=== PATIENT | female | born 1985 | race Caucasian/White ===

== ENCOUNTER 2020-05-30 09:53 | Outpatient (REF) | payer OTHER, SELFPAY | END 2020-05-30 09:54 | disposition home or self-care (01) | LOC: HO.LAB 09:53 | PROVIDERS: Visit Provider Internal Medicine | DX: Z20.828 Contact with and (suspected) exposure to other viral communicable diseases (principal) | CPT/HCPCS: U0003 ==

== ENCOUNTER 2020-09-14 10:07 | Outpatient (REF) | payer OTHER, SELFPAY | END 2020-09-14 10:08 | disposition home or self-care (01) | LOC: HO.LAB 10:07 | PROVIDERS: PCP Internal Medicine; Visit Provider Internal Medicine | DX: Z20.822 Contact with and (suspected) exposure to COVID-19 (principal) | CPT/HCPCS: 36415; C9803; U0003; U0005 ==

== ENCOUNTER 2021-04-14 09:08 | Emergency (ER) | payer OTHER, SELFPAY ==
--- NOTE | ~2021-04-14 | CT_ITS ---
EXAMINATION: CT ANGIOGRAM OF THE CHEST WITH AND WITHOUT CONTRAST (CT PULMONARY ANGIOGRAM FOR PE) CLINICAL INFORMATION: Reason for Exam cp/sob/abd pain COMPARISON: Previous chest CT December 2018 and chest x-ray from earlier the same day TECHNIQUE: Prior to contrast administration, noncontrast localization images were obtained. Subsequently, multidetector volumetric imaging was performed from the thoracic inlet to below the diaphragms following the administration of 85 mL Omnipaque 350 intravenous contrast. No contrast reaction reported Sagittal, coronal, and MIP oblique sagittal reformatted images were obtained on the CT workstation, uploaded to PACS, and reviewed. This CT examination was performed using dose optimization techniques as appropriate, variously including the following: *Automated exposure control *Adjustment of mA and/or kV according to patient size (this includes techniques or standardized protocols for targeted exams where dose is matched to indication/reason for exam; i.e. extremities or head) *Use of iterative reconstruction technique Total exam dose-length product 222 mGy-cm FINDINGS: QUALITY OF STUDY/CONTRAST BOLUS: Satisfactory. PULMONARY ARTERIES: No central or segmental pulmonary emboli. THORACIC AORTA: No aneurysm or dissection. LUNG: No focal consolidation, nodules or masses. PLEURA: No pleural effusion or pneumothorax. MEDIASTINUM: Normal heart size. No pericardial effusion. No hilar or mediastinal lymphadenopathy. No evidence of septal bowing or right heart strain. CHEST WALL/AXILLA: No axillary or internal mammary lymphadenopathy. OSSEOUS STRUCTURES: No acute or suspicious osseous abnormality. UPPER ABDOMEN: Unremarkable. No reflux of contrast into the hepatic veins to suggest elevated right heart pressures. CT/CT angio chest PE protocol IMPRESSION: Unremarkable exam. VTE: negative
--- NOTE | ~2021-04-14 | CT_ITS ---
EXAMINATION: CT ABDOMEN AND PELVIS WITH CONTRAST CLINICAL INFORMATION: Abdominal pain COMPARISON: Previous CT of the abdomen and pelvis April 2016 and abdominal ultrasound August 2016 and pelvic ultrasound June 2019 TECHNIQUE: Multidetector volumetric images were obtained from the superior aspect of the liver through the pubic symphysis following administration 85 mL of Omnipaque 350 intravenous contrast. Sagittal and coronal reformatted images were obtained on the technologist's workstation. Oral contrast: Yes This CT examination was performed using dose optimization techniques as appropriate, variously including the following: *Automated exposure control *Adjustment of mA and/or kV according to patient size (this includes techniques or standardized protocols for targeted exams where dose is matched to indication/reason for exam; i.e. extremities or head) *Use of iterative reconstruction technique DLP: 616 mGy-cm FINDINGS: LUNG BASES: The visualized lung bases are unremarkable. LIVER, GALLBLADDER, AND BILIARY TREE: The liver is normal in size, shape, and attenuation. No focal hepatic lesion or biliary ductal dilatation is present. The gallbladder is unremarkable with no evidence of radiopaque gallstones, gallbladder wall thickening, or obvious pericholecystic inflammatory changes. PANCREAS: Unremarkable. SPLEEN: Unremarkable. ADRENAL GLANDS: Unremarkable. KIDNEYS AND URETERS: The kidneys are normal in size, shape, and attenuation. No hydronephrosis, hydroureter, or calculi seen. No perinephric stranding. BLADDER: Unremarkable. GASTROINTESTINAL TRACT: The small and large bowel are unremarkable. The appendix is not seen. ABDOMINAL WALL: There is a small umbilical hernia containing fat. LYMPH NODES: Normal. VASCULAR: Unremarkable. PELVIC VISCERA: Unremarkable. OSSEOUS STRUCTURES: There is degenerative disc disease at L5-S1. CT/CT abdomen pelvis w con IMPRESSION: Small umbilical hernia containing fat otherwise unremarkable exam.
--- NOTE | ~2021-04-14 | XR_ITS ---
EXAMINATION: XR CHEST CLINICAL INFORMATION: Left upper quadrant, right upper quadrant pain. Chest pain. COMPARISON: None TECHNIQUE: 2 views of the chest were obtained. FINDINGS: No significant abnormality is noted involving the heart, lungs, mediastinum, bony thorax or soft tissues. XR/XR chest 2V IMPRESSION: Unremarkable chest examination.
[2021-04-14 10:21] VITALS: BP 131/92; PULSE 79; RESP 16; TEMP 36.9; O2SAT 99; BMI 23.7
--- NOTE | 2021-04-14 10:28 | ED.GENADULT ---
HPI - General Adult General Chief complaint: Upper Respiratory Symptoms Stated complaint: body ache, cough, headache Time Seen by Provider: 04/14/21 09:57 Source: patient Mode of arrival: ambulatory Limitations: no limitations History of Present Illness HPI narrative: This is a 35-year-old female who presents to the emergency department with multiple complaints. She states that today she is having upper abdominal pain that started 2 days ago and has been constant in nature. She describes as stabbing pain. This stomach pain does not radiate. She also notes that her stomach is more bloated than usual of late. She adds that she has been having centralized chest pain that radiates to her left arm, that started yesterday she says today it is intermittent in nature, and that she usually does not get chest pain. She also complains about left-sided neck pain, right under the mandible. She reports fatigue/muscleaches that has been constant for 2 days, and worsening. Shortness of breath is present, with exertion, also started 2 days ago. She denies fevers, trouble with urination, back pain, chills, nausea, vomiting and diarrhea. She denies recent travel, and being around anybody with COVID-19. Past medical history significant for anxiety, sarcoidosis, asthma, and fibromyalgia. Patient's last menstrual period was a week ago Onset (ago): day(s) (Two) Location: chest (Centralized chest pain with radiation to the left arm) and abdomen (Left and right upper quadrant pain.) Severity: moderate Severity scale (1-10): 8 Quality: stabbing (Stabbing chest pain) and constant (Constant abdominal pain) Related Data Previous Rx's Medication Instructions Recorded acetaminophen 500 mg tablet 1,000 mg PO QID PRN #14 tab 04/14/21 (Tylenol Extra Strength) cyclobenzaprine 10 mg tablet 10 mg PO Q8H #10 tab 04/14/21 Allergies Allergy/AdvReac Type Severity Reaction Status Date / Time morphine [MORPHINE] Allergy Intermediate RASH, Unverified 04/16/20 15:40 headache, redness, throat swelling sumatriptan [From IMITREX] Allergy Mild ITCHING Unverified 04/16/20 15:40 azithromycin Allergy Unknown facial Verified 11/21/19 00:00 redness penicillin V Allergy Unknown swollen, Unverified 02/25/20 00:00 swelling Penicillins [PENICILLINS] Allergy Unknown ANAPHYLAXIS Unverified 04/16/20 15:40 From IMITREX Allergy Mild ITCHING Uncoded 04/16/20 15:40 Review of Systems Constitutional: Constitutional: Reports fatigue and Reports malaise Eyes: Eyes: Reports no additional eye complaints ENT: Reports system reviewed and no additional complaints, except as documented Cardiovascular: Cardiovascular: Reports as per HPI, Reports chest pain (Chest pain with radiation to the left IM), Reports dyspnea and Reports dyspnea on exertion Respiratory: Respiratory: Reports dyspnea and Reports dyspnea on exertion Gastrointestinal: Gastrointestinal: Reports no additional gastrointestinal complaints Musculoskeletal: Musculoskeletal: Reports muscle weakness and Reports other (Complains of muscle fatigue) Endocrine: Endocrine: Reports fatigue [facility] Past Medical History Medical History (Updated 04/14/21 @ 13:53 by DAVON Stratton) Asthma Asthma Sarcoidosis Surgical History (Updated 04/14/21 @ 10:25 by Mattie Contreras) History of appendectomy Previous section Social History Social History Advance Directives: No Advance Directives Information Provided: No Patient : No Physical Exam Vital Signs: Vital Signs: Last Vital Signs Temp 97.9 F 04/14/21 12:53 Pulse 77 04/14/21 12:53 Resp 18 04/14/21 12:53 BP 120/74 04/14/21 12:53 Pulse Ox 100 04/14/21 12:53 Body Mass Index 23.7 vital signs have been reviewed as normal and appeared to be correct. Blood pressure normal. Heart rate normal. Respiration rate normal. Temperature normal. Oxygen saturation normal. Appearance: Alert. Oriented X3. No acute distress. Eyes: PERRLA. EOMI. Conjunctiva and sclera normal. Eyelids normal. No trismus noted. No drooling noted. No muffled voice noted. Neck: Normal inspection. Pain to the left side of the neck, inferior to the mandible. No masses or lumps noted. CVS: Normal heart rate and rhythm. Heart sound normal. Pulses normal throughout. No murmurs/rales/gallops. Respiratory: No respiratory distress. Painless inspiration. Breath sounds normal. No wheezes/rales/rhonchi noted. Chest nontender. No accessory muscle usage noted or decreased air movement noted. Abdomen: Soft and tender to palpation to the left and right upper quad acts Bowel sounds normal in all 4 quadrants. distention noted. No organomegaly noted. No visible injury noted. Back: No CVA tenderness. Full range of motion noted. No rashes/lesion/induration/fluctuance or signs of infection noted. Skin: Skin warm and dry. Normal skin color. Normal skin turgor. No rashes/lesions/lacerations noted. Extremities: No lower extremity edema. Extremities exhibit normal range of motion. Extremities nontender. Neuro: Oriented X 3. No motor deficit. No sensory deficit. Reflexes normal. Normal steady gait. No focal neuro deficits noted. Vascular: + radial pulses/+ 2 distal pedal pulses/+2 dorsalis pedis b/l. Normal cap refill. No cyanosis noted to upper extremity nails and lower extremity toes nails. Course Course Course Narrative: 10:40pm - This is a 35-year-old female who presents to the emergency department with multiple complaints.? She states that today she is having upper abdominal pain that started 2 days ago and has been constant in nature.? She describes as stabbing pain.? This stomach pain does not radiate.? She also notes that her stomach is more bloated than usual of late.? She adds that she has? been having centralized chest pain that radiates to her left arm, that started yesterday she says today it is intermittent in nature, and that she usually does not get chest pain.? She also complains about left-sided neck pain, right under the mandible.? She reports fatigue/muscleaches that has been constant for 2 days, and worsening.? Shortness of breath is present, with exertion, also started 2 days ago. ? Plan: ordered basic labs, chest x-ray, CT of the abdomen and chest, EKG and urine. Along with COVID RSV and flu swab. After carefully reviewing laboratory studies, urine, EKG, and imaging is probable that this is musculoskeletal in nature. It is unclear what is causing this patient's chest pain therefore, it is likely an atypical chest pain. There is no signs of serious cardiac etiologies. ACS, PE, myocarditis, pericarditis have all been ruled out. CT of abdomen and pelvis did reveal a small umbilical hernia that is not incarcerated, however it is unlikely that this is causing her abdominal pain. Medical Decision Making Lab Data Result diagrams: 04/14/21 11:39 04/14/21 11:39 Labs: Lab Results 04/14/21 04/14/21 04/14/21 Range/Units 10:28 10:28 11:39 WBC 7.9 (4.8-10.8) X10*3/uL RBC 4.22 (4.20-5.50) X10*6/uL Hgb 11.2 L (12.0-16.0) g/dl Hct 35.2 L (37-47) % MCV 83.4 (80-98) fL MCH 26.5 L (27.0-33.0) pg MCHC 31.8 (31.0-35.0) g/dl RDW 14.6 (11.0-16.0) % Plt Count 369 (160-400) X10*3/uL MPV 9.9 (9.4-12.3) fL Immature Gran % (Auto) 0.3 (0.0-0.4) % Neut % (Auto) 54.8 (45-73) % Lymph % (Auto) 36.5 (20-40) % [place] % (Auto) 5.7 (2-11) % Eos % (Auto) 1.9 (0-4) % Baso % (Auto) 0.8 (0-2) % Lymph # (Auto) 2.9 (1.2-4.9) X10*3/uL [place] # (Auto) 0.5 (0.1-1.2) X10*3/uL Eos # (Auto) 0.2 (0.0-0.4) X10*3/uL Baso # (Auto) 0.1 (0.0-0.2) X10*3/uL Abs Immat Gran (auto) 0.02 (0.00-0.03) X10*3/uL Absolute Neuts (auto) 4.3 (2.0-8.3) X10*3/uL Absolute Nucleated RBC 0.000 (0.0-0.012) X10*3/uL Nucleated RBC % (auto) 0.0 (0.0-0.2) /100WBC PT (9.9-13.0) SEC INR (0.9-1.1) Sodium (135-145) mmol/L Potassium (3.3-5.1) mmol/L Chloride (96-108) mmol/L Carbon Dioxide (22-29) mmol/L Anion Gap (12-20) BUN (9-16) mg/dL Creatinine (0.5-1.4) mg/dL Estim Creat Clear Calc Estimated GFR Random Glucose (60-115) mg/dL Calcium (8.4-10.2) mg/dL Magnesium (1.6-2.6) mg/dL Total Bilirubin (0.0-1.0) mg/dL AST (5-31) U/L ALT (0-31) U/L Alkaline Phosphatase (39-117) U/L Troponin I High Sens (<3.5-17.0) ng/L Total Protein (6.5-8.0) g/dL Albumin (3.5-5.0) g/dL Lipase (8-78) U/L Urine Color Urine Appearance Urine pH (5.0-8.0) Ur Specific [place] (1.005-1.025) Urine Protein (NEG-TRACE) MG/DL Urine Glucose (UA) (NEG) MG/DL Urine Ketones (NEG) MG/DL Urine Blood (NEG) Urine Nitrite (NEG) Ur Leukocyte Esterase (NEG) Urine RBC (0) /HPF Urine WBC (0-4) /HPF Ur Squamous Epith Cells /LPF Urine Bacteria /LPF Urine Mucus /LPF Urine Test (NEGATIVE) Coronavirus (PCR) NEGATIVE (Negative) Influenza Type A (PCR) NEGATIVE (Negative) Influenza Type B (PCR) NEGATIVE (Negative) RSV RNA Qual (PCR) NEGATIVE (Negative) S. pyogenes GrpA MAN Negative (Negative) 04/14/21 04/14/21 04/14/21 Range/Units 11:39 11:39 11:39 WBC (4.8-10.8) X10*3/uL RBC (4.20-5.50) X10*6/uL Hgb (12.0-16.0) g/dl Hct (37-47) % MCV (80-98) fL MCH (27.0-33.0) pg MCHC (31.0-35.0) g/dl RDW (11.0-16.0) % Plt Count (160-400) X10*3/uL MPV (9.4-12.3) fL Immature Gran % (Auto) (0.0-0.4) % Neut % (Auto) (45-73) % Lymph % (Auto) (20-40) % [place] % (Auto) (2-11) % Eos % (Auto) (0-4) % Baso % (Auto) (0-2) % Lymph # (Auto) (1.2-4.9) X10*3/uL [place] # (Auto) (0.1-1.2) X10*3/uL Eos # (Auto) (0.0-0.4) X10*3/uL Baso # (Auto) (0.0-0.2) X10*3/uL Abs Immat Gran (auto) (0.00-0.03) X10*3/uL Absolute Neuts (auto) (2.0-8.3) X10*3/uL Absolute Nucleated RBC (0.0-0.012) X10*3/uL Nucleated RBC % (auto) (0.0-0.2) /100WBC PT 10.8 (9.9-13.0) SEC INR 1.0 (0.9-1.1) Sodium 138 (135-145) mmol/L Potassium 4.4 (3.3-5.1) mmol/L Chloride 105 (96-108) mmol/L Carbon Dioxide 27 (22-29) mmol/L Anion Gap 10 L (12-20) BUN 14 (9-16) mg/dL Creatinine 0.77 (0.5-1.4) mg/dL Estim Creat Clear Calc 95.5 Estimated GFR > 60 Random Glucose 93 (60-115) mg/dL Calcium 9.8 (8.4-10.2) mg/dL Magnesium 2.2 (1.6-2.6) mg/dL Total Bilirubin 0.5 (0.0-1.0) mg/dL AST 14 (5-31) U/L ALT 11 (0-31) U/L Alkaline Phosphatase 69 (39-117) U/L Troponin I High Sens < 3.5 (<3.5-17.0) ng/L Total Protein 7.6 (6.5-8.0) g/dL Albumin 4.2 (3.5-5.0) g/dL Lipase 72 (8-78) U/L Urine Color Urine Appearance Urine pH (5.0-8.0) Ur Specific [place] (1.005-1.025) Urine Protein (NEG-TRACE) MG/DL Urine Glucose (UA) (NEG) MG/DL Urine Ketones (NEG) MG/DL Urine Blood (NEG) Urine Nitrite (NEG) Ur Leukocyte Esterase (NEG) Urine RBC (0) /HPF Urine WBC (0-4) /HPF Ur Squamous Epith Cells /LPF Urine Bacteria /LPF Urine Mucus /LPF Urine Test (NEGATIVE) Coronavirus (PCR) (Negative) Influenza Type A (PCR) (Negative) Influenza Type B (PCR) (Negative) RSV RNA Qual (PCR) (Negative) S. pyogenes GrpA MAN (Negative) 04/14/21 04/14/21 Range/Units 11:41 11:41 WBC (4.8-10.8) X10*3/uL RBC (4.20-5.50) X10*6/uL Hgb (12.0-16.0) g/dl Hct (37-47) % MCV (80-98) fL MCH (27.0-33.0) pg MCHC (31.0-35.0) g/dl RDW (11.0-16.0) % Plt Count (160-400) X10*3/uL MPV (9.4-12.3) fL Immature Gran % (Auto) (0.0-0.4) % Neut % (Auto) (45-73) % Lymph % (Auto) (20-40) % [place] % (Auto) (2-11) % Eos % (Auto) (0-4) % Baso % (Auto) (0-2) % Lymph # (Auto) (1.2-4.9) X10*3/uL [place] # (Auto) (0.1-1.2) X10*3/uL Eos # (Auto) (0.0-0.4) X10*3/uL Baso # (Auto) (0.0-0.2) X10*3/uL Abs Immat Gran (auto) (0.00-0.03) X10*3/uL Absolute Neuts (auto) (2.0-8.3) X10*3/uL Absolute Nucleated RBC (0.0-0.012) X10*3/uL Nucleated RBC % (auto) (0.0-0.2) /100WBC PT (9.9-13.0) SEC INR (0.9-1.1) Sodium (135-145) mmol/L Potassium (3.3-5.1) mmol/L Chloride (96-108) mmol/L Carbon Dioxide (22-29) mmol/L Anion Gap (12-20) BUN (9-16) mg/dL Creatinine (0.5-1.4) mg/dL Estim Creat Clear Calc Estimated GFR Random Glucose (60-115) mg/dL Calcium (8.4-10.2) mg/dL Magnesium (1.6-2.6) mg/dL Total Bilirubin (0.0-1.0) mg/dL AST (5-31) U/L ALT (0-31) U/L Alkaline Phosphatase (39-117) U/L Troponin I High Sens (<3.5-17.0) ng/L Total Protein (6.5-8.0) g/dL Albumin (3.5-5.0) g/dL Lipase (8-78) U/L Urine Color YELLOW Urine Appearance HAZY Urine pH 6.0 (5.0-8.0) Ur Specific [place] >= 1.030 H (1.005-1.025) Urine Protein NEG (NEG-TRACE) MG/DL Urine Glucose (UA) NEG (NEG) MG/DL Urine Ketones NEG (NEG) MG/DL Urine Blood TRACE (NEG) Urine Nitrite NEG (NEG) Ur Leukocyte Esterase NEG (NEG) Urine RBC 0-2 (0) /HPF Urine WBC 0-2 (0-4) /HPF Ur Squamous Epith Cells 3+ /LPF Urine Bacteria TRACE /LPF Urine Mucus 3+ /LPF Urine Test NEGATIVE (NEGATIVE) Coronavirus (PCR) (Negative) Influenza Type A (PCR) (Negative) Influenza Type B (PCR) (Negative) RSV RNA Qual (PCR) (Negative) S. pyogenes GrpA MAN (Negative) Imaging Data Chest x-ray: Attestation: I personally reviewed and interpreted this imaging study as follows: Radiologist's impression: FINDINGS: No significant abnormality is noted involving the heart, lungs, mediastinum, bony thorax or soft tissues. XR/XR chest 2V IMPRESSION: Unremarkable chest examination. Chest CTA: Attestation: I personally reviewed and interpreted this imaging study as follows: Radiologist's impression: FINDINGS: QUALITY OF STUDY/CONTRAST BOLUS: Satisfactory. PULMONARY ARTERIES: No central or segmental pulmonary emboli.? THORACIC AORTA: No aneurysm or dissection. LUNG: No focal consolidation, nodules or masses. PLEURA: No pleural effusion or pneumothorax. MEDIASTINUM: Normal heart size.? No pericardial effusion.? No hilar or mediastinal lymphadenopathy.? No evidence of septal bowing or right heart strain. CHEST WALL/AXILLA: No axillary or internal mammary lymphadenopathy. OSSEOUS STRUCTURES: No acute or suspicious osseous abnormality.? UPPER ABDOMEN: Unremarkable.? No reflux of contrast into the hepatic veins to suggest elevated right heart pressures. CT/CT angio chest PE protocol IMPRESSION: Unremarkable exam. ? VTE: negative CT of abdomen and pelvis: Attestation: I personally reviewed and interpreted this imaging study as follows: Radiologist's impression: FINDINGS: LUNG BASES: The visualized lung bases are unremarkable.? LIVER, GALLBLADDER, AND BILIARY TREE: The liver is normal in size, shape, and attenuation. No focal hepatic lesion or biliary ductal dilatation is present. The gallbladder is unremarkable with no evidence of radiopaque gallstones, gallbladder wall thickening, or obvious pericholecystic inflammatory changes.? PANCREAS: Unremarkable.? SPLEEN: Unremarkable.? ADRENAL GLANDS: Unremarkable.? KIDNEYS AND URETERS: The kidneys are normal in size, shape, and attenuation. No hydronephrosis, hydroureter, or calculi seen. No perinephric stranding. ? BLADDER: Unremarkable.? GASTROINTESTINAL TRACT: The small and large bowel are unremarkable. The appendix is not seen.? ABDOMINAL WALL: There is a small umbilical hernia containing fat.? LYMPH NODES: Normal. VASCULAR: Unremarkable. PELVIC VISCERA: Unremarkable.? OSSEOUS STRUCTURES: There is degenerative disc disease at L5-S1.? CT/CT abdomen pelvis w con IMPRESSION: Small umbilical hernia containing fat otherwise unremarkable exam. ECG Data Attestation: I personally reviewed and interpreted this ECG as follows: Prior ECG tracings: not available for review Interpretation: Normal sinus rhythm with a normal ECG with a ventricular rate of 67 ME interval normal QRS normal QT/QTC Jennifer no ischemic changes noted. No previous EKG to compare. Discharge Plan Discharge Clinical Impression: Atypical chest pain, Abdominal pain, Back pain, Hernia, umbilical Patient Disposition: Home, Self-Care Instructions: Umbilical Hernia (ED), Abdominal Pain (ED), Back Pain (ED), Noncardiac Chest Pain (ED) Prescriptions: New cyclobenzaprine 10 mg tablet 10 mg PO Q8H Qty: 10 RF: 0 acetaminophen [Tylenol Extra Strength] 500 mg tablet 1,000 mg PO QID PRN (Reason: fever or pain) Qty: 14 RF: 0 Referrals: Doroteo Jaffe MD [Physician] - 2 weeks (You can choose to follow up with general surgery, to discuss treatment options for your umbilical hernia.) Josefina Stacy MD [Primary Care Provider] - 2 days Stand Alone Forms: Work/School Release Print Language: [place]ian
--- NOTE | 2021-04-14 10:37 | ECG_ITS ---
Test Reason : SOB Blood Pressure : / mmHG Vent. Rate : 067 BPM Atrial Rate : 067 BPM P-R Int : 160 ms QRS Dur : 080 ms QT Int : 418 ms P-R-T Axes : 033 046 037 degrees QTc Int : 441 ms Normal sinus rhythm Normal ECG When compared with ECG of 05-DEC-2014 21:23, No significant change was found Referred By: Ketty Schaeffer Electronically Signed By:ALICE APODACA
[2021-04-14 10:47] LABS: IDNOW Serial# 9DD0AD1C; Strep A Nucleic Acid Negative (Negative)
[2021-04-14 11:30] LABS: Influenza A PCR NEGATIVE (Negative); Influenza B PCR NEGATIVE (Negative); Resp Syncy Virus RNA Qual PCR NEGATIVE (Negative); SARS COV2 PCR INHOUSE NEGATIVE (Negative)
[2021-04-14 11:46] LABS: MANUAL DIFF FLAG NO
[2021-04-14 11:47] LABS: Appearance Urine HAZY; Color Urine YELLOW; Glucose Urine UA NEG (NEG); Leukocyte Esterase Urine NEG (NEG); Nitrite Urine NEG (NEG); Specific Gravity - Urine >= 1.030 (1.005-1.025); UACC Culture Trigger NO; Urine Blood TRACE (NEG); Urine Ketones NEG (NEG); Urine Protein NEG (NEG-TRACE)
[2021-04-14 11:47] LABS: Basophils Absolute Auto 0.1 X10*3/uL (0.0-0.2); Basophils Percent Auto 0.8 % (0-2); Eosinophils Absolute Auto 0.2 X10*3/uL (0.0-0.4); Eosinophils Percent Auto 1.9 % (0-4); Hematocrit 35.2 % (37-47); Hemoglobin 11.2 g/dl (12.0-16.0); Imm Gran Abs Auto 0.02 X10*3/uL (0.00-0.03); Imm Gran Pct Auto 0.3 % (0.0-0.4); Lymphocytes Absolute Auto 2.9 X10*3/uL (1.2-4.9); Lymphocytes Percent Auto 36.5 % (20-40); Mean Corpuscular HGB Conc 31.8 g/dl (31.0-35.0); Mean Corpuscular Hemoglobin 26.5 pg (27.0-33.0); Mean Corpuscular Volume 83.4 fL (80-98); Mean Platelet Volume 9.9 fL (9.4-12.3); Monocytes Absolute Auto 0.5 X10*3/uL (0.1-1.2); Monocytes Percent Auto 5.7 % (2-11); Neutrophils Absolute Auto 4.3 X10*3/uL (2.0-8.3); Neutrophils Percent Auto 54.8 % (45-73); Platelet Count 369 X10*3/uL (160-400); Red Blood Count 4.22 X10*6/uL (4.20-5.50); Red Cell Distribution Width 14.6 % (11.0-16.0); White Blood Count 7.9 X10*3/uL (4.8-10.8)
[2021-04-14] MEDS: 0.9 % Sodium Chloride 1,000 ML 999 ML IVCONT (11:50)
[2021-04-14] MEDS: Ketorolac Tromethamine 15 MG/ML VIAL 30 MG IVPUSH (11:50)
[2021-04-14 11:56] LABS: WBC Urine 0-2 /HPF (0-4)
[2021-04-14 11:57] LABS: Bacteria Urine TRACE /LPF; Mucus Urine 3+ /LPF; RBC Urine 0-2 /HPF (0); Squamous Epithelial Cell Urine 3+ /LPF
[2021-04-14 11:57] LABS: Prothrombin Time 10.8 SEC (9.9-13.0)
[2021-04-14 12:10] LABS: UPreg QC Valid YES
[2021-04-14 12:11] LABS: Urine Pregnancy NEGATIVE (NEGATIVE)
[2021-04-14 12:16] LABS: Alanine Aminotransferase 11 U/L (0-31); Albumin Level 4.2 g/dL (3.5-5.0); Alkaline Phosphatase 69 U/L (39-117); Anion Gap 10 (12-20); Aspartate Amino Transferase 14 U/L (5-31); Bilirubin Total 0.5 mg/dL (0.0-1.0); Blood Urea Nitrogen 14 mg/dL (9-16); Calcium 9.8 mg/dL (8.4-10.2); Carbon Dioxide 27 mmol/L (22-29); Chloride 105 mmol/L (96-108); Creatinine Clr Calc Pharmacy 95.5; Estimated Glomerular Filt Rate > 60; Glucose Random 93 mg/dL (60-115); Lipase 72 U/L (8-78); Magnesium 2.2 mg/dL (1.6-2.6); Potassium 4.4 mmol/L (3.3-5.1); Sodium 138 mmol/L (135-145); Total Protein 7.6 g/dL (6.5-8.0)
[2021-04-14 12:38] LABS: Troponin-I High Sensitivity < 3.5 ng/L (<3.5-17.0)
[2021-04-14 12:53] VITALS: BP 120/74; PULSE 77; RESP 18; TEMP 36.6; O2SAT 100
[2021-04-14] MEDS: iohexoL 350 MG/ML 100 ML INFUS..BTL 85 ML IV (13:19)
== END 2021-04-14 14:07 | disposition home or self-care (01) ==
PROVIDERS: Physician Assistant Medical; Emergency Provider Emergency Medicine; PCP Internal Medicine
DX: M79.10 Myalgia, unspecified site (principal); R51.9 Headache, unspecified; R07.89 Other chest pain; M54.5 Low back pain; K42.9 Umbilical hernia without obstruction or gangrene; Z79.899 Other long term (current) drug therapy
CPT/HCPCS: 0241U; 36415; 71046; 71275; 74177; 80053; 81001; 81025; 83690; 83735; 84484; 85025; 85610; 87651; 93005; 96361; 96374; 99284; J1885; Q9967

== ENCOUNTER → 2021-04-15 10:57 | Outpatient (BNVA) | payer OTHER, SELFPAY | PROVIDERS: PCP Internal Medicine; Visit Provider Nurse Practitioner Family | DX: I73.00 Raynaud's syndrome without gangrene (principal); M41.25 Other idiopathic scoliosis, thoracolumbar region; M25.50 Pain in unspecified joint | CPT/HCPCS: 99212 ==

== ENCOUNTER 2021-07-13 14:50 | Emergency (ER) | payer OTHER, SELFPAY ==
[2021-07-13 15:05] VITALS: BP 155/86; PULSE 78; RESP 18; TEMP 36.1; O2SAT 98; BMI 26.3
== END 2021-07-13 18:44 | disposition left against medical advice (07) ==
PROVIDERS: Emergency Provider Emergency Medicine; PCP Internal Medicine
DX: J02.9 Acute pharyngitis, unspecified (principal)
CPT/HCPCS: 99281; 99282

== ENCOUNTER 2021-07-16 15:55 | Emergency (ER) | payer OTHER, SELFPAY ==
--- NOTE | ~2021-07-16 | XR_ITS ---
EXAMINATION: X-RAY CHEST X-RAY SOFT TISSUES OF THE NECK CLINICAL INFORMATION: Lump sensation in the throat. COMPARISON: CTA of the chest dated from 04/14/2021. TECHNIQUE: PA view of the chest. AP and lateral views of the soft tissues of the neck. FINDINGS: Chest: Normal appearance of the cardiomediastinal silhouette. Clear lungs. No pleural effusions or pneumothorax. No acute osseous abnormalities. Soft tissues of the neck: No unexpected radiopaque foreign bodies. Patent airways. No prevertebral soft tissue thickening. No acute osseous fractures or malalignment within the visualized cervical spine. XR/XR soft tissue neck IMPRESSION: No unexpected radiopaque foreign bodies to explain the patient's symptoms. Clear lungs. No acute cervical spinal fractures or malalignment.
--- NOTE | ~2021-07-16 | XR_ITS ---
EXAMINATION: X-RAY CHEST X-RAY SOFT TISSUES OF THE NECK CLINICAL INFORMATION: Lump sensation in the throat. COMPARISON: CTA of the chest dated from 04/14/2021. TECHNIQUE: PA view of the chest. AP and lateral views of the soft tissues of the neck. FINDINGS: Chest: Normal appearance of the cardiomediastinal silhouette. Clear lungs. No pleural effusions or pneumothorax. No acute osseous abnormalities. Soft tissues of the neck: No unexpected radiopaque foreign bodies. Patent airways. No prevertebral soft tissue thickening. No acute osseous fractures or malalignment within the visualized cervical spine. XR/XR chest 1V IMPRESSION: No unexpected radiopaque foreign bodies to explain the patient's symptoms. Clear lungs. No acute cervical spinal fractures or malalignment.
[2021-07-16 16:16] VITALS: BP 145/75; PULSE 80; RESP 18; TEMP 36.9; O2SAT 98; BMI 26.3
[2021-07-16 17:20] LABS: IDNOW Serial# 9DD0AD1C; Strep A Nucleic Acid Negative (Negative)
[2021-07-16 17:23] LABS: COVID-19 Test Negative (Negative)
--- NOTE | 2021-07-16 17:52 | ED.URI ---
HPI - URI/Sore Throat General Chief Complaint: Upper Respiratory Symptoms Stated Complaint: neck and throat pain Time Seen by Provider: 07/16/21 16:52 Source: patient Mode of arrival: ambulatory History of Present Illness HPI Narrative: 36-year-old female with a past medical history of asthma, sarcoidosis, sinusitis recently started on doxycycline on 07/13, known hernia, presenting to the ED complaining of feeling like there is a lump in her throat x2 weeks. Reports difficulty swallowing secondary to sensation. Also reports tongue swelling after starting Doxycycline, subsequently stopped and tongue swelling resolved. Denies tongue swelling at present. Patient was recently seen at PCP office on 07/13 and 07/14, prescribed Protonix which she has not picked up yet. Reports pain now radiating from neck to head/left upper back. Denies known injury/trauma or fall, SOB, CP, fever, chills MD elicited complaint: sore throat Related Data Home Medications Medication Instructions Recorded Confirmed albuterol sulfate 90 mcg/actuation 2 puff INHALATION Q6H PRN 04/15/21 07/14/21 aerosol inhaler (ProAir HFA) Previous Rx's Medication Instructions Recorded acetaminophen 500 mg tablet 1,000 mg PO QID PRN #14 tab 04/14/21 (Tylenol Extra Strength) cyclobenzaprine 10 mg tablet 10 mg PO Q8H #10 tab 04/14/21 naproxen 500 mg tablet (Naprosyn) 500 mg PO BID PRN #30 tab 07/13/21 pantoprazole 20 mg tablet,delayed 20 mg PO DAILY #30 tab 07/14/21 release aluminum-mag hydroxide-simethicone 5 ml PO 5XD PRN #30 ml 07/16/21 200 mg-200 mg-20 mg/5 mL oral susp (Maalox Advanced) famotidine 20 mg tablet (Pepcid) 20 mg PO DAILY #14 tab 07/16/21 levofloxacin 750 mg tablet 750 mg PO DAILY #5 tab 07/16/21 Allergies Allergy/AdvReac Type Severity Reaction Status Date / Time morphine [MORPHINE] Allergy Intermediate RASH, Verified 07/16/21 16:16 headache, redness, throat swelling sumatriptan [From IMITREX] Allergy Mild ITCHING Verified 07/16/21 16:16 azithromycin Allergy Unknown facial Verified 07/16/21 16:16 redness penicillin V Allergy Unknown swollen, Verified 07/16/21 16:16 swelling Penicillins [PENICILLINS] Allergy Unknown ANAPHYLAXIS Verified 07/16/21 16:16 From IMITREX Allergy Mild ITCHING Uncoded 07/14/21 09:53 Review of Systems Review of Systems: Constitutional: No Fever, No Chills, No Night Sweats, No Fatigue, No Malaise ENT/Mouth: No Ear Pain, No Nasal Congestion, +Sinus Pain, No Hoarseness, +sore throat, No Rhinorrhea, + Swallowing Difficulty Eyes: No Eye Pain, No Discharge, No Vision Changes Cardiovascular: No Chest Pain, No SOB, No Edema, No Palpitations Respiratory: No Cough, No Wheezing, No Dyspnea Gastrointestinal: No Nausea, No Vomiting, No Diarrhea, No Constipation, No Abdominal pain Genitourinary:No Dysuria, No Urinary Frequency, No Hematuria,No Urgency Musculoskeletal: + joint pain, + Myalgias, No Joint Swelling Skin: No Skin Lesions, No rash Neuro: No Weakness, No Numbness, No Paresthesias, No Loss of Consciousness, No Dizziness, + Headache Yes all other systems are reviewed and are negative [facility] Past Medical History Attestation statement: The following information was validated with the patient. Medical History Asthma Asthma Sarcoidosis Surgical History H/O esophagogastroduodenoscopy History of appendectomy History of tubal ligation Previous section Social History Social History Alcohol intake: never Patient Tobacco Use Status: Never used Tobacco e-Cigarette/Vaping Use: Never Used Advance Directives: No Advance Directives Information Provided: Yes Physical Exam Vital Signs: Vital Signs: Last Vital Signs Temp 98.4 F 07/16/21 16:16 Pulse 80 07/16/21 16:16 Resp 18 07/16/21 16:16 BP 145/75 H 07/16/21 16:16 Pulse Ox 98 07/16/21 16:16 BMI result Body Mass Index 26.3 Const: General: cooperative, healthy appearing, no acute distress, alert, awake and Physically active Orientation/consciousness: patient oriented x3 Limitations: no limitations HENMT: Head: Yes normal to inspection and Yes atraumatic Ears: hearing grossly normal bilaterally, external ears normal, TM normal on the right, mastoids normal and unable to visualize TM on the left (Due to cerumen impaction) General nose exam: Normal external nose present Face and sinus: Yes normal facial exam Mouth: Normal oral and palatal mucosa present, no drooling, no muffled voice, normal tongue and no trismus Throat: Yes posterior oropharynx normal, Yes tonsils normal, Yes uvula midline, No peritonsillar mass, No uvula laterally displaced and No uvular edema Eyes: General: appearance normal, both eyes and all related structures EOM: EOMs intact bilaterally Neck: Other: No midline cervical spinous tenderness. Bilateral paraspinal tenderness/bilateral trapezius muscle ttp Neck: Yes normal visual inspection Resp: Effort & Inspection: normal respiratory effort and no stridor Auscultation: clear to auscultation bilaterally, no rales, no rhonchi and no wheezes Cardio: Rate: regular rate Heart sounds: S1 normal heart sound present and S2 normal heart sound present GI: Inspection: Yes normal to inspection Back/Spine/Pelvis: Other: No midline thoracic/lumbar spinous tenderness Skin: Rashes: no rashes Wounds: no wounds Neuro: General: patient oriented x3 Gait exam (Neuro): Normal gait present Extrem: General: Yes normal to inspection Course Course Course Narrative: XR soft tissue neck / XR chest 1V IMPRESSION: No unexpected radiopaque foreign bodies to explain the patient's symptoms. Clear lungs. No acute cervical spinal fractures or malalignment.? -Pt tolerated PO without difficulty in the ED >> results discussed with patient including worrisome signs and symptoms/strict return precautions and needed follow-up with PCP/GI/ENT. Patient verbalized understanding feel safe for discharge home MDM - URI/Sore Throat MDM Narrative Medical decision making narrative: 36-year-old female with a past medical history of asthma, sarcoidosis, sinusitis recently started on Doxycycline on 07/13, known hernia, presenting to the ED complaining of feeling like there is a lump in her throat x2 weeks. Reports difficulty swallowing secondary to sensation. Also reports tongue swelling after starting Doxycycline. On exam vital signs stable, NAD/nontoxic, no respiratory distress, no evidence of intraoral swelling, talking in complete sentences, lungs CTA. Symptoms likely from GERD. Low concern for throat FB, no evidence of intraoral infection. Neck pain likely musculoskeletal and reproducible. Low concern for meningitis/cervical dissection Concern for allergic reaction to Doxycycline, instructed patient to stop taking, will initiate Levaquin 750mg daily x5 days plan: Soft tissue neck x-ray, CXR, ear irrigation, symptomatic treatment Medical Records Attestation: I reviewed the patient's medical records. Lab Data Attestation: I reviewed the patient's lab results. Labs: Lab Results 07/16/21 07/16/21 Range/Units 16:24 16:24 COVID-19 (JANIS) Negative (Negative) COVID-19 Clin Com See Note S. pyogenes GrpA MAN Negative (Negative) Procedures Ear Wax Removal Left Ear: Cerumenolytic Used: 5-10% Sodium Bicarb solution Results: Re-examined: cerumen removed completely TM Examination: TM(s) intact, normal appearance Ear Canal Exam: atraumatic Patient Tolerated Procedure: well Complications: vertigo/dizziness Technique: ear canal irrigated Discharge Plan Discharge Clinical Impression: Sensation of foreign body in throat, Acute neck pain Sinusitis Qualifiers: Sinusitis location: unspecified location Chronicity: unspecified Qualified Code(s): J32.9 - Chronic sinusitis, unspecified Patient Disposition: Home, Self-Care Instructions: Sinusitis (ED), Neck Pain (ED) Additional Instructions: The x-rays of your neck and chest are unremarkable You likely had an allergic reaction to Doxycycline, Levaquin is different antibiotic, stop taking Doxycycline and start taking Levaquin Maalox and Pepcid will help with acid reduction Also take Tylenol for pain Please follow-up with your primary care doctor, GI, and ENT specialist If symptoms persist or worsen, you have fever, you are unable to eat or drink please return to the ED Las radiograf?as de vega fabiana y pecho no son notables. Es probable que haya tenido celestino reacci?n al?rgica a la doxiciclina, Levaquin es un antibi?alex diferente, deje de luli Doxiciclina y comience a luli Levaquin. Maalox y Pepcid ayudar?n con la reducci?n del ?cido. Abimael un seguimiento con vega m?dico de atenci?n primaria, gastroenter?logo y otorrinolaring?logo. Si los s?ntomas persisten o empeoran, tiene fiebre, no puede comer ni beber, vuelva al servicio de urgencias. Prescriptions: New levofloxacin 750 mg tablet 750 mg PO DAILY Qty: 5 RF: 0 famotidine [Pepcid] 20 mg tablet 20 mg PO DAILY Qty: 14 RF: 0 alum-mag hydroxide-simeth [Maalox Advanced] 200-200-20 mg/5 mL suspension 5 ml PO 5XD PRN (Reason: dyspepsia) Qty: 30 RF: 0 Discontinued doxycycline hyclate 100 mg tablet 100 mg PO BID 7 Days Qty: 14 RF: 0 No Action cyclobenzaprine 10 mg tablet 10 mg PO Q8H Qty: 10 RF: 0 acetaminophen [Tylenol Extra Strength] 500 mg tablet 1,000 mg PO QID PRN (Reason: fever or pain) Qty: 14 RF: 0 naproxen [Naprosyn] 500 mg tablet 500 mg PO BID PRN (Reason: pain) Qty: 30 RF: 0 pantoprazole 20 mg tablet,delayed release (DR/EC) 20 mg PO DAILY Qty: 30 RF: 0 albuterol sulfate [ProAir HFA] 90 mcg/actuation HFA aerosol inhaler 2 puff inhalation Q6H PRNRF: 0 Referrals: Zachery Acuna MD [Physician] - 1 week Moiz Newton [Physician] - 1 week Josefina Stacy MD [Primary Care Provider] - 2 days Print Language: Malay
[2021-07-16] MEDS: Famotidine 20 MG TABLET PO (18:58)
[2021-07-16] MEDS: Magnesium Hydrox/Alum Hydrox 30 ML ORAL.SUSP PO (18:58)
[2021-07-16] MEDS: Lidocaine HCl Viscous 2 % 15 ML SOLUTION MUCOUS MEM (18:58)
== END 2021-07-16 19:02 | disposition home or self-care (01) ==
PROVIDERS: Emergency Provider Emergency Medicine; PCP Internal Medicine
DX: J32.9 Chronic sinusitis, unspecified (principal); M54.2 Cervicalgia; R09.89 Other specified symptoms and signs involving the circulatory and respiratory systems; Z20.822 Contact with and (suspected) exposure to COVID-19; Z79.899 Other long term (current) drug therapy
CPT/HCPCS: 36415; 70360; 71045; 87635; 87651; 99282; 99283

== ENCOUNTER → 2021-08-06 07:23 | Outpatient (BNVA) | payer OTHER, SELFPAY | PROVIDERS: PCP Internal Medicine; Referring Provider Internal Medicine; Visit Provider Nurse Practitioner | DX: K21.9 Gastro-esophageal reflux disease without esophagitis (principal); K59.00 Constipation, unspecified; R14.0 Abdominal distension (gaseous) | CPT/HCPCS: 99212 ==

== ENCOUNTER 2021-08-27 08:48 | Outpatient (REF) | payer OTHER, SELFPAY ==
[2021-08-27 09:11] LABS: MANUAL DIFF FLAG NO
[2021-08-27 09:30] LABS: Basophils Absolute Auto 0.1 X10*3/uL (0.0-0.2); Basophils Percent Auto 0.7 % (0-2); Eosinophils Absolute Auto 0.2 X10*3/uL (0.0-0.4); Eosinophils Percent Auto 2.5 % (0-4); Hematocrit 37.6 % (37.0-47.0); Hemoglobin 11.7 g/dl (12.0-16.0); Imm Gran Abs Auto 0.02 X10*3/uL (0.00-0.03); Imm Gran Pct Auto 0.2 % (0.0-0.4); Lymphocytes Absolute Auto 3.1 X10*3/uL (1.2-4.9); Lymphocytes Percent Auto 38.5 % (20-40); Mean Corpuscular HGB Conc 31.1 g/dl (31.0-35.0); Mean Corpuscular Hemoglobin 26.3 pg (27.0-33.0); Mean Corpuscular Volume 84.5 fL (80.0-98.0); Monocytes Absolute Auto 0.4 X10*3/uL (0.1-1.2); Monocytes Percent Auto 5.1 % (2-11); Neutrophils Absolute Auto 4.3 x10*3/uL (2.0-8.3); Platelet Count 347 X10*3/uL (160-400); Red Blood Count 4.45 X10*6/uL (4.20-5.50); Red Cell Distribution Width 14.6 % (11.0-16.0); White Blood Count 8.1 X10*3/uL (4.8-10.8)
[2021-08-27 10:25] LABS: Alanine Aminotransferase 13 U/L (0-31); Albumin Level 4.1 g/dL (3.5-5.0); Alkaline Phosphatase 63 U/L (39-117); Anion Gap 11 (12-20); Aspartate Amino Transferase 14 U/L (5-31); Bilirubin Total 0.5 mg/dL (0.0-1.0); Blood Urea Nitrogen 13 mg/dL (9-16); Calcium 9.2 mg/dL (8.4-10.2); Carbon Dioxide 26 mmol/L (22-29); Chloride 106 mmol/L (96-108); Cholesterol 186 mg/dL; Estimated Glomerular Filt Rate > 60; Glucose Fasting 101 mg/dL (60-99); HDL Cholesterol 30 mg/dL; LDL Cholesterol Calculated 109 mg/dl; Potassium 4.4 mmol/L (3.3-5.1); Rheumatoid Factor < 15.0 IU/mL (<15.0); Sodium 139 mmol/L (135-145); Triglycerides 238 mg/dL
[2021-08-30 13:17] LABS: Anti Nuclear Antibody Screen NEGATIVE (NEGATIVE)
[2021-08-30 13:36] LABS: Anti DNA DS Antibody 5 IU/mL
[2021-09-01 15:27] LABS: Cyclic Citrullinated Peptide <16 UNITS
[2021-09-01 17:51] LABS: Vitamin D 25-OH, D2 <4 ng/mL; Vitamin D 25-OH, D3 12 ng/mL; Vitamin D 25-OH, Total 12 ng/mL (30-100)
== END 2021-08-27 08:49 | disposition home or self-care (01) ==
LOC: HO.LAB 08:48
PROVIDERS: PCP Internal Medicine; Visit Provider Internal Medicine
DX: Z00.00 Encounter for general adult medical examination without abnormal findings (principal); E78.5 Hyperlipidemia, unspecified; M25.50 Pain in unspecified joint; E55.9 Vitamin D deficiency, unspecified
CPT/HCPCS: 36415; 80053; 80061; 82306; 85025; 86038; 86039; 86200; 86225; 86431

== ENCOUNTER → 2021-08-31 09:12 | Outpatient (BNVA) | payer OTHER, SELFPAY | PROVIDERS: PCP Internal Medicine; Visit Provider Internal Medicine Pulmonary Disease | DX: D86.9 Sarcoidosis, unspecified (principal); J40 Bronchitis, not specified as acute or chronic | CPT/HCPCS: 99212 ==

== ENCOUNTER → 2021-10-04 14:45 | Outpatient (BNVA) | payer OTHER, SELFPAY | PROVIDERS: PCP Internal Medicine; Referring Provider Internal Medicine; Visit Provider Nurse Practitioner | DX: K21.9 Gastro-esophageal reflux disease without esophagitis (principal); K59.00 Constipation, unspecified; R14.0 Abdominal distension (gaseous) | CPT/HCPCS: 99212 ==

== ENCOUNTER 2021-10-11 11:32 | Outpatient (REF) | payer OTHER, SELFPAY ==
--- NOTE | ~2021-10-11 | XR_ITS ---
EXAMINATION: XR CHEST CLINICAL INFORMATION: D86.9 - Sarcoidosis, unspecified; history COVID. COMPARISON: Chest radiographs 07/16/2021, 04/14/2021; CTA chest 04/14/2021 TECHNIQUE: 2 views of the chest were obtained. FINDINGS: No airspace consolidation or groundglass opacity or effusion. No nodularity. The costophrenic sulci are clear. The heart is normal in size. No visible adenopathy. The hilar and mediastinal contours and bony structures are similar to prior exams. XR/XR chest 2V IMPRESSION: Unremarkable examination.
== END 2021-10-11 11:33 | disposition home or self-care (01) ==
LOC: HO.XRAY 11:32
PROVIDERS: PCP Internal Medicine; Visit Provider Internal Medicine Pulmonary Disease
DX: K42.9 Umbilical hernia without obstruction or gangrene (principal); D86.9 Sarcoidosis, unspecified; J45.909 Unspecified asthma, uncomplicated; U09.9 Post COVID-19 condition, unspecified
CPT/HCPCS: 71046; 99202; 99212

== ENCOUNTER 2021-11-05 09:44 | Outpatient (REF) | payer OTHER, SELFPAY ==
--- NOTE | 2021-11-05 11:39 | PFT_ITS ---
INDICATION: Asthma. SPIROMETRY: FEV1 to FVC of 82% with an FEV1 of 2.78 L, which is 84% predicted. FVC of 3.37 L, which is 86% predicted. No significant response to bronchodilators noted. The maximum voluntary ventilation is 78% predicted. LUNG VOLUMES: Total lung capacity 80% predicted. DIFFUSION CAPACITY: DLCO 80% predicted. COMPARISONS: None. INTERPRETATION: No definitive obstructive nor restrictive ventilatory defects identified. No significant response to bronchodilators noted. The patient does have evidence of small airway disease, which is likely related to her diagnosis of asthma. There is also mild decrease in maximum voluntary ventilation, which could be related to deconditioning, however, cannot rule out neuromuscular conditions. The patient's lung volumes are low normal. In addition to that her diffusion capacity is within normal limits. Clinical correlation warranted. MD NICOLE Santiago/MODAraceli / [phone]
== END 2021-11-05 09:45 | disposition home or self-care (01) ==
LOC: HO.RESP 09:44
PROVIDERS: PCP Internal Medicine; Visit Provider Internal Medicine Pulmonary Disease
DX: J45.909 Unspecified asthma, uncomplicated (principal)
CPT/HCPCS: 94060; 94727; 94729

== ENCOUNTER 2021-12-30 09:43 | Outpatient (REF) | payer OTHER, SELFPAY ==
[2021-12-30 10:39] LABS: MANUAL DIFF FLAG NO
[2021-12-30 11:26] LABS: Basophils Absolute Auto 0.1 X10*3/uL (0.0-0.2); Basophils Percent Auto 0.7 % (0-2); Eosinophils Absolute Auto 0.1 X10*3/uL (0.0-0.4); Eosinophils Percent Auto 1.2 % (0-4); Hematocrit 35.9 % (37.0-47.0); Hemoglobin 11.2 g/dl (12.0-16.0); Imm Gran Abs Auto 0.02 X10*3/uL (0.00-0.03); Imm Gran Pct Auto 0.2 % (0.0-0.4); Lymphocytes Absolute Auto 2.7 X10*3/uL (1.2-4.9); Lymphocytes Percent Auto 32.4 % (20-40); Mean Corpuscular HGB Conc 31.2 g/dl (31.0-35.0); Mean Corpuscular Hemoglobin 26.4 pg (27.0-33.0); Mean Corpuscular Volume 84.5 fL (80.0-98.0); Mean Platelet Volume 10.1 fL (9.4-12.3); Monocytes Absolute Auto 0.4 X10*3/uL (0.1-1.2); Monocytes Percent Auto 5.1 % (2-11); Neutrophils Absolute Auto 4.9 x10*3/uL (2.0-8.3); Neutrophils Percent Auto 60.4 % (45-73); Platelet Count 343 X10*3/uL (160-400); Red Blood Count 4.25 X10*6/uL (4.20-5.50); Red Cell Distribution Width 14.5 % (11.0-16.0); White Blood Count 8.2 X10*3/uL (4.8-10.8)
== END 2021-12-30 09:44 | disposition home or self-care (01) ==
LOC: HO.LAB 09:43
PROVIDERS: PCP Internal Medicine; Visit Provider Internal Medicine Pulmonary Disease
DX: D86.9 Sarcoidosis, unspecified (principal); J45.909 Unspecified asthma, uncomplicated; Z91.09 Other allergy status, other than to drugs and biological substances
CPT/HCPCS: 36415; 82785; 85025; 86003; 99212

== ENCOUNTER 2022-01-18 07:56 | Day surgery (SDC) | payer OTHER, SELFPAY ==
[2022-01-11 14:20] VITALS: BMI 25.9
--- NOTE | 2022-01-17 09:52 | HO.ANESPROP2 ---
Documented by User: Elva Bradford NP 01/17/22 09:55 HPI - Anesthesia Eval Consult details Narrative: 36yo F for Hernia Repair Umbilical with mesh PMFSH Active Problems Active Problems: All Active Problems (Updated 12/30/21 @ 10:22 by Jassi Bailey MD) Environmental allergies (Acute) Mild recurrent major depression (Acute) Multiple allergies (Acute) Hyperglycemia (Acute) Post covid-19 condition, unspecified (Acute) Bronchitis (Acute) Sarcoidosis (Acute) Throat discomfort (Acute) Umbilical hernia (Acute) Physical exam (Acute) Abdominal bloating (Acute) Sinusitis, acute maxillary (Acute) Depression (Acute) Constipation (Acute) GERD (gastroesophageal reflux disease) (Acute) Asthma (Acute) Arthralgia (Acute) Idiopathic scoliosis of thoracolumbar region (Acute) Raynauds phenomenon (Acute) Past Medical History Medical History (Updated 01/18/22 @ 09:37 by Mandi Maciel MD) Asthma Family History Family History Father Essential hypertension Mother Essential hypertension Diabetes mellitus Surgical History Surgical History H/O esophagogastroduodenoscopy History of appendectomy History of tubal ligation Previous section Social History Social History Housing: Apartment Alcohol intake: never Patient Tobacco Use Status: Former Tobacco user Tobacco use type: Cigarette Smoked in Last 30 Days: No e-Cigarette/Vaping Use: Never Used Second Hand Smoke Exposure: No Use of substances other than those prescribed or required for medical reasons: No Are you DNR?: No Advance Directives: No Advance Directives Information Provided: Yes Recently lost weight without trying: No Nutrition Risks: No Nutritional Risk Patient : No service: No Current occupational status: unemployed Cognitive needs: No Hearing needs: No Vision needs: No Meds Allergies Allergy/AdvReac Type Severity Reaction Status Date / Time doxycycline Allergy Severe tongue Verified 12/30/21 10:09 swelling morphine [MORPHINE] Allergy Intermediate RASH, Verified 12/30/21 10:09 headache, redness, throat swelling sumatriptan [From IMITREX] Allergy Mild ITCHING Verified 12/30/21 10:09 azithromycin Allergy Unknown facial Verified 12/30/21 10:09 redness Penicillins [PENICILLINS] Allergy Unknown ANAPHYLAXIS Verified 12/30/21 10:09 Home Medications Medication Instructions Recorded Confirmed Last Taken Type albuterol sulfate 90 mcg/actuation 2 puff inhalation Q6H PRN 04/15/21 01/11/22 01/18/22 History aerosol inhaler (ProAir HFA) Shortness Of Breath Exam Exam Date and Time: January 17, 2022 0952 Height,Weight and Vital Signs: Height 5 ft 6 in Weight 73.028 kg Pertinent Lab Results Pertinent Lab Results: Laboratory Tests 08/27/21 12/30/21 09:09 10:37 WBC 8.2 Hgb 11.2 L Hct 35.9 L Plt Count 343 Sodium 139 Potassium 4.4 Chloride 106 Carbon Dioxide 26 BUN 13 Creatinine 0.78 Narrative Narrative: PFT 10/2021 INTERPRETATION:? No definitive obstructive nor restrictive ventilatory defects identified.? No significant response to bronchodilators noted.? The patient does have evidence of small airway disease, which is likely related to her diagnosis of asthma. There is also mild decrease in maximum voluntary ventilation, which could be related to deconditioning, however, cannot rule out neuromuscular conditions. The patient's lung volumes are low normal.? In addition to that her diffusion capacity is within normal limits.? Clinical correlation warranted. Assessment and Plan Assessment Anesthesia Assessment: Chart Reviewed Documented by User: Mandi Maciel MD 01/18/22 10:07 [facility] Active Problems Active Problems: All Active Problems (Updated 12/30/21 @ 10:22 by Jassi Bailey MD) Environmental allergies (Acute) Mild recurrent major depression (Acute) Multiple allergies (Acute) Hyperglycemia (Acute). No diagnosis of diabetes Post covid-19 condition, unspecified (Acute)- Covid August 2021 Bronchitis (Acute) Sarcoidosis (Acute) Throat discomfort (Acute) Umbilical hernia (Acute) Physical exam (Acute) Abdominal bloating (Acute) Sinusitis, acute maxillary (Acute) Depression (Acute) Constipation (Acute) GERD (gastroesophageal reflux disease) (Acute) Asthma (Acute) Arthralgia (Acute) Idiopathic scoliosis of thoracolumbar region (Acute) Raynauds phenomenon (Acute) Anemia Migraines Past Medical History Medical History (Updated 01/18/22 @ 09:37 by Mandi Maciel MD) Asthma Family History Family History Father Essential hypertension Mother Essential hypertension Diabetes mellitus Family history of problems with anesthesia: No Surgical History Surgical History H/O esophagogastroduodenoscopy History of appendectomy History of tubal ligation Previous section History of Problems with Anesthesia: No Social History Social History Housing: Apartment Alcohol intake: never Patient Tobacco Use Status: Former Tobacco user Tobacco use type: Cigarette Smoked in Last 30 Days: No e-Cigarette/Vaping Use: Never Used Second Hand Smoke Exposure: No Use of substances other than those prescribed or required for medical reasons: No Are you DNR?: No Advance Directives: No Advance Directives Information Provided: Yes Recently lost weight without trying: No Nutrition Risks: No Nutritional Risk Patient : No service: No Current occupational status: unemployed Cognitive needs: No Hearing needs: No Vision needs: No Meds Allergies Allergy/AdvReac Type Severity Reaction Status Date / Time doxycycline Allergy Severe tongue Verified 12/30/21 10:09 swelling morphine [MORPHINE] Allergy Intermediate RASH, Verified 12/30/21 10:09 headache, redness, throat swelling sumatriptan [From IMITREX] Allergy Mild ITCHING Verified 12/30/21 10:09 azithromycin Allergy Unknown facial Verified 12/30/21 10:09 redness Penicillins [PENICILLINS] Allergy Unknown ANAPHYLAXIS Verified 12/30/21 10:09 Home Medications Medication Instructions Recorded Confirmed Last Taken Type albuterol sulfate 90 mcg/actuation 2 puff inhalation Q6H PRN 04/15/21 01/11/22 01/18/22 History aerosol inhaler (ProAir HFA) Shortness Of Breath Exam Height,Weight and Vital Signs: Height 5 ft 6 in Weight 73.028 kg Vital Signs Temp Pulse Resp BP Pulse Ox O2 Del Method 01/18/22 08:20 97.8 F 92 16 133/82 98 Room Air Airway Mallampati Class: II TM Dist: >3cm Neck ROM: Full Loose/Missing/Broken Teeth: No (Per patient) Heart: RRR Lungs: CTAB. No wheezes Assessment and Plan Assessment Anesthesia Assessment: Anesthesia Plan Discussed Final Anesthetic Review Family History of Problems with Anesthesia: No History of Problems with Anesthesia: No NPO: Yes ASA Class: III Final Preanesthetic Review: No Changes in Pt Med Stat, Meds/Allgs Chart Reviewed, Consent Obtained/Reviewed and Anes Risks/Benef Reviewed Patient Risk: Intermediate Procedure Risk: Low Assessment/Block/Sedation in SS: Assess/Block/Sedation-SS Anesthetic Plan Anesthetic Plan: GA Disposition: Standard PACU
[2022-01-18] VITALS (12 sets, daily range): BP systolic 120–136; BP diastolic 70–86; PULSE 74–92; RESP 16–18; TEMP 36.6–37.2; O2SAT 95–100; BMI 25.8
[2022-01-18] MEDS: Lactated Ringers 1,000 ML 100 ML IVCONT (08:34)
[2022-01-18] MEDS: vancomycin HCL 1,000 MG in 0.9 % Sodium Chloride 250 ML 270 MG IV (08:37)
--- NOTE | 2022-01-18 09:44 | PC.NURSE ---
PATIENT ITCHY AFTER RECEIVING VANCOMYCIN. PATIENT JUST TOLD ME. NO SOB OR RESP DISTRESS. PEDIATRIC LPN AND MD BARTON BY THE BEDSIDE.
--- NOTE | 2022-01-18 10:16 | MHC.SHP ---
Pre-Procedural Eval Section A Date of Service: 01/18/22 Section B Chief Complaint: Umbilical hernia without obstruction or gangrene Details of Present Illness: Has reducible umbilical hernia Relevant Social History: None Present Medications: see Short Stay Collaborative assessment Medical History: Significant History ( sarcoidosis, asthma) History of Previous Operations: No relevant previous surgery Allergies: Allergies Allergy/AdvReac Type Severity Reaction Status Date / Time doxycycline Allergy Severe tongue Verified 12/30/21 10:09 swelling morphine [MORPHINE] Allergy Intermediate RASH, Verified 12/30/21 10:09 headache, redness, throat swelling sumatriptan [From IMITREX] Allergy Mild ITCHING Verified 12/30/21 10:09 azithromycin Allergy Unknown facial Verified 12/30/21 10:09 redness Penicillins [PENICILLINS] Allergy Unknown ANAPHYLAXIS Verified 12/30/21 10:09 Review of Systems Sugical H&P ROS: Negative: Constitution, Cardiovascular, Respiratory, Neurological, Psychiatric, Hem-Onc, Allergic/Immunologic, Gastrointestinal, Genitourinary, Musculoskeletal, Integumentary, Endocrine and Eyes/Ears/Nose/Throat Exam Surgical H&P Exam: Normal: HEENT, Normal: Heart, Normal: Lungs, Normal: Extremities, Normal: Skin and Normal: Neurological and Significant Findings: Abdomen ( small umbilical hernia, reducible) Plan Diagnosis/Plan: Unchanged I have reviewed the history and physical and performed a pertinent physical examination on my patient. No changes have occurred unless specified.
--- NOTE | 2022-01-18 11:15 | P.OP_ITS ---
Operative Note Operative Note Date of Service: 01/18/22 Narrative: Preop diagnosis: umbilical hernia Postop diagnosis: umbilical hernia Procedure: Repair of umbilical hernia Surgeon: Doroteo Jaffe MD home care assistant: DAVON Laird The patient is a 36-year-old female the small reducible umbilical hernia. She wanted to proceed with repair in view of symptoms. She understood the technique of the procedure. She was aware of the risks, benefits, and alternatives. She was brought to the operating room. She was placed supine under general anesthesia via laryngeal mask airway. The periumbilical area was prepped draped in the usual sterile fashion. a surgical time-out was done. The patient had received vancomycin preoperatively. I infiltrated the planned line of incision with lidocaine 1%. I made a curvilinear transverse supraumbilical skin incision using a blade 15. This was carried down with electrocautery through the full-thickness of the skin subcutaneous fat. A gently dissected the umbilicus as a flap off of the rest of the subcutaneous layer. I was able to identify the fat containing hernia. I continued to separate this from the rest of the umbilicus. I sharply dissected the contents of the hernia using Metzenbaum scissors down to the fascial defect. By doing so was able to eventually define the fascial defect and reduce this entire hernia. The fascial defect was about 7 mm in diameter. Since this was very small at decided against using a mesh. I closed the fascial defect with a msaplo-bi-lbdag Maxon 1 stitch. I reapposed the subcutaneous layer and tacked the umbilicus to the fascia to re-create the dimple using Dexon 3-0 simple sutures. I irrigated. I reapposed the subcutaneous layer with Dexon 3-0 interrupted sutures. Skin closure was achieved with Dexon 4-0 subcuticular running stitch. I infiltrated the area with Marcaine 0.5% for postop analgesia. Steri-Strips and dressings were applied. The procedure was then completed. The patient tolerated procedure well. There were no complications noted. Initial and final counts of sponges and instruments were correct. Estimated blood loss about 5 cc. The patient was extubated without difficulty and transferred to the recovery room with stable vital signs.
[2022-01-18] MEDS: oxyCODONE HCl Immed Release 5 MG TABLET PO (11:48)
[2022-01-18] MEDS: fentaNYL citrate/PF 100 MCG/2 ML VIAL 25 MCG IVPUSH ×3 (11:49→12:18)
== END 2022-01-18 13:19 | disposition home or self-care (01) ==
PROVIDERS: PCP Internal Medicine; Visit Provider Surgery
PROC: (CPT 49585; principal; 2022-01-18 10:20)
DX: K42.9 Umbilical hernia without obstruction or gangrene (principal); D86.9 Sarcoidosis, unspecified; J45.909 Unspecified asthma, uncomplicated; Z79.51 Long term (current) use of inhaled steroids; Z79.899 Other long term (current) drug therapy; Z88.0 Allergy status to penicillin; Z88.1 Allergy status to other antibiotic agents; Z88.8 Allergy status to other drugs, medicaments and biological substances
CPT/HCPCS: 49585; J1100; J2250; J2405; J3010; J3370

== ENCOUNTER → 2022-02-16 10:03 | Outpatient (BNVA) | payer OTHER, SELFPAY | PROVIDERS: PCP Internal Medicine; Visit Provider Internal Medicine Pulmonary Disease | DX: D86.9 Sarcoidosis, unspecified (principal); J45.40 Moderate persistent asthma, uncomplicated; Z91.09 Other allergy status, other than to drugs and biological substances; Z79.899 Other long term (current) drug therapy | CPT/HCPCS: 99212 ==

== ENCOUNTER 2022-03-08 13:18 | Observation (INO) | payer OTHER, SELFPAY ==
--- NOTE | ~2022-03-08 | CT_ITS ---
EXAMINATION: CT ABDOMEN AND PELVIS WITHOUT CONTRAST CLINICAL INFORMATION: Lower abdominal pain COMPARISON: 04/14/2021 TECHNIQUE: Multidetector volumetric imaging was performed from the superior aspect of the liver through the pubic symphysis. Sagittal and coronal reformatted images were obtained on the technologist's workstation. This CT examination was performed using dose optimization techniques as appropriate, variously including the following: *Automated exposure control *Adjustment of mA and/or kV according to patient size (this includes techniques or standardized protocols for targeted exams where dose is matched to indication/reason for exam; i.e. extremities or head) *Use of iterative reconstruction technique DLP: 612 mGy-cm FINDINGS: LUNG BASES: The visualized lung bases are unremarkable. LIVER, GALLBLADDER, AND BILIARY TREE: The liver is normal in size, shape, and attenuation. No focal hepatic lesion or biliary ductal dilatation is present. The gallbladder is unremarkable with no evidence of radiopaque gallstones, gallbladder wall thickening, or obvious pericholecystic inflammatory changes. PANCREAS: Unremarkable. SPLEEN: Unremarkable. ADRENAL GLANDS: Unremarkable. KIDNEYS AND URETERS: The kidneys are normal in size, shape, and attenuation. No hydronephrosis, hydroureter, or calculi seen. No perinephric stranding. BLADDER: Decompressed with no gross abnormality GASTROINTESTINAL TRACT: The stomach is unremarkable. Normal caliber small bowel. No obstruction. No colonic wall thickening or inflammatory change. The appendix is not seen. No free air. Trace pelvic free fluid. ABDOMINAL WALL: No significant hernia is appreciated. LYMPH NODES: Normal. VASCULAR: Unremarkable. PELVIC VISCERA: The uterus and adnexa are unremarkable. OSSEOUS STRUCTURES: No acute or suspicious osseous abnormality. Degenerative change at L5-S1 with disc space narrowing and endplate sclerosis. Osteophyte formation and vacuum disc phenomenon present. CT/CT abdomen pelvis wo con IMPRESSION: No acute findings in the abdomen or pelvis. No inflammatory change. Trace pelvic free fluid is likely physiologic. Fleischner guidelines were followed.
[2022-03-08 14:40] VITALS: BP 149/104; PULSE 102; RESP 18; TEMP 36.3; O2SAT 99; BMI 25.8
[2022-03-08 14:49] LABS: MANUAL DIFF FLAG NO
[2022-03-08 14:54] LABS: Basophils Absolute Auto 0.1 X10*3/uL (0.0-0.2); Basophils Percent Auto 0.5 % (0-2); Eosinophils Absolute Auto 0.1 X10*3/uL (0.0-0.4); Eosinophils Percent Auto 0.8 % (0-4); Hemoglobin 12.6 g/dl (12.0-16.0); Imm Gran Abs Auto 0.04 X10*3/uL (0.00-0.03); Imm Gran Pct Auto 0.3 % (0.0-0.4); Lymphocytes Absolute Auto 2.8 X10*3/uL (1.2-4.9); Lymphocytes Percent Auto 23.8 % (20-40); Mean Corpuscular HGB Conc 32.3 g/dl (31.0-35.0); Mean Corpuscular Hemoglobin 26.9 pg (27.0-33.0); Mean Corpuscular Volume 83.3 fL (80.0-98.0); Mean Platelet Volume 9.8 fL (9.4-12.3); Monocytes Absolute Auto 0.6 X10*3/uL (0.1-1.2); Monocytes Percent Auto 4.7 % (2-11); Neutrophils Absolute Auto 8.3 x10*3/uL (2.0-8.3); Neutrophils Percent Auto 69.9 % (45-73); Platelet Count 384 X10*3/uL (160-400); Red Blood Count 4.68 X10*6/uL (4.20-5.50); Red Cell Distribution Width 14.2 % (11.0-16.0); White Blood Count 11.8 X10*3/uL (4.8-10.8)
[2022-03-08 15:05] LABS: Partial Thromboplastin Time 30.3 SEC (26.0-36.4)
[2022-03-08 15:06] LABS: Anion Gap 16 (12-20); Blood Urea Nitrogen 15 mg/dL (9-16); Calcium 9.1 mg/dL (8.4-10.2); Carbon Dioxide 23 mmol/L (22-29); Chloride 102 mmol/L (96-108); Creatinine Clr Calc Pharmacy 100.4; Estimated Glomerular Filt Rate > 60; Glucose Random 108 mg/dL (60-115); Sodium 137 mmol/L (135-145)
[2022-03-08 16:42] LABS: HCG Quantitative < 2 mIU/mL
--- NOTE | 2022-03-08 17:35 | ED_ITS ---
HPI - General Adult General Chief complaint: General Medical Stated complaint: Vaginal bleeding/CP/Body aches Time Seen by Provider: 03/08/22 16:12 Source: patient Mode of arrival: ambulatory Limitations: no limitations History of Present Illness HPI narrative: 36 year old female presents to the emergency department with bright red blood per rectum, diffuse abdominal pain with radiation to back since last night. Patient tells me that when she goes to the bathroom there is bright red blood at the bottom of the toilet with what looks like mucus. She tells me that she has also been having liquid diarrhea. She has a hard time describing her abdominal pain but she tells me that it radiates to her back bilaterally. She reports that the pain is severe, she tells me that it is worse when she lays down. Patient tells me grandma has a history of colon cancer however she has no known history of cancer. Related Data Home Medications Medication Instructions Recorded Confirmed albuterol sulfate 90 mcg/actuation 2 puff inhalation Q6H PRN 04/15/21 01/11/22 aerosol inhaler (ProAir HFA) Shortness Of Breath Previous Rx's Medication Instructions Recorded naproxen 500 mg tablet (Naprosyn) 500 mg PO BID PRN pain #30 tabs 07/13/21 aluminum-mag hydroxide-simethicone 5 ml PO 5XD PRN dyspepsia #30 mL 07/16/21 200 mg-200 mg-20 mg/5 mL oral susp (Maalox Advanced) docusate sodium 100 mg capsule 100 mg PO .DAILY WITH FOOD 30 days 08/06/21 (Colace) #30 caps sennosides 8.6 mg capsule (senna) 17.2 mg PO BEDTIME constipation 30 08/06/21 days #60 caps cholecalciferol (vitamin D3) 10 10 mcg PO DAILY 90 days #90 caps 09/04/21 mcg (400 unit) capsule famotidine 40 mg tablet (Pepcid) 40 mg PO BEDTIME #60 tabs 10/04/21 pantoprazole 20 mg tablet,delayed 20 mg PO DAILY #30 tabs 10/04/21 release simethicone 180 mg capsule 180 mg PO QID 30 days #120 caps 10/04/21 ipratropium 0.5 mg-albuterol 3 mg 3 ml inhalation Q4-6H PRN wheezing 10/11/21 (2.5 mg base)/3 mL nebulization 30 days #270 mL soln fluticasone propionate 50 1 spray intranasal BID #48 mL 01/07/22 mcg/actuation nasal spray,suspension budesonide 160 mcg-glycopyr 9 2 inh inhalation BID #10.7 grams 03/02/22 mcg-formot 4.8 mcg/actuation HFA inhaler (Breztri Aerosphere) cyclobenzaprine 10 mg tablet 10 mg PO Q8H Muscle spasm #10 tabs 03/04/22 Allergies Allergy/AdvReac Type Severity Reaction Status Date / Time doxycycline Allergy Severe tongue Verified 02/16/22 10:08 swelling morphine [MORPHINE] Allergy Intermediate RASH, Verified 02/16/22 10:08 headache, redness, throat swelling sumatriptan [From IMITREX] Allergy Mild ITCHING Verified 02/16/22 10:08 azithromycin Allergy Unknown facial Verified 02/16/22 10:08 redness Penicillins [PENICILLINS] Allergy Unknown ANAPHYLAXIS Verified 02/16/22 10:08 vancomycin AdvReac Itching Verified 02/16/22 10:08 Review of Systems Review of Systems: Constitutional : No Weight loss, No Fever, No Chills, No Fatigue, No Malaise ENT/Mouth : No sore throat, No Rhinorrhea Eyes: No Eye Pain, No Swelling, No Redness Cardiovascular : No Chest Pain, No SOB, No Dyspnea on Exertion, No Orthopnea, No Edema, No Palpitations Respiratory : No Cough, No Sputum, No Wheezing Gastrointestinal : No Nausea, No Vomiting, + Diarrhea, No Constipation, + abdominal Pain, No Hematochezia, No Melena Genitourinary : No Dysuria, No Urinary Frequency, No Hematuria, Musculoskeletal : No joint pain, No Myalgias, No Joint Swelling Skin : No Skin Lesions, No rash Neuro : No Weakness, No Numbness, No Dizziness, No Headache Psych : No Anxiety/Panic, No Depression All other systems reviewed and are negative Yes all other systems are reviewed and are negative [facility] Past Medical History Attestation statement: The following information was validated with the patient. Source: old records reviewed and nursing notes reviewed Medical History Asthma Mild recurrent major depression Multiple allergies Physical exam Sarcoidosis Throat discomfort Umbilical hernia Surgical History H/O esophagogastroduodenoscopy History of appendectomy History of tubal ligation History of umbilical hernia repair Previous section Family History Family History Father Essential hypertension Mother Essential hypertension Diabetes mellitus Social History Social History Housing: Apartment Alcohol intake: never Patient Tobacco Use Status: Former Tobacco user Tobacco use type: Cigarette e-Cigarette/Vaping Use: Never Used Second Hand Smoke Exposure: No Advance Directives: No Advance Directives Information Provided: Yes service: No Current occupational status: unemployed Cognitive needs: No Hearing needs: No Vision needs: No Physical Exam ED Vital Signs: Vital Signs - 24 hr 03/08/22 14:40 03/08/22 22:31 03/08/22 23:47 Temperature 97.4 F 98.4 F 98.1 F Pulse Rate 102 H 71 74 Respiratory Rate 18 18 16 Blood Pressure 149/104 H 132/81 142/83 H Pulse Oximetry 99 99 99 Oxygen Delivery Method Room Air Room Air Room Air BMI result Body Mass Index 25.8 VSS Appearance: Alert.? Oriented X3.? No acute distress.? Head: Normocephalic, atraumatic, no step-offs or deformities Eyes: Pupils equal, round and reactive to light.? ENT: Pharynx normal.? Neck: Normal inspection.? Neck supple.? CVS: Normal heart rate and rhythm.? Pulses normal.? Respiratory: No respiratory distress.? Breath sounds normal.? Abdomen: Soft and + diffusely tender abdomen.? Skin: Skin warm and dry.? Normal skin color.? Normal skin turgor.? Extremities: No lower extremity edema.? No calf ttp. 5/5 strength to bilateral upper and lower extremities Back: No midline tenderness, no C-spine tenderness, full range of motion, no CVA tenderness bilaterally Neuro: Oriented X 3.? No motor deficit.? No sensory deficit. CN 2-12 intact Course Reevaluation(s) Reevaluation #1: CBC with slight leukocytosis, chemistry with no acute electrolyte abnormalities requiring intervention, hCG negative. Lipase normal unlikely pancreatitis. UA clean Time: 20:04 Reevaluation #2: I did medicate patient she is now telling me that she is having severe abdominal pain. At this time is CT of the abdomen and pelvis will be ordered. Time: 22:46 Reevaluation #3: CT of the abdomen pelvis with no acute findings in the abdomen or pelvis. No inflammatory changes are noted. There is trace pelvic free fluid. Patients H&H did drop to 11.5 & 35.0. Patient reports that she had additional episodes of diarrhea with blood. At this time I do suspect lower GI bleed, on my rectal exam there is no signs of external or internal hemorrhoids. Therefore additional source of patient's rectal bleeding should further be investigated. Patient is still complaining of abdominal discomfort and pain however patient does have an allergy to morphine that includes airway compromise therefore I am limited with pain medication options. Time: 00:52 Additional Reevaluation(s): At this time patient will be admitted to the hospitalist team. Medical Decision Making MDM Narrative Medical decision making narrative: 2002 36 year old female presents to the emergency department with bright red blood per rectum, diffuse abdominal pain with radiation to back since last night. Physical examination with a diffusely tender abdomen. Plan at this time is labs, urine, OBS, urine , CT of the abdomen and pelvis, Toradol for pain Medical Records Medical records reviewed: Yes I reviewed the patient's medical records. Lab Data Lab results reviewed: Yes I reviewed the patient's lab results. Result diagrams: 03/08/22 23:53 03/08/22 14:46 Labs: Lab Results 03/08/22 03/08/22 03/08/22 Range/Units 14:46 14:46 14:46 WBC 11.8 H (4.8-10.8) X10*3/uL RBC 4.68 (4.20-5.50) X10*6/uL Hgb 12.6 (12.0-16.0) g/dl Hct 39.0 (37.0-47.0) % MCV 83.3 (80.0-98.0) fL MCH 26.9 L (27.0-33.0) pg MCHC 32.3 (31.0-35.0) g/dl RDW 14.2 (11.0-16.0) % Plt Count 384 (160-400) X10*3/uL MPV 9.8 (9.4-12.3) fL Immature Gran % (Auto) 0.3 (0.0-0.4) % Neut % (Auto) 69.9 (45-73) % Lymph % (Auto) 23.8 (20-40) % Ralls % (Auto) 4.7 (2-11) % Eos % (Auto) 0.8 (0-4) % Baso % (Auto) 0.5 (0-2) % Lymph # (Auto) 2.8 (1.2-4.9) X10*3/uL Ralls # (Auto) 0.6 (0.1-1.2) X10*3/uL Eos # (Auto) 0.1 (0.0-0.4) X10*3/uL Baso # (Auto) 0.1 (0.0-0.2) X10*3/uL Abs Immat Gran (auto) 0.04 H (0.00-0.03) X10*3/uL Absolute Neuts (auto) 8.3 (2.0-8.3) x10*3/uL Absolute Nucleated RBC 0.000 (0.0-0.012) X10*3/uL Nucleated RBC % (auto) 0.0 (0.0-0.2) /100WBC PT 12.0 (10.0-13.1) SEC INR 1.0 (0.9-1.1) APTT 30.3 (26.0-36.4) SEC Sodium 137 (135-145) mmol/L Potassium 4.0 (3.3-5.1) mmol/L Chloride 102 (96-108) mmol/L Carbon Dioxide 23 (22-29) mmol/L Anion Gap 16 (12-20) BUN 15 (9-16) mg/dL Creatinine 0.79 (0.5-1.4) mg/dL Estim Creat Clear Calc 100.4 Estimated GFR > 60 Random Glucose 108 (60-115) mg/dL Calcium 9.1 (8.4-10.2) mg/dL Lipase (8-78) U/L Beta HCG, Quant < 2 mIU/mL Urine Color Urine Appearance Urine pH (5.0-8.0) Ur Specific [place] (1.005-1.025) Urine Protein (NEG-TRACE) MG/DL Urine Glucose (UA) (NEG) MG/DL Urine Ketones (NEG) MG/DL Urine Blood (NEG) Urine Nitrite (NEG) Ur Leukocyte Esterase (NEG) Urine RBC (0) /HPF Urine WBC (0-4) /HPF Ur Squamous Epith Cells /LPF Ur Renal Epithelial Cell /LPF Amorphous Sediment /LPF Urine Bacteria /LPF Urine Mucus /LPF Urine Test (NEGATIVE) Stool Occult Blood (NEGATIVE) 03/08/22 03/08/22 03/08/22 Range/Units 20:22 22:40 22:40 WBC (4.8-10.8) X10*3/uL RBC (4.20-5.50) X10*6/uL Hgb (12.0-16.0) g/dl Hct (37.0-47.0) % MCV (80.0-98.0) fL MCH (27.0-33.0) pg MCHC (31.0-35.0) g/dl RDW (11.0-16.0) % Plt Count (160-400) X10*3/uL MPV (9.4-12.3) fL Immature Gran % (Auto) (0.0-0.4) % Neut % (Auto) (45-73) % Lymph % (Auto) (20-40) % Ralls % (Auto) (2-11) % Eos % (Auto) (0-4) % Baso % (Auto) (0-2) % Lymph # (Auto) (1.2-4.9) X10*3/uL [place] # (Auto) (0.1-1.2) X10*3/uL Eos # (Auto) (0.0-0.4) X10*3/uL Baso # (Auto) (0.0-0.2) X10*3/uL Abs Immat Gran (auto) (0.00-0.03) X10*3/uL Absolute Neuts (auto) (2.0-8.3) x10*3/uL Absolute Nucleated RBC (0.0-0.012) X10*3/uL Nucleated RBC % (auto) (0.0-0.2) /100WBC PT (10.0-13.1) SEC INR (0.9-1.1) APTT (26.0-36.4) SEC Sodium (135-145) mmol/L Potassium (3.3-5.1) mmol/L Chloride (96-108) mmol/L Carbon Dioxide (22-29) mmol/L Anion Gap (12-20) BUN (9-16) mg/dL Creatinine (0.5-1.4) mg/dL Estim Creat Clear Calc Estimated GFR Random Glucose (60-115) mg/dL Calcium (8.4-10.2) mg/dL Lipase 54 (8-78) U/L Beta HCG, Quant mIU/mL Urine Color YELLOW Urine Appearance CLEAR Urine pH 5.5 (5.0-8.0) Ur Specific [place] >= 1.030 H (1.005-1.025) Urine Protein NEG (NEG-TRACE) MG/DL Urine Glucose (UA) NEG (NEG) MG/DL Urine Ketones NEG (NEG) MG/DL Urine Blood TRACE (NEG) Urine Nitrite NEG (NEG) Ur Leukocyte Esterase NEG (NEG) Urine RBC 1-4 (0) /HPF Urine WBC 0-2 (0-4) /HPF Ur Squamous Epith Cells 3+ /LPF Ur Renal Epithelial Cell 1+ /LPF Amorphous Sediment 4+ /LPF Urine Bacteria NONE /LPF Urine Mucus 4+ /LPF Urine Test NEGATIVE (NEGATIVE) Stool Occult Blood (NEGATIVE) 03/08/22 03/08/22 Range/Units 23:52 23:53 WBC 10.3 (4.8-10.8) X10*3/uL RBC 4.28 (4.20-5.50) X10*6/uL Hgb 11.5 L (12.0-16.0) g/dl Hct 35.0 L (37.0-47.0) % MCV 81.8 (80.0-98.0) fL MCH 26.9 L (27.0-33.0) pg MCHC 32.9 (31.0-35.0) g/dl RDW 14.1 (11.0-16.0) % Plt Count 320 (160-400) X10*3/uL MPV 9.6 (9.4-12.3) fL Immature Gran % (Auto) 0.3 (0.0-0.4) % Neut % (Auto) 57.4 (45-73) % Lymph % (Auto) 35.3 (20-40) % Ralls % (Auto) 4.9 (2-11) % Eos % (Auto) 1.4 (0-4) % Baso % (Auto) 0.7 (0-2) % Lymph # (Auto) 3.6 (1.2-4.9) X10*3/uL [place] # (Auto) 0.5 (0.1-1.2) X10*3/uL Eos # (Auto) 0.1 (0.0-0.4) X10*3/uL Baso # (Auto) 0.1 (0.0-0.2) X10*3/uL Abs Immat Gran (auto) 0.03 (0.00-0.03) X10*3/uL Absolute Neuts (auto) 5.9 (2.0-8.3) x10*3/uL Absolute Nucleated RBC 0.000 (0.0-0.012) X10*3/uL Nucleated RBC % (auto) 0.0 (0.0-0.2) /100WBC PT (10.0-13.1) SEC INR (0.9-1.1) APTT (26.0-36.4) SEC Sodium (135-145) mmol/L Potassium (3.3-5.1) mmol/L Chloride (96-108) mmol/L Carbon Dioxide (22-29) mmol/L Anion Gap (12-20) BUN (9-16) mg/dL Creatinine (0.5-1.4) mg/dL Estim Creat Clear Calc Estimated GFR Random Glucose (60-115) mg/dL Calcium (8.4-10.2) mg/dL Lipase (8-78) U/L Beta HCG, Quant mIU/mL Urine Color Urine Appearance Urine pH (5.0-8.0) Ur Specific [place] (1.005-1.025) Urine Protein (NEG-TRACE) MG/DL Urine Glucose (UA) (NEG) MG/DL Urine Ketones (NEG) MG/DL Urine Blood (NEG) Urine Nitrite (NEG) Ur Leukocyte Esterase (NEG) Urine RBC (0) /HPF Urine WBC (0-4) /HPF Ur Squamous Epith Cells /LPF Ur Renal Epithelial Cell /LPF Amorphous Sediment /LPF Urine Bacteria /LPF Urine Mucus /LPF Urine Test (NEGATIVE) Stool Occult Blood NEGATIVE (NEGATIVE) Critical Care Time Critical Care Time Critical Care Time: No Discharge Plan Discharge Clinical Impression: Abdominal pain, Rectal bleeding, Diarrhea Patient Disposition: Home, Self-Care Instructions: Abdominal Pain (ED) Additional Instructions: Take your medications as prescribed. If you were prescribed antibiotics today, it is important that you take your medication to their entirety, do not skip any doses, do not finish them early. Follow-up with your primary care provider this week. Follow up with GI. Return to the emergency department with new or worsening symptoms. Such as fevers, chills, chest pain, shortness of breath, nausea, vomiting, dizziness, headache, vision changes, lethargy In case of emergency call 911 Prescriptions: No Action cholecalciferol (vitamin D3) 10 mcg (400 unit) capsule 10 mcg PO DAILY 90 Days Qty: 90 1RF fluticasone propionate 50 mcg/actuation spray,suspension 1 spray intranasal BID Qty: 48 1RF Breztri Aerosphere 160-9-4.8 mcg/actuation HFA aerosol inhaler 2 inh inhalation BID Qty: 10.7 0RF cyclobenzaprine 10 mg tablet 10 mg PO Q8H Qty: 10 0RF alum-mag hydroxide-simeth [Maalox Advanced] 200-200-20 mg/5 mL suspension 5 ml PO 5XD PRN (Reason: dyspepsia) Qty: 30 0RF Rx Instructions: administer between meals and at bedtime naproxen [Naprosyn] 500 mg tablet 500 mg PO BID PRN (Reason: pain) Qty: 30 0RF albuterol sulfate [ProAir HFA] 90 mcg/actuation HFA aerosol inhaler 2 puff inhalation Q6H PRN (Reason: Shortness Of Breath) senna 8.6 mg capsule 17.2 mg PO BEDTIME 30 Days Qty: 60 6RF docusate sodium [Colace] 100 mg capsule 100 mg PO .DAILY WITH FOOD 30 Days Qty: 30 6RF pantoprazole 20 mg tablet,delayed release (DR/EC) 20 mg PO DAILY Qty: 30 6RF famotidine [Pepcid] 40 mg tablet 40 mg PO BEDTIME Qty: 60 6RF simethicone 180 mg capsule 180 mg PO QID 30 Days Qty: 120 6RF Rx Instructions: after meals ipratropium-albuterol 0.5 mg-3 mg(2.5 mg base)/3 mL solution for nebulization 3 ml inhalation Q4-6H PRN (Reason: wheezing) 30 Days Qty: 270 6RF Referrals: Zachery Acuna MD [Physician] - 2 days Josefina Stacy MD [Primary Care Provider] - 2 days Stand Alone Forms: Work/School Release
[2022-03-08 20:43] LABS: Lipase 54 U/L (8-78)
[2022-03-08] MEDS: Ketorolac Tromethamine 15 MG/ML VIAL 30 MG IVPUSH (21:28)
[2022-03-08 22:31] VITALS: BP 132/81; PULSE 71; RESP 18; TEMP 36.9; O2SAT 99
[2022-03-08 22:50] LABS: Appearance Urine CLEAR; Color Urine YELLOW; Glucose Urine UA NEG (NEG); Leukocyte Esterase Urine NEG (NEG); Nitrite Urine NEG (NEG); PH 5.5 (5.0-8.0); Specific Gravity - Urine >= 1.030 (1.005-1.025); UACC Culture Trigger NO; Urine Blood TRACE (NEG); Urine Ketones NEG (NEG); Urine Protein NEG (NEG-TRACE)
[2022-03-08 22:57] LABS: UPreg QC Valid YES; Urine Pregnancy NEGATIVE (NEGATIVE)
[2022-03-08 23:03] LABS: Amorphous Sediment Urine 4+ /LPF; Mucus Urine 4+ /LPF; Renal Epithelial Cells Urine 1+ /LPF; Squamous Epithelial Cell Urine 3+ /LPF; WBC Urine 0-2 /HPF (0-4)
[2022-03-08 23:47] VITALS: BP 142/83; PULSE 74; RESP 16; TEMP 36.7; O2SAT 99
[2022-03-08 23:58] LABS: MANUAL DIFF FLAG NO
[2022-03-08 23:59] LABS: Basophils Absolute Auto 0.1 X10*3/uL (0.0-0.2); Basophils Percent Auto 0.7 % (0-2); Eosinophils Absolute Auto 0.1 X10*3/uL (0.0-0.4); Eosinophils Percent Auto 1.4 % (0-4); Hemoglobin 11.5 g/dl (12.0-16.0); Imm Gran Abs Auto 0.03 X10*3/uL (0.00-0.03); Imm Gran Pct Auto 0.3 % (0.0-0.4); Lymphocytes Absolute Auto 3.6 X10*3/uL (1.2-4.9); Lymphocytes Percent Auto 35.3 % (20-40); Mean Corpuscular HGB Conc 32.9 g/dl (31.0-35.0); Mean Corpuscular Hemoglobin 26.9 pg (27.0-33.0); Mean Corpuscular Volume 81.8 fL (80.0-98.0); Mean Platelet Volume 9.6 fL (9.4-12.3); Monocytes Absolute Auto 0.5 X10*3/uL (0.1-1.2); Monocytes Percent Auto 4.9 % (2-11); Neutrophils Absolute Auto 5.9 x10*3/uL (2.0-8.3); Neutrophils Percent Auto 57.4 % (45-73); Platelet Count 320 X10*3/uL (160-400); Red Blood Count 4.28 X10*6/uL (4.20-5.50); Red Cell Distribution Width 14.1 % (11.0-16.0); White Blood Count 10.3 X10*3/uL (4.8-10.8)
[2022-03-09 00:07] LABS: OBS Int Ctl Valid YES; OBS1 NEGATIVE (NEGATIVE)
--- NOTE | 2022-03-09 00:57 | P.HPHOSP_ITS ---
History of Present Illness Date of Service: 03/09/22 Chief Complaint: diarrhea, bloody bowel movements 36-year-old female with past medical history of sarcoidosis, asthma, GERD who presents to the hospital with complaints of 2 day history of diarrhea that became bloody x1 day. Patient reports bright red blood usually after her BM, she reports history of constipation but denies history of hemorrhoids. No devonte lar history in the past. She reports history of colitis in her sister. she reports the abdominal pain is diffuse, intermittent, 10/10 at its worse, nonradiating, no alleviating or exacerbating factors. She reports no palpitations, no chest pain, no shortness of breath, no dizziness or change in vision. Denies any Nausea, no vomiting, no urinary symptoms and no lower extremity edema. on arrival to the ED patient hemodynamically stable with no significant abnormal vitals patient initially had a hemoglobin of 12.6 but had a bloody bowel movement and her hemoglobin dropped to 11.5, hematocrit of 39, UA negative abdominal pelvic CT shows no acute findings in the abdomen or pelvis. no inflammatory changes Review of Systems Review of Systems: Yes all other systems are reviewed and are negative REPLACED BY [facility] Medical History Asthma Mild recurrent major depression Multiple allergies Physical exam Sarcoidosis Throat discomfort Umbilical hernia Family History Father Essential hypertension Mother Essential hypertension Diabetes mellitus Surgical History H/O esophagogastroduodenoscopy History of appendectomy History of tubal ligation History of umbilical hernia repair Previous section Social History Housing: Apartment Alcohol intake: never Patient Tobacco Use Status: Former Tobacco user Tobacco use type: Cigarette e-Cigarette/Vaping Use: Never Used Second Hand Smoke Exposure: No Advance Directives: No Advance Directives Information Provided: Yes service: No Current occupational status: unemployed Cognitive needs: No Hearing needs: No Vision needs: No Meds Allergies Allergy/AdvReac Type Severity Reaction Status Date / Time doxycycline Allergy Severe tongue Verified 02/16/22 10:08 swelling morphine [MORPHINE] Allergy Intermediate RASH, Verified 02/16/22 10:08 headache, redness, throat swelling sumatriptan [From IMITREX] Allergy Mild ITCHING Verified 02/16/22 10:08 azithromycin Allergy Unknown facial Verified 02/16/22 10:08 redness Penicillins [PENICILLINS] Allergy Unknown ANAPHYLAXIS Verified 02/16/22 10:08 vancomycin AdvReac Itching Verified 02/16/22 10:08 Active Medications: Current Medications Acetaminophen (Acetaminophen 325 Mg Tablet) 650 mg PO Q6H PRN PRN Reason: Pain, Mild (Pain Scale 1-3) Sodium Chloride (Ns) 1,000 mls @ 100 mls/hr IVCONT .Q10H GERARD Ondansetron HCl (Ondansetron Hcl 4 Mg/2 Ml Vial) 4 mg IVPUSH Q8H PRN PRN Reason: Nausea and Vomiting Sodium Chloride (0.9 % Sodium Chloride Flush 3 Ml Syringe) 3 ml IVFLUSH QSHIFT GERARD Home Medications Medication Instructions Recorded Confirmed Last Taken Type albuterol 90 mcg/actuation aerosol mcg inhalation Q6-8H PRN Shortness 03/09/22 Unknown History inhaler Of Breath Or Wheezing cholecalciferol (vitamin D3) 10 1 cap PO DAILY 03/09/22 03/09/22 Unknown History mcg (400 unit) capsule (Vitamin D3) cyclobenzaprine 10 mg tablet tab PO 03/09/22 Unknown History docusate sodium 100 mg capsule 1 cap PO DAILY 03/09/22 03/09/22 Unknown History famotidine 20 mg tablet 1 tab PO DAILY 03/09/22 03/09/22 Unknown History naproxen 500 mg tablet 1 tab PO BID 03/09/22 03/09/22 Unknown History sennosides 8.6 mg tablet (senna) 2 tab PO DAILY 03/09/22 03/09/22 Unknown History Physical Exam Vital Signs and Narrative: Vital Signs: Last Vital Signs Temp 98.1 F 03/08/22 23:47 Pulse 74 03/08/22 23:47 Resp 16 03/08/22 23:47 BP 142/83 H 03/08/22 23:47 Pulse Ox 99 03/08/22 23:47 O2 Del Method 03/08/22 23:47 BMI result Body Mass Index 25.8 Const: General: cooperative and no acute distress Orientation/consciousness: patient oriented x3 Eyes: General: appearance normal, both eyes and all related structures Resp: Effort & Inspection: normal respiratory effort Auscultation: clear to auscultation bilaterally Cardio: Rate: regular rate Rhythm: regular rhythm GI: Other: abd diffusely tender w no rebound or guarding Palpation (GI): Soft to palpation Auscultation: normal bowel sounds Skin: General skin exam: no rashes or lesions noted Neuro: General: patient oriented x3 Cognition (Neuro): normal cognition Extrem: General: Yes normal to inspection and Yes no pedal edema Results Labs CBC and Chem 7: 03/09/22 04:05 03/09/22 04:05 Labs: Laboratory Results - last 24 hr 03/08/22 03/08/22 03/08/22 14:46 14:46 14:46 MCV 83.3 MCH 26.9 L MCHC 32.3 RDW 14.2 Plt Count 384 MPV 9.8 Immature Gran % (Auto) 0.3 Neut % (Auto) 69.9 Lymph % (Auto) 23.8 [place] % (Auto) 4.7 Eos % (Auto) 0.8 Baso % (Auto) 0.5 Lymph # (Auto) 2.8 [place] # (Auto) 0.6 Eos # (Auto) 0.1 Baso # (Auto) 0.1 Abs Immat Gran (auto) 0.04 H Absolute Neuts (auto) 8.3 Absolute Nucleated RBC 0.000 Nucleated RBC % (auto) 0.0 PT 12.0 INR 1.0 APTT 30.3 Anion Gap 16 Estim Creat Clear Calc 100.4 Estimated GFR > 60 Random Glucose 108 Calcium 9.1 Lipase Beta HCG, Quant < 2 Urine Color Urine Appearance Urine pH Ur Specific [place] Urine Protein Urine Glucose (UA) Urine Ketones Urine Blood Urine Nitrite Ur Leukocyte Esterase Urine RBC Urine WBC Ur Squamous Epith Cells Ur Renal Epithelial Cell Amorphous Sediment Urine Bacteria Urine Mucus Urine Test Stool Occult Blood 03/08/22 03/08/22 03/08/22 20:22 22:40 22:40 MCV MCH MCHC RDW Plt Count MPV Immature Gran % (Auto) Neut % (Auto) Lymph % (Auto) [place] % (Auto) Eos % (Auto) Baso % (Auto) Lymph # (Auto) [place] # (Auto) Eos # (Auto) Baso # (Auto) Abs Immat Gran (auto) Absolute Neuts (auto) Absolute Nucleated RBC Nucleated RBC % (auto) PT INR APTT Anion Gap Estim Creat Clear Calc Estimated GFR Random Glucose Calcium Lipase 54 Beta HCG, Quant Urine Color YELLOW Urine Appearance CLEAR Urine pH 5.5 Ur Specific [place] >= 1.030 H Urine Protein NEG Urine Glucose (UA) NEG Urine Ketones NEG Urine Blood TRACE Urine Nitrite NEG Ur Leukocyte Esterase NEG Urine RBC 1-4 Urine WBC 0-2 Ur Squamous Epith Cells 3+ Ur Renal Epithelial Cell 1+ Amorphous Sediment 4+ Urine Bacteria NONE Urine Mucus 4+ Urine Test NEGATIVE Stool Occult Blood 03/08/22 03/08/22 23:52 23:53 MCV 81.8 MCH 26.9 L MCHC 32.9 RDW 14.1 Plt Count 320 MPV 9.6 Immature Gran % (Auto) 0.3 Neut % (Auto) 57.4 Lymph % (Auto) 35.3 [place] % (Auto) 4.9 Eos % (Auto) 1.4 Baso % (Auto) 0.7 Lymph # (Auto) 3.6 [place] # (Auto) 0.5 Eos # (Auto) 0.1 Baso # (Auto) 0.1 Abs Immat Gran (auto) 0.03 Absolute Neuts (auto) 5.9 Absolute Nucleated RBC 0.000 Nucleated RBC % (auto) 0.0 PT INR APTT Anion Gap Estim Creat Clear Calc Estimated GFR Random Glucose Calcium Lipase Beta HCG, Quant Urine Color Urine Appearance Urine pH Ur Specific [place] Urine Protein Urine Glucose (UA) Urine Ketones Urine Blood Urine Nitrite Ur Leukocyte Esterase Urine RBC Urine WBC Ur Squamous Epith Cells Ur Renal Epithelial Cell Amorphous Sediment Urine Bacteria Urine Mucus Urine Test Stool Occult Blood NEGATIVE Imaging Radiologist's Impressions: Impressions Abdomen/Pelvis CT 03/08/22 23:19 IMPRESSION: No acute findings in the abdomen or pelvis. No inflammatory change. Trace pelvic free fluid is likely physiologic. Fleischner guidelines were followed. Assessment and Plan (1) Abdominal pain: Status: Acute (2) Rectal bleeding: Status: Acute (3) Diarrhea: Status: Acute Plan 36 yo f with sarcoidosis presents w abd pain, and bloody diarrhea # abdominal pain/ diarrhea - likely enteritis versus IBD less likely - no CT evidence of abnormality /colitis - supportive measure at this time - GI consulted # rectal bleed - hemorrhoids versus IBD - hemoglobin stable - hemodynamically stable bleed - GI consult - follow CBC # history of sarcoidosis - no respiratory symptoms DVT prophylaxis:scds Quality Stroke Does the patient have a stroke diagnosis?: No VTE Prior VTE?: No VTE Risk Level:: Medical - low VTE Device Contraindication: Treatment Not Indicated VTE Drug Contraindication: Treatment Not Indicated
[2022-03-09] MEDS: 0.9 % Sodium Chloride 1,000 ML 100 ML IVCONT ×3 (01:24→20:03)
[2022-03-09 02:29] LABS: COVID-19 Test Negative (Negative)
[2022-03-09 02:52] VITALS: BP 105/64; PULSE 82; RESP 16; TEMP 36.6; O2SAT 97
[2022-03-09 04:42] LABS: MANUAL DIFF FLAG NO
[2022-03-09 04:44] LABS: Basophils Absolute Auto 0.1 X10*3/uL (0.0-0.2); Basophils Percent Auto 0.5 % (0-2); Eosinophils Absolute Auto 0.1 X10*3/uL (0.0-0.4); Eosinophils Percent Auto 1.4 % (0-4); Hematocrit 34.3 % (37.0-47.0); Hemoglobin 11.1 g/dl (12.0-16.0); Imm Gran Abs Auto 0.02 X10*3/uL (0.00-0.03); Imm Gran Pct Auto 0.2 % (0.0-0.4); Lymphocytes Absolute Auto 3.4 X10*3/uL (1.2-4.9); Mean Corpuscular HGB Conc 32.4 g/dl (31.0-35.0); Mean Corpuscular Hemoglobin 26.7 pg (27.0-33.0); Mean Corpuscular Volume 82.5 fL (80.0-98.0); Mean Platelet Volume 9.9 fL (9.4-12.3); Monocytes Absolute Auto 0.7 X10*3/uL (0.1-1.2); Monocytes Percent Auto 6.7 % (2-11); Neutrophils Absolute Auto 5.4 x10*3/uL (2.0-8.3); Neutrophils Percent Auto 56.2 % (45-73); Platelet Count 317 X10*3/uL (160-400); Red Blood Count 4.16 X10*6/uL (4.20-5.50); Red Cell Distribution Width 14.3 % (11.0-16.0); White Blood Count 9.7 X10*3/uL (4.8-10.8)
[2022-03-09 05:04] LABS: Anion Gap 14 (12-20); Blood Urea Nitrogen 16 mg/dL (9-16); Calcium 8.7 mg/dL (8.4-10.2); Carbon Dioxide 24 mmol/L (22-29); Chloride 104 mmol/L (96-108); Estimated Glomerular Filt Rate > 60; Glucose Random 103 mg/dL (60-115); Sodium 138 mmol/L (135-145)
[2022-03-09 06:05] VITALS: BP 112/74; PULSE 66; RESP 14; TEMP 36.8; O2SAT 98
--- NOTE | 2022-03-09 09:04 | PHA.MEDREC ---
Pharmacy Consult ? Medication Reconciliation Pharmacy has completed the medication reconciliation. [employer] services utilized. Patient noted that symbicort inhaler was not picked up because of plan limitation. Patient seemed confused about another inhaler that she called edi , but said it wasn't her albuterol. Only other inhaler in claim history was for albuterol. Patient also states that they take stool softener regularly.
[2022-03-09 10:54] VITALS: BP 129/80; PULSE 89; RESP 20; TEMP 36.8; O2SAT 99
--- NOTE | 2022-03-09 10:58 | PC.NURSE ---
Pt VSS. denies any rectal bleeding at this time.
--- NOTE | 2022-03-09 11:41 | P.PNIM_ITS ---
Subjective Subjective Date of Service: 03/09/22 Interval History: cc: brbpr interval history:severe abd pain Cardiovascular Cardiovascular: Reports no additional cardiovascular complaints Respiratory Respiratory: Reports no additional respiratory complaints Physical Exam Vital Signs: Vital Signs: Last Vital Signs Temp 98.3 F 03/09/22 10:54 Pulse 89 03/09/22 10:54 Resp 20 03/09/22 10:54 BP 129/80 03/09/22 10:54 Pulse Ox 99 03/09/22 10:54 O2 Del Method 03/09/22 10:54 BMI result Body Mass Index 25.8 General: AO X 3, no acute distress Resp: CTA bilateral, no accessory muscles used CVS: S1,S2,RRR GI: soft, tender, non distended Neuro: motor grossly intact, alert Psych: appropriate affect, appropriate insight Objective Data Active Medications Acetaminophen (Acetaminophen 325 Mg Tablet) 650 mg PO Q6H PRN PRN Reason: Pain, Mild (Pain Scale 1-3) Famotidine (Famotidine 20 Mg Tablet) 20 mg PO DAILY [facility] Last Admin: 03/09/22 08:07 Dose: Not Given Documented By: ATIF Non-Admin Reason: NPO Hydromorphone HCl (Hydromorphone Hcl 0.5 Mg/0.5 Ml Syringe) 0.5 mg IVPUSH Q4H PRN; Protocol PRN Reason: moderate pain Sodium Chloride (Ns) 1,000 mls @ 100 mls/hr IVCONT .Q10H [facility] Last Admin: 03/09/22 01:24 Dose: 100 mls/hr Documented By: DIOGENES Ondansetron HCl (Ondansetron Hcl 4 Mg/2 Ml Vial) 4 mg IVPUSH Q8H PRN PRN Reason: Nausea and Vomiting Senna (Sennosides 8.6 Mg Tablet) 17.2 mg PO DAILY [facility] Last Admin: 03/09/22 08:07 Dose: Not Given Documented By: ATIF Non-Admin Reason: NPO Sodium Chloride (0.9 % Sodium Chloride Flush 3 Ml Syringe) 3 ml IVFLUSH QSHIFT [facility] Last Admin: 03/09/22 08:06 Dose: Not Given Documented By: ATIF Non-Admin Reason: IV Running Vitamin D (Cholecalciferol (Vitamin D3) 10 Mcg Tablet) 10 mcg PO DAILY [facility] Last Admin: 03/09/22 08:07 Dose: Not Given Documented By: ATIF Non-Admin Reason: NPO Labs CBC & Chem 7: 03/09/22 04:05 03/09/22 04:05 Labs: Laboratory Results - last 24 hr 03/08/22 03/08/22 03/08/22 14:46 14:46 14:46 MCV 83.3 MCH 26.9 L MCHC 32.3 RDW 14.2 Plt Count 384 MPV 9.8 Immature Gran % (Auto) 0.3 Neut % (Auto) 69.9 Lymph % (Auto) 23.8 [place] % (Auto) 4.7 Eos % (Auto) 0.8 Baso % (Auto) 0.5 Lymph # (Auto) 2.8 [place] # (Auto) 0.6 Eos # (Auto) 0.1 Baso # (Auto) 0.1 Abs Immat Gran (auto) 0.04 H Absolute Neuts (auto) 8.3 Absolute Nucleated RBC 0.000 Nucleated RBC % (auto) 0.0 PT 12.0 INR 1.0 APTT 30.3 Anion Gap 16 Estim Creat Clear Calc 100.4 Estimated GFR > 60 Random Glucose 108 Calcium 9.1 Lipase Beta HCG, Quant < 2 Urine Color Urine Appearance Urine pH Ur Specific [place] Urine Protein Urine Glucose (UA) Urine Ketones Urine Blood Urine Nitrite Ur Leukocyte Esterase Urine RBC Urine WBC Ur Squamous Epith Cells Ur Renal Epithelial Cell Amorphous Sediment Urine Bacteria Urine Mucus Urine Test Stool Occult Blood COVID-19 (JANIS) COVID-19 Clin Com 03/08/22 03/08/22 03/08/22 20:22 22:40 22:40 MCV MCH MCHC RDW Plt Count MPV Immature Gran % (Auto) Neut % (Auto) Lymph % (Auto) [place] % (Auto) Eos % (Auto) Baso % (Auto) Lymph # (Auto) [place] # (Auto) Eos # (Auto) Baso # (Auto) Abs Immat Gran (auto) Absolute Neuts (auto) Absolute Nucleated RBC Nucleated RBC % (auto) PT INR APTT Anion Gap Estim Creat Clear Calc Estimated GFR Random Glucose Calcium Lipase 54 Beta HCG, Quant Urine Color YELLOW Urine Appearance CLEAR Urine pH 5.5 Ur Specific [place] >= 1.030 H Urine Protein NEG Urine Glucose (UA) NEG Urine Ketones NEG Urine Blood TRACE Urine Nitrite NEG Ur Leukocyte Esterase NEG Urine RBC 1-4 Urine WBC 0-2 Ur Squamous Epith Cells 3+ Ur Renal Epithelial Cell 1+ Amorphous Sediment 4+ Urine Bacteria NONE Urine Mucus 4+ Urine Test NEGATIVE Stool Occult Blood COVID-19 (JANIS) COVID-19 Clin Com 03/08/22 03/08/22 03/09/22 23:52 23:53 02:03 MCV 81.8 MCH 26.9 L MCHC 32.9 RDW 14.1 Plt Count 320 MPV 9.6 Immature Gran % (Auto) 0.3 Neut % (Auto) 57.4 Lymph % (Auto) 35.3 [place] % (Auto) 4.9 Eos % (Auto) 1.4 Baso % (Auto) 0.7 Lymph # (Auto) 3.6 [place] # (Auto) 0.5 Eos # (Auto) 0.1 Baso # (Auto) 0.1 Abs Immat Gran (auto) 0.03 Absolute Neuts (auto) 5.9 Absolute Nucleated RBC 0.000 Nucleated RBC % (auto) 0.0 PT INR APTT Anion Gap Estim Creat Clear Calc Estimated GFR Random Glucose Calcium Lipase Beta HCG, Quant Urine Color Urine Appearance Urine pH Ur Specific [place] Urine Protein Urine Glucose (UA) Urine Ketones Urine Blood Urine Nitrite Ur Leukocyte Esterase Urine RBC Urine WBC Ur Squamous Epith Cells Ur Renal Epithelial Cell Amorphous Sediment Urine Bacteria Urine Mucus Urine Test Stool Occult Blood NEGATIVE COVID-19 (JANIS) Negative COVID-19 Clin Com See Note 03/09/22 03/09/22 04:05 04:05 MCV 82.5 MCH 26.7 L MCHC 32.4 RDW 14.3 Plt Count 317 MPV 9.9 Immature Gran % (Auto) 0.2 Neut % (Auto) 56.2 Lymph % (Auto) 35.0 [place] % (Auto) 6.7 Eos % (Auto) 1.4 Baso % (Auto) 0.5 Lymph # (Auto) 3.4 [place] # (Auto) 0.7 Eos # (Auto) 0.1 Baso # (Auto) 0.1 Abs Immat Gran (auto) 0.02 Absolute Neuts (auto) 5.4 Absolute Nucleated RBC 0.000 Nucleated RBC % (auto) 0.0 PT INR APTT Anion Gap 14 Estim Creat Clear Calc 103.0 Estimated GFR > 60 Random Glucose 103 Calcium 8.7 Lipase Beta HCG, Quant Urine Color Urine Appearance Urine pH Ur Specific [place] Urine Protein Urine Glucose (UA) Urine Ketones Urine Blood Urine Nitrite Ur Leukocyte Esterase Urine RBC Urine WBC Ur Squamous Epith Cells Ur Renal Epithelial Cell Amorphous Sediment Urine Bacteria Urine Mucus Urine Test Stool Occult Blood COVID-19 (JANIS) COVID-19 Clin Com Assessment and Plan (1) Rectal bleeding: Status: Acute Plan 36F presented with BRBPR and abd pain abd pain, brbpr concern for enterocolitis, infectious vs inflammatory pain control stool pcr gi eval monitor cbc sarcoid outpatietn follow up moderate persistent asthma stable, bronchodilators as needed low risk for dvt - early ambulation full code reason for continued hospitalization:ongoing severe pain requiring iv opiates. Quality Stroke Does the patient have a stroke diagnosis?: No VTE Prior VTE?: No VTE Risk Level:: Medical - low VTE Device Contraindication: Treatment Not Indicated VTE Drug Contraindication: Treatment Not Indicated
--- NOTE | 2022-03-09 11:41 | MHC.CM.PN ---
Addendum entered by Tika Cerna 03/09/22 13:44: EMR review, patient Not yet medically cleared for discharge today r/t ongoing severe pain requiring IV opiates. D/C plan continues to be Home self-care. CM will continue to follow for D/C needs. Original Note: CEDILLO (Korean) addressed with patient, white copy to patient and yellow copy to file in chart. Ankur reports she lives with her spouse, Aston. She is independent at home and community, denies DME use or home services. She is Not Covid vax'd, PCP is Josefina Faith, patient educated about HCP, she declined at this time. She will drive herself home. D/C Plan: Home self care
--- NOTE | 2022-03-09 15:06 | MHC.CM.PN ---
NGUYEN ([place]) addressed with patient, white copy to patient and yellow copy to file in chart. Patient reports she lives with her spouse, Aston. She is independent at home and community, denies DME use or home services. She is Not Covid vax'd, PCP is Josefina Faith , patient was educated about HCP, she declined at this time. She will drive herself home. D/C plan: Home self care
[2022-03-09] MEDS: HYDROmorphone HCl 0.5 MG/0.5 ML SYRINGE IVPUSH (15:41)
--- NOTE | 2022-03-09 16:12 | PM.EVENT ---
Event Note Date of Service: 03/09/22 Event Note: GI consult dictated Colonoscopy 03/10 for further evaluation of rectal bleeding Discussed risks and benefits of procedure with patient and . They agree to proceed.
[2022-03-09] MEDS: bisacodyL 5 MG TABLET.DR 20 MG PO (18:14)
--- NOTE | 2022-03-09 18:25 | PC.NURSE ---
CARE ASSUMED FOR THIS PATIENT- PT AWARE OF CLEAR LIQUID DIET AND NPO AFTER MIDNIGHT.
--- NOTE | 2022-03-09 18:55 | PC.NURSE ---
med not given by previous shift RN.
[2022-03-09 20:01] VITALS: BP 129/77; PULSE 77; RESP 16; O2SAT 100
[2022-03-09 21:20] VITALS: BP 124/72; PULSE 84; RESP 16; TEMP 36.6; O2SAT 100
[2022-03-09] MEDS: PEG 3350/Na Sulf,Bicarb,Cl/KCL 4,000 ML SOLN.RECON 4000 ML PO (21:50)
[2022-03-09 23:42] VITALS: BP 142/85; PULSE 87; RESP 17; TEMP 36.1; O2SAT 99
[2022-03-10] VITALS (8 sets, daily range): BP systolic 88–136; BP diastolic 52–79; PULSE 70–90; RESP 16–18; TEMP 36.3–37; O2SAT 97–99; BMI 25.7
--- NOTE | 2022-03-10 02:27 | CONS_ITS ---
DATE OF SERVICE: 03/09/2022 REFERRING PHYSICIAN: Charanjit Suarez REASON FOR CONSULTATION: Rectal bleeding. HISTORY OF PRESENT ILLNESS: The patient is a pleasant 36-year-old woman who was admitted to the hospital after presenting to the emergency room yesterday with complaints of abdominal pain and diarrhea. She reports she was well until the day before admission when she developed the onset of stool, that was diarrheal, but initially nonbloody. This subsequently developed into bright red blood with diarrhea with generalized abdominal pain. She presented to the emergency room. She denies any prior history of rectal bleeding. She has no personal nor family history of colitis. Her grandmother on her father side did have colon cancer. She was evaluated in the emergency department, which showed a stable hematocrit and no significant findings on CT. PAST MEDICAL HISTORY: 1. Sarcoidosis and asthma. 2. Gastroesophageal reflux disease, status post upper endoscopy on November 11, 2017, which showed a small hiatal hernia and grade 1 esophagitis. 3. Depression. 4. Umbilical hernia repair. CURRENT MEDICATIONS: Her current medication list is reviewed in the chart. ALLERGIES: MULTIPLE MEDICATION ALLERGIES ARE REVIEWED. FAMILY HISTORY: As above. SOCIAL HISTORY: There is no current tobacco, alcohol, or substance abuse. She lives with her and 2 children. REVIEW OF SYSTEMS: SKIN: No pruritus. HEENT: Negative. CARDIOPULMONARY: No shortness of breath or chest pain. GASTROINTESTINAL: As above. GENITOURINARY: Negative. NEUROPSYCHIATRIC: Negative. PHYSICAL EXAMINATION: GENERAL: Shows a pleasant female, lying comfortably in bed. Complaining of 6/10 abdominal pain. VITAL SIGNS: Reviewed in electronic medical record and are stable. SKIN: Anicteric. HEENT: Shows no scleral icterus. NECK: Without lymphadenopathy or thyromegaly. LUNGS: Clear. HEART: Shows a regular rate and rhythm. S1, S2. No murmur. ABDOMEN: Soft without focal masses or tenderness. Bowel sounds are present. No organomegaly is noted. She has some scars from her previous surgery. She does have some minimal left-sided discomfort with deep palpation. EXTREMITIES: Without edema. LABORATORY DATA: Shows a stable hematocrit at 34.3 this morning, down slightly from 35 last night. Chemistries are unremarkable. IMPRESSION: Rectal bleeding with diarrhea. Differential for this includes gastroenteritis, possibly infectious, inflammatory bowel disease, which seems less likely. CAT scanning showed no evidence of colitis or diverticulitis. Also, possible causes for her bleeding could include arteriovenous malformations or hemorrhoids. I discussed colonoscopy with her including risks and benefits. She and her are aware of these and agreed to proceed. This will be arranged for tomorrow. Thanks for asking me to see her. I will follow her in the hospital with you. MD SUKHDEV Crisostomo/ABDI / [id number]
[2022-03-10 05:55] LABS: Hematocrit 33.9 % (37.0-47.0); Hemoglobin 10.9 g/dl (12.0-16.0); Mean Corpuscular HGB Conc 32.2 g/dl (31.0-35.0); Mean Corpuscular Hemoglobin 26.8 pg (27.0-33.0); Mean Corpuscular Volume 83.3 fL (80.0-98.0); Mean Platelet Volume 9.7 fL (9.4-12.3); Platelet Count 312 X10*3/uL (160-400); Red Blood Count 4.07 X10*6/uL (4.20-5.50); Red Cell Distribution Width 14.1 % (11.0-16.0)
[2022-03-10 06:27] LABS: Anion Gap 13 (12-20); Blood Urea Nitrogen 11 mg/dL (9-16); Calcium 8.3 mg/dL (8.4-10.2); Carbon Dioxide 22 mmol/L (22-29); Chloride 108 mmol/L (96-108); Creatinine Clr Calc Pharmacy 114.8; Estimated Glomerular Filt Rate > 60; Glucose Fasting 102 mg/dL (60-99); Potassium 3.4 mmol/L (3.3-5.1); Sodium 140 mmol/L (135-145)
--- NOTE | 2022-03-10 07:17 | P.CONAN_ITS ---
[facility] Active Problems Active Problems: All Active Problems (Updated 03/09/22 @ 07:49 by Elvis Lee MD) Rectal bleeding (Acute) Diarrhea (Acute) Mild recurrent major depression (Acute) Sarcoidosis (Acute) Asthma (Acute) Past Medical History Medical History Asthma Mild recurrent major depression Sarcoidosis Umbilical hernia Family History Family History Father Essential hypertension Mother Essential hypertension Diabetes mellitus Family history of problems with anesthesia: No Surgical History Surgical History H/O esophagogastroduodenoscopy History of appendectomy History of tubal ligation History of umbilical hernia repair Previous section History of Problems with Anesthesia: No Social History Social History Housing: Apartment Alcohol intake: never Patient Tobacco Use Status: Former Tobacco user Quit Date: 2012 Tobacco use type: Cigarette e-Cigarette/Vaping Use: Never Used Second Hand Smoke Exposure: No service: No Current occupational status: unemployed Cognitive needs: No Hearing needs: No Vision needs: No Meds Allergies Allergy/AdvReac Type Severity Reaction Status Date / Time doxycycline Allergy Severe tongue Verified 02/16/22 10:08 swelling morphine [MORPHINE] Allergy Intermediate RASH, Verified 02/16/22 10:08 headache, redness, throat swelling sumatriptan [From IMITREX] Allergy Mild ITCHING Verified 02/16/22 10:08 azithromycin Allergy Unknown facial Verified 02/16/22 10:08 redness Penicillins [PENICILLINS] Allergy Unknown ANAPHYLAXIS Verified 02/16/22 10:08 vancomycin AdvReac Itching Verified 02/16/22 10:08 Active Medications: Current Medications Acetaminophen (Acetaminophen 325 Mg Tablet) 650 mg PO Q6H PRN PRN Reason: Pain, Mild (Pain Scale 1-3) Albuterol Sulfate (Albuterol Sulfate 90 Mcg 8 Gm Inhaler) 2 puff INHALE Q6H PRN PRN Reason: Shortness Of Breath Albuterol/Ipratropium (Albuterol/Iprat 2.5/0.5mg 3 Ml Ampul.Neb) 3 ml INHALE Q4H PRN PRN Reason: wheezing Famotidine (Famotidine 20 Mg Tablet) 20 mg PO DAILY FORMERLY [facility], [facility]–1983 Last Admin: 03/09/22 08:07 Dose: Not Given Hydromorphone HCl (Hydromorphone Hcl 0.5 Mg/0.5 Ml Syringe) 0.5 mg IVPUSH Q4H PRN; Protocol PRN Reason: moderate pain Last Admin: 03/09/22 15:41 Dose: 0.5 mg Sodium Chloride (Ns) 1,000 mls @ 100 mls/hr IVCONT .Q10H FOR[facility]LY [facility], [facility]–1983 Last Admin: 03/09/22 20:03 Dose: 100 mls/hr Ondansetron HCl (Ondansetron Hcl 4 Mg/2 Ml Vial) 4 mg IVPUSH Q8H PRN PRN Reason: Nausea and Vomiting Senna (Sennosides 8.6 Mg Tablet) 17.2 mg PO DAILY FOR[facility]LY [facility], [facility]1983 Last Admin: 03/09/22 08:07 Dose: Not Given Sodium Chloride (0.9 % Sodium Chloride Flush 3 Ml Syringe) 3 ml IVFLUSH QSHIFT FOR[facility]LY [facility], [facility]–1983 Last Admin: 03/10/22 00:09 Dose: Not Given Vitamin D (Cholecalciferol (Vitamin D3) 10 Mcg Tablet) 10 mcg PO DAILY FOR[facility], [facility]1983 Last Admin: 03/09/22 08:07 Dose: Not Given Home Medications Medication Instructions Recorded Confirmed Last Taken Type albuterol sulfate 90 mcg/actuation 2 puff inhalation Q6H PRN 03/09/22 03/09/22 Unknown History aerosol inhaler Shortness Of Breath cholecalciferol (vitamin D3) 10 1 cap PO DAILY 03/09/22 03/09/22 03/07/22 History mcg (400 unit) capsule (Vitamin D3) cyclobenzaprine 10 mg tablet 1 tab PO Q8H PRN Muscle Spasm 03/09/22 03/09/22 03/07/22 History docusate sodium 100 mg capsule 1 cap PO BID 03/09/22 03/09/22 03/07/22 History famotidine 40 mg tablet 1 tab PO BEDTIME 03/09/22 03/09/22 03/07/22 History fluticasone propionate 50 1 spray intranasal BID PRN 03/09/22 03/09/22 Unknown History mcg/actuation nasal Allergic Symptoms spray,suspension ipratropium 0.5 mg-albuterol 3 mg 1 vial inhalation Q4H PRN wheezing 03/09/22 03/09/22 Unknown History (2.5 mg base)/3 mL nebulization soln naproxen 500 mg tablet 1 tab PO BID PRN Pain 03/09/22 03/09/22 Unknown History sennosides 8.6 mg tablet (senna) 2 tab PO BEDTIME 03/09/22 03/09/22 03/07/22 History Exam Exam Date and Time: March 10, [id number] Height,Weight and Vital Signs: Height 5 ft 6 in Weight 72.5 kg Last Vital Signs Temp 98.5 F 03/10/22 07:04 Pulse 85 03/10/22 07:04 Resp 16 03/10/22 07:04 BP 136/79 03/10/22 07:04 Pulse Ox 97 03/10/22 07:04 O2 Del Method 03/10/22 03:28 Pertinent Lab Results Pertinent Lab Results: Laboratory Tests 03/08/22 03/08/22 03/08/22 14:46 14:46 14:46 WBC 11.8 H RBC 4.68 Hgb 12.6 Hct 39.0 MCV 83.3 MCH 26.9 L MCHC 32.3 RDW 14.2 Plt Count 384 MPV 9.8 Immature Gran % (Auto) 0.3 Neut % (Auto) 69.9 Lymph % (Auto) 23.8 [place] % (Auto) 4.7 Eos % (Auto) 0.8 Baso % (Auto) 0.5 Lymph # (Auto) 2.8 [place] # (Auto) 0.6 Eos # (Auto) 0.1 Baso # (Auto) 0.1 Abs Immat Gran (auto) 0.04 H Absolute Neuts (auto) 8.3 Absolute Nucleated RBC 0.000 Nucleated RBC % (auto) 0.0 PT 12.0 INR 1.0 APTT 30.3 Sodium 137 Potassium 4.0 Chloride 102 Carbon Dioxide 23 Anion Gap 16 BUN 15 Creatinine 0.79 Estim Creat Clear Calc 100.4 Estimated GFR > 60 Random Glucose 108 Fasting Glucose Calcium 9.1 Lipase Beta HCG, Quant < 2 Urine Color Urine Appearance Urine pH Ur Specific [place] Urine Protein Urine Glucose (UA) Urine Ketones Urine Blood Urine Nitrite Ur Leukocyte Esterase Urine RBC Urine WBC Ur Squamous Epith Cells Ur Renal Epithelial Cell Amorphous Sediment Urine Bacteria Urine Mucus Urine Test Stool Occult Blood COVID-19 (JANIS) COVID-19 Clin Com 03/08/22 03/08/22 03/08/22 20:22 22:40 22:40 WBC RBC Hgb Hct MCV MCH MCHC RDW Plt Count MPV Immature Gran % (Auto) Neut % (Auto) Lymph % (Auto) [place] % (Auto) Eos % (Auto) Baso % (Auto) Lymph # (Auto) [place] # (Auto) Eos # (Auto) Baso # (Auto) Abs Immat Gran (auto) Absolute Neuts (auto) Absolute Nucleated RBC Nucleated RBC % (auto) PT INR APTT Sodium Potassium Chloride Carbon Dioxide Anion Gap BUN Creatinine Estim Creat Clear Calc Estimated GFR Random Glucose Fasting Glucose Calcium Lipase 54 Beta HCG, Quant Urine Color YELLOW Urine Appearance CLEAR Urine pH 5.5 Ur Specific [place] >= 1.030 H Urine Protein NEG Urine Glucose (UA) NEG Urine Ketones NEG Urine Blood TRACE Urine Nitrite NEG Ur Leukocyte Esterase NEG Urine RBC 1-4 Urine WBC 0-2 Ur Squamous Epith Cells 3+ Ur Renal Epithelial Cell 1+ Amorphous Sediment 4+ Urine Bacteria NONE Urine Mucus 4+ Urine Test NEGATIVE Stool Occult Blood COVID-19 (JANIS) COVID-19 Clin Com 03/08/22 03/08/22 03/09/22 23:52 23:53 02:03 WBC 10.3 RBC 4.28 Hgb 11.5 L Hct 35.0 L MCV 81.8 MCH 26.9 L MCHC 32.9 RDW 14.1 Plt Count 320 MPV 9.6 Immature Gran % (Auto) 0.3 Neut % (Auto) 57.4 Lymph % (Auto) 35.3 [place] % (Auto) 4.9 Eos % (Auto) 1.4 Baso % (Auto) 0.7 Lymph # (Auto) 3.6 [place] # (Auto) 0.5 Eos # (Auto) 0.1 Baso # (Auto) 0.1 Abs Immat Gran (auto) 0.03 Absolute Neuts (auto) 5.9 Absolute Nucleated RBC 0.000 Nucleated RBC % (auto) 0.0 PT INR APTT Sodium Potassium Chloride Carbon Dioxide Anion Gap BUN Creatinine Estim Creat Clear Calc Estimated GFR Random Glucose Fasting Glucose Calcium Lipase Beta HCG, Quant Urine Color Urine Appearance Urine pH Ur Specific [place] Urine Protein Urine Glucose (UA) Urine Ketones Urine Blood Urine Nitrite Ur Leukocyte Esterase Urine RBC Urine WBC Ur Squamous Epith Cells Ur Renal Epithelial Cell Amorphous Sediment Urine Bacteria Urine Mucus Urine Test Stool Occult Blood NEGATIVE COVID-19 (JANIS) Negative COVID-19 Clin Com See Note 03/09/22 03/09/22 03/10/22 04:05 04:05 05:45 WBC 9.7 9.0 RBC 4.16 L 4.07 L Hgb 11.1 L 10.9 L Hct 34.3 L 33.9 L MCV 82.5 83.3 MCH 26.7 L 26.8 L MCHC 32.4 32.2 RDW 14.3 14.1 Plt Count 317 312 MPV 9.9 9.7 Immature Gran % (Auto) 0.2 Neut % (Auto) 56.2 Lymph % (Auto) 35.0 [place] % (Auto) 6.7 Eos % (Auto) 1.4 Baso % (Auto) 0.5 Lymph # (Auto) 3.4 [place] # (Auto) 0.7 Eos # (Auto) 0.1 Baso # (Auto) 0.1 Abs Immat Gran (auto) 0.02 Absolute Neuts (auto) 5.4 Absolute Nucleated RBC 0.000 0.000 Nucleated RBC % (auto) 0.0 0.0 PT INR APTT Sodium 138 Potassium 4.0 Chloride 104 Carbon Dioxide 24 Anion Gap 14 BUN 16 Creatinine 0.77 Estim Creat Clear Calc 103.0 Estimated GFR > 60 Random Glucose 103 Fasting Glucose Calcium 8.7 Lipase Beta HCG, Quant Urine Color Urine Appearance Urine pH Ur Specific [place] Urine Protein Urine Glucose (UA) Urine Ketones Urine Blood Urine Nitrite Ur Leukocyte Esterase Urine RBC Urine WBC Ur Squamous Epith Cells Ur Renal Epithelial Cell Amorphous Sediment Urine Bacteria Urine Mucus Urine Test Stool Occult Blood COVID-19 (JANIS) COVID-19 Clin Com 03/10/22 05:45 WBC RBC Hgb Hct MCV MCH MCHC RDW Plt Count MPV Immature Gran % (Auto) Neut % (Auto) Lymph % (Auto) [place] % (Auto) Eos % (Auto) Baso % (Auto) Lymph # (Auto) [place] # (Auto) Eos # (Auto) Baso # (Auto) Abs Immat Gran (auto) Absolute Neuts (auto) Absolute Nucleated RBC Nucleated RBC % (auto) PT INR APTT Sodium 140 Potassium 3.4 Chloride 108 Carbon Dioxide 22 Anion Gap 13 BUN 11 Creatinine 0.69 Estim Creat Clear Calc 114.8 Estimated GFR > 60 Random Glucose Fasting Glucose 102 H Calcium 8.3 L Lipase Beta HCG, Quant Urine Color Urine Appearance Urine pH Ur Specific [place] Urine Protein Urine Glucose (UA) Urine Ketones Urine Blood Urine Nitrite Ur Leukocyte Esterase Urine RBC Urine WBC Ur Squamous Epith Cells Ur Renal Epithelial Cell Amorphous Sediment Urine Bacteria Urine Mucus Urine Test Stool Occult Blood COVID-19 (JANIS) COVID-19 Clin Com Airway Mallampati Class: I TM Dist: >3cm Neck ROM: Full Assessment and Plan Assessment Anesthesia Assessment: Anesthesia Plan Discussed and Chart Reviewed Final Anesthetic Review Family History of Problems with Anesthesia: No History of Problems with Anesthesia: No NPO: Yes ASA Class: II Final Preanesthetic Review: No Changes in Pt Med Stat, Meds/Allgs Chart Reviewed, Consent Obtained/Reviewed and Anes Risks/Benef Reviewed Patient Risk: Low Procedure Risk: Low Anesthetic Plan Anesthetic Plan: MAC: Disposition: Standard PACU
--- NOTE | 2022-03-10 08:11 | PM.EVENT ---
Event Note Date of Service: 03/10/22 Event Note: Colonoscopy note dictated mild colitis in sigmoid, likely infectious, biopised advance diet ok to d/c later today f/u with Ritu Sharif NP
--- NOTE | 2022-03-10 08:13 | PM.OP ---
Brief Operative Note Date of Service: 03/10/22 Pre-op diagnosis: rectal bleeding Post-op diagnosis: same (colitis) Procedure: colonoscopy Surgeon: Iván Hill Anesthesia: MAC Was an [employer] Instructor used for this Procedure?: No Estimated blood loss (mL): 2 Pathology: other Condition: stable Disposition: PACU
--- NOTE | 2022-03-10 09:09 | OP_ITS ---
SURGEON: Iván Hill MD INDICATIONS: Rectal bleeding. PREOPERATIVE DIAGNOSIS: POSTOPERATIVE DIAGNOSIS: PROCEDURE PERFORMED: Colonoscopy to the terminal ileum with biopsy. ESTIMATED BLOOD LOSS: COMPLICATIONS: ANESTHESIA: ASSISTANTS: SPECIMENS: MEDICATIONS: Monitored anesthesia care. DESCRIPTION OF PROCEDURE: History and physical performed. The risks and benefits of the procedure were explained to the patient. Informed consent was obtained. The patient was placed in the left lateral decubitus position. The Olympus video colonoscope was introduced into the rectum after digital rectal exam was performed and was found to be normal. The scope was advanced to the cecum without difficulty. The cecum was identified by transillumination, palpation, and identification of ileocecal valve. Examination was performed. The scope was removed. She tolerated the procedure well and was returned to recovery area in stable condition. FINDINGS: The terminal ileum was normal. This was biopsied. The visualized colonic mucosa was normal, except in the sigmoid from about 40 cm to approximately 25 cm, which showed superficial ulceration and inflammation. Biopsies were obtained. The picture was consistent with a mild infectious colitis. There was no evidence of inflammatory changes in the remainder of the colon. Retroflexed examination was normal. IMPRESSION: Colitis. RECOMMENDATIONS: Follow up biopsy results. Screening colonoscopy in 10 years. MD SUKHDEV Crisostomo/CLAUDETTEL / [id number] MTDD
[2022-03-10] MEDS: Famotidine 20 MG TABLET PO (09:12)
[2022-03-10] MEDS: 0.9 % Sodium Chloride 1,000 ML 100 ML IVCONT (09:12)
[2022-03-10] MEDS: 0.9 % Sodium Chloride Flush 3 ML SYRINGE IVFLUSH (09:12)
[2022-03-10] MEDS: Cholecalciferol (Vitamin D3) 10 MCG TABLET PO (09:12)
[2022-03-10] MEDS: Sennosides 8.6 MG TABLET 17.2 MG PO (09:12)
[2022-03-10] MEDS: Acetaminophen 325 MG TABLET 650 MG PO (11:52)
--- NOTE | 2022-03-10 14:06 | PM.DS ---
DS: Providers Provider Date of Service: 03/10/22 Date of admission: 03/09/22 00:53 Primary care physician: Josefina Faith MD Consults: 03/09/22 00:56 Consult to Gastroenterology Routine Consulting Provider: Zachery Acuna Reason for consultation: gi bleed Has provider been notified: No DS: Diagnosis Discharge Diagnosis (1) Rectal bleeding: Status: Acute (2) Colitis: Status: Acute DS: Summary Hospital Course Hospital Course: Admission note HPI ?36-year-old female with past medical history of sarcoidosis, asthma, GERD who presents to the hospital with complaints of 2 day history of diarrhea that became bloody x1 day.? Patient reports bright red blood usually after her BM, she reports history of constipation but denies history of hemorrhoids.? No similar history in the past.? She reports history of colitis in her sister.? she reports the abdominal pain is diffuse, intermittent, 10/10 at its worse, nonradiating, no alleviating or exacerbating factors. She reports no palpitations, no chest pain, no shortness of breath, no dizziness or change in vision. ? Denies any? Nausea, no vomiting, no urinary symptoms and no lower extremity edema.? ?on arrival to the ED patient hemodynamically stable with no significant abnormal vitals ?patient initially had a hemoglobin of 12.6 but had a bloody bowel movement and her hemoglobin dropped to 11.5, hematocrit of 39, UA negative ?abdominal pelvic? CT shows no acute findings in the abdomen or pelvis. no inflammatory changes Hospital course The patient was admitted to the hospital for evaluation of diarrhea and rectal bleeding. Treated with supportive measures of IV fluid and pain medication as she was evaluated by flat lock machine operator. CT scan of the abdomen was negative for any acute findings. GI did colonoscopy that did not show any source of bleeding but reported evidence of infectious colitis. Patient tolerated diet well, diarrhea resolved and no further bleeding reported during the hospital stay. To be discharged home to finish 5 days of Flagyl as she reports multiple antibiotic allergies. To follow-up with gastroenterology Kristina Sharif at the clinic Advance your diet slowly at home Finished 5 days of Flagyl Time Spent with Patient Time attestation: Total time spent providing and/or coordinating discharge services: Discharge coordination time: Greater than 30 minutes Quality: Safe Use of Opioids Does Pt have an Active Cancer Diagnosis on the Problem List?: No Quality: Stroke Does the patient have a stroke diagnosis?: No Physical Exam Vital Signs: Vital Signs: Last Vital Signs Temp 98.3 F 03/10/22 11:31 Pulse 83 03/10/22 11:31 Resp 18 03/10/22 11:31 BP 114/65 03/10/22 11:31 Pulse Ox 98 03/10/22 11:31 O2 Del Method 03/10/22 11:31 BMI result Body Mass Index 25.7 Const: Other: Constitutional : Alert, oriented, not in distress Neck : Normal inspection, Supple Cardiovascular : RRR, no JVP, no lower extremity edema Respiratory : fair bilateral air entry, no crackles, wheezes or rhonchi Gastrointestinal: soft, lax, Normal bowel sounds, Non tender Skin : Warm, Dry Neurological : Alert & oriented x3, No focal deficit , CN 2-12 within normal DS: Data Data Completed and Pending Pending studies at discharge: Pending at discharge 03/10/22 07:51 Surgical [PTH] Routine Labs on day of discharge: Laboratory Results - last 24 hr 03/10/22 03/10/22 05:45 05:45 WBC 9.0 RBC 4.07 L Hgb 10.9 L Hct 33.9 L MCV 83.3 MCH 26.8 L MCHC 32.2 RDW 14.1 Plt Count 312 MPV 9.7 Absolute Nucleated RBC 0.000 Nucleated RBC % (auto) 0.0 Sodium 140 Potassium 3.4 Chloride 108 Carbon Dioxide 22 Anion Gap 13 BUN 11 Creatinine 0.69 Estim Creat Clear Calc 114.8 Estimated GFR > 60 Fasting Glucose 102 H Calcium 8.[address] scan - abdomen: Radiologist's impression: ITS Impressions Abdomen/Pelvis CT 03/08/22 23:19 IMPRESSION: No acute findings in the abdomen or pelvis. No inflammatory change. Trace pelvic free fluid is likely physiologic. Fleischner guidelines were followed. Discharge Plan Discharge Patient Disposition: Home, Self-Care Discharge Diagnosis: Infectious colitis Rectal bleeding Referrals: Kristina Sharif ANP-C [Nurse Practitioner] - 1 Week Josefina Stacy MD [Primary Care Provider] - 2 days Discharge Medications: New metronidazole 500 mg tablet 500 mg PO Q8H Qty: 15 0RF Continued cyclobenzaprine 10 mg tablet 1 tab PO Q8H PRN (Reason: Muscle Spasm) sennosides [senna] 8.6 mg tablet 2 tab PO BEDTIME docusate sodium 100 mg capsule 1 cap PO BID naproxen 500 mg tablet 1 tab PO BID PRN (Reason: Pain) cholecalciferol (vitamin D3) [Vitamin D3] 10 mcg (400 unit) capsule 1 cap PO DAILY famotidine 40 mg tablet 1 tab PO BEDTIME ipratropium-albuterol 0.5 mg-3 mg(2.5 mg base)/3 mL solution for nebulization 1 vial inhalation Q4H PRN (Reason: wheezing) fluticasone propionate 50 mcg/actuation spray,suspension 1 spray intranasal BID PRN (Reason: Allergic Symptoms) albuterol sulfate 90 mcg/actuation Hfa Aerosol Inhaler 2 puff INHALATION Q6H PRN (Reason: Shortness Of Breath) Discharge Orders: Discharge Order (Routine); Ordered 03/10/22 Ordered By: Terrence Rasmussen Diet: Advance to usual diet Activity on Discharge: As tolerated Stand Alone Forms: Patient Portal Discharge page, Work/School Release Activity Restrictions/Additional Instructions: Care Plan Goals: Read below Health Concerns: Read below Plan of Treatment: Take your medications as prescribed. Follow-up with your primary care provider this week. Follow up with GI. Return to the emergency department with new or worsening symptoms. Such as fevers, chills, chest pain, shortness of breath, nausea, vomiting, dizziness, headache, vision changes, lethargy In case of emergency call 911 Assessment: You have presented to the hospital with abdominal pain and rectal bleeding. Evaluated by flat lock machine operator who did a colonoscopy that showed an evidence of infectious etiology. Biopsies were done and pending. Your symptoms improved as you started to tolerate oral diet. Seems to be viral illness. To follow-up with gastroenterology Kristina Sharif at the clinic Advance your diet slowly at home Continue Flagyl as prescribed Discharge Date/Time: 03/10/22 15:38
--- NOTE | 2022-03-10 14:44 | MHC.CM.PN ---
pt medically cleared to d/c home self care, pt w/self transport.
== END 2022-03-10 15:38 | disposition home or self-care (01) ==
LOC: HO.ED 03-09 00:46 → HO.EDOVER 03-09 03:18 → HO.S3 03-09 20:08
PROVIDERS: Emergency Medicine; Internal Medicine; Internal Medicine Gastroenterology; Physician Assistant; Admitting Provider Internal Medicine; Emergency Provider Emergency Medicine; PCP Internal Medicine; Visit Provider Student in an Organized Health Care Education/Training Program
PROC: 0DJD8ZZ Inspection of Lower Intestinal Tract, Via Natural or Artificial Opening Endoscopic (ICD-10-PCS; CPT 45378; principal; 2022-03-10 07:30)
DX: K52.9 Noninfective gastroenteritis and colitis, unspecified (principal); R10.9 Unspecified abdominal pain; K62.5 Hemorrhage of anus and rectum; Z20.822 Contact with and (suspected) exposure to COVID-19; D86.9 Sarcoidosis, unspecified; K21.9 Gastro-esophageal reflux disease without esophagitis; K42.9 Umbilical hernia without obstruction or gangrene; J45.909 Unspecified asthma, uncomplicated; F33.0 Major depressive disorder, recurrent, mild; Z87.891 Personal history of nicotine dependence; Z79.899 Other long term (current) drug therapy
CPT/HCPCS: 45380; 36415; 74176; 80048; 81001; 81003; 81025; 82272; 83690; 84702; 85025; 85027; 85610; 85730; 87635; 88305; 96361; 96374; 96375; 99218; 99285; J1170; J1885

== ENCOUNTER → 2022-03-24 10:16 | Outpatient (BNVA) | payer OTHER, SELFPAY | PROVIDERS: PCP Internal Medicine; Visit Provider Internal Medicine Pulmonary Disease | DX: J45.40 Moderate persistent asthma, uncomplicated (principal); D86.9 Sarcoidosis, unspecified | CPT/HCPCS: 99212 ==

== ENCOUNTER → 2022-03-31 11:44 | Outpatient (BNVA) | payer OTHER, SELFPAY | PROVIDERS: PCP Internal Medicine; Visit Provider Nurse Practitioner | DX: K59.04 Chronic idiopathic constipation (principal); K21.9 Gastro-esophageal reflux disease without esophagitis | CPT/HCPCS: 99212 ==

== ENCOUNTER → 2022-05-20 11:52 | Outpatient (BNVA) | payer OTHER, SELFPAY | PROVIDERS: PCP Internal Medicine; Visit Provider Nurse Practitioner | DX: K59.04 Chronic idiopathic constipation (principal); K21.9 Gastro-esophageal reflux disease without esophagitis | CPT/HCPCS: 99212 ==

== ENCOUNTER 2022-06-06 10:46 | Outpatient (REF) | payer OTHER, SELFPAY ==
[2022-06-06 13:47] LABS: C Reactive Protein 0.32 mg/dL (< or = 0.50)
[2022-06-06 14:26] LABS: Erythrocyte Sedimentation Rate 17 MM/HR (0-20)
== END 2022-06-06 10:47 | disposition home or self-care (01) ==
LOC: HO.10HDL 10:46
PROVIDERS: Visit Provider Nurse Practitioner Family
DX: I73.00 Raynaud's syndrome without gangrene (principal); M25.50 Pain in unspecified joint; M41.25 Other idiopathic scoliosis, thoracolumbar region; M79.7 Fibromyalgia
CPT/HCPCS: 36415; 85652; 86140; 99212

== ENCOUNTER → 2022-06-09 10:37 | Outpatient (BNVA) | payer OTHER, SELFPAY | PROVIDERS: PCP Internal Medicine; Visit Provider Internal Medicine Pulmonary Disease | DX: D86.9 Sarcoidosis, unspecified (principal); J45.40 Moderate persistent asthma, uncomplicated | CPT/HCPCS: 99212 ==

== ENCOUNTER 2022-06-25 18:01 | Emergency (ER) | payer OTHER, SELFPAY ==
[2022-06-25 18:31] VITALS: BP 141/87; PULSE 130; RESP 20; TEMP 38.1; O2SAT 97; BMI 25.8
--- NOTE | 2022-06-25 18:31 | ED_ITS ---
HPI - URI/Sore Throat General Chief Complaint: General Medical Stated Complaint: fever,headache,dizziness,asthma Time Seen by Provider: 06/25/22 20:42 Source: patient Mode of arrival: ambulatory Limitations: no limitations History of Present Illness HPI Narrative: Patient is a 36-year-old female who presents emergency department for evaluation of upper respiratory symptoms. She reports symptom onset to be yesterday. She is having fever, headache, single episode of vomiting today, dry cough. States that her daughter is at home ill with influenza currently. Related Data Home Medications Medication Instructions Recorded Confirmed albuterol sulfate 90 mcg/actuation 2 puff inhalation Q6H PRN 03/09/22 03/09/22 aerosol inhaler Shortness Of Breath cholecalciferol (vitamin D3) 10 1 cap PO DAILY 03/09/22 03/09/22 mcg (400 unit) capsule (Vitamin D3) cyclobenzaprine 10 mg tablet 1 tab PO Q8H PRN Muscle Spasm 03/09/22 03/09/22 fluticasone propionate 50 1 spray intranasal BID PRN 03/09/22 03/09/22 mcg/actuation nasal Allergic Symptoms spray,suspension ipratropium 0.5 mg-albuterol 3 mg 1 vial inhalation Q4H PRN wheezing 03/09/22 03/09/22 (2.5 mg base)/3 mL nebulization soln naproxen 500 mg tablet 1 tab PO BID PRN Pain 03/09/22 03/09/22 Previous Rx's Medication Instructions Recorded tiotropium bromide 2.5 2 puff inhalation QAM 30 days #4 03/24/22 mcg/actuation mist for inhalation grams (Spiriva Respimat) bisacodyl 5 mg tablet,delayed 10 mg PO BEDTIME 30 days #60 tabs 03/31/22 release (Dulcolax (bisacodyl)) docusate sodium 100 mg capsule 100 mg PO BID #60 caps 03/31/22 famotidine 40 mg tablet 40 mg PO BEDTIME #30 tabs 03/31/22 pantoprazole 20 mg tablet,delayed 20 mg PO DAILY #30 tabs 03/31/22 release simethicone 180 mg capsule (Gas 180 mg PO BID #60 caps 03/31/22 Relief (simethicone)) Allergies Allergy/AdvReac Type Severity Reaction Status Date / Time doxycycline Allergy Severe tongue Verified 06/09/22 10:44 swelling morphine [MORPHINE] Allergy Intermediate RASH, Verified 06/09/22 10:44 headache, redness, throat swelling sumatriptan [From IMITREX] Allergy Mild ITCHING Verified 06/09/22 10:44 azithromycin Allergy Unknown facial Verified 06/09/22 10:44 redness Penicillins [PENICILLINS] Allergy Unknown ANAPHYLAXIS Verified 06/09/22 10:44 vancomycin AdvReac Itching Verified 06/09/22 10:44 Review of Systems Review of Systems: Constitutional: Positive fever. Positive chills. No weakness. Positive fatigue. ENT/ Mouth: No Ear Pain, positive Nasal Congestion, no sore throat, No Rhinorrhea, No Swallowing Difficulty Skin: No rash or itching. Cardiovascular: No chest pain. No palpitations. Respiratory: No shortness of breath. Positive cough. No sputum production. Gastrointestinal: No nausea. Positive vomiting. No diarrhea. No abdominal pain. Genitourinary: No burning micturition. No urinary frequency. Neurologic: Positive headache. No dizziness. No syncope. No numbness or tingling in the extremities. Musculoskeletal: No muscle pain. No back pain. No joint pain or stiffness. Yes all other systems are reviewed and are negative PMFSH Past Medical History Attestation statement: The following information was validated with the patient. Source: old records reviewed Medical History Asthma Mild recurrent major depression Sarcoidosis Umbilical hernia Surgical History H/O esophagogastroduodenoscopy History of appendectomy History of tubal ligation History of umbilical hernia repair Previous section Family History Family History Father Essential hypertension Mother Essential hypertension Diabetes mellitus Social History Social History Housing: Apartment Alcohol intake: never Patient Tobacco Use Status: Former Tobacco user Quit Date: 2012 Tobacco use type: Cigarette e-Cigarette/Vaping Use: Never Used Second Hand Smoke Exposure: No service: No Current occupational status: unemployed Cognitive needs: No Hearing needs: No Vision needs: No Physical Exam Vital Signs: Vital Signs: Last Vital Signs Temp 100.6 F H 06/25/22 18:31 Pulse 100 06/25/22 20:40 Resp 20 06/25/22 20:40 BP 117/77 06/25/22 20:40 Pulse Ox 97 06/25/22 20:40 O2 Del Method 06/25/22 20:40 BMI result Body Mass Index 25.8 appears fatigued, LS clear apices, diminished at the bases, no respiratory distress, febrile, tachycardia Appearance: Alert.?Oriented to person, place and time. No acute distress.?Normal affect. Eyes: Pupils equal, round and reactive to light.? ENT: TM normal bilaterally. Pharynx normal.?? Neck: Normal inspection.? Neck supple.??No cervical adenopathy CVS: Heart sounds normal. Normal heart rate and rhythm.? Pulses normal.?? Respiratory: No respiratory distress.? Lung sounds clear to auscultation bilaterally?? Abdomen: Soft and non-tender. Normoactive bowel sounds. Skin: Skin warm and dry.? Normal skin color.? ? Extremities: No lower extremity edema.? Neuro: Moves all extremities spontaneously. Sensation intact bilaterally. No motor deficits. Ambulates with normal steady gait. Course Course Course Narrative: Patient is a 36-year-old female presenting for evaluation of upper respiratory symptoms. At this time history and physical exam not consistent with ACS/PE/pneumonia. She appears fatigued, afebrile with tachycardia heart rate 130s, no hypoxia or tachypnea. At this time suspect viral illness, do not vega spect bacterial infection/sepsis at this time. Speaking clear full sentences, ambulatory with steady gait. Patient to receive antipyretic and will obtain COVID-19 and influenza testing. Reevaluation(s) Reevaluation #1: COVID-19 testing negative. Influenza A testing positive. Tachycardia with significant improvement once temperature normalized. Stable for discharge. Offered Tamiflu however patient declines. Discussed conservative treatment including rest, hydration, Tylenol/ibuprofen as needed for fever and body aches, saline nasal spray, humidifier, [id number] cold medication. Advised to follow-up with primary care provider as needed, discussed reasons to return back to the emergency department. All questions were answered. Provided with a return to work/school note. Time: 20:45 Medications Administered Discontinued Medications Generic Name Dose Route Start Last Admin Trade Name Freq PRN Reason Stop Dose Admin Acetaminophen 975 mg 06/25/22 18:34 06/25/22 18:37 Acetaminophen 325 Mg Tablet PO 06/25/22 18:35 975 mg ONCE ONE Administration MDM - URI/Sore Throat Medical Records Attestation: I reviewed the patient's medical records. Lab Data Attestation: I reviewed the patient's lab results. Labs: Lab Results 06/25/22 06/25/22 Range/Units 18:38 18:38 COVID-19 (JANIS) Negative (Negative) COVID-19 Clin Com See Note Influenza Type A (MAN) Positive A (Negative) Influenza Type B (MAN) Negative (Negative) Influenza A & B Note See Note Discharge Plan Discharge Clinical Impression: Influenza A Patient Disposition: Home, Self-Care Instructions: Influenza (ED) Additional Instructions: Be sure to rest, stay well hydrated drinking plenty of fluids, eat small frequent meals. Tylenol/ibuprofen can be used as needed for fever/pain. [id number] cold medications may be helpful as well for symptoms. Saline nasal spray, humidifier may be helpful for nasal congestion. You may return to the emergency department with any new or worsening symptoms or concerns. Follow-up with your primary care provider as needed. Should remain out of school/ work until symptoms have resolved and have been without a fever for 24 hours without the use of Tylenol or ibuprofen. Prescriptions: No Action cyclobenzaprine 10 mg tablet 1 tab PO Q8H PRN (Reason: Muscle Spasm) naproxen 500 mg tablet 1 tab PO BID PRN (Reason: Pain) cholecalciferol (vitamin D3) [Vitamin D3] 10 mcg (400 unit) capsule 1 cap PO DAILY ipratropium-albuterol 0.5 mg-3 mg(2.5 mg base)/3 mL solution for nebulization 1 vial inhalation Q4H PRN (Reason: wheezing) fluticasone propionate 50 mcg/actuation spray,suspension 1 spray intranasal BID PRN (Reason: Allergic Symptoms) albuterol sulfate 90 mcg/actuation Hfa Aerosol Inhaler 2 puff INHALATION Q6H PRN (Reason: Shortness Of Breath) Spiriva Respimat 2.5 mcg/actuation mist 2 puff inhalation QAM 30 Days Qty: 4 6RF bisacodyl [Dulcolax (bisacodyl)] 5 mg tablet,delayed release (DR/EC) 10 mg PO BEDTIME 30 Days Qty: 60 6RF pantoprazole 20 mg tablet,delayed release (DR/EC) 20 mg PO DAILY Qty: 30 6RF famotidine 40 mg tablet 40 mg PO BEDTIME Qty: 30 6RF docusate sodium 100 mg capsule 100 mg PO BID Qty: 60 6RF simethicone [Gas Relief (simethicone)] 180 mg capsule 180 mg PO BID Qty: 60 6RF Stand Alone Forms: Work/School Release
[2022-06-25] MEDS: Acetaminophen 325 MG TABLET 975 MG PO (18:37)
[2022-06-25 19:09] LABS: COVID-19 Test Negative (Negative)
[2022-06-25 19:13] LABS: IDNOW Serial# 55D5AD1C; Influenza A Positive (Negative); Influenza B2 Negative (Negative)
[2022-06-25 20:40] VITALS: BP 117/77; PULSE 100; RESP 20; O2SAT 97
== END 2022-06-25 21:03 | disposition home or self-care (01) ==
LOC: HO.ED 20:56
PROVIDERS: Nurse Practitioner Family; Emergency Provider Emergency Medicine; PCP Internal Medicine
DX: J11.1 Influenza due to unidentified influenza virus with other respiratory manifestations (principal); R50.9 Fever, unspecified
CPT/HCPCS: 87502; 87635; 99283

== ENCOUNTER 2022-07-15 16:26 | Outpatient (REF) | payer OTHER, SELFPAY ==
[2022-07-15 16:36] LABS: MANUAL DIFF FLAG NO
[2022-07-15 17:22] LABS: Basophils Absolute Auto 0.1 X10*3/uL (0.0-0.2); Basophils Percent Auto 0.5 % (0-2); Eosinophils Absolute Auto 0.1 X10*3/uL (0.0-0.4); Eosinophils Percent Auto 1.3 % (0-4); Hematocrit 34.2 % (37.0-47.0); Hemoglobin 10.8 g/dl (12.0-16.0); Imm Gran Abs Auto 0.03 X10*3/uL (0.00-0.03); Imm Gran Pct Auto 0.3 % (0.0-0.4); Lymphocytes Absolute Auto 3.4 X10*3/uL (1.2-4.9); Lymphocytes Percent Auto 36.9 % (20-40); Mean Corpuscular HGB Conc 31.6 g/dl (31.0-35.0); Mean Corpuscular Hemoglobin 27.2 pg (27.0-33.0); Mean Corpuscular Volume 86.1 fL (80.0-98.0); Mean Platelet Volume 10.7 fL (9.4-12.3); Monocytes Absolute Auto 0.6 X10*3/uL (0.1-1.2); Monocytes Percent Auto 6.7 % (2-11); Neutrophils Absolute Auto 4.9 x10*3/uL (2.0-8.3); Neutrophils Percent Auto 54.3 % (45-73); Platelet Count 402 X10*3/uL (160-400); Red Blood Count 3.97 X10*6/uL (4.20-5.50); Red Cell Distribution Width 14.4 % (11.0-16.0); White Blood Count 9.1 X10*3/uL (4.8-10.8)
[2022-07-15 18:04] LABS: Alanine Aminotransferase 10 U/L (0-31); Albumin Level 4.3 g/dL (3.5-5.0); Alkaline Phosphatase 62 U/L (39-117); Anion Gap 12 (12-20); Aspartate Amino Transferase 16 U/L (5-31); Bilirubin Total 0.5 mg/dL (0.0-1.0); Blood Urea Nitrogen 18 mg/dL (9-16); C Reactive Protein 0.29 mg/dL (< or = 0.50); Calcium 9.5 mg/dL (8.4-10.2); Carbon Dioxide 27 mmol/L (22-29); Chloride 106 mmol/L (96-108); Cholesterol 192 mg/dL; Estimated Glomerular Filt Rate > 60; Glucose Fasting 84 mg/dL (60-99); HDL Cholesterol 33 mg/dL; LDL Cholesterol Calculated 128 mg/dl; Potassium 4.6 mmol/L (3.3-5.1); Sodium 140 mmol/L (135-145); Total Protein 7.4 g/dL (6.5-8.0); Triglycerides 157 mg/dL
[2022-07-15 18:24] LABS: Vitamin D 25-OH Total 15.6 ng/mL (>30)
== END 2022-07-15 16:27 | disposition home or self-care (01) ==
LOC: HO.LAB 16:26
PROVIDERS: PCP Internal Medicine; Visit Provider Nurse Practitioner
DX: Z00.00 Encounter for general adult medical examination without abnormal findings (principal); K21.9 Gastro-esophageal reflux disease without esophagitis; K59.04 Chronic idiopathic constipation; E55.9 Vitamin D deficiency, unspecified
CPT/HCPCS: 36415; 80053; 80061; 82306; 85025; 86140; 99212

== ENCOUNTER → 2022-07-21 15:54 | Outpatient (BNVA) | payer OTHER, SELFPAY | PROVIDERS: PCP Internal Medicine; Visit Provider Nurse Practitioner | DX: K58.2 Mixed irritable bowel syndrome (principal); K21.9 Gastro-esophageal reflux disease without esophagitis; D86.9 Sarcoidosis, unspecified | CPT/HCPCS: 99212 ==

== ENCOUNTER → 2022-12-07 10:48 | Outpatient (BNVA) | payer OTHER, SELFPAY | PROVIDERS: PCP Internal Medicine; Visit Provider Internal Medicine Pulmonary Disease | DX: J45.909 Unspecified asthma, uncomplicated (principal); D86.9 Sarcoidosis, unspecified | CPT/HCPCS: 99212 ==

== ENCOUNTER 2022-12-08 09:59 | Emergency (ER) | payer OTHER, SELFPAY ==
--- NOTE | ~2022-12-08 | CT_ITS ---
EXAMINATION: CT ABDOMEN AND PELVIS WITH CONTRAST CLINICAL INFORMATION: Abdominal pain radiating to back COMPARISON: 03/08/2022 TECHNIQUE: Multidetector volumetric images were obtained from the superior aspect of the liver through the pubic symphysis following administration 85 mL of Omnipaque 350 intravenous contrast. Sagittal and coronal reformatted images were obtained on the technologist's workstation. Oral contrast: No This CT examination was performed using dose optimization techniques as appropriate, variously including the following: *Automated exposure control *Adjustment of mA and/or kV according to patient size (this includes techniques or standardized protocols for targeted exams where dose is matched to indication/reason for exam; i.e. extremities or head) *Use of iterative reconstruction technique DLP: 542 mGy-cm FINDINGS: LUNG BASES: The visualized lung bases are unremarkable. LIVER, GALLBLADDER, AND BILIARY TREE: The liver is normal in size, shape, and attenuation. No focal hepatic lesion or biliary ductal dilatation is present. The gallbladder is unremarkable with no evidence of radiopaque gallstones, gallbladder wall thickening, or obvious pericholecystic inflammatory changes. PANCREAS: Unremarkable. SPLEEN: Unremarkable. ADRENAL GLANDS: Unremarkable. KIDNEYS AND URETERS: The kidneys are normal in size, shape, and attenuation. No hydronephrosis, hydroureter, or calculi seen. No perinephric stranding. BLADDER: Bladder is thick-walled but decompressed GASTROINTESTINAL TRACT: The bowel pattern is nonobstructing. ABDOMINAL WALL: No significant hernia is appreciated. LYMPH NODES: Once again some mildly prominent periaortic nodes. No bulky adenopathy. VASCULAR: Unremarkable. PELVIC VISCERA: Some free fluid in the deep pelvis. This may be physiologic in this young woman. Also seen previously. Some cystic change in the right and left adnexa is noted OSSEOUS STRUCTURES: Degeneration at L5-S1. Bony foraminal encroachment left greater than right CT/CT abdomen pelvis w IV con IMPRESSION: No acute finding. The bowel pattern is felt to be nonobstructing. . No hydronephrosis in the kidneys. Mild free fluid in the deep pelvis may be physiologic and bladder wall is mildly thickened but decompressed. Cystitis cannot be excluded. Cystic change in the ovaries in this young patient. Cannot rule out a decompressing cyst on the right measuring 2.2 cm.
[2022-12-08 10:01] VITALS: BP 128/87; PULSE 70; RESP 16; TEMP 36.8; O2SAT 98; BMI 25.0
--- NOTE | 2022-12-08 10:30 | ED.GENADULT ---
HPI - General Adult General Chief complaint: Abdominal Pain Stated complaint: lower back pain/ nausea Time Seen by Provider: 12/08/22 10:16 Source: patient, RN notes reviewed and old records reviewed Mode of arrival: ambulatory History of Present Illness HPI narrative: 37-year-old female with a past medical history of asthma, sarcoidosis, depression, presenting to the ED complaining of diffuse abdominal pain radiating to back, nonbloody diarrhea, and nausea since last night. Denies fever, chills, vomiting, dysuria/hematuria, vaginal bleeding/discharge. Admit symptoms were similar to prior colitis. Onset (ago): hour(s) Related Data Home Medications Medication Instructions Recorded Confirmed cholecalciferol (vitamin D3) 10 1 cap PO DAILY 03/09/22 06/29/22 mcg (400 unit) capsule (Vitamin D3) cyclobenzaprine 10 mg tablet 1 tab PO Q8H PRN Muscle Spasm 03/09/22 06/29/22 naproxen 500 mg tablet 1 tab PO BID PRN Pain 03/09/22 06/29/22 Previous Rx's Medication Instructions Recorded tiotropium bromide 2.5 2 puff inhalation QAM 30 days #4 03/24/22 mcg/actuation mist for inhalation grams (Spiriva Respimat) bisacodyl 5 mg tablet,delayed 10 mg PO BEDTIME 30 days #60 tabs 03/31/22 release (Dulcolax (bisacodyl)) docusate sodium 100 mg capsule 100 mg PO BID #60 caps 03/31/22 dicyclomine 20 mg tablet 20 mg PO QID 30 days #120 tabs 07/21/22 famotidine 40 mg tablet 40 mg PO BEDTIME #30 tabs 07/21/22 pantoprazole 20 mg tablet,delayed 20 mg PO DAILY #30 tabs 07/21/22 release simethicone 180 mg capsule (Gas 180 mg PO BID #60 caps 07/21/22 Relief (simethicone)) fluticasone propionate 50 1 spray intranasal BID PRN for 11/22/22 mcg/actuation nasal allergies #16 mL spray,suspension albuterol sulfate 90 mcg/actuation 2 puff inhalation Q6H PRN for 11/24/22 aerosol inhaler (Ventolin HFA) dyspnea #18 ea ipratropium 0.5 mg-albuterol 3 mg 3 ml inhalation Q4H PRN for 11/28/22 (2.5 mg base)/3 mL nebulization wheezing #180 mL soln levofloxacin 750 mg tablet 750 mg PO DAILY #5 tabs 12/07/22 Allergies Allergy/AdvReac Type Severity Reaction Status Date / Time doxycycline Allergy Severe tongue Verified 12/07/22 10:51 swelling morphine [MORPHINE] Allergy Intermediate RASH, Verified 12/07/22 10:51 headache, redness, throat swelling sumatriptan [From IMITREX] Allergy Mild ITCHING Verified 12/07/22 10:51 azithromycin Allergy Unknown facial Verified 12/07/22 10:51 redness Penicillins [PENICILLINS] Allergy Unknown ANAPHYLAXIS Verified 12/07/22 10:51 vancomycin AdvReac Itching Verified 12/07/22 10:51 Review of Systems Review of Systems: Constitutional: No Fever, No Chills ENT/Mouth: No Ear Pain, No Nasal Congestion, No sore throat, No Rhinorrhea, No Swallowing Difficulty Cardiovascular: No Chest Pain, No SOB Respiratory: No Cough, No Sputum, No Wheezing Gastrointestinal: + Nausea, No Vomiting, + Diarrhea, No Constipation, + Abdominal pain Genitourinary: No Dysuria, No Urinary Frequency, No Hematuria, No Flank Pain Musculoskeletal: No joint pain, No Myalgias, No Joint Swelling Skin: No Skin Lesions, No rash Neuro: No Weakness, No Numbness, No Paresthesias Yes all other systems are reviewed and are negative Constitutional: Constitutional: Reports as per [facility] Past Medical History Attestation statement: The following information was validated with the patient. Source: old records reviewed Medical History Asthma Mild recurrent major depression Sarcoidosis Umbilical hernia Surgical History H/O esophagogastroduodenoscopy History of appendectomy History of tubal ligation History of umbilical hernia repair Previous section Family History Family History Father Essential hypertension Arthritis CAD (coronary artery disease) Mother Essential hypertension Diabetes mellitus Social History Social History Housing: Apartment Alcohol intake: never Patient Tobacco Use Status: Former Tobacco user Quit Date: 2012 Tobacco use type: Cigarette e-Cigarette/Vaping Use: Never Used Second Hand Smoke Exposure: No Advance Directives: No Advance Directives Information Provided: Yes service: No Current occupational status: employed Current occupational exposures/hazards: No Cognitive needs: No Hearing needs: No Vision needs: No Physical Exam ED Vital Signs: Vital Signs - 24 hr 12/08/22 10:01 Temperature 98.2 F Pulse Rate 70 Respiratory Rate 16 Blood Pressure 128/87 Pulse Oximetry 98 Oxygen Delivery Method Room Air BMI result Body Mass Index 25.0 Const General: cooperative, healthy appearing and no acute distress Orientation/consciousness: patient oriented x3 Limitations: no limitations HENMT Head: Yes normal to inspection and Yes atraumatic Ears: hearing grossly normal bilaterally General nose exam: Normal external nose present Face and sinus: Yes normal facial exam Eyes General: appearance normal, both eyes and all related structures EOM: EOMs intact bilaterally Neck Neck: Yes normal visual inspection and Yes no meningeal signs Resp Effort & Inspection: normal respiratory effort and no respiratory distress Cardio Rate: regular rate Heart sounds: S1 normal heart sound present and S2 normal heart sound present GI Inspection: Yes normal to inspection Palpation (GI): Soft to palpation, Tenderness to palpation present (GI) (Diffuse) with no rebound tenderness, no guarding and not rigid General: Yes CVA tenderness bilateral Back/Spine/Pelvis Back: CVA tenderness Skin Rashes: no rashes Wounds: no wounds Neuro General: patient oriented x3, tone normal and no meningeal signs Gait exam (Neuro): Normal gait present Extrem General: Yes normal to inspection Course Course Course Narrative: -1450-- no leukocytosis. Labs otherwise reassuring. UA negative 1450--CT abdomen pelvis w IV con IMPRESSION: No acute finding. The bowel pattern is felt to be nonobstructing. ? No hydronephrosis in the kidneys. ? Mild free fluid in the deep pelvis may be physiologic and bladder wall is mildly thickened but decompressed. Cystitis cannot be excluded. ? Cystic change in the ovaries in this young patient. Cannot rule out a decompressing cyst on the right measuring 2.2 cm. >Results discussed with patient including worrisome signs and symptoms and strict return precautions, and when to return to the emergency department. They verbalized understanding and feel safe for discharge at this time. Medications Administered Discontinued Medications Generic Name Dose Route Start Last Admin Trade Name Freq PRN Reason Stop Dose Admin Sodium Chloride 1,000 mls @ 999 mls/hr 12/08/22 10:45 12/08/22 13:55 Ns IV 12/08/22 11:45 Infused .Q1H1M GERARD Infusion Iohexol 100 ml 12/08/22 12:43 12/08/22 12:44 Iohexol 350 Mg/Ml 100 Ml Infus..Btl IV 12/08/22 12:44 85 ml ONCE ONE Administration Ketorolac Tromethamine 15 mg 12/08/22 15:11 12/08/22 15:23 Ketorolac Tromethamine 15 Mg/Ml Vial IVPUSH 12/08/22 15:12 15 mg ONCE ONE Administration Ondansetron HCl 4 mg 12/08/22 10:37 12/08/22 10:56 Ondansetron Hcl 4 Mg/2 Ml Vial IVPUSH 12/08/22 10:38 4 mg ONCE ONE Administration Medical Decision Making Medical Decision Making MDM Narrative: 37-year-old female with a past medical history of asthma, sarcoidosis, depression, presenting to the ED complaining of diffuse abdominal pain radiating to back, nonbloody diarrhea, and nausea since last night. On exam vital signs stable, NAD, nontoxic appearing, abdomen soft diffusely tender, bilateral CVAT noted, no rebound or guarding. Concern for appendicitis/diverticulitis vs renal stone/pyelo vs colitis. Lower suspicion for ovarian torsion/TOA, or pancreatitis/cholecystitis Plan: Labs, UA, CT AP, IVF, pain control Please refer to course for remaining clinical decision making, interpretation of labs/imaging results, and discussions with consultants and/or family members. Differential Diagnosis Differential Diagnoses: The differential diagnosis associated with the presentation includes As above Admission/Observation Consideration of admission/observation: Escalation of care including admission/observation considered Lab Data [facility] Lab Attestation statement: I reviewed the patient's lab results. 12/08/22 10:54 12/08/22 10:53 Labs: Lab Results 12/08/22 12/08/22 12/08/22 Range/Units 10:53 10:53 10:54 WBC 8.8 (4.8-10.8) X10*3/uL RBC 4.40 (4.20-5.50) X10*6/uL Hgb 11.9 L (12.0-16.0) g/dl Hct 37.5 (37.0-47.0) % MCV 85.2 (80.0-98.0) fL MCH 27.0 (27.0-33.0) pg MCHC 31.7 (31.0-35.0) g/dl RDW 14.4 (11.0-16.0) % Plt Count 295 D (160-400) X10*3/uL MPV 10.1 (9.4-12.3) fL Immature Gran % (Auto) 0.3 (0.0-0.4) % Neut % (Auto) 62.3 (45-73) % Lymph % (Auto) 31.0 (20-40) % [place] % (Auto) 4.8 (2-11) % Eos % (Auto) 0.9 (0-4) % Baso % (Auto) 0.7 (0-2) % Lymph # (Auto) 2.7 (1.2-4.9) X10*3/uL [place] # (Auto) 0.4 (0.1-1.2) X10*3/uL Eos # (Auto) 0.1 (0.0-0.4) X10*3/uL Baso # (Auto) 0.1 (0.0-0.2) X10*3/uL Abs Immat Gran (auto) 0.03 (0.00-0.03) X10*3/uL Absolute Neuts (auto) 5.5 (2.0-8.3) x10*3/uL Absolute Nucleated RBC 0.000 (0.0-0.012) X10*3/uL Nucleated RBC % (auto) 0.0 (0.0-0.2) /100WBC Sodium 137 (135-145) mmol/L Potassium 4.3 (3.3-5.1) mmol/L Chloride 106 (96-108) mmol/L Carbon Dioxide 24 (22-29) mmol/L Anion Gap 11 L (12-20) BUN 13 (9-16) mg/dL Creatinine 0.75 (0.5-1.4) mg/dL Estim Creat Clear Calc 96.1 Estimated GFR > 60 Random Glucose 134 H (60-115) mg/dL Calcium 9.1 (8.4-10.2) mg/dL Magnesium 1.8 (1.6-2.6) mg/dL Total Bilirubin 0.5 (0.0-1.0) mg/dL Direct Bilirubin 0.1 (0.0-0.5) mg/dL AST 13 (5-31) U/L ALT 10 (0-31) U/L Alkaline Phosphatase 57 (39-117) U/L Total Protein 7.3 (6.5-8.0) g/dL Albumin 4.1 (3.5-5.0) g/dL Lipase 35 (8-78) U/L Urine Color Urine Appearance Urine pH (5.0-9.0) Ur Specific [place] (1.005-1.025) Urine Protein (Neg-Trace) mg/dL Urine Glucose (UA) (Negative) mg/dL Urine Ketones (Negative) mg/dL Urine Blood (Negative) Urine Nitrite (Negative) Ur Leukocyte Esterase (Negative) Urine Test (NEGATIVE) 12/08/22 12/08/22 Range/Units 11:26 11:26 WBC (4.8-10.8) X10*3/uL RBC (4.20-5.50) X10*6/uL Hgb (12.0-16.0) g/dl Hct (37.0-47.0) % MCV (80.0-98.0) fL MCH (27.0-33.0) pg MCHC (31.0-35.0) g/dl RDW (11.0-16.0) % Plt Count (160-400) X10*3/uL MPV (9.4-12.3) fL Immature Gran % (Auto) (0.0-0.4) % Neut % (Auto) (45-73) % Lymph % (Auto) (20-40) % [place] % (Auto) (2-11) % Eos % (Auto) (0-4) % Baso % (Auto) (0-2) % Lymph # (Auto) (1.2-4.9) X10*3/uL [place] # (Auto) (0.1-1.2) X10*3/uL Eos # (Auto) (0.0-0.4) X10*3/uL Baso # (Auto) (0.0-0.2) X10*3/uL Abs Immat Gran (auto) (0.00-0.03) X10*3/uL Absolute Neuts (auto) (2.0-8.3) x10*3/uL Absolute Nucleated RBC (0.0-0.012) X10*3/uL Nucleated RBC % (auto) (0.0-0.2) /100WBC Sodium (135-145) mmol/L Potassium (3.3-5.1) mmol/L Chloride (96-108) mmol/L Carbon Dioxide (22-29) mmol/L Anion Gap (12-20) BUN (9-16) mg/dL Creatinine (0.5-1.4) mg/dL Estim Creat Clear Calc Estimated GFR Random Glucose (60-115) mg/dL Calcium (8.4-10.2) mg/dL Magnesium (1.6-2.6) mg/dL Total Bilirubin (0.0-1.0) mg/dL Direct Bilirubin (0.0-0.5) mg/dL AST (5-31) U/L ALT (0-31) U/L Alkaline Phosphatase (39-117) U/L Total Protein (6.5-8.0) g/dL Albumin (3.5-5.0) g/dL Lipase (8-78) U/L Urine Color Yellow Urine Appearance Clear Urine pH 5.5 (5.0-9.0) Ur Specific [place] 1.010 (1.005-1.025) Urine Protein Negative (Neg-Trace) mg/dL Urine Glucose (UA) Negative (Negative) mg/dL Urine Ketones Negative (Negative) mg/dL Urine Blood Negative (Negative) Urine Nitrite Negative (Negative) Ur Leukocyte Esterase Negative (Negative) Urine Test NEGATIVE (NEGATIVE) Radiology Impression Discussion of test interpretation with radiology: I have reviewed the radiologist's reading. External Record Review External record reviewed: Inpatient record, Office record, Outpatient record, Prior outpatient labs, Prior outpatient radiology, Primary care record and Outside ED record Tests considered The following testing was considered but not selected: As above Discharge Plan Discharge Clinical Impression: Abdominal pain Patient Disposition: Home, Self-Care Instructions: Abdominal Pain (ED) Additional Instructions: your blood work and CT scan were reassuring your CT scan does show cystic changes in her ovaries please follow-up with her OBGYN take Tylenol Motrin as needed. If symptoms persist or worsen return to the emergency department follow-up with your doctor and GI Prescriptions: No Action fluticasone propionate 50 mcg/actuation spray,suspension 1 spray intranasal BID PRN (Reason: for allergies) Qty: 16 0RF albuterol sulfate [Ventolin HFA] 90 mcg/actuation HFA aerosol inhaler 2 puff inhalation Q6H PRN (Reason: for dyspnea) Qty: 18 0RF ipratropium-albuterol 0.5 mg-3 mg(2.5 mg base)/3 mL solution for nebulization 3 ml inhalation Q4H PRN (Reason: for wheezing) Qty: 180 0RF cyclobenzaprine 10 mg tablet 1 tab PO Q8H PRN (Reason: Muscle Spasm) naproxen 500 mg tablet 1 tab PO BID PRN (Reason: Pain) cholecalciferol (vitamin D3) [Vitamin D3] 10 mcg (400 unit) capsule 1 cap PO DAILY levofloxacin 750 mg tablet 750 mg PO DAILY Qty: 5 0RF dicyclomine 20 mg tablet 20 mg PO QID 30 Days Qty: 120 6RF famotidine 40 mg tablet 40 mg PO BEDTIME Qty: 30 6RF pantoprazole 20 mg tablet,delayed release (DR/EC) 20 mg PO DAILY Qty: 30 6RF simethicone [Gas Relief (simethicone)] 180 mg capsule 180 mg PO BID Qty: 60 6RF Spiriva Respimat 2.5 mcg/actuation mist 2 puff inhalation QAM 30 Days Qty: 4 6RF bisacodyl [Dulcolax (bisacodyl)] 5 mg tablet,delayed release (DR/EC) 10 mg PO BEDTIME 30 Days Qty: 60 6RF docusate sodium 100 mg capsule 100 mg PO BID Qty: 60 6RF Referrals: [facility] [place] [facility] [Provider Group] [facility] [place] [facility] [Provider Group] Josefina Stacy MD [Primary Care Provider] - Stand Alone Forms: Work/School Release Interventions: ED Discharge Assessment Last Done: 12/08/22 15:27 Discharge Date/Time: 12/08/22 15:27
[2022-12-08] MEDS: 0.9 % Sodium Chloride 1,000 ML 999 ML IV (10:56)
[2022-12-08] MEDS: ondansetron HCL 4 MG/2 ML VIAL IVPUSH (10:56)
[2022-12-08 10:57] LABS: MANUAL DIFF FLAG NO
--- NOTE | 2022-12-08 11:01 | PC.NURSE ---
Alert and oriented, resp even and unlabored. IV established, labs obtained fluids infusing. Call leach within reach
[2022-12-08 11:04] LABS: Basophils Absolute Auto 0.1 X10*3/uL (0.0-0.2); Basophils Percent Auto 0.7 % (0-2); Eosinophils Absolute Auto 0.1 X10*3/uL (0.0-0.4); Eosinophils Percent Auto 0.9 % (0-4); Hematocrit 37.5 % (37.0-47.0); Hemoglobin 11.9 g/dl (12.0-16.0); Imm Gran Abs Auto 0.03 X10*3/uL (0.00-0.03); Imm Gran Pct Auto 0.3 % (0.0-0.4); Lymphocytes Absolute Auto 2.7 X10*3/uL (1.2-4.9); Mean Corpuscular HGB Conc 31.7 g/dl (31.0-35.0); Mean Corpuscular Volume 85.2 fL (80.0-98.0); Mean Platelet Volume 10.1 fL (9.4-12.3); Monocytes Absolute Auto 0.4 X10*3/uL (0.1-1.2); Monocytes Percent Auto 4.8 % (2-11); Neutrophils Absolute Auto 5.5 x10*3/uL (2.0-8.3); Neutrophils Percent Auto 62.3 % (45-73); Platelet Count 295 X10*3/uL (160-400); Red Cell Distribution Width 14.4 % (11.0-16.0); White Blood Count 8.8 X10*3/uL (4.8-10.8)
[2022-12-08 11:19] LABS: Alanine Aminotransferase 10 U/L (0-31); Albumin Level 4.1 g/dL (3.5-5.0); Alkaline Phosphatase 57 U/L (39-117); Anion Gap 11 (12-20); Aspartate Amino Transferase 13 U/L (5-31); Bilirubin Direct 0.1 mg/dL (0.0-0.5); Bilirubin Total 0.5 mg/dL (0.0-1.0); Blood Urea Nitrogen 13 mg/dL (9-16); Calcium 9.1 mg/dL (8.4-10.2); Carbon Dioxide 24 mmol/L (22-29); Chloride 106 mmol/L (96-108); Creatinine Clr Calc Pharmacy 96.1; Estimated Glomerular Filt Rate > 60; Glucose Random 134 mg/dL (60-115); Lipase 35 U/L (8-78); Potassium 4.3 mmol/L (3.3-5.1); Sodium 137 mmol/L (135-145); Total Protein 7.3 g/dL (6.5-8.0)
[2022-12-08 11:21] LABS: Magnesium 1.8 mg/dL (1.6-2.6)
[2022-12-08 11:34] LABS: Appearance Urine Clear; Color Urine Yellow; Glucose Urine UA Negative (Negative); Leukocyte Esterase Urine Negative (Negative); Nitrite Urine Negative (Negative); PH 5.5 (5.0-9.0); Urine Blood Negative (Negative); Urine Ketones Negative (Negative); Urine Protein Negative (Neg-Trace)
[2022-12-08 11:36] LABS: UPreg QC Valid YES; Urine Pregnancy NEGATIVE (NEGATIVE)
[2022-12-08] MEDS: iohexoL 350 MG/ML 100 ML INFUS..BTL IV (12:44)
[2022-12-08] MEDS: Ketorolac Tromethamine 15 MG/ML VIAL IVPUSH (15:23)
== END 2022-12-08 15:27 | disposition home or self-care (01) ==
PROVIDERS: Physician Assistant; Emergency Provider Emergency Medicine; PCP Internal Medicine
DX: M54.50 Low back pain, unspecified (principal); R10.9 Unspecified abdominal pain; Z87.891 Personal history of nicotine dependence; Z79.899 Other long term (current) drug therapy
CPT/HCPCS: 36415; 74177; 80048; 80076; 81003; 81025; 83690; 83735; 85025; 96361; 96374; 96375; 99285; J1885; J2405; Q9967

== ENCOUNTER 2023-01-24 13:56 | Outpatient (REF) | payer OTHER, SELFPAY ==
[2023-01-24 17:46] LABS: CT PCR NOT DETECTED (Not Detect.); NG PCR NOT DETECTED (Not Detect.)
[2023-01-25 09:46] LABS: BV Int Neg Control Negative (Negative); BV Int Pos Control Positive (Positive)
== END 2023-01-24 13:57 | disposition home or self-care (01) ==
LOC: HO.LNP 13:56
PROVIDERS: PCP Internal Medicine; Visit Provider Advanced Practice Midwife
DX: N89.8 Other specified noninflammatory disorders of vagina (principal); N93.9 Abnormal uterine and vaginal bleeding, unspecified; K58.2 Mixed irritable bowel syndrome; N64.4 Mastodynia; Z83.3 Family history of diabetes mellitus
CPT/HCPCS: 0353U; 87480; 87510; 87660; 99202

== ENCOUNTER 2023-01-27 14:57 | Outpatient (RCR) | payer OTHER, SELFPAY ==
[2023-01-27 15:00] VITALS: BP 138/89; PULSE 80
--- NOTE | 2023-01-27 16:13 | MHC.PT.EP ---
[facility] [place] [facility] [place] [facility] [place] [facility] [address] [phone] F: [phone] F: [phone] F: [phone] F: [phone] Physical Therapy Plan of Care Date of Evaluation: Date of Surgery: NA Diagnosis: Dizziness and giddiness Assessment: Ivet is a 37 yo female referred to PT for dizziness and giddiness . She reports of having dizziness for about 2 months. She has never had dizziness in the past. She describes her symptoms of feeling unsteady and it is spontaneous in nature. Denies any room spinning or nausea. Also reports of having HERNÁNDEZ. On PT examination she had intact visual tracking, smooth pursuit, saccades, was negative for BPPV in B brown pikes and B roll test. Balance was assessed and she had intact static and dynamic balance. She is independent with all ADLS and is not limited. 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 At this point of time she does have any symptoms of vestibular dysfunction. No PT indicated. She was advised to return to PT in case of return of symptoms. 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 Manual therapy to restore motion and function. Therapeutic exercise to improve strength and flexibility. Neuromuscular re-education for posture and balance. Therapeutic activities to return to functional activities of daily living. Electronically signed by: Tiffanie Mayer PT DPT Please sign and return to therapist. Thank you for your referral.
--- NOTE | 2023-05-26 13:13 | MHC.PT.DC ---
[facility] [place] Office [place] Office [place] Office [address] Robert Anderson [address] [phone] F: [phone] F: [phone] F: [phone] F: [phone] Physical Therapy Discharge Report Diagnosis: Dizziness and giddiness Date of Surgery: NA Date of Evaluation: 01/27/23 Date of Discharge: 05/26/23 Treatments to Date: 1 Cancellations to Date: 0 No Shows to Date: Discharge Status: Discharge Summary: Ivet did not present with symptoms of vestibular dysfunction at the time of evaluation. No PT indicated. She was advised to return to PT in case of return of symptoms. Electronically signed by: Tiffanie Mayer, PT DPT Please sign and return to therapist. Thank you for your referral.
== END 2023-05-26 13:13 | disposition home or self-care (01) ==
LOC: HO.PT 14:57
PROVIDERS: PCP Internal Medicine; Visit Provider Internal Medicine
DX: R42 Dizziness and giddiness (principal)
CPT/HCPCS: 97112; 97161

== ENCOUNTER 2023-02-24 14:50 | Outpatient (REF) | payer OTHER, SELFPAY ==
--- NOTE | ~2023-02-24 | US_ITS ---
EXAMINATION: US PELVIS CLINICAL INFORMATION: Irregular menstruation. COMPARISON: Pelvic ultrasound 04/14/2021, CT abdomen and pelvis 12/08/2022. TECHNIQUE: Ultrasound of the pelvis is performed using both transabdominal and transvaginal transducers along with Doppler. Transvaginal imaging is performed due to inadequate visualization transabdominally. FINDINGS: Uterus: The uterus is retroverted and measures 10.9 x 5.5 x 6.6 cm. Nabothian cysts in the cervix. The double wall endometrial thickness is 12 mm. The uterus is smooth in contour and has normal myometrial echogenicity. No visible fibroid. Adnexa: Both ovaries are visualized. There is normal color flow to the adnexa. There is no ovarian torsion. There is no pelvic ascites or fluid collection. Right ovary measures 2.3 x 1.7 x 2.2 cm. Volume 4.5 mL. Left ovary measures 3.6 x 1.9 x 2.1 cm. Volume 7.5 mL. There is a corpus luteum seen measuring 1.5 cm. US/US pelvic and transvaginal IMPRESSION: Unremarkable pelvic ultrasound.
== END 2023-02-24 14:51 | disposition home or self-care (01) ==
LOC: HO.US 14:50
PROVIDERS: PCP Internal Medicine; Visit Provider Advanced Practice Midwife
DX: N93.9 Abnormal uterine and vaginal bleeding, unspecified (principal); K58.2 Mixed irritable bowel syndrome
CPT/HCPCS: 76830; 76856

== ENCOUNTER 2023-03-19 15:14 | Emergency (ER) | payer OTHER, SELFPAY ==
[2023-03-19 16:05] VITALS: BP 140/98; PULSE 94; RESP 18; TEMP 36.8; O2SAT 98; BMI 25.0
--- NOTE | 2023-03-19 16:08 | ED_ITS ---
HPI - General Adult General Chief complaint: Fever Stated complaint: Headache/cough/fever/sore throat Time Seen by Provider: 03/19/23 17:23 Source: patient Mode of arrival: ambulatory Limitations: no limitations History of Present Illness HPI narrative: Patient is a 37-year-old female with history of sarcoidosis and asthma presenting to the emergency department with complaint of nonproductive cough, subjective fever, left ear pain, and sore throat for two days. Also complains of generalized body aches. Reports that she has been using her prescribed inhalers and nebulizer treatments with good relief. Has used Tylenol for body aches. States primary complaint at this time is left ear pain. Denies abdominal pain, nausea, vomiting, diarrhea, or constipation. MD complaint: ear pain, sore throat, cough, fever Onset (ago): day(s) Severity: moderate Quality: aching Pain Consistency: constant Relieving factors: none Exacerbating factors: none Associated symptoms: cough and fever/chills Treatments prior to arrival: other (Tylenol) Related Data Home Medications Medication Instructions Recorded Confirmed cholecalciferol (vitamin D3) 10 1 cap PO DAILY 03/09/22 01/24/23 mcg (400 unit) capsule (Vitamin D3) cyclobenzaprine 10 mg tablet 1 tab PO Q8H PRN Muscle Spasm 03/09/22 01/24/23 naproxen 500 mg tablet 1 tab PO BID PRN Pain 03/09/22 01/24/23 Previous Rx's Medication Instructions Recorded tiotropium bromide 2.5 2 puff inhalation QAM 30 days #4 03/24/22 mcg/actuation mist for inhalation grams (Spiriva Respimat) bisacodyl 5 mg tablet,delayed 10 mg PO BEDTIME 30 days #60 tabs 03/31/22 release (Dulcolax (bisacodyl)) docusate sodium 100 mg capsule 100 mg PO BID #60 caps 03/31/22 dicyclomine 20 mg tablet 20 mg PO QID 30 days #120 tabs 07/21/22 famotidine 40 mg tablet 40 mg PO BEDTIME #30 tabs 07/21/22 pantoprazole 20 mg tablet,delayed 20 mg PO DAILY #30 tabs 07/21/22 release simethicone 180 mg capsule (Gas 180 mg PO BID #60 caps 07/21/22 Relief (simethicone)) fluticasone propionate 50 1 spray intranasal BID PRN for 11/22/22 mcg/actuation nasal allergies #16 mL spray,suspension diphenoxylate-atropine 2.5 1 tab PO BID PRN diarrhea #10 tabs 12/09/22 mg-0.025 mg tablet (Lomotil) Ventolin HFA 90 mcg/actuation 2 puff inhalation Q6H PRN for 12/28/22 aerosol inhaler (albuterol sulfate) dyspnea #18 grams Symbicort 160 mcg-4.5 2 puff inhalation BID #10.2 ea 01/02/23 mcg/actuation HFA aerosol inhaler (budesonide-formoterol) ipratropium 0.5 mg-albuterol 3 mg 3 ml inhalation Q4H PRN for 01/02/23 (2.5 mg base)/3 mL nebulization wheezing #180 mL soln clindamycin HCl 300 mg capsule 300 mg PO Q8H #15 caps 03/19/23 Allergies Allergy/AdvReac Type Severity Reaction Status Date / Time doxycycline Allergy Severe tongue Verified 01/24/23 14:05 swelling morphine [MORPHINE] Allergy Intermediate RASH, Verified 01/24/23 14:05 headache, redness, throat swelling sumatriptan [From IMITREX] Allergy Mild ITCHING Verified 01/24/23 14:05 azithromycin Allergy Unknown facial Verified 01/24/23 14:05 redness Penicillins [PENICILLINS] Allergy Unknown ANAPHYLAXIS Verified 01/24/23 14:05 vancomycin AdvReac Itching Verified 01/24/23 14:05 Review of Systems Review of Systems: As per HPI. Yes all other systems are reviewed and are negative Constitutional: Constitutional: Reports as per HPI [facility] Past Medical History Medical History Asthma Mild recurrent major depression Sarcoidosis Umbilical hernia Surgical History H/O esophagogastroduodenoscopy History of appendectomy History of tubal ligation History of umbilical hernia repair Previous section Family History Family History Father Essential hypertension Arthritis CAD (coronary artery disease) Mother Essential hypertension Diabetes mellitus Social History Social History Housing: Apartment Alcohol intake: never Patient Tobacco Use Status: Former Tobacco user Quit Date: 2012 Tobacco use type: Cigarette e-Cigarette/Vaping Use: Never Used Second Hand Smoke Exposure: No Advance Directives: No Advance Directives Information Provided: No service: No Current occupational status: employed Current occupational exposures/hazards: No Cognitive needs: No Hearing needs: No Vision needs: No Physical Exam ED Vital Signs: Vital Signs - 24 hr 03/19/23 16:05 03/19/23 18:54 Temperature 98.2 F 99 F Pulse Rate 94 86 Respiratory Rate 18 20 Blood Pressure 140/98 H 135/97 H Pulse Oximetry 98 99 Oxygen Delivery Method Room Air Room Air BMI result Body Mass Index 25.0 Vital signs have been reviewed and appear to be correct. Blood pressure mildly elevated. Heart rate normal. Respiratory rate normal. Temperature normal. Oxygen saturation normal. Const General: cooperative, healthy appearing and no acute distress Orientation/consciousness: oriented to person, oriented to place, oriented to time and patient oriented x3 Limitations: no limitations HENMT Head: Yes normocephalic and Yes atraumatic Ears: external ears normal, TM normal on the right, EAC's normal, mastoids normal bilaterally and TM abnormal bulging on the left, erythematous on the left and with fluid behind the TM on the left General nose exam: Normal external nose present Face and sinus: Yes face symmetric Mouth: oropharynx normal and moist mucous membranes Throat: Yes uvula midline, Yes postnasal drainage, No uvular edema and Yes cobblestoning Eyes Pupils: Equal, round and reactive pupils present Neck Neck: Yes normal visual inspection and Yes supple Resp Effort & Inspection: normal respiratory effort and able to speak in complete sentences Auscultation: clear to auscultation bilaterally Cardio Rate: regular rate Rhythm: regular rhythm Heart sounds: S1 normal heart sound present and S2 normal heart sound present GI Palpation (GI): Soft to palpation and nontender Auscultation: normoactive bowel sounds General: Yes no CVA tenderness Back/Spine/Pelvis Back: no CVA tenderness Skin General skin exam: elasticity normal and turgor normal Neuro General: oriented to person, oriented to place, oriented to time, patient oriented x3, moves all extremities, no focal motor deficits and CN's II-XI intact bilaterally Cranial nerves: Yes Equal, round and reactive pupils present Cognition (Neuro): normal cognition Extrem General: Yes full ROM, Yes no pedal edema and Yes no calf tenderness Psych Mental Status: mental status grossly normal Affect: normal affect Thought process: Normal thought process present Course Course Course Narrative: RME: 37 yold female presents to the ED for coughing, headache, fever, chills, and bodyaches. covid, strep, and influenza ordered Medical Decision Making Medical Decision Making MDM Narrative: Patient is a 37-year-old female with history of sarcoidosis and asthma presenting to the emergency department with complaint of nonproductive cough, subjective fever, left ear pain, and sore throat for two days. On exam patient is awake, A+Ox3, VS WNL, afebrile, normal neurological exam without focal deficits, left TM bulging, erythematous with effusion, right TM normal, mild erythema and cobblestoning to posterior oropharynx, LS CTA throughout. Given reported symptoms and physical exam findings, initial differential includes strep pharyngitis, viral illness, Covid, flu, otitis media, otitis externa. Covid, flu, and strep swabs all negative, patient updated on results. Discussed with patient that symptoms are likely viral and should resolve with time. Will prescribe clindamycin for acute otitis media given patient's allergies. Instructed patient to follow up with PCP. Advised can add ibuprofen along with Tylenol for better pain control of body aches. Return precautions discussed at bedside. Patient verbalized understanding of and agreement with plan. Differential Diagnosis Differential Diagnoses: The differential diagnosis associated with the presentation includes As per MDM. Lab Data [facility] Lab Attestation statement: I reviewed the patient's lab results. As per [facility]. Labs: Lab Results 03/19/23 03/19/23 03/19/23 Range/Units 16:34 16:34 16:34 COVID-19 (JANIS) Negative (Negative) COVID-19 Clin Com See Note Influenza Type A (MAN) Negative (Negative) Influenza Type B (MAN) Negative (Negative) Influenza A & B Note See Note S. pyogenes GrpA MAN Negative (Negative) External Record Review External record reviewed: Inpatient record, Office record and Outpatient record Prescription Management I considered prescription management with: Antibiotic Chronic Conditions Patient?s care impacted by: Other (sarcoidosis, asthma) Discharge Plan Discharge Clinical Impression: Viral illness Acute otitis media Qualifiers: Laterality: left Patient Disposition: Home, Self-Care Instructions: Ear Infection (ED), Viral Syndrome (ED) Additional Instructions: You were evaluated in the emergency department today for ear pain, cough, sore throat, and body aches. Your evaluation suggests that your symptoms are related to a viral illness which should resolve on it's own over time. Your era pain is due to an ear infection. Please take your prescribed antibiotics as directed for the full course of the medication. Please follow up with your primary care provider within two days. Return to the emergency department if you experience hearing loss, discharge from your ear, headaches, fevers, recurrent vomiting, worsening shortness of breath, chest pain, or any other concerning symptoms. Prescriptions: New clindamycin HCl 300 mg capsule 300 mg PO Q8H Qty: 15 0RF No Action fluticasone propionate 50 mcg/actuation spray,suspension 1 spray intranasal BID PRN (Reason: for allergies) Qty: 16 0RF albuterol sulfate [Ventolin HFA] 90 mcg/actuation HFA aerosol inhaler 2 puff inhalation Q6H PRN (Reason: for dyspnea) Qty: 18 0RF ipratropium-albuterol 0.5 mg-3 mg(2.5 mg base)/3 mL solution for nebulization 3 ml inhalation Q4H PRN (Reason: for wheezing) Qty: 180 0RF budesonide-formoterol [Symbicort] 160-4.5 mcg/actuation HFA aerosol inhaler 2 puff inhalation BID Qty: 10.2 6RF cyclobenzaprine 10 mg tablet 1 tab PO Q8H PRN (Reason: Muscle Spasm) naproxen 500 mg tablet 1 tab PO BID PRN (Reason: Pain) cholecalciferol (vitamin D3) [Vitamin D3] 10 mcg (400 unit) capsule 1 cap PO DAILY diphenoxylate-atropine [Lomotil] 2.5-0.025 mg tablet 1 tab PO BID PRN (Reason: diarrhea) Qty: 10 0RF dicyclomine 20 mg tablet 20 mg PO QID 30 Days Qty: 120 6RF famotidine 40 mg tablet 40 mg PO BEDTIME Qty: 30 6RF pantoprazole 20 mg tablet,delayed release (DR/EC) 20 mg PO DAILY Qty: 30 6RF simethicone [Gas Relief (simethicone)] 180 mg capsule 180 mg PO BID Qty: 60 6RF Spiriva Respimat 2.5 mcg/actuation mist 2 puff inhalation QAM 30 Days Qty: 4 6RF bisacodyl [Dulcolax (bisacodyl)] 5 mg tablet,delayed release (DR/EC) 10 mg PO BEDTIME 30 Days Qty: 60 6RF docusate sodium 100 mg capsule 100 mg PO BID Qty: 60 6RF Stand Alone Forms: Work/School Release Interventions: ED Discharge Assessment Last Done: 03/19/23 19:05 Discharge Date/Time: 03/19/23 19:05
[2023-03-19 16:50] LABS: IDNOW Serial# 08D9AD1C; Strep A Nucleic Acid Negative (Negative)
[2023-03-19 17:01] LABS: COVID-19 Test Negative (Negative); IDNOW Serial# 9DB6401D; IDNOW Serial# BCCEAD1C; Influenza A Negative (Negative); Influenza B2 Negative (Negative)
[2023-03-19 18:54] VITALS: BP 135/97; PULSE 86; RESP 20; TEMP 37.2; O2SAT 99
== END 2023-03-19 19:05 | disposition home or self-care (01) ==
PROVIDERS: Physician Assistant; Emergency Provider Internal Medicine; PCP Internal Medicine
DX: H66.92 Otitis media, unspecified, left ear (principal); R50.9 Fever, unspecified; R51.9 Headache, unspecified; R05.9 Cough, unspecified; B34.9 Viral infection, unspecified; Z20.822 Contact with and (suspected) exposure to COVID-19; Z20.828 Contact with and (suspected) exposure to other viral communicable diseases; Z79.899 Other long term (current) drug therapy
CPT/HCPCS: 87502; 87635; 87651; 99283

== ENCOUNTER 2023-04-10 08:40 | Outpatient (AMB) | payer OTHER, SELFPAY ==
--- NOTE | 2023-04-10 08:45 | A.OFFVIS_ITS ---
Intake Vital Signs 04/10/23 08:46 Height 5 ft 6 in Weight 157 lb 4 oz BMI 25.4 BP 132/100 H Blood Pressure Location Rt brachial Position Sitting Pulse 86 Pulse Source Pulse Oximeter Pulse Oximetry (%) 99 Oxygen Delivery Method Room Air Intake Visit Reasons: INP-Headache Intake Note: Patient presents for headaches. Patient states when I get migraines I have alot of sensivity to light,if I get up on my feet my head starts to pound, I had migraines about 2-3 days ago and my eyes swelled up. Allergies doxycycline Allergy (Severe, Verified 04/10/23 08:50) tongue swelling morphine [MORPHINE] Allergy (Intermediate, Verified 04/10/23 08:50) RASH, headache, redness, throat swelling sumatriptan [From IMITREX] Allergy (Mild, Verified 04/10/23 08:50) ITCHING azithromycin Allergy (Unknown, Verified 04/10/23 08:50) facial redness Penicillins [PENICILLINS] Allergy (Unknown, Verified 04/10/23 08:50) ANAPHYLAXIS vancomycin Adverse Reaction (Verified 04/10/23 08:50) Itching Medication List - Last Reconciled 04/10/23 by SUSANA Chacon bisacodyl (Dulcolax (bisacodyl)) 10 mg (2 x 5 mg) PO BEDTIME 30 days cholecalciferol (vitamin D3) (Vitamin D3) 1 cap PO DAILY clindamycin HCl 300 mg PO Q8H cyclobenzaprine 1 tab PO Q8H PRN dicyclomine 20 mg PO QID 30 days diphenoxylate-atropine 2.5-0.025 mg (Lomotil) 1 tab PO BID PRN docusate sodium 100 mg PO BID famotidine 40 mg PO BEDTIME fluticasone propionate 50 mcg/actuation 1 spray intranasal BID PRN ipratropium-albuterol 0.5 mg-3 mg(2.5 mg base)/3 mL 3 mL inhalation Q4H PRN naproxen 1 tab PO BID PRN pantoprazole 20 mg PO DAILY simethicone (Gas Relief (simethicone)) 180 mg PO BID Symbicort 160-4.5 mcg/actuation (budesonide-formoterol) 2 puffs inhalation BID NS tiotropium bromide 2.5 mcg/actuation (Spiriva Respimat) 2 puffs inhalation QAM 30 days Ventolin HFA 90 mcg/actuation (albuterol sulfate) 2 puffs inhalation Q6H PRN NS HPI HPI Comments History of Present Illness Details Right-handed 37-yr-old female presents for new pt evaluation of headache disorder, specifically migraine. Pt states that she has had migraine since childhood, but recently the headaches are becoming more bothersome and frequent. Headache questionnaire: Age/time of onset? 8-9 yrs old Preceding causes? None Previous work-up? MRI head- states normal- a while ago Typical headache characteristics: Prodrome symptoms? None Aura? Before or during the headache may see black spots Location, quality, characteristics? It varies- can be frontal, facial, back of head. Pulsating, pressure Pain intensity? [id number] Associated symptoms? photophobia, phonophobia, osmophobia, nausea, dizziness, brain fog, activity intolerance, Focal weakness, Parethesias, Autonomic s/s? Her last migraine- her both eyes were red and swollen, a bit more droopy. Pt shows picture w/ bilateral ptosis. Postdrome? some residual tiredness Triggers? Not eating or sleeping well. Any positional, valsalva, exertional, sexual activity triggers? None- but during the headache she cannot sit up quickly or bend over- feels like her head will explode Menstrual triggers? None Time of day? None specific time Duration? few hrs if mild, 1-2 days if more severe- but has been as long as a week in the past Frequency? 2-3 times per week How does headache impact your life? Is unable to do her daily activities during the severe attacks. Current acute medication use/interventions: Naproxen- does not help Previous acute medication use: Imitrex- throat closure. Current preventative medication use: None Previous preventative medication use: None Non-pharmacological interventions: Rest Other history of headache disorder? No other History of musculoskeletal disorders or injury? She has scoliosis and fibromyal anne- chronic body pains History of concussion/head injury? None History of mood disorder? Anxiety and depression, panic attacks- f/b psych and therapist History of sleep disorder? Varies. Endorses, some fragmented sleep, dry mouth/throat, leg cramps. History of respiratory disease? asthma, sarcoidosis History of CV disease? No dx of HTN, but BPs have bee abit higher History of coagulopathy? None History of endocrine or metabolic disease? None History of seizure? None History of GI disorder? Prone to constipation. Other? Anemia Family planning? None Family history of migraine or other headache disorder? Her sister and her dtr [facility] Medical History Asthma Mild recurrent major depression Sarcoidosis Umbilical hernia Surgical History History of umbilical hernia repair H/O esophagogastroduodenoscopy History of tubal ligation Previous section History of appendectomy Family History Father Essential hypertension Arthritis CAD (coronary artery disease) Mother Essential hypertension Diabetes mellitus Social History Housing: Apartment Alcohol intake: never Patient Tobacco Use Status: Former Tobacco user Quit Date: 2012 Tobacco use type: Cigarette e-Cigarette/Vaping Use: Never Used Second Hand Smoke Exposure: No service: No Current occupational status: employed Current occupational exposures/hazards: No Cognitive needs: No Hearing needs: No Vision needs: No Review of Systems Const Details: See scanned ROS form Physical Exam Vital Signs: Last Vital Signs Pulse 86 04/10/23 08:46 BP 132/100 H 04/10/23 08:46 Pulse Ox 99 04/10/23 08:46 Oxygen Delivery Method Room Air 04/10/23 08:46 BMI result Body Mass Index 25.4 Const Orientation/consciousness: patient oriented x3 HEENT Other: Diffuse palpable facial and scalp tenderness. Mallampati grade IV Head: Yes normocephalic Resp Effort & Inspection: normal respiratory effort and able to speak in complete sentences Back/Spine/Pelvis Other: Bilateral posterior cervical tightness. Cervical ROM: full Left Spurling: normal Right Spurling: normal. Neuro General: patient oriented x3 Cranial nerves: Yes CN's II-XII intact bilaterally Cognition (Neuro): normal cognition Gait exam (Neuro): Normal gait present Motor exam (neuro): 5/5 motor strength present throughout Deep tendon reflexes (DTR's): Right triceps reflex intensity grade: 2+, Left triceps reflex intensity grade: 2+, Rt Biceps (C5, C6): 2+, Left biceps reflex intensity grade: 2+, Right brachioradialis reflex intensity grade: 2+, Left brachioradialis reflex intensity grade: 2+, Right patellar reflex intensity grade: 2+ and Left patellar reflex intensity grade: 2+ Coordination: [id number] test normal, tandem gait normal and Romberg test negative Pupils: Normal pupillary reactivity/response: bilateral Psych Appearance: grossly normal Mental Status: mental status grossly normal Speech and movement: Normal speech and movement present Affect: normal affect Attitude: cooperative Thought process: Normal thought process present Assessment & Plan Assessment & Plan (1) Migraine with aura: Comment: sees black dots Code(s): G43.109 - Migraine with aura, not intractable, without status migrainosus (2) Sleep difficulties: Code(s): G47.9 - Sleep disorder, unspecified (3) Snoring: Code(s): R06.83 - Snoring (4) Excessive daytime sleepiness: Code(s): G47.19 - Other hypersomnia (5) Ptosis, bilateral: Comment: new onset during migraine attack Code(s): H02.403 - Unspecified ptosis of bilateral eyelids Plan Pt advised to undergo brain MRI w/wo to assess new onset bilateral ptosis during headache attack. Pt advised to undergo HST to assess fro sleep apnea For overall headache management: Discussed importance of good self-care, including but not limited to maintaining a healthy diet, adequate fluid intake, adequate sleep, and engaging in regular physical activity. For headache triggers: Track headaches. For acute headache treatment: Discussed importance of taking acute medications at the first sign of headache, however stressed importance of avoiding acute medication overuse (especially with combined headache medications). Trial Ubrogepant (Ubrelvy) 100mg tab, 1/2 - 1 tab (50-100mg) at onset of headache, may repeat in 2 hours. Max of 2 tabs (200mg) per 24 hours. May adjunct with Naproxen 440-500mg q 12 hrs prn. Reviewed potential adverse effects of gepants, including but not limited to fatigue, nausea, dry mouth, constipation. Previous acute migraine medication trials: Sumatriptan- trhoat closure Acute migraine medication contraindications: Triptans d/t sumatriptan allergy. For headache prevention medication: Discussed that preventative medications should be taken routinely as prescribed for best effect, it may take several weeks for full effect to take effect. Start Riboflavin 400mg qam Start Magnesium 400mg qhs If ineffective, will trial Amitriptyline 10mg qhs. Previous migraine prevention medication trials: None Migraine prevention medication contraindications: None Pt to follow-up in 3 months or sooner prn. Orders: Orders MR head/brain wo/w con Today D86.9 - Sarcoidosis, unspecified, H02.403 - Unspecified ptosis of bilateral eyelids, R42 - Dizziness and giddiness, R51.9 - Headache, unspecified RT home sleep study Today G47.19 - Other hypersomnia, G47.9 - Sleep disorder, unspecified, R06.83 - Snoring Medications: New magnesium oxide may hold for loose stools 400 mg PO BEDTIME 30 days 30 tabs 6RF ubrogepant (Ubrelvy) take at onset of migraine, may repeat in 2hrs (may take w/ Naproxen) 50 - 100 mg (0.5 - 1 x 100 mg) PO ONCE 30 days PRN 16 tabs 3RF migraine headache riboflavin (vitamin B2) 400 mg PO DAILY 30 days 30 tabs 6RF Coding Level of Care Code New Pt Level 4 (55359) Diagnoses Migraine with aura G43.109 Sleep difficulties G47.9 Snoring R06.83 Excessive daytime sleepiness G47.19 Ptosis, bilateral H02.403
[2023-04-10 08:46] VITALS: BP 132/100; PULSE 86; O2SAT 99; BMI 25.4
== END 2023-04-10 09:43 | disposition home or self-care (01) ==
PROVIDERS: Visit Provider Nurse Practitioner Family
DX: G43.109 Migraine with aura, not intractable, without status migrainosus (principal); G47.9 Sleep disorder, unspecified; R06.83 Snoring; G47.19 Other hypersomnia; H02.403 Unspecified ptosis of bilateral eyelids
CPT/HCPCS: 99204

== ENCOUNTER → 2023-04-10 08:40 | Outpatient (BNVA) | payer OTHER, SELFPAY | PROVIDERS: Visit Provider Nurse Practitioner Family | DX: G43.109 Migraine with aura, not intractable, without status migrainosus (principal); R06.83 Snoring; G47.19 Other hypersomnia; H02.403 Unspecified ptosis of bilateral eyelids | CPT/HCPCS: 99202 ==

== ENCOUNTER 2023-04-11 08:49 | Outpatient (REF) | payer OTHER, SELFPAY ==
[2023-04-11 09:20] LABS: Hemoglobin 12.6 g/dl (12.0-16.0); Mean Corpuscular HGB Conc 31.5 g/dl (31.0-35.0); Mean Corpuscular Hemoglobin 27.6 pg (27.0-33.0); Mean Corpuscular Volume 87.7 fL (80.0-98.0); Mean Platelet Volume 9.9 fL (9.4-12.3); Platelet Count 339 X10*3/uL (160-400); Red Blood Count 4.56 X10*6/uL (4.20-5.50); Red Cell Distribution Width 14.1 % (11.0-16.0); White Blood Count 7.6 X10*3/uL (4.8-10.8)
[2023-04-11 09:47] LABS: Glucose Random 102 mg/dL (60-115)
[2023-04-11 10:06] LABS: TSH reflex Free T4 4.09 uIU/mL (0.32-4.0)
[2023-04-11 10:07] LABS: HBsAGNum1 0.35 S/CO (0.00-0.99); HIV AB/AG Nonreactive (Nonreactive); HIV Num 1 0.06 S/CO (0.00-0.99); Hepatitis B Surface Antigen Negative (Negative); Syphilis Screen Nonreactive (Nonreactive); ~HepC Num1 0.14 S/CO (0.00-0.79); ~Hepatitis C Antibody Nonreactive (Nonreactive)
[2023-04-11 10:41] LABS: Free T4 (Free Thyroxine) 0.82 ng/dL (0.71-1.85)
== END 2023-04-11 08:50 | disposition home or self-care (01) ==
LOC: HO.LAB 08:49
PROVIDERS: PCP Internal Medicine; Visit Provider Advanced Practice Midwife
DX: Z11.4 Encounter for screening for human immunodeficiency virus [HIV] (principal); Z11.3 Encounter for screening for infections with a predominantly sexual mode of transmission; N93.9 Abnormal uterine and vaginal bleeding, unspecified; K58.2 Mixed irritable bowel syndrome
CPT/HCPCS: 36415; 82947; 84439; 84443; 85027; 86780; 86803; 87340; 87389

== ENCOUNTER 2023-04-12 14:23 | Outpatient (REF) | payer OTHER, SELFPAY ==
[2023-04-12 18:55] LABS: CT PCR NOT DETECTED (Not Detect.); NG PCR NOT DETECTED (Not Detect.)
[2023-04-13 11:39] LABS: BV Int Neg Control Negative (Negative); BV Int Pos Control Positive (Positive)
[2023-04-15 03:34] LABS: HPV mRNA E6/E7 rflx Not Detected (Not Detected)
== END 2023-04-12 14:24 | disposition home or self-care (01) ==
LOC: HO.LNP 14:23
PROVIDERS: PCP Internal Medicine; Visit Provider Advanced Practice Midwife
DX: Z12.4 Encounter for screening for malignant neoplasm of cervix (principal); Z11.51 Encounter for screening for human papillomavirus (HPV); Z11.3 Encounter for screening for infections with a predominantly sexual mode of transmission; N93.9 Abnormal uterine and vaginal bleeding, unspecified
CPT/HCPCS: 0353U; 58100; 87480; 87510; 87624; 87660; 88142; 88305; 99212

== ENCOUNTER 2023-04-12 14:23 | Outpatient (AMB) | payer OTHER, SELFPAY ==
--- NOTE | 2023-04-12 14:45 | MHC.OFFVIS ---
Intake Vital Signs 04/12/23 14:46 Height 5 ft 6 in Weight 156 lb 6 oz BMI 25.2 BP 130/84 Blood Pressure Location Rt brachial Position Sitting Intake Visit Reasons: ultrasound follow up/EMB/DO NOT RS Allergies doxycycline Allergy (Severe, Verified 04/12/23 14:47) tongue swelling morphine [MORPHINE] Allergy (Intermediate, Verified 04/12/23 14:47) RASH, headache, redness, throat swelling sumatriptan [From IMITREX] Allergy (Mild, Verified 04/12/23 14:47) ITCHING azithromycin Allergy (Unknown, Verified 04/12/23 14:47) facial redness Penicillins [PENICILLINS] Allergy (Unknown, Verified 04/12/23 14:47) ANAPHYLAXIS vancomycin Adverse Reaction (Verified 04/12/23 14:47) Itching Medication List - Last Reconciled 04/12/23 by Kristal Alonzo CNM bisacodyl (Dulcolax (bisacodyl)) 10 mg (2 x 5 mg) PO BEDTIME 30 days cholecalciferol (vitamin D3) (Vitamin D3) 1 cap PO DAILY cyclobenzaprine 1 tab PO Q8H PRN dicyclomine 20 mg PO QID 30 days diphenoxylate-atropine 2.5-0.025 mg (Lomotil) 1 tab PO BID PRN docusate sodium 100 mg PO BID famotidine 40 mg PO BEDTIME fluticasone propionate 50 mcg/actuation 1 spray intranasal BID PRN ipratropium-albuterol 0.5 mg-3 mg(2.5 mg base)/3 mL 3 mL inhalation Q4H PRN magnesium oxide 400 mg PO BEDTIME 30 days naproxen 1 tab PO BID PRN pantoprazole 20 mg PO DAILY riboflavin (vitamin B2) 400 mg PO DAILY 30 days simethicone (Gas Relief (simethicone)) 180 mg PO BID Symbicort 160-4.5 mcg/actuation (budesonide-formoterol) 2 puffs inhalation BID NS tiotropium bromide 2.5 mcg/actuation (Spiriva Respimat) 2 puffs inhalation QAM 30 days ubrogepant (Ubrelvy) 50 - 100 mg (0.5 - 1 x 100 mg) PO ONCE PRN 30 days Ventolin HFA 90 mcg/actuation (albuterol sulfate) 2 puffs inhalation Q6H PRN NS Is last menstrual period known: Yes Last menstrual period: 03/26/23 HPI ultrasound follow up/EMB/DO NOT RS HPI Details Patient is here for review of her labs her ultrasound and to do an endometrial biopsy. Her labs were reviewed with her she is not anemic however her thyroid level is elevated at 4.09. She says she is tired all the time and does not have much energy. Her fasting glucose was within normal limits. The pelvic ultrasound was completely normal. She says she has been having irregular pink spotting between periods her last full menses was March 26 through April 01 in the menses before that was February 28 through the . She has had her tubes tied. The last time she had abnormal bleeding and had an endometrial biopsy she was given control pills but she kept forgetting to take them. She is currently from her . [facility] Medical History Mild recurrent major depression Umbilical hernia Sarcoidosis Asthma Surgical History History of umbilical hernia repair H/O esophagogastroduodenoscopy History of tubal ligation Previous section History of appendectomy Family History Father Essential hypertension Arthritis CAD (coronary artery disease) Mother Essential hypertension Diabetes mellitus Social History Housing: Apartment Alcohol intake: never Patient Tobacco Use Status: Former Tobacco user Quit Date: 2012 Tobacco use type: Cigarette e-Cigarette/Vaping Use: Never Used Second Hand Smoke Exposure: No service: No Current occupational status: employed Current occupational exposures/hazards: No Cognitive needs: No Hearing needs: No Vision needs: No Female Reproductive History Menstrual Duration of menses: 6-7 days Date of last menstrual period: 03/26/23 control method: none Total pregnancies: 2 Number of Living Children: 2 Physical Exam Vital Signs: Last Vital Signs BP 130/84 04/12/23 14:46 BMI result Body Mass Index 25.2 Office Procedures Endometrial Biopsy Details: Patient is here for an endometrial biopsy. I explained the procedure and what the goal of the obtaining the sample is, and why we need need to do it today. Patient signed consent form, and appropriate testing was done beforehand. test is negative Patient was placed in recumbent position. Speculum was placed to visualize cervix the cervix was cleansed with Betadine. A tenaculum was gently placed to stabilize cervix and straighten axis. Thin Cervical dilator needed to dilate cervix to accept sound The uterus was sounded to [8]cm. The endometrial biopsy Pipelle was inserted gently, and withdrawn to obtain sampling of the endometrial tissue for 3 passes. The tenaculum was removed and the cervix was swabbed gently as any bleeding subsided. the patient sat up after removal of the speculum. She is to return for discussion of the results and review of any other testing. [id number] Biopsy Results Reviewed Results Reviewed: [address] [address] Ultrasound Report Signed Patient: Ivet Bill MR#: [id number] : 1985 Acct:[id number] Age/Sex: 37 / F ADM Date: 02/24/23 Loc: .[place] Attending Dr: Kristal Alonzo CNM Ordering Physician: Kristal Alonzo CNM Date of Service: 02/24/23 Procedure(s): US pelvic and transvaginal Accession Number(s): [id number] cc: Kristal Alonzo CNM~ EXAMINATION: US PELVIS CLINICAL INFORMATION: Irregular menstruation. COMPARISON: Pelvic ultrasound 04/14/2021, CT abdomen and pelvis 12/08/2022. TECHNIQUE: Ultrasound of the pelvis is performed using both transabdominal and transvaginal transducers along with Doppler. Transvaginal imaging is performed due to inadequate visualization transabdominally. FINDINGS: Uterus: The uterus is retroverted and measures 10.9 x 5.5 x 6.6 cm. Nabothian cysts in the cervix. The double wall endometrial thickness is 12 mm. The uterus is smooth in contour and has normal myometrial echogenicity. No visible fibroid. Adnexa: Both ovaries are visualized. There is normal color flow to the adnexa. There is no ovarian torsion. There is no pelvic ascites or fluid collection. Right ovary measures 2.3 x 1.7 x 2.2 cm. Volume 4.5 mL. Left ovary measures 3.6 x 1.9 x 2.1 cm. Volume 7.5 mL. There is a corpus luteum seen measuring 1.5 cm. US/US pelvic and transvaginal IMPRESSION: Unremarkable pelvic ultrasound. Dictated By: Saw Hope MD Signed By: <Electronically signed by Saw Hope MD in OV> 02/27/23 1522 DD/ 1509 TD/TT: Consumer Relations Specialist: BO Also her TSH at 4.09 and her glucose was reviewed as well as her other labs. Assessment & Plan Assessment & Plan (1) Abnormal uterine bleeding (AUB): Code(s): N93.9 - Abnormal uterine and vaginal bleeding, unspecified Plan I reviewed her ultras ound and labs with her I recommend she call Dr. Adams who is her primary and discussed the elevated TSH and see if she wants to treat her or refer her. I also reviewed her labs and I reviewed her bleeding pattern and her history with it. Please see HPI for the details. I am recommending that she consider a Mirena IU S so that she does not have to have endometrial biopsies every so often. . I gave her a pamphlet and [place] for her to read we will have a visit next week to review the results . I did cultures and a Pap because she was due She said she had a bad reaction to Advil when she was young so she does not take that for cramps but she will take Tylenol. Orders: Orders Pap Smear Today Z11.3 - Encounter for screening for infections with a predominantly sexual mode of transmission Surgical Today N93.9 - Abnormal uterine and vaginal bleeding, unspecified AMB HCG Urine Test Today Z32.02 - Encounter for test, result negative Bacterial Vaginosis Panel Today Z11.3 - Encounter for screening for infections with a predominantly sexual mode of transmission CT NG by PCR Today Z11.3 - Encounter for screening for infections with a predominantly sexual mode of transmission AMB Endometrial Biopsy Today N93.9 - Abnormal uterine and vaginal bleeding, unspecified Coding Level of Care Code Est Pt Level 3 (87183) Diagnoses Abnormal uterine bleeding (AUB) N93.9 CPT Codes Endometrial Biopsy - CPT: 56861-Obzkxhykavx Biopsy ([id number])
[2023-04-12 14:46] VITALS: BP 130/84; BMI 25.2
== END 2023-04-12 16:14 | disposition home or self-care (01) ==
PROVIDERS: PCP Internal Medicine; Visit Provider Advanced Practice Midwife
DX: N93.9 Abnormal uterine and vaginal bleeding, unspecified (principal); Z30.09 Encounter for other general counseling and advice on contraception
CPT/HCPCS: 58100; 99213

== ENCOUNTER 2023-04-19 09:09 | Outpatient (AMB) | payer OTHER, SELFPAY ==
--- NOTE | 2023-04-19 09:09 | MHC.OFFVIS ---
Intake Intake Visit Reasons: Follow up EMB Pharmacy Operations Manager Required: Yes Pharmacy Operations Manager Language: Slovenian Allergies doxycycline Allergy (Severe, Verified 04/19/23 09:10) tongue swelling morphine [MORPHINE] Allergy (Intermediate, Verified 04/19/23 09:10) RASH, headache, redness, throat swelling sumatriptan [From IMITREX] Allergy (Mild, Verified 04/19/23 09:10) ITCHING azithromycin Allergy (Unknown, Verified 04/19/23 09:10) facial redness Penicillins [PENICILLINS] Allergy (Unknown, Verified 04/19/23 09:10) ANAPHYLAXIS vancomycin Adverse Reaction (Verified 04/19/23 09:10) Itching Is last menstrual period known: Yes Last menstrual period: 03/26/23 Post menopausal: No HPI Follow up EMB HPI Details This is a tele visit to discuss this patient's endometrial biopsy results the endometrial biopsy was done on 04/13 for very heavy periods this is her 2nd endometrial biopsy she had 1 done for the same reason 3 years ago. She had an ultrasound as part of this evaluation which was normal and she also had some lab work which showed an elevated TSH of 4.09 the ultrasound was already discussed with her and as well as the TSH and she is placed call to her primary care provider and is assuring me during this call that she will follow-up with this as she probably does need medication at this time. She has a normal endometrial biopsy results showing no atypia or malignancy so this is very real very reassuring. So I reviewed her history with her and discussed options that are available to try an make her life easier vis-a-vis her heavy crampy periods and abundant blood clots. Of note she is not anemic. Discussed again the option of a Mirena IU S and she is thinking about it. Also discussed other options including Depo-Provera but this side effect profile is less appealing for that. I discussed that I will only insert a Mirena when she is on her heaviest days of her. Which is for her usually day 2 or 3 but can on occasion be day 1. I recommend that she consider her options and think about it but decide within the next couple of months if she wants a Mirena. If she does choose to have try a Mirena to make her periods better and more manageable then I would want her to call when her period starts and try to get in to a cancellation slot for insertion of the Mirena. I discussed that if she waits another year or so again we would might need to start the workup all over again so I did not recommend that she wait to make her decision. In the meantime the patient said she was going to be calling Dr. Adams sooner she got off the video call discussion with me. So we will see her probably for Mirena insertion within the next month or 2 with the start of her menses. Explained the rationale for insertion of her Mirena with her menses in terms of the physiological changes to her cervix and uterus. [facility] Medical History Mild recurrent major depression Umbilical hernia Sarcoidosis Asthma Surgical History History of umbilical hernia repair H/O esophagogastroduodenoscopy History of tubal ligation Previous section History of appendectomy Family History Father Essential hypertension Arthritis CAD (coronary artery disease) Mother Essential hypertension Diabetes mellitus Social History Housing: Apartment Alcohol intake: never Patient Tobacco Use Status: Former Tobacco user Quit Date: 2012 Tobacco use type: Cigarette e-Cigarette/Vaping Use: Never Used Second Hand Smoke Exposure: No service: No Current occupational status: employed Current occupational exposures/hazards: No Cognitive needs: No Hearing needs: No Vision needs: No Female Reproductive History Menstrual Date of last menstrual period: 03/26/23 Results Reviewed Results Reviewed: Name: MirianIvet Dao Age/Sex: 37/F Attending: Kristal Alonzo CNM : 1985 Submitted by: Kristal Alonzo CNM Copies to: Josefina Stacy MD MR #: [id number] Status: DEP REF Collected: 04/12/23 [facility] Received: 04/13/23 Diagnosis Endometrium, biopsy: Secretory endometrium; negative for atypia, hyperplasia or malignancy. Clinical History AUB Microscopic Description Microscopic sections reviewed. Material Received EMB Gross Description Received in formalin labeled ?EMB? are several irregular and tubular cast fragments of focally congested and hemorrhagic alicea-brown tissue with a small amount of mucus and red-maroon blood. The specimen is submitted in toto in a single cassette labeled A. CEDS Copies To Kristal Alonzo CNM [address] [place] [address] Dr. [address] [place] [address] Josefina Stacy MD [address] [place] [address] Dr. [address] [place] [address] NOTE: Unless otherwise stated, all tissue is formalin-fixed and paraffin-embedded. Some or all of the immunohistochemical tests reported herein may have been developed and their performance characteristics determined by [facility]. They have not been cleared or approved by the U.S. Food and Drug Administration (FDA). However, the FDA has determined that such clearance or approval is not necessary. This laboratory is certified under the Clinical Laboratory Improvement Amendments of 1988 (CLIA) as qualified to perform high complexity clinical laboratory testing. Electronically Signed By: Cami Smith MD 04/14/23 1504 Patient: Ivet Bill Age/Sex: 37/F MR#: [id number] Page 1 of 1 Patient: Ivet Bill MR#: [id number] : 1985 Acct:[id number] Age/Sex: 37 / F ADM Date: 02/24/23 Loc: [facility] Attending Dr: Kristal Alonzo CNM Ordering Physician: Kristal Alonzo CNM Date of Service: 02/24/23 Procedure(s): US pelvic and transvaginal Accession Number(s): [id number] cc: Kristal Alonzo CNM~ EXAMINATION: US PELVIS CLINICAL INFORMATION: Irregular menstruation. COMPARISON: Pelvic ultrasound 04/14/2021, CT abdomen and pelvis 12/08/2022. TECHNIQUE: Ultrasound of the pelvis is performed using both transabdominal and transvaginal transducers along with Doppler. Transvaginal imaging is performed due to inadequate visualization transabdominally. FINDINGS: Uterus: The uterus is retroverted and measures 10.9 x 5.5 x 6.6 cm. Nabothian cysts in the cervix. The double wall endometrial thickness is 12 mm. The uterus is smooth in contour and has normal myometrial echogenicity. No visible fibroid. Adnexa: Both ovaries are visualized. There is normal color flow to the adnexa. There is no ovarian torsion. There is no pelvic ascites or fluid collection. Right ovary measures 2.3 x 1.7 x 2.2 cm. Volume 4.5 mL. Left ovary measures 3.6 x 1.9 x 2.1 cm. Volume 7.5 mL. There is a corpus luteum seen measuring 1.5 cm. US/US pelvic and transvaginal IMPRESSION: Unremarkable pelvic ultrasound. Dictated By: Saw Hope MD Signed By: <Electronically signed by Saw Hope MD in OV> 02/27/23 1522 itzel: Ivet Bill Age/Sex: 37/F : 1985 Unit#: [id number] Attend Dr: Kristal Alonzo CNM Re04/11/23 Status: DEP REF Location: .LAB Disch: SPEC : [id number] KADE: 04/11/23 STATUS: COMP REQ : [id number] RECD: 04/11/[address]: Kristal Alonzo CNM COMP: 04/11/23-100 ENTERED: 04/11/2356 [facility] DR: Josefina Stacy MD ORDERED: Glu Random, Free T4, TSH Rflx Test Result Flag Reference Site Glucose, Random 102 60-115 mg/dL Free T4 0.82 0.71-1.85 ng/dL TSH 4.09 H 0.32-4.0 uIU/mL Assessment & Plan Assessment & Plan (1) Abnormal uterine bleeding (AUB): Code(s): N93.9 - Abnormal uterine and vaginal bleeding, unspecified Plan This is a tele visit to discuss this patient's endometrial biopsy results the endometrial biopsy was done on 04/13 for very heavy periods this is her 2nd endometrial biopsy she had 1 done for the same reason 3 years ago. She had an ultrasound as part of this evaluation which was normal and she also had some lab work which showed an elevated TSH of 4.09 the ultrasound was already discussed with her and as well as the TSH and she is placed call to her primary care provider and is assuring me during this call that she will follow-up with this as she probably does need medication at this time. She has a normal endometrial biopsy results showing no atypia or malignancy so this is very real very reassuring. So I reviewed her history with her and discussed options that are available to try an make her life easier vis-a-vis her heavy crampy periods and abundant blood clots. Of note she is not anemic. Discussed again the option of a Mirena IU S and she is thinking about it. Also discussed other options including Depo-Provera but this side effect profile is less appealing for that. I discussed that I will only insert a Mirena when she is on her heaviest days of her. Which is for her usually day 2 or 3 but can on occasion be day 1. I recommend that she consider her options and think about it but decide within the next couple of months if she wants a Mirena. If she does choose to have try a Mirena to make her periods better and more manageable then I would want her to call when her period starts and try to get in to a cancellation slot for insertion of the Mirena. I discussed that if she waits another year or so again we would might need to start the workup all over again so I did not recommend that she wait to make her decision. In the meantime the patient said she was going to be calling Dr. Adams sooner she got off the video call discussion with me. So we will see her probably for Mirena insertion within the next month or 2 with the start of her menses. Explained the rationale for insertion of her Mirena with her menses in terms of the physiological changes to her cervix and uterus. Telehealth Telehealth Location of provider rendering services: practice address Location of patient: address on file Patient Identification confirmed using: Name, : Yes Telehealth method: video Patient verbally consented to treatment: Yes Patient verbally consented to billing insurance company: Yes Patient informed of any privacy concerns related to visit: Yes Coding Level of Care Code Tele Est Pt Level 3 (00179) Diagnoses Abnormal uterine bleeding (AUB) N93.9 Comment 3 cr/ video w pt/12 charting..=30
== END 2023-04-19 10:41 | disposition home or self-care (01) ==
LOC: HO.HWS 09:09
PROVIDERS: PCP Internal Medicine; Visit Provider Advanced Practice Midwife
DX: N93.9 Abnormal uterine and vaginal bleeding, unspecified (principal)
CPT/HCPCS: 99213

== ENCOUNTER → 2023-04-19 09:09 | Outpatient (BNVA) | payer OTHER, SELFPAY | PROVIDERS: PCP Internal Medicine; Visit Provider Advanced Practice Midwife ==

== ENCOUNTER → 2023-05-16 09:49 | Outpatient (REF) | payer OTHER, SELFPAY | LOC: HO.SL 09:49 | PROVIDERS: PCP Internal Medicine; Visit Provider Nurse Practitioner Family | DX: G47.19 Other hypersomnia (principal); R06.83 Snoring | CPT/HCPCS: 95806 ==

== ENCOUNTER → 2023-05-16 10:06 | Outpatient (BNV) | payer OTHER, SELFPAY | PROVIDERS: PCP Internal Medicine; Visit Provider Internal Medicine | DX: R06.83 Snoring (principal); R40.0 Somnolence | CPT/HCPCS: 95806 ==

== ENCOUNTER 2023-06-08 13:10 | Outpatient (AMB) | payer OTHER, SELFPAY ==
[2023-06-08 13:18] VITALS: BP 138/82; PULSE 107; O2SAT 99; BMI 25.8
--- NOTE | 2023-06-08 13:18 | MHC.OFFVIS ---
Intake Vital Signs 06/08/23 13:18 Height 5 ft 6 in Weight 159 lb 13.362 oz BMI 25.8 BP 138/82 Blood Pressure Location Rt brachial Position Sitting Pulse 107 H Pulse Source Doppler Pulse Oximetry (%) 99 Oxygen Delivery Method Room Air Intake Visit Reasons: asthma Spd Tech Required: Yes Spd Tech Name: Yasmeen Paulino Allergies doxycycline Allergy (Severe, Verified 06/08/23 13:20) tongue swelling morphine [MORPHINE] Allergy (Intermediate, Verified 06/08/23 13:20) RASH, headache, redness, throat swelling sumatriptan [From IMITREX] Allergy (Mild, Verified 06/08/23 13:20) ITCHING azithromycin Allergy (Unknown, Verified 06/08/23 13:20) facial redness Penicillins [PENICILLINS] Allergy (Unknown, Verified 06/08/23 13:20) ANAPHYLAXIS vancomycin Adverse Reaction (Verified 06/08/23 13:20) Itching HPI asthma HPI Details 37-year-old lady, nonsmoker, followed for underlying sarcoidosis (diagnosed with?cervical node biopsy) and moderate persistent asthma.? She has been using Spiriva, Symbicort duo nebs, and albuterol MDI with baseline control of his symptoms until approximately 4 days prior when she started to develop cough productive of greenish sputum. [facility] Medical History Mild recurrent major depression Umbilical hernia Sarcoidosis Asthma Surgical History History of umbilical hernia repair H/O esophagogastroduodenoscopy History of tubal ligation Previous section History of appendectomy Family History Father Essential hypertension Arthritis CAD (coronary artery disease) Mother Essential hypertension Diabetes mellitus Social History Housing: Apartment Alcohol intake: never Patient Tobacco Use Status: Former Tobacco user Quit Date: 2012 Tobacco use type: Cigarette e-Cigarette/Vaping Use: Never Used Second Hand Smoke Exposure: No service: No Current occupational status: employed Current occupational exposures/hazards: No Cognitive needs: No Hearing needs: No Vision needs: No Review of Systems Const Denies daytime sleepiness, Denies excessive sweating, Denies fatigue, Denies fever(s), Denies lethargy, Denies malaise, Denies night sweats, Denies snoring and Denies weight loss Eyes Denies blurry vision and Denies itchy eyes ENT Denies nasal congestion, Denies post nasal drip, Denies sinus pain, Denies sinus pressure and Denies other ( Thrush) Card Denies chest pain, Denies pedal edema, Denies dyspnea, Denies orthopnea and Denies paroxysmal nocturnal dyspnea Resp Reports cough, Denies hemoptysis, Reports excessive phlegm production, Denies dyspnea, Denies snoring and Denies wheezing GI Denies abdominal pain and Denies heartburn Musc Denies myalgias, Denies arthralgias and Denies joint swelling Skin/Breast Denies rash Neuro Denies memory loss and Denies seizure-like activity Psych Denies abnormal sleep pattern, Denies anxiety and Denies memory loss Endo Denies excessive sweating, Denies fatigue and Denies heat intolerance Jacky/Lymph Denies easy bruising Aller/Immun Denies itchy eyes, Denies seasonal rhinorrhea and Denies wheezing Physical Exam Vital Signs: Last Vital Signs Pulse 107 H 06/08/23 13:18 BP 138/82 06/08/23 13:18 Pulse Ox 99 06/08/23 13:18 Oxygen Delivery Method Room Air 06/08/23 13:18 BMI result Body Mass Index 25.8 Const General: no acute distress and alert Nutritional Appearance: not obese Orientation/consciousness: Other orientation findings ( oriented) HEENT Head: Yes atraumatic Eyes General: appearance normal, both eyes and all related structures Sclerae: sclerae normal EOM: EOMs intact bilaterally Neck Neck: Yes supple Lymphatic: no lymphadenopathy noted Resp Effort & Inspection: normal respiratory effort and no use of accessory muscles Auscultation: rales (Bilateral upper lobe predominant) Cardio Rate: regular rate Rhythm: regular rhythm Heart sounds: no gallops, no murmurs and no rubs Skin General skin exam: other ( warm) Extrem General: No clubbing, No cyanosis and No edema Assessment & Plan Assessment & Plan (1) Sarcoidosis: Code(s): D86.9 - Sarcoidosis, unspecified Plan: Now recent exacerbations. (2) Asthma: Code(s): J45.909 - Unspecified asthma, uncomplicated Plan: Baseline controlled on Spiriva, Symbicort, duo nebs, and albuterol MDI. Continue current regimen. (3) Acute bronchitis: Code(s): J20.9 - Acute bronchitis, unspecified Plan: Now with acute symptoms. Will treat with a course of Levaquin. Medications: New levofloxacin 750 mg PO DAILY 7 tabs 0RF Coding Level of Care Code Est Pt Level 4 (46861) Diagnoses Sarcoidosis D86.9 Asthma J45.909 Acute bronchitis J20.9
== END 2023-06-08 13:32 | disposition home or self-care (01) ==
PROVIDERS: PCP Internal Medicine; Visit Provider Internal Medicine Pulmonary Disease
DX: D86.9 Sarcoidosis, unspecified (principal); J45.909 Unspecified asthma, uncomplicated; J20.9 Acute bronchitis, unspecified
CPT/HCPCS: 99214

== ENCOUNTER → 2023-06-08 13:10 | Outpatient (BNVA) | payer OTHER, SELFPAY | PROVIDERS: PCP Internal Medicine; Visit Provider Internal Medicine Pulmonary Disease | DX: J45.909 Unspecified asthma, uncomplicated (principal); J20.9 Acute bronchitis, unspecified; D86.9 Sarcoidosis, unspecified | CPT/HCPCS: 99212 ==

== ENCOUNTER 2023-06-16 09:58 | Outpatient (REF) | payer OTHER, SELFPAY ==
--- NOTE | ~2023-06-16 | MR_ITS ---
EXAMINATION: MR BRAIN WITHOUT AND WITH CONTRAST CLINICAL INFORMATION: Unspecified ptosis of bilateral eyelids. Patient reports migraines all over, sensitivity hearing and sights. COMPARISON: MRI brain: 07/13/2016. TECHNIQUE: Multiplanar, multisequence MRI of the brain was obtained before and after the intravenous administration of 7 mL Gadavist. FINDINGS: No acute intracranial hemorrhage or infarct. No abnormal intraparenchymal enhancement. No edema, midline shift or hydrocephalus. No acute extra-axial fluid collections. The osseous structures are unremarkable. The pituitary gland, pineal gland and remaining midline structures are unremarkable. No orbital pathology. Mucosal thickening of the ethmoid sinuses. The mastoid air cells are clear. MR/MR head/brain wo/w con IMPRESSION: -No acute intracranial abnormality. -Mucosal thickening of the bilateral ethmoid sinuses.
[2023-06-16] MEDS: gadobutroL 7.5 ML VIAL IVPUSH (10:42)
== END 2023-06-16 09:59 | disposition home or self-care (01) ==
LOC: HO.MRI 09:58
PROVIDERS: PCP Internal Medicine; Visit Provider Nurse Practitioner Family
DX: R51.9 Headache, unspecified (principal); R42 Dizziness and giddiness; H02.403 Unspecified ptosis of bilateral eyelids; D86.9 Sarcoidosis, unspecified
CPT/HCPCS: 70553; A9585

== ENCOUNTER 2023-07-03 16:31 | Outpatient (AMB) | payer OTHER, SELFPAY ==
[2023-07-03 16:45] VITALS: BP 130/86; BMI 25.8
--- NOTE | 2023-07-03 16:45 | MHC.PC.OV ---
Vital Signs 07/03/23 16:45 Height 5 ft 6 in Weight 160 lb BMI 25.8 BP 130/86 Blood Pressure Location Lt brachial Position Sitting Intake Visit Reasons: Annual PE Intake Note: Patient here for a physical exam Wrap Turner Required: No Accompanied by: Self / Same As Patient Allergies doxycycline Allergy (Severe, Verified 07/03/23 16:56) tongue swelling morphine [MORPHINE] Allergy (Intermediate, Verified 07/03/23 16:56) RASH, headache, redness, throat swelling sumatriptan [From IMITREX] Allergy (Mild, Verified 07/03/23 16:56) ITCHING azithromycin Allergy (Unknown, Verified 07/03/23 16:56) facial redness Penicillins [PENICILLINS] Allergy (Unknown, Verified 07/03/23 16:56) ANAPHYLAXIS vancomycin Adverse Reaction (Verified 07/03/23 16:56) Itching Medication List - Last Reconciled 07/03/23 by Josefina Faith MD bisacodyl (Dulcolax (bisacodyl)) 10 mg (2 x 5 mg) PO BEDTIME 30 days cholecalciferol (vitamin D3) (Vitamin D3) 1 cap PO DAILY cyclobenzaprine 1 tab PO Q8H PRN dicyclomine 20 mg PO QID 30 days docusate sodium 100 mg PO BID escitalopram oxalate 5 mg PO DAILY famotidine 40 mg PO BEDTIME fluticasone propionate 50 mcg/actuation 1 spray intranasal BID PRN ipratropium-albuterol 0.5 mg-3 mg(2.5 mg base)/3 mL 3 mL inhalation Q4H PRN magnesium oxide 400 mg PO BEDTIME 30 days naproxen 1 tab PO BID PRN nebulizers (VixOne Nebulizer-Adult Mask) As directed pantoprazole 20 mg PO DAILY riboflavin (vitamin B2) 400 mg PO DAILY 30 days simethicone (Gas Relief (simethicone)) 180 mg PO BID Symbicort 160-4.5 mcg/actuation (budesonide-formoterol) 2 puffs inhalation BID NS tiotropium bromide 2.5 mcg/actuation (Spiriva Respimat) 2 puffs inhalation QAM 30 days ubrogepant (Ubrelvy) 50 - 100 mg (0.5 - 1 x 100 mg) PO ONCE PRN 30 days Ventolin HFA 90 mcg/actuation (albuterol sulfate) 2 puffs inhalation Q6H PRN NS Tobacco use date assessed: 12/27/22 Dental Screening Dental Screen Date: 07/03/23 Did you have a dental visit in the last 12 months?: No Did you have a dental problem in the last 6 months where you did not have access to dental care?: No Was dental information given to patient?: Patient has dentist HPI HPI Comments History of Present Illness Details This is a 38-year-old female with mild recurrent major depression that comes today for her physical exam. Depression stable with escitalopram. Last Pap smear was 2022 and was normal with HPV negative. [facility] Medical History Mild recurrent major depression Umbilical hernia Sarcoidosis Asthma Surgical History History of umbilical hernia repair H/O esophagogastroduodenoscopy History of tubal ligation Previous section History of appendectomy Family History Father Essential hypertension Arthritis CAD (coronary artery disease) Mother Essential hypertension Diabetes mellitus Social History Housing: Apartment Alcohol intake: never Patient Tobacco Use Status: Former Tobacco user Quit Date: 2012 Tobacco use type: Cigarette e-Cigarette/Vaping Use: Never Used Second Hand Smoke Exposure: No service: No Current occupational status: employed Current occupational exposures/hazards: No Cognitive needs: No Hearing needs: No Vision needs: No Questionnaire Thrive Questionnaire Date Thrive assessed: 12/27/22 TO-7 AMB Questionnaire TO-7 Date TO - 7 assessed: 12/27/22 Source: Developed by Drs. Jr Nava, Fabiola Kaur, Ehsan Penn and colleagues, with an educational kraig from [employer]. Review of Systems Const All systems reviewed & are unremarkable except as noted in HPI and below Eyes Reports no additional complaints, Denies change in vision and Denies other visual disturbances Card Denies chest pain at rest, Denies chest pain with activity, Denies edema, Denies irregular heart rhythm, Denies claudication, Denies dyspnea, Denies dyspnea on exertion, Denies orthopnea, Denies paroxysmal nocturnal dyspnea and Denies slow heart rate Resp Denies cough, Denies dyspnea and Denies dyspnea on exertion GI Denies abdominal pain, Denies change in bowel habits, Denies excessive flatus, Denies nausea and Denies vomiting Denies urinary incontinence, Denies urinary hesitancy and Denies urinary urgency Musc Denies abnormal gait, Denies atrophy, Denies deformity and Denies limited range of motion Skin/Breast Denies bleeding lesions, Denies changing lesions and Denies rash Neuro Denies abnormal gait and Denies lack of coordination Physical exam (Primary Care) Vital Signs: Last Vital Signs BP 130/86 07/03/23 16:45 BMI result Body Mass Index 25.8 Tobacco/Smoking Status: Tobacco use Status Tobacco use date assessed 12/27/22 07/03/23 16:51 Patient Tobacco Use Status Former Tobacco user 07/03/23 16:51 Tobacco use type Cigarette 07/03/23 16:51 e-Cigarette/Vaping Use Never Used 07/03/23 16:51 Thrive Assessment: Date of Thrive Assessment Date Thrive assessed 12/27/22 07/03/23 16:51 Const Orientation/consciousness: patient oriented x3 HENMT Head: Yes normal to inspection, Yes normocephalic and Yes atraumatic Ears: external ears normal Eyes General: appearance normal, both eyes and all related structures Eyelids: Yes eyelids normal Conjunctivae: conjunctivae normal Neck Neck: Yes normal visual inspection and Yes supple Resp Effort & Inspection: normal respiratory effort Auscultation: clear to auscultation bilaterally Cardio Jugular venous distension: no JVD Rate: regular rate Rhythm: regular rhythm Heart sounds: S1 normal heart sound present and S2 normal heart sound present GI Inspection: Yes normal to inspection Palpation (GI): Soft to palpation and nontender Auscultation: normal bowel sounds Skin General skin exam: no rashes or lesions noted Neuro General: patient oriented x3 and no focal motor deficits Extrem General: Yes full ROM Psych Appearance: grossly normal Office Procedures Flu Questionnaire Does the patient have a severe egg allergy?: No Immunizations flu vacc [id number] 6mos up(PF) 60 mcg(15 mcgx4)/0.5 mL IM syringe Performing Provider: Josefina Faith MD [facility] Documented (not given) by: Thalia Mcgrath, [facility] on 07/03/23 16:51 Reason Not Given: Patient Refused Assessment and Plan Assessment & Plan (1) Physical exam: Code(s): Z00.00 - Encounter for general adult medical examination without abnormal findings Plan: Repeat in a year. (2) Mild recurrent major depression: Code(s): F33.0 - Major depressive disorder, recurrent, mild Plan: Continue escitalopram. Orders: Orders Thyroid Stimulating Hormone Today R79.89 - Other specified abnormal findings of blood chemistry Free T4 (Free Thyroxine) Today R79.89 - Other specified abnormal findings of blood chemistry Influenza [id number] Immunization Today Z23 - Encounter for immunization Thyroglobulin Antibodies Today R79.89 - Other specified abnormal findings of blood chemistry Thyroid Peroxidase Antibodies Today R79.89 - Other specified abnormal findings of blood chemistry Comprehensive [place]. Panel Fast Today G43.109 - Migraine with aura, not intractable, without status migrainosus Vitamin B12 and Folate Today E53.8 - Deficiency of other specified B group vitamins, G43.109 - Migraine with aura, not intractable, without status migrainosus Complete Blood Count Auto Diff Today D64.9 - Anemia, unspecified, G43.109 - Migraine with aura, not intractable, without status migrainosus Lipid Panel Today Z00.00 - Encounter for general adult medical examination without abnormal findings Coding Level of Care Code Est Pt Prev Care 18-39y(27241) Diagnoses Physical exam Z00.00 Mild recurrent major depression F33.0 Time Spent (min) 32
== END 2023-07-03 17:06 | disposition home or self-care (01) ==
PROVIDERS: Visit Provider Internal Medicine
DX: Z00.00 Encounter for general adult medical examination without abnormal findings (principal); F33.0 Major depressive disorder, recurrent, mild; Z90.49 Acquired absence of other specified parts of digestive tract
CPT/HCPCS: 99395

== ENCOUNTER 2023-07-04 09:27 | Outpatient (REF) | payer OTHER, SELFPAY ==
[2023-07-04 09:45] LABS: MANUAL DIFF FLAG NO
[2023-07-04 10:19] LABS: Basophils Absolute Auto 0.1 X10*3/uL (0.0-0.2); Eosinophils Absolute Auto 0.2 X10*3/uL (0.0-0.4); Eosinophils Percent Auto 2.2 % (0-4); Hemoglobin 12.4 g/dl (12.0-16.0); Imm Gran Abs Auto 0.02 X10*3/uL (0.00-0.03); Imm Gran Pct Auto 0.2 % (0.0-0.4); Lymphocytes Absolute Auto 2.8 X10*3/uL (1.2-4.9); Lymphocytes Percent Auto 34.8 % (20-40); Mean Corpuscular Hemoglobin 26.6 pg (27.0-33.0); Mean Corpuscular Volume 85.7 fL (80.0-98.0); Mean Platelet Volume 9.9 fL (9.4-12.3); Monocytes Absolute Auto 0.4 X10*3/uL (0.1-1.2); Neutrophils Absolute Auto 4.6 x10*3/uL (2.0-8.3); Neutrophils Percent Auto 56.8 % (45-73); Platelet Count 385 X10*3/uL (160-400); Red Blood Count 4.67 X10*6/uL (4.20-5.50); Red Cell Distribution Width 13.8 % (11.0-16.0); White Blood Count 8.1 X10*3/uL (4.8-10.8)
[2023-07-04 11:34] LABS: Alanine Aminotransferase 12 U/L (0-31); Albumin Level 4.3 g/dL (3.5-5.0); Alkaline Phosphatase 68 U/L (39-117); Anion Gap 10 (12-20); Aspartate Amino Transferase 15 U/L (5-31); Bilirubin Total 0.5 mg/dL (0.0-1.0); Blood Urea Nitrogen 16 mg/dL (9-16); Calcium 9.7 mg/dL (8.4-10.2); Carbon Dioxide 27 mmol/L (22-29); Chloride 105 mmol/L (96-108); Cholesterol 199 mg/dL (<200); Estimated Glomerular Filt Rate > 60; Folate 14.5 ng/mL (> or = 4.0); Free T4 (Free Thyroxine) 0.87 ng/dL (0.71-1.85); Glucose Fasting 103 mg/dL (60-99); HDL Cholesterol 31 mg/dL (>40); LDL Cholesterol Calculated 127 mg/dL (<100); Potassium 4.2 mmol/L (3.3-5.1); Sodium 138 mmol/L (135-145); Thyroid Stimulating Hormone 2.73 uIU/mL (0.32-4.0); Total Protein 8.3 g/dL (6.5-8.0); Triglycerides 205 mg/dL (<150); Vitamin B12 410 pg/mL (200-900)
[2023-07-06 02:29] LABS: Thyroglobulin Antibodies 17 IU/mL (< or = 1); Thyroid Peroxidase Antibodies 137 IU/mL (<9)
== END 2023-07-04 09:28 | disposition home or self-care (01) ==
LOC: HO.LAB 09:27
PROVIDERS: PCP Internal Medicine; Visit Provider Internal Medicine
DX: Z00.00 Encounter for general adult medical examination without abnormal findings (principal); R79.89 Other specified abnormal findings of blood chemistry; E53.8 Deficiency of other specified B group vitamins; G43.109 Migraine with aura, not intractable, without status migrainosus; D64.9 Anemia, unspecified
CPT/HCPCS: 36415; 80053; 80061; 82607; 82746; 84439; 84443; 85025; 86376; 86800

== ENCOUNTER 2023-07-18 11:12 | Outpatient (AMB) | payer OTHER, SELFPAY ==
[2023-07-18 11:14] VITALS: BP 138/87; PULSE 81; O2SAT 100; BMI 25.6
--- NOTE | 2023-07-18 11:14 | A.OFFVIS_ITS ---
Intake Vital Signs 07/18/23 11:14 Height 5 ft 6 in Weight 158 lb 11.725 oz BMI 25.6 BP 138/87 Blood Pressure Location Rt brachial Position Sitting Pulse 81 Pulse Source Doppler Pulse Oximetry (%) 100 Oxygen Delivery Method Room Air Intake Visit Reasons: asthma Cyber Security Specialist Required: Yes Cyber Security Specialist Name: Yasmeen Paulino Allergies doxycycline Allergy (Severe, Verified 07/18/23 11:17) tongue swelling morphine [MORPHINE] Allergy (Intermediate, Verified 07/18/23 11:17) RASH, headache, redness, throat swelling sumatriptan [From IMITREX] Allergy (Mild, Verified 07/18/23 11:17) ITCHING azithromycin Allergy (Unknown, Verified 07/18/23 11:17) facial redness Penicillins [PENICILLINS] Allergy (Unknown, Verified 07/18/23 11:17) ANAPHYLAXIS vancomycin Adverse Reaction (Verified 07/18/23 11:17) Itching HPI asthma HPI Details 38-year-old lady, nonsmoker, followed fo r underlying sarcoidosis (diagnosed with?cervical node biopsy) and moderate persistent asthma.? She has been using Spiriva, Symbicort duo nebs, and albuterol MDI with baseline control of her. Over the last week patient is developed bronchitic symptoms. [facility] Medical History Mild recurrent major depression Umbilical hernia Sarcoidosis Asthma Surgical History History of umbilical hernia repair H/O esophagogastroduodenoscopy History of tubal ligation Previous section History of appendectomy Family History Father Essential hypertension Arthritis CAD (coronary artery disease) Mother Essential hypertension Diabetes mellitus Social History Housing: Apartment Alcohol intake: never Patient Tobacco Use Status: Former Tobacco user Quit Date: 2012 Tobacco use type: Cigarette e-Cigarette/Vaping Use: Never Used Second Hand Smoke Exposure: No service: No Current occupational status: employed Current occupational exposures/hazards: No Cognitive needs: No Hearing needs: No Vision needs: No Review of Systems Const Denies daytime sleepiness, Denies excessive sweating, Denies fatigue, Denies fever(s), Denies lethargy, Denies malaise, Denies night sweats, Denies snoring and Denies weight loss Eyes Denies blurry vision and Denies itchy eyes ENT Denies nasal congestion, Denies post nasal drip, Denies sinus pain, Denies sinus pressure and Denies other ( Thrush) Card Denies chest pain, Denies pedal edema, Denies dyspnea, Denies orthopnea and Mckinley es paroxysmal nocturnal dyspnea Resp Reports cough, Denies hemoptysis, Reports excessive phlegm production, Denies dyspnea, Denies snoring and Denies wheezing GI Denies abdominal pain and Denies heartburn Musc Denies myalgias, Denies arthralgias and Denies joint swelling Skin/Breast Denies rash Neuro Denies memory loss and Denies seizure-like activity Psych Denies abnormal sleep pattern, Denies anxiety and Denies memory loss Endo Denies excessive sweating, Denies fatigue and Denies heat intolerance Jacky/Lymph Denies easy bruising Aller/Immun Denies itchy eyes, Denies seasonal rhinorrhea and Denies wheezing Physical Exam Vital Signs: Last Vital Signs Pulse 81 07/18/23 11:14 BP 138/87 07/18/23 11:14 Pulse Ox 100 07/18/23 11:14 Oxygen Delivery Method Room Air 07/18/23 11:14 BMI result Body Mass Index 25.6 Const General: no acute distress and alert Nutritional Appearance: not obese Orientation/consciousness: Other orientation findings ( oriented) HEENT Head: Yes atraumatic Eyes General: appearance normal, both eyes and all related structures Sclerae: sclerae normal EOM: EOMs intact bilaterally Neck Neck: Yes supple Lymphatic: no lymphadenopathy noted Resp Effort & Inspection: normal respiratory effort and no use of accessory muscles Auscultation: clear to auscultation bilaterally Cardio Rate: regular rate Rhythm: regular rhythm Heart sounds: no gallops, no murmurs and no rubs Skin General skin exam: other ( warm) Extrem General: No clubbing, No cyanosis and No edema Assessment & Plan Assessment & Plan (1) Sarcoidosis: Comment: history of sarcoid in cervical node biopsy Code(s): D86.9 - Sarcoidosis, unspecified Plan: No recent exacerbations. Continue to monitor clinically. (2) Asthma: Code(s): J45.909 - Unspecified asthma, uncomplicated Plan: Well controlled on underlying regimen of Symbicort, Spiriva, duo nebs, and al buterol MDI. Continue current regimen. (3) Bronchitis: Code(s): J40 - Bronchitis, not specified as acute or chronic Plan: Now with acute bronchitic. Will treat with a course of prednisone and Levaquin. Orders: Orders XR chest 2V Today J45.909 - Unspecified asthma, uncomplicated Medications: New levofloxacin 750 mg PO DAILY 7 tabs 0RF J45.909 - Unspecified asthma, uncomplicated prednisone 20 mg PO DAILY 5 tabs 0RF J45.909 - Unspecified asthma, uncom plicated Coding Level of Care Code Est Pt Level 4 (56749) Diagnoses Sarcoidosis D86.9 Asthma J45.909 Bronchitis J40
== END 2023-07-18 11:32 | disposition home or self-care (01) ==
PROVIDERS: PCP Internal Medicine; Visit Provider Internal Medicine Pulmonary Disease
DX: D86.9 Sarcoidosis, unspecified (principal); J45.909 Unspecified asthma, uncomplicated; J40 Bronchitis, not specified as acute or chronic
CPT/HCPCS: 99214

== ENCOUNTER 2023-07-18 11:12 | Outpatient (REF) | payer OTHER, SELFPAY | END 2023-07-18 11:13 | disposition home or self-care (01) | LOC: HO.XRAY 11:12 | PROVIDERS: PCP Internal Medicine; Visit Provider Internal Medicine Pulmonary Disease | DX: J45.909 Unspecified asthma, uncomplicated (principal); D86.9 Sarcoidosis, unspecified | CPT/HCPCS: 71046; 99212 ==

== ENCOUNTER 2023-08-10 14:28 | Outpatient (AMB) | payer OTHER, SELFPAY ==
--- NOTE | 2023-08-10 14:30 | MHC.OFFVIS ---
Intake Vital Signs 08/10/23 14:38 Height 5 ft 6 in Weight 162 lb 11.218 oz BMI 26.3 BP 94/70 Blood Pressure Location Rt brachial Position Sitting Pulse 80 Pulse Source Pulse Oximeter Temp 97.4 F Temp Source Skin Pulse Oximetry (%) 98 Oxygen Delivery Method Room Air Intake Visit Reasons: Back Pain Intake Note: Pt last seen by Nola on 06/06/22 presents today for follow up. Motion Picture Set Grip Required: Yes Motion Picture Set Grip Language: Cloth Booker Name: Information Interpreted: clinical only Accompanied by: Family/Other Allergies doxycycline Allergy (Severe, Verified 08/10/23 14:37) tongue swelling morphine [MORPHINE] Allergy (Intermediate, Verified 08/10/23 14:37) RASH, headache, redness, throat swelling sumatriptan [From IMITREX] Allergy (Mild, Verified 08/10/23 14:37) ITCHING azithromycin Allergy (Unknown, Verified 08/10/23 14:37) facial redness Penicillins [PENICILLINS] Allergy (Unknown, Verified 08/10/23 14:37) ANAPHYLAXIS vancomycin Adverse Reaction (Verified 08/10/23 14:37) Itching Medication List - Last Reconciled 08/10/23 by Debra Gustafson MD bisacodyl (Dulcolax (bisacodyl)) 10 mg (2 x 5 mg) PO BEDTIME 30 days cholecalciferol (vitamin D3) (Vitamin D3) 1 cap PO DAILY cyclobenzaprine 1 tab PO Q8H PRN dicyclomine 20 mg PO QID 30 days docusate sodium 100 mg PO BID escitalopram oxalate 5 mg PO DAILY famotidine 40 mg PO BEDTIME fluticasone propionate 50 mcg/actuation 1 spray intranasal BID PRN ipratropium-albuterol 0.5 mg-3 mg(2.5 mg base)/3 mL 3 mL inhalation Q4H PRN levofloxacin 750 mg PO DAILY magnesium oxide 400 mg PO BEDTIME 30 days naproxen 1 tab PO BID PRN nebulizers (VixOne Nebulizer-Adult Mask) As directed pantoprazole 20 mg PO DAILY prednisone 20 mg PO DAILY riboflavin (vitamin B2) 400 mg PO DAILY 30 days simethicone (Gas Relief (simethicone)) 180 mg PO BID Symbicort 160-4.5 mcg/actuation (budesonide-formoterol) 2 puffs inhalation BID NS tiotropium bromide 2.5 mcg/actuation (Spiriva Respimat) 2 puffs inhalation QAM 30 days ubrogepant (Ubrelvy) 50 - 100 mg (0.5 - 1 x 100 mg) PO ONCE PRN 30 days Ventolin HFA 90 mcg/actuation (albuterol sulfate) 2 puffs inhalation Q6H PRN NS HPI HPI Comments History of Present Illness Details 38-year-old female with history of sarcoidosis returns for follow-up. She was last seen by Joana Martinez about a year ago. She has history of sarcoidosis (diagnosed through cervical lymph node biopsy 2018) she follows with Pulmonary. Patient states that she has diffuse body pains. She gets intermittent pain on the ulnar aspect of her left hand, she gets the pain intermittently and it improves with massaging it. She denies any skin rashes or fevers. [facility] Medical History Mild recurrent major depression Umbilical hernia Sarcoidosis Asthma Surgical History History of umbilical hernia repair H/O esophagogastroduodenoscopy History of tubal ligation Previous section History of appendectomy Family History Father Essential hypertension Arthritis CAD (coronary artery disease) Mother Essential hypertension Diabetes mellitus Social History Housing: Apartment Alcohol intake: never Patient Tobacco Use Status: Former Tobacco user Quit Date: 2012 Tobacco use type: Cigarette e-Cigarette/Vaping Use: Never Used Second Hand Smoke Exposure: No service: No Current occupational status: employed Current occupational exposures/hazards: No Cognitive needs: No Hearing needs: No Vision needs: No Review of Systems Const Reports fatigue Musc Reports myalgias and Reports arthralgias Endo Reports fatigue Physical Exam Vital Signs: Last Vital Signs Temp 97.4 F 08/10/23 14:38 Pulse 80 08/10/23 14:38 BP 94/70 08/10/23 14:38 Pulse Ox 98 08/10/23 14:38 Oxygen Delivery Method Room Air 08/10/23 14:38 BMI result Body Mass Index 26.3 Const General: cooperative, healthy appearing and comfortable Nutritional Appearance: overweight Orientation/consciousness: patient oriented x3 Limitations: no limitations HEENT Head: Yes normocephalic and Yes atraumatic Mouth: moist mucous membranes Resp Effort & Inspection: normal respiratory effort and able to speak in complete sentences Cardio Rate: regular rate Skin General skin exam: no rashes or lesions noted Neuro General: patient oriented x3 Extrem Other: Multiple myofascial tender points. No active synovitis Normal nailfold capillaroscopy Assessment & Plan Assessment & Plan (1) Sarcoidosis: Comment: history of sarcoid in cervical node biopsy 2019 Code(s): D86.9 - Sarcoidosis, unspecified Plan: This is a 38-year-old female with history of sarcoidosis based on cervical lymph node biopsy in 2019 who presents for follow-up. She follows up regularly with pulmonology. Upon evaluation to the I do not see any signs suggestive of inflammatory arthritis. She has diffuse widespread pains. I have reviewed patient's records and imaging studies over the last few years. She has had CT scans of the chest, abdomen and pelvis. There were no signs of systemic sarcoidosis such as lymph nodes or interstitial lung disease. Patient was advised before by Pulmonary to have regular eye exams to evaluate for uveitis. Advised patient to follow-up with me if she has any new or worsening symptoms. Otherwise follow-up with Pulmonary Plan I spent 18 minutes reviewing patient's chart, evaluating patient, counseling patient and documenting in the chart Coding Level of Care Code Est Pt Level 3 (95339) Diagnoses Sarcoidosis D86.9
[2023-08-10 14:38] VITALS: BP 94/70; PULSE 80; TEMP 36.3; O2SAT 98; BMI 26.3
== END 2023-08-10 15:17 | disposition home or self-care (01) ==
PROVIDERS: PCP Internal Medicine; Visit Provider Student in an Organized Health Care Education/Training Program
DX: D86.9 Sarcoidosis, unspecified (principal)
CPT/HCPCS: 99213

== ENCOUNTER → 2023-08-10 14:28 | Outpatient (BNVA) | payer OTHER, SELFPAY | PROVIDERS: PCP Internal Medicine; Visit Provider Student in an Organized Health Care Education/Training Program | DX: D86.9 Sarcoidosis, unspecified (principal) | CPT/HCPCS: 99212 ==

== ENCOUNTER 2023-08-22 08:04 | Outpatient (AMB) | payer OTHER, SELFPAY ==
[2023-08-22 08:22] VITALS: BP 122/82; PULSE 75; BMI 26.0
--- NOTE | 2023-08-22 08:22 | A.OFFVIS_ITS ---
Intake Vital Signs 3 08/22/23 08:22 Height 5 ft 6 in Weight 160 lb 14.999 oz BMI 26.0 BP 122/82 Blood Pressure Location Lt brachial Position Sitting Pulse 75 Intake Visit Reasons: pt req appointment Intake Note: Ivet presents in the office as a follow up requested by the patient. CC: Pains in the epigastric region. Sometimes she has constipatio and other times she will have diarrhea. Allergies doxycycline Allergy (Severe, Verified 08/22/23 08:22) tongue swelling morphine [MORPHINE] Allergy (Intermediate, Verified 08/22/23 08:22) RASH, headache, redness, throat swelling sumatriptan [From IMITREX] Allergy (Mild, Verified 08/22/23 08:22) ITCHING azithromycin Allergy (Unknown, Verified 08/22/23 08:22) facial redness Penicillins [PENICILLINS] Allergy (Unknown, Verified 08/22/23 08:22) ANAPHYLAXIS vancomycin Adverse Reaction (Verified 08/22/23 08:22) Itching HPI pt req appointment 2 HPI0 Details Assessment & Plan (1) Irritable bowel syndrome with both c onstipation and diarrhea: Code(s): K58.2 - Mixed irritable bowel syndrome Plan: [place] #Vilamarys She received the bentyl but was only taking it bid, and stopped it r/t diarrhea because she was confused about this causing diarrhea and she is educated that this is actually helpful at stopping diarrhea. I believe that her diarrhea is driven by gas and bloating but she has multiple sensitivities to antibiotics and we have not been able to get Xifaxan approved so were going to try to treat her symptomatically with the dicyclomine. Now that I have explained that it works well for diarrhea she will try taking it 4 times a day as scheduled. She actually seems to have mixed irritable bowel syndrome with diarrhea alternating with constipation but she uses bisacodyl for the constipation phase with good control. Repeat lab work, as always, has not shown any reason to suspect inflammatory bowel disease or any other pathology other than IBS at this time. She continues on pantoprazole in the morning and famotidine at night and also has simethicone available for her GERD and other symptoms. I will see her back in 6 weeks to see how she is doing. We could also consider Pako going forward. (2) GERD (gastroesophageal reflux diseas e): Code(s): K21.9 - Gastro-esophageal reflux disease without esophagitis (3) Sarcoidosis: Code(s): D86.9 - Sarcoidosis, unspecified Medications: Refilled dicyclomine 20 mg PO QID 30 d ays 120 tabs 6RF famotidine 40 mg PO BEDTIME 30 tabs 6RF pantoprazole 20 mg PO DAILY 30 tabs 6RF K21.9 - Gastro-eso phageal reflux dis ease without esoph agitis simethicone (Gas R elief (simethicone )) 180 mg PO BID 60 caps 6RF TODAYS VISIT [place] Susan Rodriguez She has been having more HB recently with pain on the right side after eating, intermittently. But then she says that at times she has the pain on the left or on both sides. This will be followed by diarrhea and severe pain like when I had colitis. However, she has not seen me since 2021, so she is out of her medications. Also, a new medicine is magnesium rx'ed by neurology. She also notes that her last episode occurred after eating cereal with milk, so we discuss possible lactose intolerance. I explain this is really a trial and error dx, so we will discuss how to manage this going forward if this is a problems. She also is avoiding pork, which makes her have malodorous gas, sodas which bothers her stomach, We discuss possible trial of creon. We will restart her past medications and evaluate her response. The medications that I am really implementing pantoprazole, I am adding famotidine at night, I am holding the Colace for now, she has bisacodyl for constipation, or adding dicyclomine 20 mg 4 times a day, and I am adding simethicone for gas trapping. ROV 3 weeks. [facility] Medical History (Updated 08/22/23 @ 08:29 by LYNSYE Holcomb) Chronic idiopathic constipation Mild recurrent major depression Umbilical hernia Sarcoidosis Asthma Surgical History History of umbilical hernia repair H/O esophagogastroduodenoscopy History of tubal ligation Previous section History of appendectomy Family History Father Essential hypertension Arthritis CAD (coronary artery disease) Mother Essential hypertension Diabetes mellitus Social History Housing: Apartment Alcohol intake: never Patient Tobacco Use Status: Former Tobacco user Quit Date: 2012 Tobacco use type: Cigarette e-Cigarette/Vaping Use: Never Used Second Hand Smoke Exposure: No service: No Current occupational status: employed Current occupational exposures/hazards: No Cognitive needs: No Hearing needs: No Vision needs: No Review of Systems Const Denies fatigue, Denies fever(s), Denies night sweats, Denies poor appetite and Denies weight loss ENT Reports Normal hearing present, Denies dental pain, Denies dysphagia, Denies hearing loss, Denies mouth pain, Denies odynophagia, Denies throat swelling, Denies tongue swelling and Reports other (Dentition adequate) Card Reports no additional complaints Resp Reports no additional complaints GI Reports abdominal pain, Denies melena, Reports bloating, Denies hematochezia, Reports constipation, Reports GI cramping, Denies dysphagia, Reports excessive flatus, Denies early satiety, Reports heartburn, Reports diarrhea, Denies nausea, Denies odynophagia, Denies vomiting and Denies hematemesis Skin/Breast Denies pruritus, Denies lesions, Denies rash and Denies jaundice Neuro Reports Normal hearing present and Denies Abnormal speech present Psych Reports anxiety Endo Denies fatigue Aller/Immun Denies throat swelling and Denies tongue swelling Physical Exam Vital Signs: Last Vital Signs Pulse 75 08/22/23 08:22 BP 122/82 08/22/23 08:22 BMI result Body Mass Index 26.0 Const General: cooperative, no acute distress, well developed and well groomed Nutritional Appearance: average body habitus and well nourished Orientation/consciousness: oriented to person, oriented to place and oriented to time Limitations: language barrier HEENT Head: Yes normocephalic and Yes atraumatic Eyes General: appearance normal, both eyes and all related structures Pupils: Equal, round and reactive pupils present Neck Neck: Yes normal visual inspection and Yes no lymphadenopathy Thyroid: Thyroid normal Resp Effort & Inspection: normal respiratory effort and able to speak in complete sentences Auscultation: clear to auscultation bilaterally Cardio Rate: regular rate Rhythm: regular rhythm Heart sounds: Normal, physiologic split S2 sound present Peripheral pulses: radial pulses present and posterior tibial pulses present GI Inspection: Yes distended, No Abdominal panniculus present, Yes obesity, Yes scar and Yes striae Palpation (GI): Soft to palpation, Tenderness to palpation present (GI) (mild) in the LUQ, no guarding, not rigid and No hepatosplenomegaly present Percussion: Yes normal to percussion Auscultation: Hyperactive bowel sounds present Rectal Exam - Female: deferred Abdomen image: 2 1. surgical scars 2. Skin General skin exam: no rashes or lesions noted, turgor normal, skin not dry, no jaundice, No spider nevi and no striae Rashes: no rashes Nails: normal Neuro General: oriented to person, oriented to place and oriented to time Cranial nerves: Yes Equal, round and reactive pupils present and Yes Normal hearing present Speech: No Abnormal speech present Extrem General: Yes normal to inspection, No clubbing, No cyanosis and No edema Psych Appearance: grossly normal and well kempt Mental Status: mental status grossly normal Speech and movement: Normal speech and movement present Affect: normal affect Attitude: cooperative Thought process: Normal thought process present and not confabulating Thought content: Normal thought content present Insight: Limited insight present (Psych) Judgement: Limited judgement present (Psych) Assessment & Plan Assessment & Plan (1) Irritable bowel syndrome with both constipation and diarrhea: Code(s): K58.2 - Mixed irritable bowel syndrome (2) GERD (gastroesophageal reflux disease): Code(s): K21.9 - Gastro-esophageal reflux disease without esophagitis (3) Sarcoidosis: Comment: history of sarcoid in cervical node biopsy 2019 Code(s): D86.9 - Sarcoidosis, unspecified Plan [place] #Alec Live She has been having more HB recently with pain on the right side after eating, intermittently. But then she says that at times she has the pain on the left or on both sides. This will be followed by diarrhea and severe pain like when I had colitis. However, she has not seen me since 2021, so she is out of her medications. Also, a new medicine is magnesium rx'ed by neurology. She also notes that her last episode occurred after eating cereal with milk, so we discuss possible lactose intolerance. I explain this is really a trial and error dx, so we will discuss how to manage this going forward if this is a problems. She also is avoiding pork, which makes her have malodorous gas, sodas which bothers her stomach, We discuss possible trial of creon. We will restart her past medications and evaluate her response. The medications that I am really implementing pantoprazole, I am adding famotidine at night, I am holding the Colace for now, she has bisacodyl for constipation, or adding dicyclomine 20 mg 4 times a day, and I am adding simethicone for gas trapping. ROV 3 weeks. Medications: Refilled 2 famotidine 40 mg PO BEDTIME 30 tabs 6RF dicyclomine 20 mg PO QID 30 days 120 tabs 6RF bisacodyl (Dulcolax (bisacodyl)) 10 mg (2 x 5 mg) PO BEDTIME 30 days 60 tabs 6RF K59.04 - Chronic idiopathic constipation pantoprazole 20 mg PO DAILY 30 tabs 6RF K21.9 - Gastro-esophageal reflux disease without esophagitis simethicone (Gas Relief (simethicone)) 180 mg PO BID 60 caps 6RF Discontinued 2 levofloxacin Discontinued Reason: Patient Completed Course 750 mg PO DAILY 7 tabs 0RF J45.909 - Unspecified asthma, uncomplicated prednisone Discontinued Reason: Patient Completed Course 20 mg PO DAILY 5 tabs 0RF J45.909 - Unspecified asthma, uncomplicated On Hold 2 docusate sodium Hold Comment: Doctor's Order 100 mg PO BID 60 caps 6RF Coding Level of Care Code Est Pt Level 4 (56745) Diagnoses Irritable bowel syndrome with both constipation and diarrhea K58.2 GERD (gastroesophageal reflux disease) K21.9 Sarcoidosis D86.9 Time Spent (min) 33
== END 2023-08-22 08:57 | disposition home or self-care (01) ==
PROVIDERS: PCP Internal Medicine; Visit Provider Nurse Practitioner
DX: K58.2 Mixed irritable bowel syndrome (principal); K21.9 Gastro-esophageal reflux disease without esophagitis; D86.9 Sarcoidosis, unspecified
CPT/HCPCS: 99214

== ENCOUNTER → 2023-08-22 08:04 | Outpatient (BNVA) | payer OTHER, SELFPAY | PROVIDERS: PCP Internal Medicine; Visit Provider Nurse Practitioner | DX: K58.2 Mixed irritable bowel syndrome (principal); K21.9 Gastro-esophageal reflux disease without esophagitis; D86.9 Sarcoidosis, unspecified | CPT/HCPCS: 99212 ==

== ENCOUNTER 2023-08-27 03:17 | Emergency (ER) | payer OTHER, SELFPAY ==
--- NOTE | ~2023-08-27 | CT_ITS ---
EXAMINATION: CTA OF THE HEAD AND NECK CLINICAL INFORMATION: Left-sided neck pain. Rule out dissection. COMPARISON: MRI brain from 06/16/2023. TECHNIQUE: Test bolus sequences followed by intravenous administration 70 mL of Omnipaque 350. Helical imaging was performed in the axial plane from the mediastinum to the skull vertex. Delayed postcontrast imaging of the head was also performed. The data was processed at the neurology technologist's workstation for generation of MIP sequences. Three-dimensional volume rendered reformatted images were also generated at an offline 3-D workstation. Stenoses are assessed in accordance with NASCET criteria unless otherwise indicated. This CT examination was performed using dose optimization techniques as appropriate, variously including the following: *Automated exposure control *Adjustment of mA and/or kV according to patient size (this includes techniques or standardized protocols for targeted exams where dose is matched to indication/reason for exam; i.e. extremities or head) *Use of iterative reconstruction technique DLP: 2122 mGy-cm. FINDINGS: CT head: There is no evidence of acute intracranial hemorrhage or territorial infarction. There is no loss of renae to white matter differentiation. No abnormal mass effect or midline shift is seen. No extra-axial fluid collections are identified. There is no abnormal enhancement. The ventricles are normal in size. There is no abnormal attenuation within the brain parenchyma. The osseous structures and soft tissues are normal. The mastoid air cells and visualized portions of the paranasal sinuses are well aerated. CTA neck: The imaged aortic arch and origins of the great vessels are normal. The common carotid arteries are widely patent. The carotid bifurcations are normal. The cervical internal carotid arteries are normal. The vertebral arteries opacify normally and are of normal caliber. There is symmetric prominence of the palatine tonsils. The remaining soft tissues of the neck appear normal. No cervical adenopathy identified. The imaged portions of the lungs are clear. CTA head: The intradural vertebral arteries and basilar artery are normal. The posterior cerebral arteries are widely patent. The internal carotid arteries are of normal caliber. The SARABJIT and MCA vascular complexes bilaterally are normal. The venous sinuses opacify normally. CT/CT angio head neck IMPRESSION: No acute process. Normal CT angiogram of the head and neck. Imaging findings reported to DAVON Henry at 9:38 AM on 08/27/2023.
--- NOTE | ~2023-08-27 | XR_ITS ---
EXAMINATION: XR CHEST CLINICAL INFORMATION: Chest pain COMPARISON: 07/18/2023 TECHNIQUE: Frontal view of the chest was obtained. FINDINGS: The lungs are clear with no focal consolidation. No evidence of pneumothorax, pulmonary edema, or pleural effusions. The cardiomediastinal silhouette is unremarkable. No acute osseous findings. XR/XR chest 1V IMPRESSION: No acute cardiopulmonary findings.
[2023-08-27 03:36] VITALS: BP 153/99; PULSE 80; RESP 18; TEMP 36.9; O2SAT 100; BMI 25.8
--- NOTE | 2023-08-27 03:42 | ECG_ITS ---
Test Reason : CP Blood Pressure : / mmHG Vent. Rate : 084 BPM Atrial Rate : 084 BPM P-R Int : 150 ms QRS Dur : 080 ms QT Int : 376 ms P-R-T Axes : 032 032 039 degrees QTc Int : 444 ms Normal sinus rhythm Normal ECG When compared with ECG of 14-APR-2021 12:04, No significant change was found Referred By: Generic ED Physician Electronically Signed By:Rex Fish
--- NOTE | 2023-08-27 03:51 | MHC.EDTECH ---
patient brought into triage area,EKG taken per order and signed by provider,Labs,and a urine were obtained and sent to lab
[2023-08-27 04:03] LABS: MANUAL DIFF FLAG NO
[2023-08-27 04:04] LABS: Basophils Absolute Auto 0.1 X10*3/uL (0.0-0.2); Basophils Percent Auto 0.8 % (0-2); Eosinophils Absolute Auto 0.2 X10*3/uL (0.0-0.4); Eosinophils Percent Auto 1.5 % (0-4); Hematocrit 36.9 % (37.0-47.0); Hemoglobin 11.8 g/dl (12.0-16.0); Imm Gran Abs Auto 0.02 X10*3/uL (0.00-0.03); Imm Gran Pct Auto 0.2 % (0.0-0.4); Lymphocytes Absolute Auto 4.4 X10*3/uL (1.2-4.9); Lymphocytes Percent Auto 44.8 % (20-40); Mean Corpuscular Hemoglobin 26.6 pg (27.0-33.0); Mean Corpuscular Volume 83.1 fL (80.0-98.0); Mean Platelet Volume 9.6 fL (9.4-12.3); Monocytes Absolute Auto 0.6 X10*3/uL (0.1-1.2); Monocytes Percent Auto 6.4 % (2-11); Neutrophils Absolute Auto 4.5 x10*3/uL (2.0-8.3); Neutrophils Percent Auto 46.3 % (45-73); Platelet Count 336 X10*3/uL (160-400); Red Blood Count 4.44 X10*6/uL (4.20-5.50); Red Cell Distribution Width 14.7 % (11.0-16.0); White Blood Count 9.7 X10*3/uL (4.8-10.8)
[2023-08-27 04:06] LABS: Appearance Urine Clear; Color Urine Yellow; Glucose Urine UA Negative (Negative); Leukocyte Esterase Urine Negative (Negative); Nitrite Urine Negative (Negative); PH 5.5 (5.0-9.0); UPreg QC Valid YES; Urine Blood Negative (Negative); Urine Ketones Negative (Negative); Urine Pregnancy NEGATIVE (NEGATIVE); Urine Protein Negative (Neg-Trace)
[2023-08-27 04:20] LABS: Alanine Aminotransferase 14 U/L (0-31); Albumin Level 4.2 g/dL (3.5-5.0); Alkaline Phosphatase 57 U/L (39-117); Anion Gap 16 (12-20); Aspartate Amino Transferase 18 U/L (5-31); Bilirubin Total 0.3 mg/dL (0.0-1.0); Blood Urea Nitrogen 9 mg/dL (9-16); Calcium 9.7 mg/dL (8.4-10.2); Carbon Dioxide 21 mmol/L (22-29); Chloride 106 mmol/L (96-108); Estimated Glomerular Filt Rate > 60; Glucose Random 112 mg/dL (60-115); Potassium 3.9 mmol/L (3.3-5.1); Sodium 139 mmol/L (135-145); Total Protein 7.9 g/dL (6.5-8.0)
[2023-08-27 04:31] LABS: Troponin-I High Sensitivity < 2.7 ng/L (<3.5-17.0)
[2023-08-27 06:07] VITALS: BP 125/75; PULSE 79; RESP 17; TEMP 36.9; O2SAT 99
--- NOTE | 2023-08-27 07:07 | ED.CHESTPAIN ---
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 She notes no prior hx of this. She has no numbness or weakness. No fevers MD complaint: chest pain Onset (ago): day(s) (3) Timing of current episode: constant Prior episodes: No Onset: during rest Pain location: left chest and other (L neck) Pain radiation: left arm and abdomen Severity: moderate Quality: sharp Relieving factors: nothing Treatment prior to arrival: none Related Data Home Medications Medication Instructions Recorded Confirmed cholecalciferol (vitamin D3) 10 1 cap PO DAILY 03/09/22 08/10/23 mcg (400 unit) capsule (Vitamin D3) naproxen 500 mg tablet 1 tab PO BID PRN Pain 03/09/22 08/10/23 escitalopram oxalate 5 mg tablet 5 mg PO DAILY 06/08/23 08/10/23 Previous Rx's Medication Instructions Recorded docusate sodium 100 mg capsule 100 mg PO BID #60 caps 03/31/22 fluticasone propionate 50 1 spray intranasal BID PRN for 11/22/22 mcg/actuation nasal allergies #16 mL spray,suspension Ventolin HFA 90 mcg/actuation 2 puff inhalation Q6H PRN for 12/28/22 aerosol inhaler (albuterol sulfate) dyspnea #18 grams Symbicort 160 mcg-4.5 2 puff inhalation BID #10.2 ea 01/02/23 mcg/actuation HFA aerosol inhaler (budesonide-formoterol) ipratropium 0.5 mg-albuterol 3 mg 3 ml inhalation Q4H PRN for 01/02/23 (2.5 mg base)/3 mL nebulization wheezing #180 mL soln magnesium oxide 400 mg (241.3 mg 400 mg PO BEDTIME 30 days #30 tabs 04/10/23 magnesium) tablet riboflavin (vitamin B2) 400 mg 400 mg PO DAILY 30 days #30 tabs 04/10/23 tablet ubrogepant 100 mg tablet (Ubrelvy) 50 - 100 mg (0.5 - 1 x 100 mg) PO 04/13/23 ONCE PRN migraine headache 30 days #16 tabs nebulizers (VixOne Nebulizer-Adult #1 ea 04/17/23 Mask) tiotropium bromide 2.5 2 puff inhalation QAM 30 days #4 04/26/23 mcg/actuation mist for inhalation grams (Spiriva Respimat) bisacodyl 5 mg tablet,delayed 10 mg (2 x 5 mg) PO BEDTIME 30 08/22/23 release (Dulcolax (bisacodyl)) days #60 tabs dicyclomine 20 mg tablet 20 mg PO QID 30 days #120 tabs 08/22/23 famotidine 40 mg tablet 40 mg PO BEDTIME #30 tabs 08/22/23 pantoprazole 20 mg tablet,delayed 20 mg PO DAILY #30 tabs 08/22/23 release simethicone 180 mg capsule (Gas 180 mg PO BID #60 caps 08/22/23 Relief (simethicone)) cyclobenzaprine 10 mg tablet 10 mg PO TID PRN muscle spasm #14 08/27/23 tabs lidocaine 5 % topical patch 1 patch topical DAILY #30 ea 08/27/23 Allergies Allergy/AdvReac Type Severity Reaction Status Date / Time doxycycline Allergy Severe tongue Verified 08/27/23 03:36 swelling morphine [MORPHINE] Allergy Intermediate RASH, Verified 08/27/23 03:36 headache, redness, throat swelling sumatriptan [From IMITREX] Allergy Mild ITCHING Verified 08/27/23 03:36 azithromycin Allergy Unknown facial Verified 08/27/23 03:36 redness Penicillins [PENICILLINS] Allergy Unknown ANAPHYLAXIS Verified 08/27/23 03:36 vancomycin AdvReac Itching Verified 08/27/23 03:36 Review of Systems Review of Systems: Constitutional : No Weight loss, No Fever, No Chills ENT/Mouth : No sore throat, No Rhinorrhea Eyes: No Eye Pain, No Swelling Cardiovascular : pos Chest Pain, no SOB, no Dyspnea on Exertion, No Orthopnea, No Edema, No Palpitations Respiratory : No Cough, No Sputum Gastrointestinal : no Nausea, No Vomiting, No Diarrhea, No abdominal Pain, No Hematochezia, No Melena Genitourinary : No Dysuria, No Urinary Frequency Musculoskeletal : No joint pain, No Myalgias, No Joint Swelling, pos neck pain Skin : No Skin Lesions, No rash Neuro : No Weakness, No Numbness, No Dizziness, No Headache Psych : No Anxiety/Panic, No Depression All other systems reviewed and are negative [facility] Past Medical History Medical History (Updated 08/27/23 @ 09:46 by Anh Castillo DO) Chronic idiopathic constipation Mild recurrent major depression Umbilical hernia Sarcoidosis Asthma Surgical History History of umbilical hernia repair H/O esophagogastroduodenoscopy History of tubal ligation Previous section History of appendectomy Family History Family History Father Essential hypertension Arthritis CAD (coronary artery disease) Mother Essential hypertension Diabetes mellitus Social History Social History Housing: Apartment Alcohol intake: never Patient Tobacco Use Status: Former Tobacco user Quit Date: 2012 Tobacco use type: Cigarette e-Cigarette/Vaping Use: Never Used Second Hand Smoke Exposure: No Advance Directives: No Advance Directives Information Provided: No service: No Current occupational status: employed Current occupational exposures/hazards: No Cognitive needs: No Hearing needs: No Vision needs: No Physical Exam Vital Signs: Vital Signs: Last Vital Signs Temp 98.5 F 08/27/23 07:45 Pulse 87 08/27/23 07:45 Resp 16 08/27/23 07:45 BP 135/84 08/27/23 07:45 Pulse Ox 99 08/27/23 07:45 O2 Del Method Room Air 08/27/23 07:45 BMI result Body Mass Index 25.8 Appearance: Alert. Oriented X3. No acute distress. Eyes: Pupils equal, round and reactive to light. ENT: Pharynx normal. Neck: mild ttp along L lateral neck UE intact CVS: Normal heart rate and rhythm. Pulses normal. Respiratory: No respiratory distress. Breath sounds normal. Abdomen: Soft and non-tender. Skin: Skin warm and dry. Normal skin color. Normal skin turgor. Extremities: No lower extremity edema. No calf ttp Neuro: Oriented X 3. No motor deficit. No sensory deficit. Medications Administered Discontinued Medications Generic Name Dose Route Start Last Admin Trade Name Freq PRN Reason Stop Dose Admin Acetaminophen 975 mg 08/27/23 07:24 08/27/23 07:58 Acetaminophen 325 Mg Tablet PO 08/27/23 07:25 975 mg ONCE ONE Administration Cyclobenzaprine HCl 10 mg 08/27/23 07:24 08/27/23 07:58 Cyclobenzaprine Hcl 10 Mg Tablet PO 08/27/23 07:25 10 mg ONCE ONE Administration Iohexol 70 ml 08/27/23 08:55 08/27/23 08:56 Iohexol 350 Mg/Ml 100 Ml Infus..Btl IV 08/27/23 08:56 70 ml ONCE ONE Administration Medical Decision Making Medical Decision Making [facility] Narrative: 38 yo female with PMH of asthma, fibromyalgia, sarcodiosis, GERD, colitis, depression here with 3 days of severe atraumatic L neck pain radiating down L arm she is NV intact she has good pulses. Pain radiates to the chest - she is PERC negative. She has symmetric pulses doubt dissection. She has a fair amount of pain CTA Of neck ordered to rule out dissection no fevers to suggest meningitis. She also c/o mild upper abdominal pain but her abdomen is benign. Normal neuro exam. Differential Diagnosis Differential Diagnoses: The differential diagnosis associated with the presentation includes MSK pain, viral syndrome, fibromyalgia, vert dissection Admission/Observation Consideration of admission/observation: Escalation of care including admission/observation considered normal work up stable for DC Lab Data [facility] Lab Attestation statement: I reviewed the patient's lab results. 08/27/23 03:54 08/27/23 03:54 Labs: Lab Results 08/27/23 Range/Units 03:54 WBC 9.7 (4.8-10.8) X10*3/uL RBC 4.44 (4.20-5.50) X10*6/uL Hgb 11.8 L (12.0-16.0) g/dl Hct 36.9 L (37.0-47.0) % MCV 83.1 (80.0-98.0) fL MCH 26.6 L (27.0-33.0) pg MCHC 32.0 (31.0-35.0) g/dl RDW 14.7 (11.0-16.0) % Plt Count 336 (160-400) X10*3/uL MPV 9.6 (9.4-12.3) fL Immature Gran % (Auto) 0.2 (0.0-0.4) % Neut % (Auto) 46.3 (45-73) % Lymph % (Auto) 44.8 H (20-40) % [place] % (Auto) 6.4 (2-11) % Eos % (Auto) 1.5 (0-4) % Baso % (Auto) 0.8 (0-2) % Lymph # (Auto) 4.4 (1.2-4.9) X10*3/uL [place] # (Auto) 0.6 (0.1-1.2) X10*3/uL Eos # (Auto) 0.2 (0.0-0.4) X10*3/uL Baso # (Auto) 0.1 (0.0-0.2) X10*3/uL Abs Immat Gran (auto) 0.02 (0.00-0.03) X10*3/uL Absolute Neuts (auto) 4.5 (2.0-8.3) x10*3/uL Absolute Nucleated RBC 0.000 (0.0-0.012) X10*3/uL Nucleated RBC % (auto) 0.0 (0.0-0.2) /100WBC Sodium 139 (135-145) mmol/L Potassium 3.9 (3.3-5.1) mmol/L Chloride 106 (96-108) mmol/L Carbon Dioxide 21 L (22-29) mmol/L Anion Gap 16 (12-20) BUN 9 (9-16) mg/dL Creatinine 0.77 (0.5-1.4) mg/dL Estim Creat Clear Calc 101.0 Estimated GFR > 60 Random Glucose 112 (60-115) mg/dL Calcium 9.7 (8.4-10.2) mg/dL Total Bilirubin 0.3 (0.0-1.0) mg/dL AST 18 (5-31) U/L ALT 14 (0-31) U/L Alkaline Phosphatase 57 (39-117) U/L Troponin I High Sens < 2.7 (<3.5-17.0) ng/L Total Protein 7.9 (6.5-8.0) g/dL Albumin 4.2 (3.5-5.0) g/dL Lipase 47 (8-78) U/L Urine Color Yellow Urine Appearance Clear Urine pH 5.5 (5.0-9.0) Ur Specific [place] 1.010 (1.005-1.025) Urine Protein Negative (Neg-Trace) mg/dL Urine Glucose (UA) Negative (Negative) mg/dL Urine Ketones Negative (Negative) mg/dL Urine Blood Negative (Negative) Urine Nitrite Negative (Negative) Ur Leukocyte Esterase Negative (Negative) Urine Test NEGATIVE (NEGATIVE) Independent Interpretation I performed an independent interpretation of an: EKG, Plain X-Ray (normal ) and CT Scan (normal ) Interpretation: Rate: 84 Rhythm: NSR [place]: normal Normal P waves. Normal KATHYA. Normal QRS complex. ST T wave : normal no MABLE qTC: 444 prior studies: no acute ischemia The study has been interpreted contemporaneously by me. . Radiology Impression Discussion of test interpretation with radiology: I have reviewed the radiologist's reading. External Record Review External record reviewed: Inpatient record Discharge Plan Discharge Clinical Impression: Myalgia Patient Disposition: Home, Self-Care Instructions: Musculoskeletal Pain (ED) Additional Instructions: normal labs, normal CT scan of neck, normal chest xray, normal ekg. return for worsening symptoms, pain, vomiting, or any other concerns. laboratorios normales, tomograf?a computarizada de fabiana normal, radiograf?a de t?rax normal, electrocardiograma normal. Regrese si los s?ntomas empeoran, dolor, v?mitos o cualquier otra inquietud. Prescriptions: New cyclobenzaprine 10 mg tablet 10 mg PO TID PRN (Reason: muscle spasm) Qty: 14 0RF lidocaine 5 % adhesive patch,medicated 1 patch topical DAILY Qty: 30 0RF Rx Instructions: leave on most painful area for up to 12 hrs No Action fluticasone propionate 50 mcg/actuation spray,suspension 1 spray intranasal BID PRN (Reason: for allergies) Qty: 16 0RF albuterol sulfate [Ventolin HFA] 90 mcg/actuation HFA aerosol inhaler 2 puff inhalation Q6H PRN (Reason: for dyspnea) Qty: 18 0RF ipratropium-albuterol 0.5 mg-3 mg(2.5 mg base)/3 mL solution for nebulization 3 ml inhalation Q4H PRN (Reason: for wheezing) Qty: 180 0RF budesonide-formoterol [Symbicort] 160-4.5 mcg/actuation HFA aerosol inhaler 2 puff inhalation BID Qty: 10.2 6RF Ubrelvy 100 mg tablet 50 - 100 mg PO ONCE PRN (Reason: migraine headache) 30 Days Qty: 16 3RF Rx Instructions: take at onset of migraine, may repeat in 2hrs (may take w/ Naproxen) (DME) nebulizers [VixOne Nebulizer-Adult Mask] Misc See Rx Instructions .Route Qty: 1 6RF Rx Instructions: As directed Spiriva Respimat 2.5 mcg/actuation mist 2 puff inhalation QAM 30 Days Qty: 4 6RF naproxen 500 mg tablet 1 tab PO BID PRN (Reason: Pain) cholecalciferol (vitamin D3) [Vitamin D3] 10 mcg (400 unit) capsule 1 cap PO DAILY docusate sodium 100 mg capsule 100 mg PO BID Qty: 60 6RF Hold Instructions: Doctor's Order riboflavin (vitamin B2) 400 mg tablet 400 mg PO DAILY 30 Days Qty: 30 6RF magnesium oxide 400 mg (241.3 mg magnesium) tablet 400 mg PO BEDTIME 30 Days Qty: 30 6RF Rx Instructions: may hold for loose stools escitalopram oxalate 5 mg tablet 5 mg PO DAILY dicyclomine 20 mg tablet 20 mg PO QID 30 Days Qty: 120 6RF bisacodyl [Dulcolax (bisacodyl)] 5 mg tablet,delayed release (DR/EC) 10 mg PO BEDTIME 30 Days Qty: 60 6RF pantoprazole 20 mg tablet,delayed release (DR/EC) 20 mg PO DAILY Qty: 30 6RF simethicone [Gas Relief (simethicone)] 180 mg capsule 180 mg PO BID Qty: 60 6RF famotidine 40 mg tablet 40 mg PO BEDTIME Qty: 30 6RF Print Language: Hong Konger
[2023-08-27 07:45] VITALS: BP 135/84; PULSE 87; RESP 16; TEMP 36.9; O2SAT 99
[2023-08-27] MEDS: Acetaminophen 325 MG TABLET 975 MG PO (07:58)
[2023-08-27] MEDS: Cyclobenzaprine HCl 10 MG TABLET PO (07:58)
[2023-08-27 08:32] LABS: Lipase 47 U/L (8-78)
[2023-08-27] MEDS: iohexoL 350 MG/ML 100 ML INFUS..BTL 70 ML IV (08:56)
--- NOTE | 2023-08-27 08:56 | PC.NURSE ---
pt reported 8/10 L neck pain, po pain meds given as documented, 20g iv inserted LAC, pt taken to CT.
[2023-08-27 10:00] VITALS: BP 128/84; PULSE 76; RESP 18; TEMP 36.8; O2SAT 97
--- NOTE | 2023-08-27 10:17 | PC.NURSE ---
pt cleared for discharge, discharge instructions reviewed with pt. iv removed, vss. steady gait on discharge. no complaints at the time of discharge.
== END 2023-08-27 10:20 | disposition home or self-care (01) ==
PROVIDERS: Emergency Provider Emergency Medicine; PCP Internal Medicine
DX: R07.89 Other chest pain (principal); M79.602 Pain in left arm; M79.10 Myalgia, unspecified site; M54.2 Cervicalgia; Z79.899 Other long term (current) drug therapy; Z87.891 Personal history of nicotine dependence; M70.10 Bursitis, unspecified hand
CPT/HCPCS: 36415; 70496; 70498; 71045; 80053; 81003; 81025; 83690; 84484; 85025; 93005; 99284; 99285; Q9967

== ENCOUNTER → 2023-08-27 03:42 | Outpatient (BNV) | payer OTHER, SELFPAY | PROVIDERS: Emergency Provider Emergency Medicine; PCP Internal Medicine; Visit Provider Internal Medicine Cardiovascular Disease | DX: R07.9 Chest pain, unspecified (principal) | CPT/HCPCS: 93010 ==

== ENCOUNTER 2023-09-12 13:46 | Outpatient (REF) | payer OTHER, SELFPAY ==
[2023-09-12 14:25] LABS: MANUAL DIFF FLAG NO
[2023-09-12 14:42] LABS: Basophils Absolute Auto 0.1 X10*3/uL (0.0-0.2); Basophils Percent Auto 0.8 % (0-2); Eosinophils Absolute Auto 0.1 X10*3/uL (0.0-0.4); Eosinophils Percent Auto 1.6 % (0-4); Hematocrit 36.4 % (37.0-47.0); Hemoglobin 11.7 g/dl (12.0-16.0); Imm Gran Abs Auto 0.04 X10*3/uL (0.00-0.03); Imm Gran Pct Auto 0.5 % (0.0-0.4); Lymphocytes Absolute Auto 3.1 X10*3/uL (1.2-4.9); Lymphocytes Percent Auto 35.5 % (20-40); Mean Corpuscular HGB Conc 32.1 g/dl (31.0-35.0); Mean Corpuscular Hemoglobin 27.3 pg (27.0-33.0); Mean Platelet Volume 9.9 fL (9.4-12.3); Monocytes Absolute Auto 0.5 X10*3/uL (0.1-1.2); Monocytes Percent Auto 5.2 % (2-11); Neutrophils Absolute Auto 4.9 x10*3/uL (2.0-8.3); Neutrophils Percent Auto 56.4 % (45-73); Platelet Count 366 X10*3/uL (160-400); Red Blood Count 4.28 X10*6/uL (4.20-5.50); Red Cell Distribution Width 14.6 % (11.0-16.0); White Blood Count 8.7 X10*3/uL (4.8-10.8)
[2023-09-14 02:34] LABS: Class Alternaria alternata 0; Class Aspergillus fumigatus 0; Class Bermuda Grass 0; Class Birch 0; Class Cat Dander 0; Class Cladosporium herbarum 0; Class Cockroach 0; Class Common Ragweed 0; Class Cottonwood 0; Class Derm. pterony 0; Class Dermatophagoides farinae 0; Class Dog Dander 0; Class Elm 0; Class Maple Box Elder 0; Class Mountain Cedar 0; Class Mouse Urine Protein 0; Class Mugwort 0; Class Oak 0; Class Penicillium crysogenum 0; Class Rough Pigweed 0; Class Sheep Sorrel 0; Class Sycamore 0; Class Timothy Grass 0; Class Walnut Tree 0; Class White Ash 0; Class White Mulberry 0; D001 IgE D pteronyssinus <0.10 kU/L; D002 - IgE D farinae <0.10 kU/L; E001 - IgE Cat Dander <0.10 kU/L; E005 - IgE Dog Dander <0.10 kU/L; E072-IgE Mouse Urine <0.10 kU/L; G002 IgE Bermuda Grass <0.10 kU/L; G006 - IgE Timothy Grass <0.10 kU/L; I006-IgE Cockroach, German <0.10 kU/L; Immunoglobulin E 12 kU/L (<OR=114); M001 IgE Penicillium chrysogen <0.10 kU/L; M002 - IgE Cladosporium herbar <0.10 kU/L; M003 - IgE Aspergillus fumigat <0.10 kU/L; M006 - IgE Alternaria alternat <0.10 kU/L; T001 IgE Maple/Box Elder <0.10 kU/L; T003 IgE Common Silver Birch <0.10 kU/L; T006 - IgE Cedar, Mountain <0.10 kU/L; T007 - IgE Oak, White <0.10 kU/L; T008 IgE Elm, American <0.10 kU/L; T010 - IgE Walnut <0.10 kU/L; T011 - IgE Maple Leaf Sycamore <0.10 kU/L; T014 - IgE Cottonwood <0.10 kU/L; T015 - IgE Ash, White <0.10 kU/L; T070 - IgE White Mulberry <0.10 kU/L; W001 - IgE Ragweed, Short <0.10 kU/L; W006 - IgE Mugwort <0.10 kU/L; W014 IgE Pigweed, Common <0.10 kU/L; W018 IgE Sheep Sorrel <0.10 kU/L
== END 2023-09-12 13:47 | disposition home or self-care (01) ==
LOC: HO.LAB 13:46
PROVIDERS: PCP Internal Medicine; Visit Provider Internal Medicine Pulmonary Disease
DX: J45.909 Unspecified asthma, uncomplicated (principal); D86.9 Sarcoidosis, unspecified; Z91.09 Other allergy status, other than to drugs and biological substances
CPT/HCPCS: 36415; 82785; 85025; 86003; 99212

== ENCOUNTER 2023-09-12 13:46 | Outpatient (AMB) | payer OTHER, SELFPAY ==
[2023-09-12 13:48] VITALS: BP 118/77; PULSE 75; O2SAT 100; BMI 25.8
--- NOTE | 2023-09-12 13:48 | A.OFFVIS_ITS ---
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 Terrazzo Laborer Name: Yasmeen Rik Paulino Allergies doxycycline Allergy (Severe, Verified 08/27/23 03:36) tongue swelling morphine [MORPHINE] Allergy (Intermediate, Verified 08/27/23 03:36) RASH, headache, redness, throat swelling sumatriptan [From IMITREX] Allergy (Mild, Verified 08/27/23 03:36) ITCHING azithromycin Allergy (Unknown, Verified 08/27/23 03:36) facial redness Penicillins [PENICILLINS] Allergy (Unknown, Verified 08/27/23 03:36) ANAPHYLAXIS vancomycin Adverse Reaction (Verified 08/27/23 03:36) Itching HPI Asthma HPI Details 38-year-old lady, nonsmoker, followed fo r underlying sarcoidosis (diagnosed with?cervical node biopsy) and moderate to severe persistent asthma.? She has been using Spiriva, Symbicort duo nebs, and albuterol MDI still with suboptimal control of his symptoms. She did have a bronchitic exacerbation approximately 2 months prior treated with a course of prednisone Levaquin with resolution of her exacerbation symptoms. [facility] Medical History (Updated 09/12/23 @ 14:11 by Jassi Bailey MD) Chronic idiopathic constipation Mild recurrent major depression Umbilical hernia Sarcoidosis Asthma Surgical History History of umbilical hernia repair H/O esophagogastroduodenoscopy History of tubal ligation Previous section History of appendectomy Family History Father Essential hypertension Arthritis CAD (coronary artery disease) Mother Essential hypertension Diabetes mellitus Social History Housing: Apartment Alcohol intake: never Patient Tobacco Use Status: Former Tobacco user Quit Date: 2012 Tobacco use type: Cigarette e-Cigarette/Vaping Use: Never Used Second Hand Smoke Exposure: No service: No Current occupational status: employed Current occupational exposures/hazards: No Cognitive needs: No Hearing needs: No Vision needs: No Review of Systems Const Denies daytime sleepiness, Denies excessive sweating, Denies fatigue, Denies fever(s), Denies lethargy, Denies malaise, Denies night sweats, Denies snoring and Denies weight loss Eyes Denies blurry vision and Denies itchy eyes ENT Denies nasal congestion, Denies post nasal drip, Denies sinus pain, Denies sinus pressure and Denies other ( Thrush) Card Denies chest pain, Denies pedal edema, Denies dyspnea, Reports dyspnea on exertion, Denies orthopnea and Denies paroxysmal nocturnal dyspnea Resp Denies cough, Denies hemoptysis, Denies excessive phlegm production, Denies dyspnea, Reports dyspnea on exertion, Denies snoring and Denies wheezing GI Denies abdominal pain and Denies heartburn Musc Denies myalgias, Denies arthralgias and Denies joint swelling Skin/Breast Denies rash Neuro Denies memory loss and Denies seizure-like activity Psych Denies abnormal sleep pattern, Denies anxiety and Denies memory loss Endo Denies excessive sweating, Denies fatigue and Denies heat intolerance Jacky/Lymph Denies easy bruising Aller/Immun Denies itchy eyes, Denies seasonal rhinorrhea and Denies wheezing Physical Exam Vital Signs: Last Vital Signs Pulse 75 09/12/23 13:48 BP 118/77 09/12/23 13:48 Pulse Ox 100 09/12/23 13:48 Oxygen Delivery Method Room Air 09/12/23 13:48 BMI result Body Mass Index 25.8 Const General: no acute distress and alert Nutritional Appearance: not obese Orientation/consciousness: Other orientation findings ( oriented) HEENT Head: Yes atraumatic Eyes General: appearance normal, both eyes and all related structures Sclerae: sclerae normal EOM: EOMs intact bilaterally Neck Neck: Yes supple Lymphatic: no lymphadenopathy noted Resp Effort & Inspection: normal respiratory effort and no use of accessory muscles Auscultation: clear to auscultation bilaterally Cardio Rate: regular rate Rhythm: regular rhythm Heart sounds: no gallops, no murmurs and no rubs Skin General skin exam: other ( warm) Extrem General: No clubbing, No cyanosis and No edema Assessment & Plan Assessment & Plan (1) Asthma: Code(s): J45.909 - Unspecified asthma, uncomplicated Plan: Still suboptimal control on maximum inhaler therapy with Spiriva, albuterol MDI, and Symbicort. Continue current regimen. Will evaluate for environmental allergies contribution. (2) Sarcoidosis: Comment: history of sarcoid in cervical node biopsy 2019 Code(s): D86.9 - Sarcoidosis, unspecified Plan: No recent exacerbations. Continue to monitor clinically. (3) Environmental allergies: Code(s): Z91.09 - Other allergy status, other than to drugs and biological substances Plan: Will obtain IgE level, CBC with differential, and RAST panel for further evaluation. Orders: Orders Complete Blood Count Auto Diff Today J45.909 - Unspecified asthma, uncomplicated Resp Allergy Profile Region I Today J45.909 - Unspecified asthma, uncomplicated Coding Level of Care Code Est Pt Level 4 (54123) Diagnoses Asthma J45.909 Sarcoidosis D86.9 Environmental allergies Z91.09
== END 2023-09-12 14:04 | disposition home or self-care (01) ==
PROVIDERS: PCP Internal Medicine; Visit Provider Internal Medicine Pulmonary Disease
DX: J45.909 Unspecified asthma, uncomplicated (principal); D86.9 Sarcoidosis, unspecified; Z91.09 Other allergy status, other than to drugs and biological substances
CPT/HCPCS: 99214

== ENCOUNTER 2023-09-13 11:54 | Outpatient (AMB) | payer OTHER, SELFPAY ==
--- NOTE | 2023-09-13 11:58 | A.OFFVIS_ITS ---
Intake Vital Signs 09/13/23 11:59 Height 5 ft 6 in Weight 160 lb 14.999 oz BMI 26.0 BP 129/82 Blood Pressure Location Rt brachial Position Sitting Pulse 74 Intake Visit Reasons: 3 week follow up Intake Note: Ivet presents in the office as a follow up for IBS. CC: Patient c/o RUQ abdominal pain and LUQ abdominal pain sometimes. Patient no longer having diarrhea. Patient denies having other GI symptoms. [employer] Required: Yes Accompanied by: Self / Same As Patient Allergies doxycycline Allergy (Severe, Verified 09/13/23 12:17) tongue swelling morphine [MORPHINE] Allergy (Intermediate, Verified 09/13/23 12:17) RASH, headache, redness, throat swelling sumatriptan [From IMITREX] Allergy (Mild, Verified 09/13/23 12:17) ITCHING azithromycin Allergy (Unknown, Verified 09/13/23 12:17) facial redness Penicillins [PENICILLINS] Allergy (Unknown, Verified 09/13/23 12:17) ANAPHYLAXIS vancomycin Adverse Reaction (Verified 09/13/23 12:17) Itching HPI 3 week follow up HPI Details Assessment & Plan (1) Irritable bowel syndrome with both c onstipation and diarrhea: Code(s): K58.2 - Mixed irritable bowel syndrome (2) GERD (gastroesophageal reflux diseas e): Code(s): K21.9 - Gastro-esophageal reflux disease without esophagitis (3) Sarcoidosis: Comment: history of sarcoid in cervical node biopsy 2018 Code(s): D86.9 - Sarcoidosis, unspecified Plan Swedish #Alec Live She has been having more HB recently with pain on the right side after eating, intermittently. But then she says that at times she has the pain on the left or on both sides. This will be followed by diarrhea and severe pain like when I had colitis. However, she has not seen me since 2021, so she is out of her medications. Also, a new medicine is magnesium rx'ed by neurology. She also notes that her last episode occurred after eating cereal with milk, so we discuss possible lactose intolerance. I explain this is really a trial and error dx, so we will discuss how to manage this going forward if this is a problems. She also is avoiding pork, which makes her have malodorous gas, sodas which bothers her stomach, We discuss possible trial of creon. We will restart her past medications and evaluate her response. The medications that I am really implementing pantoprazole, I am adding famotidine at night, I am holding the Colace for now, she has bisacodyl for constipation, or adding dicyclomine 20 mg 4 times a day, and I am adding simethicone for gas trapping. ROV 3 weeks. Medications: Refilled famotidine 40 mg PO BEDTIME 30 tabs 6RF dicyclomine 20 mg PO QID 30 d ays 120 tabs 6RF bisacodyl (Dulcola x (bisacodyl)) 10 mg (2 x 5 mg) P O BEDTIME 30 days 60 tabs 6RF K59.04 - Chronic i diopathic constipa tion pantoprazole 20 mg PO DAILY 30 tabs 6RF K21.9 - Gastro-eso phageal reflux dis ease without esoph agitis simethicone (Gas R elief (simethicone )) 180 mg PO BID 60 caps 6RF Discontinued levofloxacin Di scontinued Reason: Patient Complete d Course 750 mg PO DAILY 7 tabs 0RF J45.909 - Unspecif ied asthma, uncomp licated prednisone Disc ontinued Reason: Patient Completed Course 20 mg PO DAILY 5 tabs 0RF J45.909 - Unspecif ied asthma, uncomp licated On Hold docusate sodium Hold Comment: Do ctor's Order 100 mg PO BID 60 caps 6RF 08/27/23 Collection Chris e: 0350 Source: Urin e, Clean Catch Test Result Flag Refere nce Ur Color Yellow Ur Appear Clear PH 5.5 5.0-9.0 Ur Glu Neg ative Negative m g/dL Urine Blood Negative Neg ative Spec G ravity Ur 1.010 1.005-1.025 U rine Protein Nega tive Neg-Trace m g/dL Urine [place] es Negative Neg ative mg/dL Ur N itrite Negativ e Negative Ur Checo Esterase Ne gative Negative Laboratory Tests 07/04/23 09:44 TSH 2.73 Free T4 0.87 Thyroglobulin Anti body 17 H Thyroid Peroxidase Ab 137 H TODAYS VISIT Swedish #Michael Michael She is taking all of the medicines and her diarrhea has stopped. She still has the pain that starts in the right upper quadrant but now she is experiencing it on both sides and on the left definitely radiates to the back. When she has pain on the left she is also having pain that radiates into her legs. The pain tends to come every day but it is intermittent and not related to eating or moving her bowels. It lasts about 15 minutes in his quite severe when she gets it. She can not really tie it to activity or time of day. It is relieved by putting hot packs on the area. So far it does not seem to have been affected by the dicyclomine. Her sister has some sort of diverticulitis and colon problems and her mother from sepsis after and strangulated hernia and a colon perforation. So she worries a lot about her colon. She did have a colonoscopy couple years ago after she would diverticulitis. At this point I am going to get some x-rays to take a look at her thoracic and lumbar spine to see if this is a contributing problem. Depending on the results of this test I may consider moving her to imipramine for better pain control if I do think that this is colon spasm. The pain certainly does seem to be following the path of the colon. She had a CT scan a few months back that did not show gallstones but certainly she could have biliary dyskinesia and we may need to consider a HIDA scan. For now no changes in medicines and getXR ROV 2 weeks. [facility] Medical History Chronic idiopathic constipation Mild recurrent major depression Umbilical hernia Sarcoidosis Asthma Surgical History History of umbilical hernia repair H/O esophagogastroduodenoscopy History of tubal ligation Previous section History of appendectomy Family History Father Essential hypertension Arthritis CAD (coronary artery disease) Mother Essential hypertension Diabetes mellitus Social History Housing: Apartment Alcohol intake: never Patient Tobacco Use Status: Former Tobacco user Quit Date: 2012 Tobacco use type: Cigarette e-Cigarette/Vaping Use: Never Used Second Hand Smoke Exposure: No service: No Current occupational status: employed Current occupational exposures/hazards: No Cognitive needs: No Hearing needs: No Vision needs: No Review of Systems Const Denies fatigue, Denies fever(s), Denies night sweats, Denies poor appetite and Denies weight loss ENT Reports Normal hearing present, Denies dental pain, Denies dysphagia, Denies hearing loss, Denies mouth pain, Denies odynophagia, Denies throat swelling, Denies tongue swelling and Reports other (Dentition adequate) Card Reports no additional complaints Resp Reports no additional complaints GI Details: Reports abdominal pain, Denies melena, Reports bloating, Denies hematochezia, Reports constipation, Denies GI cramping, Denies dysphagia, Denies excessive flatus, Denies early satiety, Reports heartburn, Denies diarrhea, Reports loose stools, Denies nausea, Denies odynophagia, Denies vomiting and Denies hematemesis Musc Reports back pain, Reports myalgias and Reports radiating pain into limb Skin/Breast Denies pruritus, Denies lesions, Denies rash and Denies jaundice Neuro Reports Normal hearing present and Denies Abnormal speech present Endo Denies fatigue Aller/Immun Denies throat swelling and Denies tongue swelling Physical Exam Vital Signs: Last Vital Signs Pulse 74 09/13/23 11:59 BP 129/82 09/13/23 11:59 BMI result Body Mass Index 26.0 Const General: cooperative, no acute distress, well developed and well groomed Nutritional Appearance: average body habitus and well nourished Orientation/consciousness: oriented to person, oriented to place and oriented to time Limitations: language barrier HEENT Head: Yes normocephalic and Yes atraumatic Eyes General: appearance normal, both eyes and all related structures Pupils: Equal, round and reactive pupils present Neck Neck: Yes normal visual inspection and Yes no lymphadenopathy Thyroid: Thyroid normal Resp Effort & Inspection: normal respiratory effort and able to speak in complete sentences Auscultation: clear to auscultation bilaterally Cardio Rate: regular rate Rhythm: regular rhythm Heart sounds: Normal, physiologic split S2 sound present Peripheral pulses: radial pulses present and posterior tibial pulses present GI Inspection: No distended and No Abdominal panniculus present Palpation (GI): Soft to palpation, Tenderness to palpation present (GI) in the LUQ, in the RUQ and periumbilically, no guarding, not rigid and No hepatosplenomegaly present Percussion: Yes normal to percussion Auscultation: normal bowel sounds Rectal Exam - Female: deferred Skin General skin exam: no rashes or lesions noted, turgor normal, skin not dry, no jaundice, No spider nevi and no striae Rashes: no rashes Nails: normal Neuro General: oriented to person, oriented to place and oriented to time Cranial nerves: Yes Equal, round and reactive pupils present and Yes Normal hearing present Speech: No Abnormal speech present Extrem General: Yes normal to inspection, No clubbing, No cyanosis and No edema Psych Appearance: grossly normal and well kempt Mental Status: mental status grossly normal Speech and movement: Normal speech and movement present Affect: normal affect Attitude: cooperative Thought process: Normal thought process present and not confabulating Thought content: Normal thought content present Insight: Limited insight present (Psych) Judgement: Limited judgement present (Psych) Results Reviewed Results Reviewed: 08/27/23 Collection Time: 035 Source: Urine, Clean Catch Test Result Flag Reference Ur Color Yellow Ur Appear Clear PH 5.5 5.0-9.0 Ur Glu Negative Negative mg/dL Urine Blood Negative Negative Spec Tobias Ur 1.010 1.005-1.025 Urine Protein Negative Neg-Trace mg/dL Urine Ketones Negative Negative mg/dL Ur Nitrite Negative Negative Ur Checo Esterase Negative Negative Laboratory Tests 07/04/23 09:44 TSH 2.73 Free T4 0.87 Thyroglobulin Antibody 17 H Thyroid Peroxidase Ab 137 H Assessment & Plan Assessment & Plan (1) GERD (gastroesophageal reflux disease): Code(s): K21.9 - Gastro-esophageal reflux disease without esophagitis (2) Irritable bowel syndrome with both constipation and diarrhea: Code(s): K58.2 - Mixed irritable bowel syndrome (3) Sarcoidosis: Comment: history of sarcoid in cervical node biopsy 2018 Code(s): D86.9 - Sarcoidosis, unspecified (4) Back pain: Comment: radiating to leg on left side Code(s): M54.9 - Dorsalgia, unspecified Plan Swedish #Alec, Live She is taking all of the medicines and her diarrhea has stopped. She still has the pain that starts in the right upper quadrant but now she is experiencing it on both sides and on the left definitely radiates to the back. When she has pain on the left she is also having pain that radiates into her legs. The pain tends to come every day but it is intermittent and not related to eating or moving her bowels. It lasts about 15 minutes in his quite severe when she gets it. She can not really tie it to activity or time of day. It is relieved by putting hot packs on the area. So far it does not seem to have been affected by the dicyclomine. Her sister has some sort of diverticulitis and colon problems and her mother from sepsis after and strangulated hernia and a colon perforation. So she worries a lot about her colon. She did have a colonoscopy couple years ago after she would diverticulitis. At this point I am going to get some x-rays to take a look at her thoracic and lumbar spine to see if this is a contributing problem. Depending on the results of this test I may consider moving her to imipramine for better pain control if I do think that this is colon spasm. The pain certainly does seem to be following the path of the colon. She had a CT scan a few months back that did not show gallstones but certainly she could have biliary dyskinesia and we may need to consider a HIDA scan. It is interesting to note that she seems to have thyroid antibodies and could have thyroid fluctuations affecting her bowels as well. Right now the TSH and free T4 normal and I soon her primary care is monitoring this. For now no changes in medicines and getXR depending on the outcome of the x-rays I might consider putting her on imipramine for stronger pain control of I think it is bowel spasm. ROV 2 weeks. Orders: Orders XR lumbar spine 2-3V Today M54.9 - Dorsalgia, unspecified XR thoracic spine 2V Today M54.9 - Dorsalgia, unspecified Coding Level of Care Code Est Pt Level 4 (75822) Diagnoses GERD (gastroesophageal reflux disease) K21.9 Irritable bowel syndrome with both constipation and diarrhea K58.2 Sarcoidosis D86.9 Back pain M54.9 Time Spent (min) 44
[2023-09-13 11:59] VITALS: BP 129/82; PULSE 74; BMI 26.0
== END 2023-09-13 13:10 | disposition home or self-care (01) ==
PROVIDERS: PCP Internal Medicine; Visit Provider Nurse Practitioner
DX: K21.9 Gastro-esophageal reflux disease without esophagitis (principal); K58.2 Mixed irritable bowel syndrome; D86.9 Sarcoidosis, unspecified; M54.9 Dorsalgia, unspecified
CPT/HCPCS: 99214

== ENCOUNTER → 2023-09-13 11:54 | Outpatient (BNVA) | payer OTHER, SELFPAY | PROVIDERS: PCP Internal Medicine; Visit Provider Nurse Practitioner | DX: K21.9 Gastro-esophageal reflux disease without esophagitis (principal); K58.2 Mixed irritable bowel syndrome; D86.9 Sarcoidosis, unspecified; M54.9 Dorsalgia, unspecified | CPT/HCPCS: 99212 ==

== ENCOUNTER 2023-11-05 10:12 | Emergency (ER) | payer OTHER, SELFPAY ==
--- NOTE | 2023-11-05 | ECG_ITS ---
Test Reason : CHEST PAIN Blood Pressure : / mmHG Vent. Rate : 113 BPM Atrial Rate : 113 BPM P-R Int : 118 ms QRS Dur : 074 ms QT Int : 346 ms P-R-T Axes : 068 040 063 degrees QTc Int : 474 ms Sinus tachycardia Nonspecific ST and T wave abnormality Abnormal ECG When compared with ECG of 27-AUG-2023 03:46, Nonspecific T wave abnormality now evident in Lateral leads Referred By: Generic ED Physician Electronically Signed By:HELIO HURTADO MD
--- NOTE | ~2023-11-05 | XR_ITS ---
EXAMINATION: XR CHEST CLINICAL INFORMATION: Cough, shortness of breath, chest pain. COMPARISON: Chest radiograph 08/27/2023. TECHNIQUE: 2 views of the chest were obtained. FINDINGS: No significant abnormality is noted involving the heart, lungs, mediastinum, bony thorax or soft tissues. XR/XR chest 2V IMPRESSION: Unremarkable examination.
[2023-11-05 10:31] VITALS: BP 144/98; PULSE 103; RESP 20; TEMP 36.7; O2SAT 99; BMI 25.5
[2023-11-05 10:48] LABS: MANUAL DIFF FLAG NO
[2023-11-05 10:50] LABS: Basophils Absolute Auto 0.1 X10*3/uL (0.0-0.2); Basophils Percent Auto 0.8 % (0-2); Eosinophils Absolute Auto 0.2 X10*3/uL (0.0-0.4); Eosinophils Percent Auto 2.7 % (0-4); Hematocrit 37.8 % (37.0-47.0); Hemoglobin 12.3 g/dl (12.0-16.0); Imm Gran Abs Auto 0.02 X10*3/uL (0.00-0.03); Imm Gran Pct Auto 0.3 % (0.0-0.4); Lymphocytes Absolute Auto 3.1 X10*3/uL (1.2-4.9); Lymphocytes Percent Auto 39.7 % (20-40); Mean Corpuscular HGB Conc 32.5 g/dl (31.0-35.0); Mean Corpuscular Hemoglobin 27.2 pg (27.0-33.0); Mean Corpuscular Volume 83.6 fL (80.0-98.0); Mean Platelet Volume 9.6 fL (9.4-12.3); Monocytes Absolute Auto 0.4 X10*3/uL (0.1-1.2); Monocytes Percent Auto 4.5 % (2-11); Platelet Count 360 X10*3/uL (160-400); Red Blood Count 4.52 X10*6/uL (4.20-5.50); Red Cell Distribution Width 13.8 % (11.0-16.0); White Blood Count 7.7 X10*3/uL (4.8-10.8)
[2023-11-05 11:14] LABS: Troponin-I High Sensitivity < 2.7 ng/L (<3.5-17.0)
[2023-11-05 11:26] LABS: Alanine Aminotransferase 15 U/L (0-31); Albumin Level 4.1 g/dL (3.5-5.0); Alkaline Phosphatase 65 U/L (39-117); Anion Gap 13 (12-20); Aspartate Amino Transferase 17 U/L (5-31); Bilirubin Total 0.5 mg/dL (0.0-1.0); Blood Urea Nitrogen 12 mg/dL (9-16); Calcium 9.2 mg/dL (8.4-10.2); Carbon Dioxide 24 mmol/L (22-29); Chloride 104 mmol/L (96-108); Creatinine Clr Calc Pharmacy 100.5; Estimated Glomerular Filt Rate > 60; Glucose Random 113 mg/dL (60-115); Magnesium 1.7 mg/dL (1.6-2.6); Potassium 3.5 mmol/L (3.3-5.1); Sodium 137 mmol/L (135-145); Total Protein 8.1 g/dL (6.5-8.0)
[2023-11-05 11:27] LABS: Influenza A PCR NEGATIVE (Negative); Influenza B PCR NEGATIVE (Negative); Resp Syncy Virus RNA Qual PCR NEGATIVE (Negative); SARS COV2 PCR INHOUSE NEGATIVE (Negative)
[2023-11-05 12:52] VITALS: BP 150/97; PULSE 83; RESP 15; TEMP 37.1; O2SAT 98
--- NOTE | 2023-11-05 13:11 | ED.CHESTPAIN ---
HPI - Chest Pain General Chief Complaint: Chest Pain Stated Complaint: Chest pain/Back pain Time Seen by Provider: 11/05/23 13:10 Source: patient Mode of arrival: ambulatory Limitations: no limitations History of Present Illness HPI narrative: Patient is a 38-year-old female with history of asthma, sarcoidosis, chronic constipation, MDD presenting the emergency department with complaint of left chest pain radiating through to left lateral chest for the past 2 days. Describes the pain as constant sharp stabbing, does not increase with coughing. She also complains of increased shortness of breath, cough productive of white sputum and headaches. Has been using her 3 asthma inhalers but the pain has been constant. She denies fevers. Denies any abdominal pain vomiting, diarrhea. Does endorse some nausea which began today. Denies sore throat or ear pain. Denies recent calf pain or swelling. Not on OCPs. MD complaint: chest pain Pertinent past history: asthma and other Onset (ago): day(s) Timing of current episode: constant Prior episodes: No Onset: during rest Pain location: left chest Pain radiation: other (through to left lateral chest) Severity: moderate Quality: sharp (stabbing) Relieving factors: nothing Exacerbating factors: nothing Context: recent illness Associated symptoms: nausea and cough Treatment prior to arrival: none Related Data Home Medications ?Medication ?Instructions ?Recorded ?Confirmed cholecalciferol (vitamin D3) 10 1 cap PO DAILY 03/09/22 08/10/23 mcg (400 unit) capsule (Vitamin D3) naproxen 500 mg tablet 1 tab PO BID PRN Pain 03/09/22 08/10/23 escitalopram oxalate 5 mg tablet 5 mg PO DAILY 06/08/23 08/10/23 Previous Rx's ?Medication ?Instructions ?Recorded docusate sodium 100 mg capsule 100 mg PO BID #60 caps 03/31/22 Ventolin HFA 90 mcg/actuation 2 puff inhalation Q6H PRN for 12/28/22 aerosol inhaler (albuterol sulfate) dyspnea #18 grams Symbicort 160 mcg-4.5 2 puff inhalation BID #10.2 ea 01/02/23 mcg/actuation HFA aerosol inhaler (budesonide-formoterol) ipratropium 0.5 mg-albuterol 3 mg 3 ml inhalation Q4H PRN for 01/02/23 (2.5 mg base)/3 mL nebulization wheezing #180 mL soln magnesium oxide 400 mg (241.3 mg 400 mg PO BEDTIME 30 days #30 tabs 04/10/23 magnesium) tablet riboflavin (vitamin B2) 400 mg 400 mg PO DAILY 30 days #30 tabs 04/10/23 tablet ubrogepant 100 mg tablet (Ubrelvy) 50 - 100 mg (0.5 - 1 x 100 mg) PO 04/13/23 ONCE PRN migraine headache 30 days #16 tabs nebulizers (VixOne Nebulizer-Adult #1 ea 04/17/23 Mask) tiotropium bromide 2.5 2 puff inhalation QAM 30 days #4 04/26/23 mcg/actuation mist for inhalation grams (Spiriva Respimat) bisacodyl 5 mg tablet,delayed 10 mg (2 x 5 mg) PO BEDTIME 30 08/22/23 release (Dulcolax (bisacodyl)) days #60 tabs dicyclomine 20 mg tablet 20 mg PO QID 30 days #120 tabs 08/22/23 famotidine 40 mg tablet 40 mg PO BEDTIME #30 tabs 08/22/23 pantoprazole 20 mg tablet,delayed 20 mg PO DAILY #30 tabs 08/22/23 release simethicone 180 mg capsule (Gas 180 mg PO BID #60 caps 08/22/23 Relief (simethicone)) cyclobenzaprine 10 mg tablet 10 mg PO TID PRN muscle spasm #14 08/27/23 tabs lidocaine 5 % topical patch 1 patch topical DAILY #30 ea 08/27/23 fluticasone propionate 50 1 spray intranasal BID PRN for 09/20/23 mcg/actuation nasal allergies #16 mL spray,suspension prednisone 20 mg tablet 40 mg (2 x 20 mg) PO DAILY #10 tabs 11/05/23 Allergies Allergy/AdvReac Type Severity Reaction Status Date / Time doxycycline Allergy Severe tongue Verified 11/05/23 10:32 swelling morphine [MORPHINE] Allergy Intermediate RASH, Verified 11/05/23 10:32 headache, redness, throat swelling sumatriptan [From IMITREX] Allergy Mild ITCHING Verified 11/05/23 10:32 azithromycin Allergy Unknown facial Verified 11/05/23 10:32 redness Penicillins [PENICILLINS] Allergy Unknown ANAPHYLAXIS Verified 11/05/23 10:32 vancomycin AdvReac Itching Verified 11/05/23 10:32 Review of Systems Review of Systems: As per HPI Yes all other systems are reviewed and are negative Constitutional: Constitutional: Reports as per HPI [facility] Past Medical History Medical History Chronic idiopathic constipation Mild recurrent major depression Umbilical hernia Sarcoidosis Asthma Surgical History History of umbilical hernia repair H/O esophagogastroduodenoscopy History of tubal ligation Previous section History of appendectomy Family History Family History Father Essential hypertension Arthritis CAD (coronary artery disease) Mother Essential hypertension Diabetes mellitus Social History Social History Housing: Apartment Alcohol intake: never Patient Tobacco Use Status: Former Tobacco user Quit Date: 2012 Tobacco use type: Cigarette Smoked in Last 30 Days: No e-Cigarette/Vaping Use: Never Used Second Hand Smoke Exposure: No Use of substances other than those prescribed or required for medical reasons: No Advance Directives: No Advance Directives Information Provided: No service: No Current occupational status: employed Current occupational exposures/hazards: No Cognitive needs: No Hearing needs: No Vision needs: No Physical Exam Vital Signs: Vital Signs: Last Vital Signs Temp 98.8 F 11/05/23 12:52 Pulse 83 11/05/23 12:52 Resp 15 11/05/23 12:52 BP 150/97 H 11/05/23 12:52 Pulse Ox 98 11/05/23 12:52 O2 Del Method Room Air 11/05/23 12:52 BMI result Body Mass Index 25.5 Vital signs have been reviewed and appear to be correct. Blood pressure elevated. Heart rate normal. Respiratory rate normal. Temperature normal. Oxygen saturation normal. Const: General: cooperative, healthy appearing and no acute distress Orientation/consciousness: oriented to person, oriented to place, oriented to time and patient oriented x3 Limitations: no limitations HEENT: Head: Yes normocephalic and Yes atraumatic Ears: external ears normal General nose exam: Normal external nose present Face and sinus: Yes face symmetric Mouth: oropharynx normal and moist mucous membranes Throat: Yes uvula midline Eyes: Pupils: Equal, round and reactive pupils present Neck: Neck: Yes normal visual inspection and Yes supple Chest: Chest palpation & inspection: normal inspection of the chest and normal palpation of entire chest wall Resp: Effort & Inspection: normal respiratory effort and able to speak in complete sentences Auscultation: clear to auscultation bilaterally Cardio: Rate: regular rate Rhythm: regular rhythm Heart sounds: S1 normal heart sound present and S2 normal heart sound present GI: Palpation (GI): Soft to palpation and nontender Auscultation: normoactive bowel sounds : General: Yes no CVA tenderness Back/Spine/Pelvis: Back: no CVA tenderness Skin: General skin exam: elasticity normal and turgor normal Neuro: General: oriented to person, oriented to place, oriented to time, patient oriented x3, moves all extremities, no focal motor deficits and CN's II-XI intact bilaterally Cranial nerves: Yes Equal, round and reactive pupils present Cognition (Neuro): normal cognition Extrem: General: Yes full ROM, Yes no pedal edema and Yes no calf tenderness Psych: Mental Status: mental status grossly normal Affect: normal affect Thought process: Normal thought process present Medical Decision Making Medical Decision Making MDM Narrative: Patient is a 38-year-old female with history of asthma, sarcoidosis, chronic constipation, MDD presenting the emergency department with complaint of left chest pain radiating through to left lateral chest for the past 2 days. On exam patient is awake, A+Ox3, BP elevated, VS otherwise WNL, afebrile, normal neurological exam without focal deficits, physical exam findings as above. Given reported symptoms and physical exam findings, initial differential includes ACS, PE, viral illness, covid, flu, rsv, bronchitis, pneumonia. Labs drawn in triage unremarkable, troponin negative. Viral swabs negative. X-ray notable for no evidence of pneumonia. My interpretation is in agreement with the radiologist's interpretation. EKG shows sinus tachycardia. Plan to add d-dimer. 14:40 D-dimer negative. Tachycardia improved while patient is in the ED. Feel symptoms are likely due to constochondritis and asthma exacerbation from viral URI. Will treat patient with course of prednisone, recommended Tylenol and ibuprofen for discomfort. Patient has adequate inhalers at home. Instructed patient to follow up with PCP/surveillance system monitor. Return precautions discussed at beside. Patient verbalized understanding of and agreement with plan of care. Differential Diagnosis Differential Diagnoses: The differential diagnosis associated with the presentation includes As per MDM. Admission/Observation Consideration of admission/observation: Escalation of care including admission/observation considered Patient would have been admitted to the hospital had their work up had any findings where hospital admission was appropriate and their clinical presentation warranted hospital admission. Lab Data [facility] Lab Attestation statement: I reviewed the patient's lab results. As per MDM. 11/05/23 10:40 11/05/23 10:40 Labs: Lab Results 11/05/23 11/05/23 Range/Units 10:40 13:52 WBC 7.7 (4.8-10.8) X10*3/uL RBC 4.52 (4.20-5.50) X10*6/uL Hgb 12.3 (12.0-16.0) g/dl Hct 37.8 (37.0-47.0) % MCV 83.6 (80.0-98.0) fL MCH 27.2 (27.0-33.0) pg MCHC 32.5 (31.0-35.0) g/dl RDW 13.8 (11.0-16.0) % Plt Count 360 (160-400) X10*3/uL MPV 9.6 (9.4-12.3) fL Immature Gran % (Auto) 0.3 (0.0-0.4) % Neut % (Auto) 52.0 (45-73) % Lymph % (Auto) 39.7 (20-40) % [place] % (Auto) 4.5 (2-11) % Eos % (Auto) 2.7 (0-4) % Baso % (Auto) 0.8 (0-2) % Lymph # (Auto) 3.1 (1.2-4.9) X10*3/uL [place] # (Auto) 0.4 (0.1-1.2) X10*3/uL Eos # (Auto) 0.2 (0.0-0.4) X10*3/uL Baso # (Auto) 0.1 (0.0-0.2) X10*3/uL Abs Immat Gran (auto) 0.02 (0.00-0.03) X10*3/uL Absolute Neuts (auto) 4.0 (2.0-8.3) x10*3/uL Absolute Nucleated RBC 0.000 (0.0-0.012) X10*3/uL Nucleated RBC % (auto) 0.0 (0.0-0.2) /100WBC PT 12.2 (11.1-13.3) SEC INR 1.0 (0.9-1.1) D-Dimer High Sensitivty 158 NG/ML Sodium 137 (135-145) mmol/L Potassium 3.5 (3.3-5.1) mmol/L Chloride 104 (96-108) mmol/L Carbon Dioxide 24 (22-29) mmol/L Anion Gap 13 (12-20) BUN 12 (9-16) mg/dL Creatinine 0.77 (0.5-1.4) mg/dL Estim Creat Clear Calc 100.5 Estimated GFR > 60 Random Glucose 113 (60-115) mg/dL Calcium 9.2 (8.4-10.2) mg/dL Magnesium 1.7 (1.6-2.6) mg/dL Total Bilirubin 0.5 (0.0-1.0) mg/dL AST 17 (5-31) U/L ALT 15 (0-31) U/L Alkaline Phosphatase 65 (39-117) U/L Troponin I High Sens < 2.7 (<3.5-17.0) ng/L Total Protein 8.1 H (6.5-8.0) g/dL Albumin 4.1 (3.5-5.0) g/dL Influenza Type A (PCR) NEGATIVE (Negative) Influenza Type B (PCR) NEGATIVE (Negative) RSV RNA Qual (PCR) NEGATIVE (Negative) SARS-CoV-2 RNA (RT-PCR) NEGATIVE (Negative) Independent Interpretation I performed an independent interpretation of an: EKG (Sinus tachycardia, rate 113 be p.m., normal NE interval and QTC) and Plain X-Ray Interpretation: No evidence of pneumonia on chest x-ray Radiology Impression Discussion of test interpretation with radiology: I have reviewed the radiologist's reading. Radiologist Impression: XR/XR chest 2V IMPRESSION: Unremarkable examination. External Record Review External record reviewed: Inpatient record, Office record and Outpatient record Prescription Management I considered prescription management with: Other Discharge Plan Discharge Clinical Impression: Costochondritis, Viral upper respiratory infection, Asthma exacerbation Patient Disposition: Home, Self-Care Instructions: Asthma (DC), Costochondritis (ED), Upper Respiratory Infection (DC), Viral Syndrome (ED), Thoracic Pain (ED) Additional Instructions: You were evaluated in the emergency department today for chest pain, cough and shortness of breath. Your evaluation did not reveal evidence of conditions requiring emergency medical treatment at this time. Your symptoms are likely due to an asthma exacerbation which was caused by viral upper respiratory infection. You are being treated with a course of steroids to decrease inflammation. We recommend that you take 600 mg of ibuprofen or 650 mg of Tylenol every 6 hours as needed for pain. If necessary, you can alternate these medications every 3 hours. For example, at 9:00 a.m. take ibuprofen, then at noon take Tylenol, then at 3:00 p.m. take ibuprofen, etc.. Please follow-up with your primary care provider. Return to the emergency department if you develop worsening chest pain, shortness of breath difficulty breathing, fever not improved with Tylenol or ibuprofen or any other concerning symptoms. Prescriptions: New prednisone 20 mg tablet 40 mg PO DAILY Qty: 10 0RF No Action albuterol sulfate [Ventolin HFA] 90 mcg/actuation HFA aerosol inhaler 2 puff inhalation Q6H PRN (Reason: for dyspnea) Qty: 18 0RF ipratropium-albuterol 0.5 mg-3 mg(2.5 mg base)/3 mL solution for nebulization 3 ml inhalation Q4H PRN (Reason: for wheezing) Qty: 180 0RF budesonide-formoterol [Symbicort] 160-4.5 mcg/actuation HFA aerosol inhaler 2 puff inhalation BID Qty: 10.2 6RF Ubrelvy 100 mg tablet 50 - 100 mg PO ONCE PRN (Reason: migraine headache) 30 Days Qty: 16 3RF Rx Instructions: take at onset of migraine, may repeat in 2hrs (may take w/ Naproxen) (DME) nebulizers [VixOne Nebulizer-Adult Mask] Misc See Rx Instructions .Route Qty: 1 6RF Rx Instructions: As directed Spiriva Respimat 2.5 mcg/actuation mist 2 puff inhalation QAM 30 Days Qty: 4 6RF fluticasone propionate 50 mcg/actuation spray,suspension 1 spray intranasal BID PRN (Reason: for allergies) Qty: 16 6RF naproxen 500 mg tablet 1 tab PO BID PRN (Reason: Pain) cholecalciferol (vitamin D3) [Vitamin D3] 10 mcg (400 unit) capsule 1 cap PO DAILY cyclobenzaprine 10 mg tablet 10 mg PO TID PRN (Reason: muscle spasm) Qty: 14 0RF lidocaine 5 % adhesive patch,medicated 1 patch topical DAILY Qty: 30 0RF Rx Instructions: leave on most painful area for up to 12 hrs docusate sodium 100 mg capsule 100 mg PO BID Qty: 60 6RF Hold Instructions: Doctor's Order riboflavin (vitamin B2) 400 mg tablet 400 mg PO DAILY 30 Days Qty: 30 6RF magnesium oxide 400 mg (241.3 mg magnesium) tablet 400 mg PO BEDTIME 30 Days Qty: 30 6RF Rx Instructions: may hold for loose stools escitalopram oxalate 5 mg tablet 5 mg PO DAILY dicyclomine 20 mg tablet 20 mg PO QID 30 Days Qty: 120 6RF bisacodyl [Dulcolax (bisacodyl)] 5 mg tablet,delayed release (DR/EC) 10 mg PO BEDTIME 30 Days Qty: 60 6RF pantoprazole 20 mg tablet,delayed release (DR/EC) 20 mg PO DAILY Qty: 30 6RF simethicone [Gas Relief (simethicone)] 180 mg capsule 180 mg PO BID Qty: 60 6RF famotidine 40 mg tablet 40 mg PO BEDTIME Qty: 30 6RF Stand Alone Forms: Work/School Release Print Language: Jordanian
[2023-11-05 14:04] LABS: Prothrombin Time 12.2 SEC (11.1-13.3)
[2023-11-05 14:07] LABS: D Dimer High Sensitivity 158 NG/ML
--- NOTE | 2023-11-05 15:14 | PC.NURSE ---
pt a&o x4, pleasant, calm, and cooperative. ambulates independently. NSR on bedside monitor. rr even/unlabored. pt resting quietly on stretcher in no apparent distress. call leach within reach. plan of care ongoing.
[2023-11-05 15:15] VITALS: BP 127/82; PULSE 75; RESP 17; TEMP 36.8; O2SAT 97
[2023-11-05 15:16] VITALS: BP 127/82; PULSE 75; RESP 17; TEMP 36.8; O2SAT 97
== END 2023-11-05 15:17 | disposition home or self-care (01) ==
PROVIDERS: Registered Nurse Emergency; Emergency Provider Student in an Organized Health Care Education/Training Program; PCP Internal Medicine
DX: M94.0 Chondrocostal junction syndrome [Tietze] (principal); J06.9 Acute upper respiratory infection, unspecified; J45.901 Unspecified asthma with (acute) exacerbation; R07.89 Other chest pain; M54.50 Low back pain, unspecified; R11.2 Nausea with vomiting, unspecified; R05.9 Cough, unspecified; Z11.52 Encounter for screening for COVID-19; Z20.822 Contact with and (suspected) exposure to COVID-19; Z79.899 Other long term (current) drug therapy
CPT/HCPCS: 0241U; 36415; 71046; 80053; 83735; 84484; 85025; 85379; 85610; 93005; 99283; 99285

== ENCOUNTER → 2023-11-05 10:13 | Outpatient (BNV) | payer OTHER, SELFPAY | PROVIDERS: PCP Internal Medicine; Visit Provider Internal Medicine Cardiovascular Disease | DX: R00.0 Tachycardia, unspecified (principal) | CPT/HCPCS: 93010 ==

== ENCOUNTER 2023-11-13 11:40 | Outpatient (AMB) | payer OTHER, SELFPAY ==
[2023-11-13 12:12] VITALS: BP 122/80; PULSE 92; TEMP 36.8; O2SAT 99; BMI 26.5
--- NOTE | 2023-11-13 12:12 | AM.OFFWIN_ITS ---
Intake Vital Signs 11/13/23 12:12 Height 5 ft 6 in Weight 164 lb BMI 26.5 BP 122/80 Blood Pressure Location Rt brachial Position Sitting Pulse 92 Pulse Source Pulse Oximeter Temp 98.3 F Temp Source Oral Pulse Oximetry (%) 99 Oxygen Delivery Method Room Air Intake Visit Reasons: EP sore throat sinus headache (lobby) Intake Note: pt is here for sore throat, headache Patient Tobacco Use Status: Former Tobacco user Quit Date: 2012 Allergies doxycycline Allergy (Severe, Verified 11/13/23 12:12) tongue swelling morphine [MORPHINE] Allergy (Intermediate, Verified 11/13/23 12:12) RASH, headache, redness, throat swelling sumatriptan [From IMITREX] Allergy (Mild, Verified 11/13/23 12:12) ITCHING azithromycin Allergy (Unknown, Verified 11/13/23 12:12) facial redness Penicillins [PENICILLINS] Allergy (Unknown, Verified 11/13/23 12:12) ANAPHYLAXIS vancomycin Adverse Reaction (Verified 11/13/23 12:12) Itching Do you need a note to return to daycare/school/sports/work: Yes HPI HPI Comments History of Present Illness Details 38 y/o female patient who presents to [facility] with c/o sore-throat, feeling like something is stuck inside her throat. C/o epigastric chest pain with burning feeling. Denies nausea or vomiting. PFSH Medical History Chronic idiopathic constipation Mild recurrent major depression Umbilical hernia Sarcoidosis Asthma Surgical History History of umbilical hernia repair H/O esophagogastroduodenoscopy History of tubal ligation Previous section History of appendectomy Family History Father Essential hypertension Arthritis CAD (coronary artery disease) Mother Essential hypertension Diabetes mellitus Social History Housing: Apartment Alcohol intake: never Patient Tobacco Use Status: Former Tobacco user Quit Date: 2012 Tobacco use type: Cigarette e-Cigarette/Vaping Use: Never Used Second Hand Smoke Exposure: No service: No Current occupational status: employed Current occupational exposures/hazards: No Cognitive needs: No Hearing needs: No Vision needs: No Review of Systems Const All systems reviewed & are unremarkable except as noted in HPI and below Physical Exam Vital Signs: Last Vital Signs Temp 98.3 F 11/13/23 12:12 Pulse 92 11/13/23 12:12 BP 122/80 11/13/23 12:12 Pulse Ox 99 11/13/23 12:12 Oxygen Delivery Method Room Air 11/13/23 12:12 BMI result Body Mass Index 26.5 Const General: comfortable and no acute distress Orientation/consciousness: patient oriented x3 HEENT Head: Yes normocephalic Ears: external ears normal and TM abnormal bulging and with fluid behind the TM bilateral; not with effusion and not erythematous General nose exam: Abnormal mucous membranes and turbinates present boggy and erythematous Face and sinus: Yes sinuses nontender Mouth: moist mucous membranes Throat: Yes postnasal drainage Chest Chest palpation & inspection: normal inspection of the chest and normal palpation of entire chest wall Resp Effort & Inspection: normal respiratory effort and able to speak in complete sentences Auscultation: clear to auscultation bilaterally, no crackles, no rales, no rhonchi and no wheezes Cardio Rate: regular rate Rhythm: regular rhythm Neuro General: patient oriented x3, gait normal and moves all extremities Psych Speech and movement: Normal speech and movement present Results AMB Rapid Strep AMB Rapid Strep Negative Last Edit by Robert Edmond CMA on 11/13/23 12 :24 Results Reviewed Results Reviewed: Laboratory Last Values Strep Scn Rapid Clinic Negative 11/13/23 12:23 Assessment & Plan Assessment & Plan (1) Acute pharyngitis: Code(s): J02.9 - Acute pharyngitis, unspecified Qualifiers: Pharyngitis/tonsillitis etiology: unspecified etiology Qualified Code(s): J02.9 - Acute pharyngitis, unspecified Plan: - Viral vs Bacterial - Exam WNL - Suspecting GERD, will start medication. Orders: Orders AMB Rapid Strep Screen Today Z13.9 - Encounter for screening, unspecified Medications: Refilled famotidine 40 mg PO BEDTIME 30 tabs 6RF K21.9 - Gastro-esophageal reflux disease without esophagitis pantoprazole 20 mg PO DAILY 30 tabs 0RF K21.9 - Gastro-esophageal reflux disease without esophagitis Coding Level of Care Code Est Pt Level 3 (59066) Diagnoses Acute pharyngitis, unspecified etiology J02.9 Pharyngitis/tonsillitis etiology: unspecified etiology Time Spent (min) 15
== END 2023-11-13 12:55 | disposition home or self-care (01) ==
PROVIDERS: PCP Internal Medicine; Visit Provider Nurse Practitioner Family
DX: J02.9 Acute pharyngitis, unspecified (principal)
CPT/HCPCS: 87880; 99213

== ENCOUNTER 2023-11-15 10:18 | Emergency (ER) | payer OTHER, SELFPAY ==
--- NOTE | 2023-11-15 | ECG_ITS ---
Test Reason : chest pain Blood Pressure : / mmHG Vent. Rate : 083 BPM Atrial Rate : 083 BPM P-R Int : 142 ms QRS Dur : 078 ms QT Int : 366 ms P-R-T Axes : 059 040 037 degrees QTc Int : 430 ms Normal sinus rhythm Normal ECG When compared with ECG of 05-NOV-2023 10:13, Nonspecific T wave abnormality no longer evident in Lateral leads Referred By: Generic ED Physician Electronically Signed By:SHANTI SALGUERO
--- NOTE | ~2023-11-15 | CT_ITS ---
EXAMINATION: CT ABDOMEN AND PELVIS WITHOUT CONTRAST CLINICAL INFORMATION: Upper abdominal pain. Dark stool. COMPARISON: Previous CT of the abdomen and pelvis November 2022 and pelvic ultrasound December 2022 TECHNIQUE: Multidetector volumetric imaging was performed from the superior aspect of the liver through the pubic symphysis. Sagittal and coronal reformatted images were obtained on the technologist's workstation. This CT examination was performed using dose optimization techniques as appropriate, variously including the following: *Automated exposure control *Adjustment of mA and/or kV according to patient size (this includes techniques or standardized protocols for targeted exams where dose is matched to indication/reason for exam; i.e. extremities or head) *Use of iterative reconstruction technique DLP: 592 mGy-cm FINDINGS: LUNG BASES: The visualized lung bases are unremarkable. LIVER, GALLBLADDER, AND BILIARY TREE: The liver is normal in size, shape, and attenuation. No focal hepatic lesion or biliary ductal dilatation is present. The gallbladder is unremarkable with no evidence of radiopaque gallstones, gallbladder wall thickening, or obvious pericholecystic inflammatory changes. PANCREAS: Unremarkable. SPLEEN: Unremarkable. ADRENAL GLANDS: Unremarkable. KIDNEYS AND URETERS: The kidneys are normal in size, shape, and attenuation. No hydronephrosis, hydroureter, or calculi seen. No perinephric stranding. BLADDER: Unremarkable. GASTROINTESTINAL TRACT: There are loops of small bowel lateral to the left colon raising questionable for internal hernia. There is no evidence of obstruction. The small and large bowel are otherwise unremarkable. The appendix is not seen. ABDOMINAL WALL: No significant hernia is appreciated. LYMPH NODES: Normal. VASCULAR: Unremarkable. PELVIC VISCERA: Unremarkable. OSSEOUS STRUCTURES: Degenerative disc disease at L5-S1. CT/CT abdomen pelvis wo IV con IMPRESSION: No acute findings. There are loops of small bowel lateral to the left colon raising question of internal hernia. No evidence of obstruction. Fleischner guidelines were followed.
[2023-11-15 10:35] VITALS: BP 146/94; PULSE 100; RESP 16; TEMP 36.7; O2SAT 99; BMI 26.1
[2023-11-15 10:48] LABS: MANUAL DIFF FLAG NO
[2023-11-15 10:51] LABS: Basophils Absolute Auto 0.1 X10*3/uL (0.0-0.2); Basophils Percent Auto 0.8 % (0-2); Eosinophils Absolute Auto 0.2 X10*3/uL (0.0-0.4); Hematocrit 34.5 % (37.0-47.0); Hemoglobin 11.1 g/dl (12.0-16.0); Imm Gran Abs Auto 0.03 X10*3/uL (0.00-0.03); Imm Gran Pct Auto 0.3 % (0.0-0.4); Lymphocytes Absolute Auto 2.9 X10*3/uL (1.2-4.9); Lymphocytes Percent Auto 32.1 % (20-40); Mean Corpuscular HGB Conc 32.2 g/dl (31.0-35.0); Mean Corpuscular Hemoglobin 27.1 pg (27.0-33.0); Mean Corpuscular Volume 84.1 fL (80.0-98.0); Mean Platelet Volume 9.1 fL (9.4-12.3); Monocytes Absolute Auto 0.4 X10*3/uL (0.1-1.2); Monocytes Percent Auto 4.6 % (2-11); Neutrophils Absolute Auto 5.5 x10*3/uL (2.0-8.3); Neutrophils Percent Auto 60.2 % (45-73); Platelet Count 331 X10*3/uL (160-400); White Blood Count 9.1 X10*3/uL (4.8-10.8)
[2023-11-15 11:09] LABS: Alanine Aminotransferase 12 U/L (0-31); Albumin Level 3.7 g/dL (3.5-5.0); Alkaline Phosphatase 58 U/L (39-117); Anion Gap 12 (12-20); Aspartate Amino Transferase 12 U/L (5-31); Bilirubin Total 0.5 mg/dL (0.0-1.0); Blood Urea Nitrogen 12 mg/dL (9-16); Calcium 8.8 mg/dL (8.4-10.2); Carbon Dioxide 24 mmol/L (22-29); Chloride 105 mmol/L (96-108); Creatinine Clr Calc Pharmacy 97.8; Estimated Glomerular Filt Rate > 60; Glucose Fasting 142 mg/dL (60-99); Potassium 3.6 mmol/L (3.3-5.1); Sodium 137 mmol/L (135-145); Total Protein 7.1 g/dL (6.5-8.0)
[2023-11-15 11:35] LABS: Influenza A PCR NEGATIVE (Negative); Influenza B PCR NEGATIVE (Negative); Resp Syncy Virus RNA Qual PCR NEGATIVE (Negative); SARS COV2 PCR INHOUSE NEGATIVE (Negative)
[2023-11-15 13:37] LABS: Troponin-I High Sensitivity < 2.7 ng/L (<3.5-17.0)
[2023-11-15 15:34] VITALS: BP 160/87; PULSE 95; RESP 18; TEMP 36.6; O2SAT 98
--- NOTE | 2023-11-15 15:36 | ED_ITS ---
HPI - General Adult General Chief complaint: General Medical Stated complaint: chest pain w/ multiple complaints Time Seen by Provider: 11/15/23 19:53 Source: patient, RN notes reviewed, old records reviewed and social work manager Mode of arrival: ambulatory Limitations: language barrier History of Present Illness HPI narrative: 38-year-old female with past medical history significant for GERD, asthma, sarcoidosis, IBS, chronic constipation, fibromyalgia presents for evaluation of upper abdominal pain. Patient was seen here 1 week ago when her symptoms started. She states that she feels as though her pain radiates into her chest. She reports dark stools for the last week She takes pantoprazole daily and she has been compliant with this Denies any fevers, chills. Denies any history of coronary artery disease. She states ?I feel like something is stuck in my throat. She has been able to eat and drink despite this sensation for the last week Patient reports her symptoms are worse after eating Related Data Home Medications ?Medication ?Instructions ?Recorded ?Confirmed cholecalciferol (vitamin D3) 10 1 cap PO DAILY 03/09/22 08/10/23 mcg (400 unit) capsule (Vitamin D3) naproxen 500 mg tablet 1 tab PO BID PRN Pain 03/09/22 08/10/23 escitalopram oxalate 5 mg tablet 5 mg PO DAILY 06/08/23 08/10/23 Previous Rx's ?Medication ?Instructions ?Recorded docusate sodium 100 mg capsule 100 mg PO BID #60 caps 03/31/22 Ventolin HFA 90 mcg/actuation 2 puff inhalation Q6H PRN for 12/28/22 aerosol inhaler (albuterol sulfate) dyspnea #18 grams Symbicort 160 mcg-4.5 2 puff inhalation BID #10.2 ea 01/02/23 mcg/actuation HFA aerosol inhaler (budesonide-formoterol) ipratropium 0.5 mg-albuterol 3 mg 3 ml inhalation Q4H PRN for 01/02/23 (2.5 mg base)/3 mL nebulization wheezing #180 mL soln magnesium oxide 400 mg (241.3 mg 400 mg PO BEDTIME 30 days #30 tabs 04/10/23 magnesium) tablet riboflavin (vitamin B2) 400 mg 400 mg PO DAILY 30 days #30 tabs 04/10/23 tablet ubrogepant 100 mg tablet (Ubrelvy) 50 - 100 mg (0.5 - 1 x 100 mg) PO 04/13/23 ONCE PRN migraine headache 30 days #16 tabs nebulizers (VixOne Nebulizer-Adult #1 ea 04/17/23 Mask) tiotropium bromide 2.5 2 puff inhalation QAM 30 days #4 04/26/23 mcg/actuation mist for inhalation grams (Spiriva Respimat) bisacodyl 5 mg tablet,delayed 10 mg (2 x 5 mg) PO BEDTIME 30 08/22/23 release (Dulcolax (bisacodyl)) days #60 tabs dicyclomine 20 mg tablet 20 mg PO QID 30 days #120 tabs 08/22/23 simethicone 180 mg capsule (Gas 180 mg PO BID #60 caps 08/22/23 Relief (simethicone)) cyclobenzaprine 10 mg tablet 10 mg PO TID PRN muscle spasm #14 08/27/23 tabs lidocaine 5 % topical patch 1 patch topical DAILY #30 ea 08/27/23 fluticasone propionate 50 1 spray intranasal BID PRN for 09/20/23 mcg/actuation nasal allergies #16 mL spray,suspension famotidine 40 mg tablet 40 mg PO BEDTIME #30 tabs 11/13/23 pantoprazole 20 mg tablet,delayed 20 mg PO DAILY #30 tabs 11/13/23 release aluminum-mag hydroxide-simethicone 10 ml PO QID PRN dyspepsia #3,000 11/15/23 200 mg-200 mg-20 mg/5 mL oral susp mL (Mag-Al Plus) Allergies Allergy/AdvReac Type Severity Reaction Status Date / Time doxycycline Allergy Severe tongue Verified 11/15/23 10:39 swelling morphine [MORPHINE] Allergy Intermediate RASH, Verified 11/15/23 10:39 headache, redness, throat swelling sumatriptan [From IMITREX] Allergy Mild ITCHING Verified 11/15/23 10:39 azithromycin Allergy Unknown facial Verified 11/15/23 10:39 redness Penicillins [PENICILLINS] Allergy Unknown ANAPHYLAXIS Verified 11/15/23 10:39 vancomycin AdvReac Itching Verified 11/15/23 10:39 Review of Systems 2 Constitutional: Constitutional: Denies chills, Denies fever(s), Denies frequent falls and Denies headache(s) Eyes: Eyes: Denies blurry vision ENT: Denies vertigo, Denies headache(s) and Reports odynophagia Cardiovascular: Cardiovascular: Reports chest pain, Reports Epigastric Pain, Reports epigastric discomfort and Denies dyspnea Respiratory: Respiratory: Denies cough and Denies dyspnea Gastrointestinal: Gastrointestinal: Reports abdominal pain, Denies hematochezia, Reports odynophagia, Denies vomiting and Denies hematemesis Musculoskeletal: Musculoskeletal: Denies back pain Integumentary/Breasts: Skin/Breast: Denies rash Neurologic: Denies vertigo, Denies frequent falls and Denies headache(s) [facility] Past Medical History Medical History (Updated 11/15/23 @ 20:45 by Pedro Luis Wei) GERD (gastroesophageal reflux disease) Chronic idiopathic constipation Mild recurrent major depression Umbilical hernia Sarcoidosis Asthma Surgical History History of umbilical hernia repair H/O esophagogastroduodenoscopy History of tubal ligation Previous section History of appendectomy Family History Family History Father Essential hypertension Arthritis CAD (coronary artery disease) Mother Essential hypertension Diabetes mellitus Social History Social History Housing: Apartment Alcohol intake: never Patient Tobacco Use Status: Former Tobacco user Quit Date: 2012 Tobacco use type: Cigarette Smoked in Last 30 Days: No e-Cigarette/Vaping Use: Never Used Second Hand Smoke Exposure: No Use of substances other than those prescribed or required for medical reasons: No Advance Directives: No Advance Directives Information Provided: Yes service: No Current occupational status: employed Current occupational exposures/hazards: No Cognitive needs: No Hearing needs: No Vision needs: No Physical Exam ED Vital Signs: Vital Signs - 24 hr 11/15/23 10:35 11/15/23 15:34 11/15/23 19:50 Temperature 98.0 F 97.9 F 98.7 F Pulse Rate 100 95 91 Respiratory Rate 16 18 20 Blood Pressure 146/94 H 160/87 H 156/94 H Pulse Oximetry 99 98 98 Oxygen Delivery Method Room Air Room Air Room Air BMI result Body Mass Index 26.1 Const General: healthy appearing, comfortable, no acute distress, alert and awake Nutritional Appearance: well nourished Orientation/consciousness: patient oriented x3 HENMT Head: Yes normocephalic and Yes atraumatic Throat: Yes posterior oropharynx normal Eyes Eyelids: Yes eyelids normal Conjunctivae: conjunctivae normal Sclerae: sclerae normal Corneas: corneas normal Pupils: Equal, round and reactive pupils present EOM: EOMs intact bilaterally Neck Neck: Yes full ROM Resp Effort & Inspection: normal respiratory effort, able to speak in complete sentences and not labored Cardio Rate: regular rate Rhythm: regular rhythm GI Inspection: No distended Palpation (GI): Soft to palpation, not firm, Tenderness to palpation present (GI) in the epigastrum, in the LUQ and in the RUQ; Santiago's sign negative and with no rebound tenderness, no guarding and not rigid Skin General skin exam: elasticity normal Neuro General: patient oriented x3 Cranial nerves: Yes Equal, round and reactive pupils present and Yes Bilaterally intact EOM present Cognition (Neuro): normal cognition Extrem Other: Moving all extremities well without any obvious deformities Course Course Course Narrative: RME:?38 yo female hx of GERD on pantoprazole daily, colitis, IBS with both constipation and diarrhea, fibromyalgia, migraines, MDD, asthma here with multiple complaints. Endorses midsternal chest pressure. + upper abdominal pain, worse with eating, and dark stools x1 wk. Denies fever, chills, palpitations, shortness of breath, nausea or vomiting, hematochezia, bright red blood per rectum. EKG, trop, viral swabs, UA, CT ordered. Full HPI, ROS and PE to be performed by the primary ED provider. Medical Decision Making Medical Decision Making [facility] Narrative: 38-year-old female with past medical history as documented above presents for evaluation of upper abdominal pain that got worse after eating today. She has a long history of gastritis. She reports that she lives up with GI next month. She has been taking pantoprazole without any improvement in her symptoms. She had a cardiac workup that was unremarkable, troponin is negative x2, EKG is normal sinus rhythm with a rate of [address] segment elevations or depressions. She had a CT scan of the abdomen pelvis that did not show any acute findings. The loops of small bowel lateral to the left colon raising question of internal hernia. The patient can be referred To General surgery regarding this. She has ruled out for ACS, clinically I think her symptoms are most likely related to GERD/peptic ulcer disease. There was no evidence of gallstones or pericholecystic fluid on her CT scan Differential Diagnosis Differential Diagnoses: The differential diagnosis associated with the presentation includes Abdominal pain GERD Peptic ulcer disease Cholelithiasis Acute cholecystitis Chest pain ACS Lab Data MDM Lab Attestation statement: I reviewed the patient's lab results. No leukocytosis. The patient has a mild anemia consistent with her baseline. Normal platelet count. No electrolyte abnormalities. Chemistries without any concerning abnormalities, troponin negative x2. Random glucose elevated to 142 11/15/23 10:44 11/15/23 10:44 Labs: Lab Results 11/15/23 11/15/23 Range/Units 10:44 15:52 WBC 9.1 (4.8-10.8) X10*3/uL RBC 4.10 L (4.20-5.50) X10*6/uL Hgb 11.1 L (12.0-16.0) g/dl Hct 34.5 L (37.0-47.0) % MCV 84.1 (80.0-98.0) fL MCH 27.1 (27.0-33.0) pg MCHC 32.2 (31.0-35.0) g/dl RDW 14.0 (11.0-16.0) % Plt Count 331 (160-400) X10*3/uL MPV 9.1 L (9.4-12.3) fL Immature Gran % (Auto) 0.3 (0.0-0.4) % Neut % (Auto) 60.2 (45-73) % Lymph % (Auto) 32.1 (20-40) % [place] % (Auto) 4.6 (2-11) % Eos % (Auto) 2.0 (0-4) % Baso % (Auto) 0.8 (0-2) % Lymph # (Auto) 2.9 (1.2-4.9) X10*3/uL [place] # (Auto) 0.4 (0.1-1.2) X10*3/uL Eos # (Auto) 0.2 (0.0-0.4) X10*3/uL Baso # (Auto) 0.1 (0.0-0.2) X10*3/uL Abs Immat Gran (auto) 0.03 (0.00-0.03) X10*3/uL Absolute Neuts (auto) 5.5 (2.0-8.3) x10*3/uL Absolute Nucleated RBC 0.000 (0.0-0.012) X10*3/uL Nucleated RBC % (auto) 0.0 (0.0-0.2) /100WBC Sodium 137 (135-145) mmol/L Potassium 3.6 (3.3-5.1) mmol/L Chloride 105 (96-108) mmol/L Carbon Dioxide 24 (22-29) mmol/L Anion Gap 12 (12-20) BUN 12 (9-16) mg/dL Creatinine 0.80 (0.5-1.4) mg/dL Estim Creat Clear Calc 97.8 Estimated GFR > 60 Fasting Glucose 142 H (60-99) mg/dL Calcium 8.8 (8.4-10.2) mg/dL Total Bilirubin 0.5 (0.0-1.0) mg/dL AST 12 (5-31) U/L ALT 12 (0-31) U/L Alkaline Phosphatase 58 (39-117) U/L Troponin I High Sens < 2.7 < 2.7 (<3.5-17.0) ng/L Total Protein 7.1 (6.5-8.0) g/dL Albumin 3.7 (3.5-5.0) g/dL Beta HCG, Quant < 2 mIU/mL Urine Color Yellow Urine Appearance Clear Urine pH 5.0 (5.0-9.0) Ur Specific [place] 1.015 (1.005-1.025) Urine Protein Negative (Neg-Trace) mg/dL Urine Glucose (UA) Negative (Negative) mg/dL Urine Ketones Negative (Negative) mg/dL Urine Blood Negative (Negative) Urine Nitrite Negative (Negative) Ur Leukocyte Esterase Negative (Negative) Influenza Type A (PCR) NEGATIVE (Negative) Influenza Type B (PCR) NEGATIVE (Negative) RSV RNA Qual (PCR) NEGATIVE (Negative) SARS-CoV-2 RNA (RT-PCR) NEGATIVE (Negative) Independent Interpretation I performed an independent interpretation of an: EKG (Normal sinus rhythm, see above) and CT Scan Interpretation: Agree with Radiology interpretation, no evidence of acute cholecystitis. I appreciate labs sided lateral small bowel loops Radiology Impression Discussion of test interpretation with radiology: I have reviewed the radiologist's reading. Radiologist Impression: IMPRESSION: No acute findings. There are loops of small bowel lateral to the left colon raising question of internal hernia. No evidence of obstruction. Fleischner guidelines were followed. Discharge Plan Discharge Clinical Impression: Abdominal pain Patient Disposition: Home, Self-Care Instructions: Gastroesophageal Reflux Disease (ED) Additional Instructions: Your workup in the ER today was reassuring. Your CT scan did show concern for internal hernia which she may follow-up with general surgery for. It is important that you follow-up with your GI doctor, as you may benefit from an upper endoscopy Continue taking your pantoprazole. You may use Maalox as needed for breakthrough abdominal pain I recommend avoiding spicy, greasy foods, as this may exacerbate your symptoms Prescriptions: New alum-mag hydroxide-simeth [Mag-Al Plus] 200-200-20 mg/5 mL suspension 10 ml PO QID PRN (Reason: dyspepsia) Qty: 3000 0RF Rx Instructions: administer between meals and at bedtime No Action albuterol sulfate [Ventolin HFA] 90 mcg/actuation HFA aerosol inhaler 2 puff inhalation Q6H PRN (Reason: for dyspnea) Qty: 18 0RF ipratropium-albuterol 0.5 mg-3 mg(2.5 mg base)/3 mL solution for nebulization 3 ml inhalation Q4H PRN (Reason: for wheezing) Qty: 180 0RF budesonide-formoterol [Symbicort] 160-4.5 mcg/actuation HFA aerosol inhaler 2 puff inhalation BID Qty: 10.2 6RF Ubrelvy 100 mg tablet 50 - 100 mg PO ONCE PRN (Reason: migraine headache) 30 Days Qty: 16 3RF Rx Instructions: take at onset of migraine, may repeat in 2hrs (may take w/ Naproxen) (DME) nebulizers [VixOne Nebulizer-Adult Mask] Misc See Rx Instructions .Route Qty: 1 6RF Rx Instructions: As directed Spiriva Respimat 2.5 mcg/actuation mist 2 puff inhalation QAM 30 Days Qty: 4 6RF fluticasone propionate 50 mcg/actuation spray,suspension 1 spray intranasal BID PRN (Reason: for allergies) Qty: 16 6RF naproxen 500 mg tablet 1 tab PO BID PRN (Reason: Pain) cholecalciferol (vitamin D3) [Vitamin D3] 10 mcg (400 unit) capsule 1 cap PO DAILY cyclobenzaprine 10 mg tablet 10 mg PO TID PRN (Reason: muscle spasm) Qty: 14 0RF lidocaine 5 % adhesive patch,medicated 1 patch topical DAILY Qty: 30 0RF Rx Instructions: leave on most painful area for up to 12 hrs famotidine 40 mg tablet 40 mg PO BEDTIME Qty: 30 6RF pantoprazole 20 mg tablet,delayed release (DR/EC) 20 mg PO DAILY Qty: 30 0RF docusate sodium 100 mg capsule 100 mg PO BID Qty: 60 6RF Hold Instructions: Doctor's Order riboflavin (vitamin B2) 400 mg tablet 400 mg PO DAILY 30 Days Qty: 30 6RF magnesium oxide 400 mg (241.3 mg magnesium) tablet 400 mg PO BEDTIME 30 Days Qty: 30 6RF Rx Instructions: may hold for loose stools escitalopram oxalate 5 mg tablet 5 mg PO DAILY dicyclomine 20 mg tablet 20 mg PO QID 30 Days Qty: 120 6RF bisacodyl [Dulcolax (bisacodyl)] 5 mg tablet,delayed release (DR/EC) 10 mg PO BEDTIME 30 Days Qty: 60 6RF simethicone [Gas Relief (simethicone)] 180 mg capsule 180 mg PO BID Qty: 60 6RF Print Language: Telugu
--- NOTE | 2023-11-15 15:55 | MHC.EDTECH ---
PATIENT REPEATED TROP DRAWN AND URINE SAMPLE COLLECTED AND SENT TO LAB .
[2023-11-15 16:03] LABS: Appearance Urine Clear; Color Urine Yellow; Glucose Urine UA Negative (Negative); Leukocyte Esterase Urine Negative (Negative); Nitrite Urine Negative (Negative); Specific Gravity - Urine 1.015 (1.005-1.025); Urine Blood Negative (Negative); Urine Ketones Negative (Negative); Urine Protein Negative (Neg-Trace)
[2023-11-15 16:21] LABS: Troponin-I High Sensitivity < 2.7 ng/L (<3.5-17.0)
[2023-11-15 16:43] LABS: HCG Quantitative < 2 mIU/mL
[2023-11-15 19:50] VITALS: BP 156/94; PULSE 91; RESP 20; TEMP 37.1; O2SAT 98
--- NOTE | 2023-11-15 19:51 | PC.NURSE ---
Pt ca&ox4, no signs of distress. Pt reports 9/10 bodyaches/chest/neck/upper back/bilateral abd pain with n/ no vomiting. Pt reports seen here on 11/05/23 and given steroids for a cough, meds completed but cough remains. Pt reports B/P here has been higher than baseline. Pt changed into hospital attire and call leach given. Plan of care ongoing.
[2023-11-15] MEDS: Magnesium Hydrox/Alum Hydrox 30 ML ORAL.SUSP PO (20:52)
[2023-11-15] MEDS: Lidocaine HCl Viscous 2 % 15 ML SOLUTION MUCOUS MEM (20:52)
[2023-11-15] MEDS: Ondansetron ODT 4 MG TAB.RAPDIS TRANSLINGU (20:52)
--- NOTE | 2023-11-15 20:55 | PC.NURSE ---
Pt ca&ox4, no signs of distress. Pt sitting in bed talking on cell phone. Pt medicated per sep. Plan of care ongoing.
[2023-11-15 21:59] VITALS: BP 156/94; PULSE 91; RESP 16; TEMP 37.1; O2SAT 98
== END 2023-11-15 22:01 | disposition home or self-care (01) ==
PROVIDERS: Physician Assistant Medical; Emergency Provider Emergency Medicine Emergency Medical Services; PCP Internal Medicine
DX: R07.89 Other chest pain (principal); K59.00 Constipation, unspecified; R09.89 Other specified symptoms and signs involving the circulatory and respiratory systems; R10.9 Unspecified abdominal pain; Z79.899 Other long term (current) drug therapy; Z11.52 Encounter for screening for COVID-19; Z20.822 Contact with and (suspected) exposure to COVID-19
CPT/HCPCS: 0241U; 36415; 74176; 80053; 81003; 84484; 84702; 85025; 93005; 99284

== ENCOUNTER → 2023-11-15 10:37 | Outpatient (BNV) | payer OTHER, SELFPAY | PROVIDERS: PCP Internal Medicine; Visit Provider Internal Medicine | DX: R07.9 Chest pain, unspecified (principal) | CPT/HCPCS: 93010 ==

== ENCOUNTER 2023-11-23 09:04 | Outpatient (AMB) | payer OTHER, SELFPAY ==
--- NOTE | 2023-11-23 09:04 | A.OFFVIS_ITS ---
Vital Signs 11/23/23 09:13 Height 5 ft 6 in Weight 163 lb BMI 26.3 BP 137/80 Blood Pressure Location Rt brachial Position Sitting Pulse 77 Intake Visit Reasons: ? internal hernia Intake Note: [place] [facility] [place] for small bowel lateral to left colon, question internal hernia. Pt c/o; reports abdominal pain, reports symptoms started on 11/05/2023, reports Hx of constipation, reports on 11/05/2023 had dark stools but did not noticed a ny blood in the stool, reports when symptoms start she gets a weird sensation in both her left foot and left fingers. 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 Plywood Stock Grader Language: Clinical Biochemist Name: Cb Information Interpreted: non-clinical & clinical Accompanied by: Self / Same As Patient Allergies doxycycline Allergy (Severe, Verified 11/23/23 09:15) tongue swelling morphine [MORPHINE] Allergy (Intermediate, Verified 11/23/23 09:15) RASH, headache, redness, throat swelling sumatriptan [From IMITREX] Allergy (Mild, Verified 11/23/23 09:15) ITCHING azithromycin Allergy (Unknown, Verified 11/23/23 09:15) facial redness Penicillins [PENICILLINS] Allergy (Unknown, Verified 11/23/23 09:15) ANAPHYLAXIS vancomycin Adverse Reaction (Verified 11/23/23 09:15) Itching Medication List - Last Reconciled 11/23/23 by Doroteo Jaffe MD alum-mag hydroxide-simeth 200-200-20 mg/5 mL (Mag-Al Plus) 10 mL PO QID PRN bisacodyl (Dulcolax (bisacodyl)) 10 mg (2 x 5 mg) PO BEDTIME 30 days cholecalciferol (vitamin D3) (Vitamin D3) 1 cap PO DAILY cyclobenzaprine 10 mg PO TID PRN dicyclomine 20 mg PO QID 30 days docusate sodium 100 mg PO BID escitalopram oxalate 5 mg PO DAILY famotidine 40 mg PO BEDTIME fluticasone propionate 50 mcg/actuation 1 spray intranasal BID PRN ipratropium-albuterol 0.5 mg-3 mg(2.5 mg base)/3 mL 3 mL inhalation Q4H PRN lidocaine 5% 1 patch topical DAILY magnesium oxide 400 mg PO BEDTIME 30 days naproxen 1 tab PO BID PRN nebulizers (VixOne Nebulizer-Adult Mask) As directed pantoprazole 20 mg PO DAILY riboflavin (vitamin B2) 400 mg PO DAILY 30 days simethicone (Gas Relief (simethicone)) 180 mg PO BID Symbicort 160-4.5 mcg/actuation (budesonide-formoterol) 2 puffs inhalation BID NS tiotropium bromide 2.5 mcg/actuation (Spiriva Respimat) 2 puffs inhalation QAM 30 days ubrogepant (Ubrelvy) 50 - 100 mg (0.5 - 1 x 100 mg) PO ONCE PRN 30 days Ventolin HFA 90 mcg/actuation (albuterol sulfate) 2 puffs inhalation Q6H PRN NS HPI HPI ? internal hernia: Details: [age] year old female sent to the office for follow-up for an abnormal CT scan. She went to the ER last November 14 because of upper abdominal pain. She had a CAT scan done showing small bowel loops laterally on the left past the colon so 1 of the differentials was internal hernia She denies any pain on the left side. She says her pain has always been on the upper abdomen especially on the right. She had no nausea or vomiting. She has good bowel movements. [facility] Medical History (Updated 11/23/23 @ 09:28 by Doroteo Jaffe MD) Abnormal CT scan, gastrointestinal tract GERD (gastroesophageal reflux disease) Chronic idiopathic constipation Mild recurrent major depression Umbilical hernia Sarcoidosis Asthma Surgical History History of umbilical hernia repair H/O esophagogastroduodenoscopy History of tubal ligation Previous section History of appendectomy Family History Father Essential hypertension Arthritis CAD (coronary artery disease) Mother Essential hypertension Diabetes mellitus Social History Housing: Apartment Alcohol intake: never Patient Tobacco Use Status: Former Tobacco user Quit Date: 2012 Tobacco use type: Cigarette e-Cigarette/Vaping Use: Never Used Second Hand Smoke Exposure: No service: No Current occupational status: employed Current occupational exposures/hazards: No Cognitive needs: No Hearing needs: No Vision needs: No Review of Systems Const Denies chills and Denies fever(s) Card Denies chest pain, Denies dyspnea and Denies dyspnea on exertion Resp Denies cough, Denies dyspnea and Denies dyspnea on exertion GI Denies hematochezia and Denies change in bowel habits Denies hematuria Musc Denies back pain and Denies limited range of motion Neuro Denies focal weakness and Denies convulsions Psych Denies depression and Denies mood swings Physical Exam Vital Signs: Last Vital Signs Pulse 77 11/23/23 09:13 BP 137/80 11/23/23 09:13 BMI result Body Mass Index 26.3 Const General: comfortable and no acute distress Orientation/consciousness: patient oriented x3 Neck Neck: Yes no lymphadenopathy Resp Auscultation: clear to auscultation bilaterally Cardio Rhythm: regular rhythm GI Palpation (GI): Soft to palpation, nontender and no guarding Neuro General: patient oriented x3 Assessment & Plan Assessment & Plan (1) Abnormal CT scan, gastrointestinal tract: Code(s): R93.3 - Abnormal findings on diagnostic imaging of other parts of digestive tract Category: Medical Plan: She had a CAT scan in the ER because of upper abdominal pain mostly on the right side. Her CAT scan shows small bowel loops lateral to the colon on the left. An internal hernia was 1 of the differentials of the radiologist. Clinically she does not present with this. She has had no colon surgery nor any bowel in the past that would cause an internal hernia. She does have a history of C- section . She does not present with any signs of obstruction She does state that her pain on the upper abdomen is mostly on the right side. I am going to order for an ultrasound to check for gallstones. She looks well overall I will see her in the office after her ultrasound. Coding Level of Care Code New Pt Level 3 (56762) Diagnoses Abnormal CT scan, gastrointestinal tract R93.3
[2023-11-23 09:13] VITALS: BP 137/80; PULSE 77; BMI 26.3
== END 2023-11-23 09:26 | disposition home or self-care (01) ==
PROVIDERS: PCP Internal Medicine; Visit Provider Surgery
DX: R93.3 Abnormal findings on diagnostic imaging of other parts of digestive tract (principal)
CPT/HCPCS: 99213

== ENCOUNTER → 2023-11-23 09:04 | Outpatient (BNVA) | payer OTHER, SELFPAY | PROVIDERS: PCP Internal Medicine; Visit Provider Surgery | DX: R93.3 Abnormal findings on diagnostic imaging of other parts of digestive tract (principal) | CPT/HCPCS: 99212 ==

== ENCOUNTER 2023-12-04 08:15 | Outpatient (REF) | payer OTHER, SELFPAY ==
--- NOTE | ~2023-12-04 | US_ITS ---
EXAMINATION: US ABDOMEN LIMITED CLINICAL INFORMATION: Abnormal findings on diagnostic imaging of other parts of digestive tract. COMPARISON: CT abdomen and pelvis 11/15/2023. Ultrasound abdomen 09/13/2016 and 09/30/2014. TECHNIQUE: Real-time imaging of the right upper quadrant abdominal viscera. FINDINGS: PANCREAS: Normal. LIVER: The liver is normal in size. The liver contour is normal. Parenchymal echogenicity is normal. No focal hepatic lesion. There is no intrahepatic biliary duct dilatation seen. GALLBLADDER: Normal. The gallbladder is physiologically distended without evidence of stones, sludge, polyps, wall thickening or pericholecystic fluid. COMMON BILE DUCT: Normal in caliber measuring 0.2 cm in diameter. RIGHT KIDNEY: Normal. No hydronephrosis. No renal calculi or focal parenchymal lesions. The kidney measures 10.8 cm in maximum dimension. FREE FLUID: None. US/US abdomen limited IMPRESSION: Unremarkable right upper quadrant abdominal ultrasound.
== END 2023-12-04 08:16 | disposition home or self-care (01) ==
LOC: HO.US 08:15
PROVIDERS: PCP Internal Medicine; Visit Provider Surgery
DX: R93.3 Abnormal findings on diagnostic imaging of other parts of digestive tract (principal)
CPT/HCPCS: 76705

== ENCOUNTER 2023-12-12 10:09 | Outpatient (AMB) | payer OTHER, SELFPAY ==
[2023-12-12 10:11] VITALS: BP 134/90; PULSE 82; BMI 26.0
--- NOTE | 2023-12-12 10:11 | MHC.OFFVIS ---
Vital Signs 12/12/23 10:11 Height 5 ft 6 in Weight 160 lb 14.999 oz BMI 26.0 BP 134/90 H Blood Pressure Location Lt brachial Position Sitting Pulse 82 Intake Visit Reasons: Gastroesophageal reflux disease (GERD) Intake Note: Patient returns to in office follow up of GERD and Xrays. CC: Patient c/o abdominal pain. Denies other GI symptoms. Group Care Worker Required: Yes Accompanied by: Self / Same As Patient Allergies doxycycline Allergy (Severe, Verified 12/27/23 11:39) tongue swelling morphine [MORPHINE] Allergy (Intermediate, Verified 12/27/23 11:39) RASH, headache, redness, throat swelling sumatriptan [From IMITREX] Allergy (Mild, Verified 12/27/23 11:39) ITCHING azithromycin Allergy (Unknown, Verified 12/27/23 11:39) facial redness Penicillins [PENICILLINS] Allergy (Unknown, Verified 12/27/23 11:39) ANAPHYLAXIS vancomycin Adverse Reaction (Verified 12/27/23 11:39) Itching HPI HPI Gastroesophageal reflux disease (GERD): Details: Assessment & Plan (1) GERD (gastroesophageal reflux disease): Code(s): K21.9 - Gastro-esophageal reflux disease without esophagitis (2) Irritable bowel syndrome with both constipation and diarrhea: Code(s): K58.2 - Mixed irritable bowel syndrome (3) Sarcoidosis: Comment: history of sarcoid in cervical node biopsy 2018 Code(s): D86.9 - Sarcoidosis, unspecified (4) Back pain: Comment: radiating to leg on left side Code(s): M54.9 - Dorsalgia, unspecified Plan [place] #Alec, Live She is taking all of the medicines and her diarrhea has stopped. She still has the pain that starts in the right upper quadrant but now she is experiencing it on both sides and on the left definitely radiates to the back. When she has pain on the left she is also having pain that radiates into her legs. The pain tends to come every day but it is intermittent and not related to eating or moving her bowels. It lasts about 15 minutes in his quite severe when she gets it. She can not really tie it to activity or time of day. It is relieved by putting hot packs on the area. So far it does not seem to have been affected by the dicyclomine. Her sister has some sort of diverticulitis and colon problems and her mother from sepsis after and strangulated hernia and a colon perforation. So she worries a lot about her colon. She did have a colonoscopy couple years ago after she would diverticulitis. At this point I am going to get some x-rays to take a look at her thoracic and lumbar spine to see if this is a contributing problem. Depending on the results of this test I may consider moving her to imipramine for better pain control if I do think that this is colon spasm. The pain certainly does seem to be following the path of the colon. She had a CT scan a few months back that did not show gallstones but certainly she could have biliary dyskinesia and we may need to consider a HIDA scan. It is interesting to note that she seems to have thyroid antibodies and could have thyroid fluctuations affecting her bowels as well. Right now the TSH and free T4 normal and I soon her primary care is monitoring this. For now no changes in medicines and getXR depending on the outcome of the x-rays I might consider putting her on imipramine for stronger pain control of I think it is bowel spasm. ROV 2 weeks. Orders: Orders XR lumbar spine 2-3V Today M54.9 - Dorsalgia, unspecified XR thoracic spine 2V Today M54.9 - Dorsalgia, unspecified X-RAYS OF THE LUMBAR THORACIC SPINE Not obtained REVIEW OF ER NOTES MDM Narrative: 38-year-old female with past medical history as documented above presents for evaluation of upper abdominal pain that got worse after eating today. She has a long history of gastritis. She reports that she lives up with GI next month. She has been taking pantoprazole without any improvement in her symptoms. She had a cardiac workup that was unremarkable, troponin is negative x2, EKG is normal sinus rhythm with a rate of [address] segment elevations or depressions. She had a CT scan of the abdomen pelvis that did not show any acute findings. The loops of small bowel lateral to the left colon raising question of internal hernia. The patient can be referred To General surgery regarding this. She has ruled out for ACS, clinically I think her symptoms are most likely related to GERD/peptic ulcer disease. There was no evidence of gallstones or pericholecystic fluid on her CT scan Your workup in the ER today was reassuring. Your CT scan did show concern for internal hernia which she may follow-up with general surgery for. It is important that you follow-up with your GI doctor, as you may benefit from an upper endoscopy Continue taking your pantoprazole. You may use Maalox as needed for breakthrough abdominal pain I recommend avoiding spicy, greasy foods, as this may exacerbate your symptoms CT ABD AND PELVIS 11/15/23 FINDINGS: LUNG BASES: The visualized lung bases are unremarkable. LIVER, GALLBLADDER, AND BILIARY TREE: The liver is normal in size, shape, and attenuation. No focal hepatic lesion or biliary ductal dilatation is present. The gallbladder is unremarkable with no evidence of radiopaque gallstones, gallbladder wall thickening, or obvious pericholecystic inflammatory changes. PANCREAS: Unremarkable. SPLEEN: Unremarkable. ADRENAL GLANDS: Unremarkable. KIDNEYS AND URETERS: The kidneys are normal in size, shape, and attenuation. No hydronephrosis, hydroureter, or calculi seen. No perinephric stranding. BLADDER: Unremarkable. GASTROINTESTINAL TRACT: There are loops of small bowel lateral to the left colon raising questionable for internal hernia. There is no evidence of obstruction. The small and large bowel are otherwise unremarkable. The appendix is not seen. ABDOMINAL WALL: No significant hernia is appreciated. LYMPH NODES: Normal. VASCULAR: Unremarkable. PELVIC VISCERA: Unremarkable. OSSEOUS STRUCTURES: Degenerative disc disease at L5-S1. CT/CT abdomen pelvis wo IV con IMPRESSION: No acute findings. There are loops of small bowel lateral to the left colon raising question of internal hernia. No evidence of obstruction. Laboratory Tests 07/04/23 09:44 Thyroglobulin Antibody 17 H Thyroid Peroxidase Ab 137 H TODAYS VISIT [place] #[id number] She has been so, so She was in the hospital for pain x 2 across the upper abd and radiating to the back on the left side. The ER discovered possible internal hernia of the small bowel to the left lateral of the left colon. She was referred to surgery for this and saw Dr. Jaffe, but he seemed to misunderstand the pain location since she will experience it on both sides but more on the left with radiation to the left back. He ordered an US, but they only evaluated the right side and not the side with the suspected hernia. I will get a small bowel follow through study to try to improve the dx. She has had some relief with the liquid gas relief (Mylanta) and with the addition of pantoprozole 20mg by the ER, increasing to 40mg with her famotidine qhs. Still her pain is intermittent and she does not know the triggers (her mother of a perforation of the colon) She is trying to eat less fat and cut out soda. She is moving her bowels daily and at times she has mucus with the BM, but she notes that the mucus occurs with the pain. I needs to send a note to coordinate with Dr. Jaffe. She will be seeing him again tomorrow. She is unsure if she is taking the bentyl which may be helpful to her. She also has toe pain with her abd pain and says this is how her mother presented with her colon problems (? vasculitis???). 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 ROV 4 weeks. REPLACED BY [facility] Medical History Abnormal CT scan, gastrointestinal tract GERD (gastroesophageal reflux disease) Chronic idiopathic constipation Mild recurrent major depression Umbilical hernia Sarcoidosis Asthma Surgical History History of umbilical hernia repair H/O esophagogastroduodenoscopy History of tubal ligation Previous section History of appendectomy Family History Father Essential hypertension Arthritis CAD (coronary artery disease) Mother Essential hypertension Diabetes mellitus Social History Housing: Apartment Alcohol intake: never Patient Tobacco Use Status: Former Tobacco user Tobacco use type: Cigarette e-Cigarette/Vaping Use: Never Used Second Hand Smoke Exposure: No service: No Current occupational status: employed Current occupational exposures/hazards: No Cognitive needs: No Hearing needs: No Vision needs: No Review of Systems Const Denies fatigue, Denies fever(s), Denies night sweats, Denies poor appetite and Denies weight loss ENT Reports Normal hearing present, Denies dental pain, Denies dysphagia, Denies hearing loss, Denies mouth pain, Denies odynophagia, Denies throat swelling, Denies tongue swelling and Reports other (Dentition adequate) Card Reports no additional complaints Resp Reports no additional complaints GI Details: Reports abdominal pain, Denies melena, Denies bloating, Denies hematochezia, Denies constipation, Denies GI cramping, Denies dysphagia, Denies excessive flatus, Denies early satiety, Reports heartburn, Denies diarrhea, Denies nausea, Denies odynophagia, Denies vomiting and Denies hematemesis Skin/Breast Denies pruritus, Denies lesions, Denies rash and Denies jaundice Neuro Reports Normal hearing present and Denies Abnormal speech present Endo Denies fatigue Aller/Immun Denies throat swelling and Denies tongue swelling Physical Exam Vital Signs: Last Vital Signs Pulse 82 12/12/23 10:11 BP 134/90 H 12/12/23 10:11 BMI result Body Mass Index 26.0 Const General: cooperative, no acute distress, well developed and well groomed Nutritional Appearance: average body habitus and well nourished Orientation/consciousness: oriented to person, oriented to place and oriented to time Limitations: language barrier HEENT Head: Yes normocephalic and Yes atraumatic Eyes General: appearance normal, both eyes and all related structures Pupils: Equal, round and reactive pupils present Neck Neck: Yes normal visual inspection and Yes no lymphadenopathy Thyroid: Thyroid normal Resp Effort & Inspection: normal respiratory effort and able to speak in complete sentences Auscultation: clear to auscultation bilaterally Cardio Rate: regular rate Rhythm: regular rhythm Heart sounds: Normal, physiologic split S2 sound present Peripheral pulses: radial pulses present and posterior tibial pulses present GI Inspection: No distended and No Abdominal panniculus present Palpation (GI): Soft to palpation, Tenderness to palpation present (GI) periumbilically, no guarding, not rigid and No hepatosplenomegaly present Percussion: Yes normal to percussion Auscultation: normal bowel sounds Rectal Exam - Female: deferred Skin General skin exam: no rashes or lesions noted, turgor normal, skin not dry, no jaundice, No spider nevi and no striae Rashes: no rashes Nails: normal Neuro General: oriented to person, oriented to place and oriented to time Cranial nerves: Yes Equal, round and reactive pupils present and Yes Normal hearing present Speech: No Abnormal speech present Extrem General: Yes normal to inspection, No clubbing, No cyanosis and No edema Psych Appearance: grossly normal and well kempt Mental Status: mental status grossly normal Speech and movement: Normal speech and movement present Affect: normal affect Attitude: cooperative Thought process: Normal thought process present and not confabulating Thought content: Normal thought content present Insight: Limited insight present (Psych) Judgement: Limited judgement present (Psych) Results Reviewed Results Reviewed: REVIEW OF ER NOTES MDM Narrative: 38-year-old female with past medical history as documented above presents for evaluation of upper abdominal pain that got worse after eating today. She has a long history of gastritis. She reports that she lives up with GI next month. She has been taking pantoprazole without any improvement in her symptoms. She had a cardiac workup that was unremarkable, troponin is negative x2, EKG is normal sinus rhythm with a rate of [address] segment elevations or depressions. She had a CT scan of the abdomen pelvis that did not show any acute findings. The loops of small bowel lateral to the left colon raising question of internal hernia. The patient can be referred To General surgery regarding this. She has ruled out for ACS, clinically I think her symptoms are most likely related to GERD/peptic ulcer disease. There was no evidence of gallstones or pericholecystic fluid on her CT scan Your workup in the ER today was reassuring. Your CT scan did show concern for internal hernia which she may follow-up with general surgery for. It is important that you follow-up with your GI doctor, as you may benefit from an upper endoscopy Continue taking your pantoprazole. You may use Maalox as needed for breakthrough abdominal pain I recommend avoiding spicy, greasy foods, as this may exacerbate your symptoms CT ABD AND PELVIS 11/15/23 FINDINGS: LUNG BASES: The visualized lung bases are unremarkable. LIVER, GALLBLADDER, AND BILIARY TREE: The liver is normal in size, shape, and attenuation. No focal hepatic lesion or biliary ductal dilatation is present. The gallbladder is unremarkable with no evidence of radiopaque gallstones, gallbladder wall thickening, or obvious pericholecystic inflammatory changes. PANCREAS: Unremarkable. SPLEEN: Unremarkable. ADRENAL GLANDS: Unremarkable. KIDNEYS AND URETERS: The kidneys are normal in size, shape, and attenuation. No hydronephrosis, hydroureter, or calculi seen. No perinephric stranding. BLADDER: Unremarkable. GASTROINTESTINAL TRACT: There are loops of small bowel lateral to the left colon raising questionable for internal hernia. There is no evidence of obstruction. The small and large bowel are otherwise unremarkable. The appendix is not seen. ABDOMINAL WALL: No significant hernia is appreciated. LYMPH NODES: Normal. VASCULAR: Unremarkable. PELVIC VISCERA: Unremarkable. OSSEOUS STRUCTURES: Degenerative disc disease at L5-S1. CT/CT abdomen pelvis wo IV con IMPRESSION: No acute findings. There are loops of small bowel lateral to the left colon raising question of internal hernia. No evidence of obstruction. Laboratory Tests 07/04/23 09:44 Thyroglobulin Antibody 17 H Thyroid Peroxidase Ab 137 H Assessment & Plan Assessment & Plan (1) Colitis: Code(s): K52.9 - Noninfective gastroenteritis and colitis, unspecified Category: Medical (2) Irritable bowel syndrome with both constipation and diarrhea: Code(s): K58.2 - Mixed irritable bowel syndrome Category: Medical (3) GERD (gastroesophageal reflux disease): Code(s): K21.9 - Gastro-esophageal reflux disease without esophagitis Category: Medical (4) Sarcoidosis: Comment: history of sarcoid in cervical node biopsy 2019 Code(s): D86.9 - Sarcoidosis, unspecified Category: Medical (5) Abnormal CT scan, gastrointestinal tract: Comment: left possible small bowel internal hernia, see CT scan Code(s): R93.3 - Abnormal findings on diagnostic imaging of other parts of digestive tract Category: Medical (6) Abdominal pain: Code(s): R10.9 - Unspecified abdominal pain Category: Medical Plan [place] #[id number] She has been so, so She was in the hospital for pain x 2 across the upper abd and radiating to the back on the left side. The ER discovered possible internal hernia of the small bowel to the left lateral of the left colon. She was referred to surgery for this and saw Dr. Jaffe, but he seemed to misunderstand the pain location since she will experience it on both sides but more on the left with radiation to the left back. He ordered an US, but they only evaluated the right side and not the side with the suspected hernia. I will get a small bowel follow through study to try to improve the dx. She has had some relief with the liquid gas relief (Mylanta) and with the addition of pantoprozole 20mg by the ER, increasing to 40mg with her famotidine qhs. Still her pain is intermittent and she does not know the triggers (her mother of a perforation of the colon) She is trying to eat less fat and cut out soda. She is moving her bowels daily and at times she has mucus with the BM, but she notes that the mucus occurs with the pain. I needs to send a note to coordinate with Dr. Jaffe. She will be seeing him again tomorrow. She is unsure if she is taking the bentyl which may be helpful to her. She also has toe pain with her abd pain and says this is how her mother presented with her colon problems (? vasculitis???). 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 ROV 4 weeks. Orders: Orders [place] upper GI small bowel 12/12/23 R93.3 - Abnormal findings on diagnostic imaging of other parts of digestive tract CHIDI Reflex Titer and Pattern 12/12/23 R93.3 - Abnormal findings on diagnostic imaging of other parts of digestive tract, D86.9 - Sarcoidosis, unspecified, K52.9 - Noninfective gastroenteritis and colitis, unspecified Erythrocyte Sedimentation Rate 12/12/23 R93.3 - Abnormal findings on diagnostic imaging of other parts of digestive tract, D86.9 - Sarcoidosis, unspecified, K52.9 - Noninfective gastroenteritis and colitis, unspecified ANCA Vasculitides 12/12/23 R93.3 - Abnormal findings on diagnostic imaging of other parts of digestive tract, D86.9 - Sarcoidosis, unspecified, K52.9 - Noninfective gastroenteritis and colitis, unspecified C Reactive Protein 12/12/23 R93.3 - Abnormal findings on diagnostic imaging of other parts of digestive tract, D86.9 - Sarcoidosis, unspecified, K52.9 - Noninfective gastroenteritis and colitis, unspecified TSH reflex Free T4 12/12/23 R93.3 - Abnormal findings on diagnostic imaging of other parts of digestive tract, D86.9 - Sarcoidosis, unspecified, K52.9 - Noninfective gastroenteritis and colitis, unspecified Medications: New pantoprazole (Protonix) 40 mg PO DAILY 30 tabs 6RF 30 days K21.9 - Gastro-esophageal reflux disease without esophagitis Refilled alum-mag hydroxide-simeth 200-200-20 mg/5 mL (Mag-Al Plus) administer between meals and at bedtime 10 mL PO QID PRN 3,000 mL 6RF dyspepsia magnesium oxide may hold for loose stools 400 mg PO BEDTIME 30 tabs 6RF 30 days Discontinued pantoprazole Discontinued Reason: Doctor's Order 20 mg PO DAILY 30 tabs 0RF K21.9 - Gastro-esophageal reflux disease without esophagitis Coding Level of Care Code Est Pt Level 4 (08419) Diagnoses Colitis K52.9 Irritable bowel syndrome with both constipation and diarrhea K58.2 GERD (gastroesophageal reflux disease) K21.[address] scan, gastrointestinal tract R93.3 Abdominal pain R10.9
== END 2023-12-12 10:45 | disposition home or self-care (01) ==
PROVIDERS: PCP Internal Medicine; Visit Provider Nurse Practitioner
DX: K58.2 Mixed irritable bowel syndrome (principal); K21.9 Gastro-esophageal reflux disease without esophagitis; D86.9 Sarcoidosis, unspecified; R93.3 Abnormal findings on diagnostic imaging of other parts of digestive tract
CPT/HCPCS: 99214

== ENCOUNTER 2023-12-12 10:09 | Outpatient (REF) | payer OTHER, SELFPAY ==
--- NOTE | ~2023-12-12 | XR_ITS ---
EXAMINATION: XR LUMBOSACRAL SPINE CLINICAL INFORMATION: Dorsalgia, unspecified COMPARISON: 07/27/2017 TECHNIQUE: Three views of the lumbosacral spine. FINDINGS: There is mild curve of the lumbar spine, convex left. There are 5 nonrib-bearing lumbar-type vertebral bodies. The height of the vertebral bodies is well-maintained. There is disc space narrowing with marginal osteophyte formation at L5-S1. There is mild retrolisthesis of L2 with respect to L3. There is mild degenerative facet joint disease L5-S1. XR/XR lumbar spine 2-3V IMPRESSION: 1. Mild curve of the lumbar spine, convex left. 2. Degenerative disc disease at L5-S1. 3. Mild retrolisthesis of L2 with respect to L3.
--- NOTE | ~2023-12-12 | XR_ITS ---
EXAMINATION: XR THORACOLUMBAR SPINE CLINICAL INFORMATION: There is L2, unspecified COMPARISON: 07/27/2017 TECHNIQUE: AP, lateral and Swimmer's view of the thoracic spine FINDINGS: There is mild curve of the upper thoracic spine, convex left and the lower thoracic spine convex right. The height of vertebral bodies is well-maintained. No intrinsic bony abnormality. The disc heights and neural foramina are well maintained. The endplates and posterior elements are normal. No fracture or subluxation. The surrounding prevertebral soft tissues are unremarkable. XR/XR thoracic spine 2V IMPRESSION: Mild curve of the upper thoracic spine, convex left and the lower thoracic spine convex right.
[2023-12-12 12:52] LABS: Erythrocyte Sedimentation Rate 13 MM/HR (0-20)
[2023-12-12 12:53] LABS: C Reactive Protein 0.36 mg/dL (< or = 0.50)
[2023-12-12 13:13] LABS: TSH reflex Free T4 2.02 uIU/mL (0.32-4.0)
[2023-12-13 20:55] LABS: Myeloperoxidase Antibody <1.0 AI; Proteinase 3 PR3 Antibodies <1.0 AI
[2023-12-16 21:29] LABS: Anti Nuclear Antibody Screen NEGATIVE (NEGATIVE)
== END 2023-12-12 10:10 | disposition home or self-care (01) ==
LOC: HO.LAB 10:09
PROVIDERS: PCP Internal Medicine; Visit Provider Nurse Practitioner
DX: K58.2 Mixed irritable bowel syndrome (principal); K21.9 Gastro-esophageal reflux disease without esophagitis; D86.9 Sarcoidosis, unspecified; R93.3 Abnormal findings on diagnostic imaging of other parts of digestive tract; R10.9 Unspecified abdominal pain
CPT/HCPCS: 36415; 72070; 72100; 84443; 85652; 86021; 86038; 86140; 99212

== ENCOUNTER 2023-12-27 11:33 | Outpatient (AMB) | payer OTHER, SELFPAY ==
--- NOTE | 2023-12-27 11:35 | MHC.OFFVIS ---
Vital Signs 12/27/23 11:38 Height 5 ft 6 in Weight 160 lb 14.999 oz BMI 26.0 Intake Visit Reasons: US follow-up Intake Note: This patient presents for a follow-up assessment for Ultrasound results. Pt c/o; reports no complaints at this time. 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: Cb Information Interpreted: non-clinical & clinical Accompanied by: Self / Same As Patient Allergies doxycycline Allergy (Severe, Verified 12/27/23 11:39) tongue swelling morphine [MORPHINE] Allergy (Intermediate, Verified 12/27/23 11:39) RASH, headache, redness, throat swelling sumatriptan [From IMITREX] Allergy (Mild, Verified 12/27/23 11:39) ITCHING azithromycin Allergy (Unknown, Verified 12/27/23 11:39) facial redness Penicillins [PENICILLINS] Allergy (Unknown, Verified 12/27/23 11:39) ANAPHYLAXIS vancomycin Adverse Reaction (Verified 12/27/23 11:39) Itching Medication List - Last Reconciled 12/27/23 by Doroteo Jaffe MD alum-mag hydroxide-simeth 200-200-20 mg/5 mL (Mag-Al Plus) 10 mL PO QID PRN bisacodyl (Dulcolax (bisacodyl)) 10 mg (2 x 5 mg) PO BEDTIME 30 days cholecalciferol (vitamin D3) (Vitamin D3) 1 cap PO DAILY cyclobenzaprine 10 mg PO TID PRN dicyclomine 20 mg PO QID 30 days docusate sodium 100 mg PO BID escitalopram oxalate 5 mg PO DAILY famotidine 40 mg PO BEDTIME fluticasone propionate 50 mcg/actuation 1 spray intranasal BID PRN ipratropium-albuterol 0.5 mg-3 mg(2.5 mg base)/3 mL 3 mL inhalation Q4H PRN lidocaine 5% 1 patch topical DAILY magnesium oxide 400 mg PO BEDTIME 30 days naproxen 1 tab PO BID PRN nebulizers (VixOne Nebulizer-Adult Mask) As directed pantoprazole (Protonix) 40 mg PO DAILY 30 days riboflavin (vitamin B2) 400 mg PO DAILY 30 days simethicone (Gas Relief (simethicone)) 180 mg PO BID Symbicort 160-4.5 mcg/actuation (budesonide-formoterol) 2 puffs inhalation BID 90 days NS tiotropium bromide 2.5 mcg/actuation (Spiriva Respimat) 2 puffs inhalation QAM 90 days ubrogepant (Ubrelvy) 50 - 100 mg (0.5 - 1 x 100 mg) PO ONCE PRN 30 days Ventolin HFA 90 mcg/actuation (albuterol sulfate) 2 puffs inhalation Q6H PRN NS HPI HPI US follow-up: Details: She is here for follow-up after I sent her for an ultrasound. She had described some right upper quadrant pain. She currently says she feels well. She has good oral intake. She describes some chronic constipation. [facility] Medical History Abnormal CT scan, gastrointestinal tract GERD (gastroesophageal reflux disease) Chronic idiopathic constipation Mild recurrent major depression Umbilical hernia Sarcoidosis Asthma Surgical History History of umbilical hernia repair H/O esophagogastroduodenoscopy History of tubal ligation Previous section History of appendectomy Family History Father Essential hypertension Arthritis CAD (coronary artery disease) Mother Essential hypertension Diabetes mellitus Social History Housing: Apartment Alcohol intake: never Patient Tobacco Use Status: Former Tobacco user Quit Date: 2012 Tobacco use type: Cigarette e-Cigarette/Vaping Use: Never Used Second Hand Smoke Exposure: No service: No Current occupational status: employed Current occupational exposures/hazards: No Cognitive needs: No Hearing needs: No Vision needs: No Review of Systems Const Denies chills and Denies fever(s) Card Denies chest pain, Denies dyspnea and Denies dyspnea on exertion Resp Denies cough, Denies dyspnea and Denies dyspnea on exertion GI Denies hematochezia and Denies change in bowel habits Denies hematuria Musc Denies back pain and Denies limited range of motion Neuro Denies focal weakness and Denies convulsions Psych Denies depression and Denies mood swings Physical Exam Vital Signs: BMI result Body Mass Index 26.0 Const General: comfortable and no acute distress Orientation/consciousness: patient oriented x3 Neck Neck: Yes no lymphadenopathy Resp Auscultation: clear to auscultation bilaterally Cardio Rhythm: regular rhythm GI Palpation (GI): Soft to palpation, nontender and no guarding Neuro General: patient oriented x3 Assessment & Plan Assessment & Plan (1) Abnormal CT scan, gastrointestinal tract: Comment: left possible small bowel internal hernia, see CT scan Code(s): R93.3 - Abnormal findings on diagnostic imaging of other parts of digestive tract Category: Medical Plan: I had sent her for an ultrasound of the right upper quadrant because of her complaints of occasional right upper quadrant pain. This was unremarkable and did not reveal any gallstones. She is concerned about the finding of a question of an internal hernia on the CT scan. However clinically, she has not presenting with somebody with an internal hernia. Her abdominal exam is very benign and she is not obstructed at all I told her that we can follow her in the office and I may repeat her CT scan in a month or 2 if she continues to have symptoms of abdominal pain. She has comfortable with the plan as above. Coding Level of Care Code Est Pt Level 3 (08071) Diagnoses Abnormal CT scan, gastrointestinal tract R93.3
[2023-12-27 11:38] VITALS: BMI 26.0
== END 2023-12-27 12:12 | disposition home or self-care (01) ==
PROVIDERS: PCP Internal Medicine; Visit Provider Surgery
DX: R93.3 Abnormal findings on diagnostic imaging of other parts of digestive tract (principal)
CPT/HCPCS: 99213

== ENCOUNTER → 2023-12-27 11:33 | Outpatient (BNVA) | payer OTHER, SELFPAY | PROVIDERS: PCP Internal Medicine; Visit Provider Surgery | DX: R93.3 Abnormal findings on diagnostic imaging of other parts of digestive tract (principal) | CPT/HCPCS: 99212 ==

== ENCOUNTER 2024-01-25 09:17 | Outpatient (AMB) | payer OTHER, SELFPAY ==
[2024-01-25 09:26] VITALS: BP 112/62; PULSE 80; O2SAT 99; BMI 25.4
--- NOTE | 2024-01-25 09:26 | MHC.OFFVIS ---
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 Required: Yes Adding Machine Servicer Name: Yasmeen Jolly Harley.L.Angel Allergies doxycycline Allergy (Severe, Verified 12/27/23 11:39) tongue swelling morphine [MORPHINE] Allergy (Intermediate, Verified 12/27/23 11:39) RASH, headache, redness, throat swelling sumatriptan [From IMITREX] Allergy (Mild, Verified 12/27/23 11:39) ITCHING azithromycin Allergy (Unknown, Verified 12/27/23 11:39) facial redness Penicillins [PENICILLINS] Allergy (Unknown, Verified 12/27/23 11:39) ANAPHYLAXIS vancomycin Adverse Reaction (Verified 12/27/23 11:39) Itching HPI HPI Asthma: Details: 38-year-old lady, nonsmoker, followed for underlying sarcoidosis (diagnosed with?cervical node biopsy) and moderate to severe persistent asthma.? She has been using Spiriva, Symbicort duo nebs, and albuterol MDI still with suboptimal control of her symptoms. Patient appears to have significant anxiety/air trapping component to her symptoms. She denies acute exacerbations. She is completed immunologic workup that shows no significant allergic component to her symptoms at this time. [facility] Medical History Abnormal CT scan, gastrointestinal tract GERD (gastroesophageal reflux disease) Chronic idiopathic constipation Mild recurrent major depression Umbilical hernia Sarcoidosis Asthma Surgical History History of umbilical hernia repair H/O esophagogastroduodenoscopy History of tubal ligation Previous section History of appendectomy Family History Father Essential hypertension Arthritis CAD (coronary artery disease) Mother Essential hypertension Diabetes mellitus Social History Housing: Apartment Alcohol intake: never Patient Tobacco Use Status: Former Tobacco user Tobacco use type: Cigarette e-Cigarette/Vaping Use: Never Used Second Hand Smoke Exposure: No service: No Current occupational status: employed Current occupational exposures/hazards: No Cognitive needs: No Hearing needs: No Vision needs: No Review of Systems Const Denies daytime sleepiness, Denies excessive sweating, Denies fatigue, Denies fever(s), Denies lethargy, Denies malaise, Denies night sweats, Denies snoring and Denies weight loss Eyes Denies blurry vision and Denies itchy eyes ENT Denies nasal congestion, Denies post nasal drip, Denies sinus pain, Denies sinus pressure and Denies other ( Thrush) Card Denies chest pain, Denies pedal edema, Denies dyspnea, Denies orthopnea and Denies paroxysmal nocturnal dyspnea Resp Denies cough, Denies hemoptysis, Denies excessive phlegm production, Denies dyspnea, Denies snoring and Denies wheezing GI Denies abdominal pain and Denies heartburn Musc Denies myalgias, Denies arthralgias and Denies joint swelling Skin/Breast Denies rash Neuro Denies memory loss and Denies seizure-like activity Psych Denies abnormal sleep pattern, Denies anxiety and Denies memory loss Endo Denies excessive sweating, Denies fatigue and Denies heat intolerance Jacky/Lymph Denies easy bruising Aller/Immun Denies itchy eyes, Denies seasonal rhinorrhea and Denies wheezing Physical Exam Vital Signs: Last Vital Signs Pulse 80 01/25/24 09:26 BP 112/62 01/25/24 09:26 Pulse Ox 99 01/25/24 09:26 Oxygen Delivery Method Room Air 01/25/24 09:26 BMI result Body Mass Index 25.4 Const General: no acute distress and alert Nutritional Appearance: not obese Orientation/consciousness: Other orientation findings ( oriented) HEENT Head: Yes atraumatic Eyes General: appearance normal, both eyes and all related structures Sclerae: sclerae normal EOM: EOMs intact bilaterally Neck Neck: Yes supple Lymphatic: no lymphadenopathy noted Resp Effort & Inspection: normal respiratory effort and no use of accessory muscles Auscultation: clear to auscultation bilaterally Cardio Rate: regular rate Rhythm: regular rhythm Heart sounds: no gallops, no murmurs and no rubs Skin General skin exam: other ( warm) Extrem General: No clubbing, No cyanosis and No edema Assessment & Plan Assessment & Plan (1) Asthma: Code(s): J45.909 - Unspecified asthma, uncomplicated Category: Medical Plan: Baseline control on Symbicort, Spiriva, duo nebs, and albuterol MDI. (2) Sarcoidosis: Comment: history of sarcoid in cervical node biopsy 2019 Code(s): D86.9 - Sarcoidosis, unspecified Category: Medical Plan: No recent exacerbations. Continue to monitor clinically. (3) Pulmonary air trapping: Code(s): R09.89 - Other specified symptoms and signs involving the circulatory and respiratory systems Category: Medical Plan: Also significant air trapping component to her asthma symptoms. Will add hydroxyzine. Medications: New hydroxyzine HCl 25 mg PO DAILY 30 tabs 2RF Coding Level of Care Code Est Pt Level 4 (30728) Diagnoses Asthma J45.909 Sarcoidosis D86.9 Pulmonary air trapping R09.89
== END 2024-01-25 09:56 | disposition home or self-care (01) ==
PROVIDERS: PCP Internal Medicine; Visit Provider Internal Medicine Pulmonary Disease
DX: J45.909 Unspecified asthma, uncomplicated (principal); D86.9 Sarcoidosis, unspecified; R09.89 Other specified symptoms and signs involving the circulatory and respiratory systems
CPT/HCPCS: 99214

== ENCOUNTER → 2024-01-25 09:17 | Outpatient (BNVA) | payer OTHER, SELFPAY | PROVIDERS: PCP Internal Medicine; Visit Provider Internal Medicine Pulmonary Disease | DX: J45.909 Unspecified asthma, uncomplicated (principal); R09.89 Other specified symptoms and signs involving the circulatory and respiratory systems; D86.9 Sarcoidosis, unspecified | CPT/HCPCS: 99212 ==

== ENCOUNTER 2024-02-15 08:29 | Outpatient (REF) | payer OTHER, SELFPAY ==
--- NOTE | ~2024-02-15 | FL_ITS ---
EXAMINATION: XR UPPER GI SERIES WITH SMALL BOWEL FOLLOW-THROUGH CLINICAL INFORMATION: Abdominal pain. Concern for internal hernia on recent CT October 2023 COMPARISON: CT abdomen/pelvis October 2023 TECHNIQUE: Fluoroscopic air contrast upper GI examination was performed utilizing standard techniques with thin and thick barium and effervescent granules. Numerous spot images were obtained. FINDINGS: Dual and single contrast images of the esophagus demonstrate normal caliber, contour, and mucosal pattern. No evidence of stricture, mass, or ulcerations identified. Esophageal peristalsis was normal. No evidence of hiatus hernia identified. No significant gastroesophageal reflux was seen during the course of the examination and on reflux views. Dual contrast and single contrast images of the stomach demonstrated normal contour and mucosal pattern without evidence of mass, ulceration, or other abnormality. Contrast freely passed into the gastric antrum and duodenal bulb without delay. Single and air-contrast images of the duodenal bulb demonstrate no abnormality. The duodenal sweep has a normal appearance, course, and mucosal fold appearance. The imaged small bowel has a normal fold pattern and caliber. No dilated loops, strictures or masses are seen. No internal hernia is identified. Contrast is seen in the right colon at 60 minutes. FLUOROSCOPY TIME: 4 minutes Number of Spot Images: 9 Number of Cine: 11 DOSE AREA PRODUCT: [id number] uGy-m2 (microgray-meter squared) FL/FL upper GI small bowel IMPRESSION: 1. Unremarkable upper GI series 2. No internal hernia is identified. Contrast is observed in the right colon at 60 minutes. Normal small bowel series. This procedure was performed by Pedro Luis Barger PA-C, and supervised by Dr. Centeno
== END 2024-02-15 08:30 | disposition home or self-care (01) ==
LOC: HO.XRAY 08:29
PROVIDERS: Visit Provider Nurse Practitioner
DX: R93.3 Abnormal findings on diagnostic imaging of other parts of digestive tract (principal)
CPT/HCPCS: 74240; 74248

== ENCOUNTER → 2024-02-15 08:31 | Outpatient (BNV) | payer OTHER, SELFPAY | PROVIDERS: Visit Provider Physician Assistant Surgical | DX: R93.3 Abnormal findings on diagnostic imaging of other parts of digestive tract (principal) | CPT/HCPCS: 74246; 74248 ==

== ENCOUNTER 2024-02-28 11:48 | Outpatient (AMB) | payer OTHER, SELFPAY ==
[2024-02-28 11:52] VITALS: BP 128/84; PULSE 68; BMI 24.8
--- NOTE | 2024-02-28 11:52 | MHC.OFFVIS ---
Vital Signs 02/28/24 11:52 Height 5 ft 6 in Weight 153 lb 7.068 oz BMI 24.8 BP 128/84 Blood Pressure Location Lt brachial Position Sitting Pulse 68 Intake Visit Reasons: follow up r/s from 01/10 Intake Note: Ivet returns to in office follow up of labs and XR upper GI series. CC: Patient continues to have abdominal pain and stools with mucous substance. Denies other GI symptoms today. [employer] Required: Yes Accompanied by: Self / Same As Patient Allergies doxycycline Allergy (Severe, Verified 02/28/24 11:57) tongue swelling morphine [MORPHINE] Allergy (Intermediate, Verified 02/28/24 11:57) RASH, headache, redness, throat swelling sumatriptan [From IMITREX] Allergy (Mild, Verified 02/28/24 11:57) ITCHING azithromycin Allergy (Unknown, Verified 02/28/24 11:57) facial redness Penicillins [PENICILLINS] Allergy (Unknown, Verified 02/28/24 11:57) ANAPHYLAXIS vancomycin Adverse Reaction (Verified 02/28/24 11:57) Itching HPI HPI follow up r/s from 01/10: Details: Assessment & Plan (1) Colitis: Code(s): K52.9 - Noninfective gastroenteritis and colitis, unspecified Category: Medical (2) Irritable bowel syndrome with both constipation and diarrhea: Code(s): K58.2 - Mixed irritable bowel syndrome Category: Medical (3) GERD (gastroesophageal reflux disease): Code(s): K21.9 - Gastro-esophageal reflux disease without esophagitis Category: Medical (4) Sarcoidosis: Comment: history of sarcoid in cervical node biopsy 2019 Code(s): D86.9 - Sarcoidosis, unspecified Category: Medical (5) Abnormal CT scan, gastrointestinal tract: Comment: left possible small bowel internal hernia, see CT scan Code(s): R93.3 - Abnormal findings on diagnostic imaging of other parts of digestive tract Category: Medical (6) Abdominal pain: Code(s): R10.9 - Unspecified abdominal pain Category: Medical Plan German #[id number] She has been so, so She was in the hospital for pain x 2 across the upper abd and radiating to the back on the left side. The ER discovered possible internal hernia of the small bowel to the left lateral of the left colon. She was referred to surgery for this and saw Dr. Jaffe, but he seemed to misunderstand the pain location since she will experience it on both sides but more on the left with radiation to the left back. He ordered an US, but they only evaluated the right side and not the side with the suspected hernia. I will get a small bowel follow through study to try to improve the dx. She has had some relief with the liquid gas relief (Mylanta) and with the addition of pantoprozole 20mg by the ER, increasing to 40mg with her famotidine qhs. Still her pain is intermittent and she does not know the triggers (her mother of a perforation of the colon) She is trying to eat less fat and cut out soda. She is moving her bowels daily and at times she has mucus with the BM, but she notes that the mucus occurs with the pain. I needs to send a note to coordinate with Dr. Jaffe. She will be seeing him again tomorrow. She is unsure if she is taking the bentyl which may be helpful to her. She also has toe pain with her abd pain and says this is how her mother presented with her colon problems (? vasculitis???). 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 ROV 4 weeks. Orders: Orders FL upper GI small bowel 12/12/23 R93.3 - Abnormal findings on diagnostic imaging of other parts of digestive tract CHIDI Reflex Titer and Pattern 12/12/23 R93.3 - Abnormal findings on diagnostic imaging of other parts of digestive tract, D86.9 - Sarcoidosis, unspecified, K52.9 - Noninfective gastroenteritis and colitis, unspecified Erythrocyte Sedimentation Rate 12/12/23 R93.3 - Abnormal findings on diagnostic imaging of other parts of digestive tract, D86.9 - Sarcoidosis, unspecified, K52.9 - Noninfective gastroenteritis and colitis, unspecified ANCA Vasculitides 12/12/23 R93.3 - Abnormal findings on diagnostic imaging of other parts of digestive tract, D86.9 - Sarcoidosis, unspecified, K52.9 - Noninfective gastroenteritis and colitis, unspecified C Reactive Protein 12/12/23 R93.3 - Abnormal findings on diagnostic imaging of other parts of digestive tract, D86.9 - Sarcoidosis, unspecified, K52.9 - Noninfective gastroenteritis and colitis, unspecified TSH reflex Free T4 12/12/23 R93.3 - Abnormal findings on diagnostic imaging of other parts of digestive tract, D86.9 - Sarcoidosis, unspecified, K52.9 - Noninfective gastroenteritis and colitis, unspecified Medications: New pantoprazole (Protonix) 40 mg PO DAILY 30 tabs 6RF 30 days K21.9 - Gastro-esophageal reflux disease without esophagitis Refilled alum-mag hydroxide-simeth 200-200-20 mg/5 mL (Mag-Al Plus) administer between meals and at bedtime 10 mL PO QID PRN 3,000 mL 6RF dyspepsia magnesium oxide may hold for loose stools 400 mg PO BEDTIME 30 tabs 6RF 30 days Discontinued pantoprazole Discontinued Reason: Doctor's Order 20 mg PO DAILY 30 tabs 0RF K21.9 - Gastro-esophageal reflux disease without esophagitis LABS: Laboratory Tests 12/12/23 11:13 ESR 13 C-Reactive Protein 0.36 TSH 2.02 CHIDI Screen NEGATIVE UPPER GI WITH SMALL-BOWEL FOLLOW-THROUGH 02/15/24 FINDINGS: Dual and single contrast images of the esophagus demonstrate normal caliber, contour, and mucosal pattern. No evidence of stricture, mass, or ulcerations identified. Esophageal peristalsis was normal. No evidence of hiatus hernia identified. No significant gastroesophageal reflux was seen during the course of the examination and on reflux views. Dual contrast and single contrast images of the stomach demonstrated normal contour and mucosal pattern without evidence of mass, ulceration, or other abnormality. Contrast freely passed into the gastric antrum and duodenal bulb without delay. Single and air-contrast images of the duodenal bulb demonstrate no abnormality. The duodenal sweep has a normal appearance, course, and mucosal fold appearance. The imaged small bowel has a normal fold pattern and caliber. No dilated loops, strictures or masses are seen. No internal hernia is identified. Contrast is seen in the right colon at 60 minutes. FLUOROSCOPY TIME: 4 minutes Number of Spot Images: 9 Number of Cine: 11 DOSE AREA PRODUCT: 2820 uGy-m2 (microgray-meter squared) FL/FL upper GI small bowel IMPRESSION: 1. Unremarkable upper GI series 2. No internal hernia is identified. Contrast is observed in the right colon at 60 minutes. Normal small bowel series. TODAYS VISIT German #Winsome Rodriguez We have made some progress in that she feels the pantoprazole in the morning is helping her as well as the increased dose of famotidine. She is also doing much better with the bloating using the Maalox liquid. She still will get the pain mostly between 8-9 in the evening in the upper abdomen. She also gets pain when she eats any kind of meat and she really likes to eat meat. The other puzzling presentation is that she will get the pain when she has the urge to urinate and this again is in the upper abdomen so I am uncertain how this relates. I think what we are going to do next is ask her to take note of whether or not the dicyclomine is helping when she remembers to take it. She admits that she will go for quite a while and be good about consistently taking it but then she may forget for a time. Today she really does not remember whether it makes a difference or not. Because of the bloating and the food intolerance along with what seems to be irritable bowel given her benign small-bowel follow-through study and inflammatory markers; I think will give her a trial of Creon twice a day. We do not think at this time she is taking either Colace or bisacodyl or the pill form of the simethicone. She continues on her magnesium supplement for constipation. Return office visit in 8 weeks to evaluate her response to the Creon. [facility] Medical History (Updated 02/28/24 @ 12:34 by LYNSEY Holcomb) Colitis Abnormal CT scan, gastrointestinal tract GERD (gastroesophageal reflux disease) Chronic idiopathic constipation Mild recurrent major depression Umbilical hernia Sarcoidosis Asthma Surgical History History of umbilical hernia repair H/O esophagogastroduodenoscopy History of tubal ligation Previous section History of appendectomy Family History Father Essential hypertension Arthritis CAD (coronary artery disease) Mother Essential hypertension Diabetes mellitus Social History Housing: Apartment Alcohol intake: never Patient Tobacco Use Status: Former Tobacco user Tobacco use type: Cigarette e-Cigarette/Vaping Use: Never Used Second Hand Smoke Exposure: No service: No Current occupational status: employed Current occupational exposures/hazards: No Cognitive needs: No Hearing needs: No Vision needs: No Review of Systems Const Denies fatigue, Denies fever(s), Denies night sweats, Denies poor appetite and Denies weight loss ENT Reports Normal hearing present, Denies dental pain, Denies dysphagia, Denies hearing loss, Denies mouth pain, Denies odynophagia, Denies throat swelling, Denies tongue swelling and Reports other (Dentition adequate) Card Reports no additional complaints Resp Reports no additional complaints GI Details: Reports abdominal pain, Denies melena, Reports bloating, Denies hematochezia, Reports constipation, Denies GI cramping, Denies dysphagia, Denies excessive flatus, Denies early satiety, Reports heartburn, Reports diarrhea, Denies nausea, Denies odynophagia, Denies vomiting and Denies hematemesis Skin/Breast Denies pruritus, Denies lesions, Denies rash and Denies jaundice Neuro Reports Normal hearing present and Denies Abnormal speech present Endo Denies fatigue Aller/Immun Denies throat swelling and Denies tongue swelling Physical Exam Vital Signs: Last Vital Signs Pulse 68 02/28/24 11:52 BP 128/84 02/28/24 11:52 BMI result Body Mass Index 24.8 Const General: cooperative, no acute distress, well developed and well groomed Nutritional Appearance: well nourished and overweight Orientation/consciousness: oriented to person, oriented to place and oriented to time Limitations: language barrier HEENT Head: Yes normocephalic and Yes atraumatic Eyes General: appearance normal, both eyes and all related structures Pupils: Equal, round and reactive pupils present Neck Neck: Yes normal visual inspection and Yes no lymphadenopathy Thyroid: Thyroid normal Resp Effort & Inspection: normal respiratory effort and able to speak in complete sentences Auscultation: clear to auscultation bilaterally Cardio Rate: regular rate Rhythm: regular rhythm Heart sounds: Normal, physiologic split S2 sound present Peripheral pulses: radial pulses present and posterior tibial pulses present GI Inspection: No distended, No Abdominal panniculus present and Yes obesity Palpation (GI): Soft to palpation, nontender, no guarding, not rigid and No hepatosplenomegaly present Percussion: Yes normal to percussion Auscultation: normal bowel sounds Rectal Exam - Female: deferred Skin General skin exam: no rashes or lesions noted, turgor normal, skin not dry, no jaundice, No spider nevi and no striae Rashes: no rashes Nails: normal Neuro General: oriented to person, oriented to place and oriented to time Cranial nerves: Yes Equal, round and reactive pupils present and Yes Normal hearing present Speech: No Abnormal speech present Extrem General: Yes normal to inspection, No clubbing, No cyanosis and No edema Psych Appearance: grossly normal and well kempt Mental Status: mental status grossly normal Speech and movement: Normal speech and movement present Affect: normal affect Attitude: cooperative Thought process: Normal thought process present and not confabulating Thought content: Normal thought content present Insight: Limited insight present (Psych) Judgement: Limited judgement present (Psych) Results Reviewed Results Reviewed: Laboratory Tests 12/12/23 11:13 ESR 13 C-Reactive Protein 0.36 TSH 2.02 CHIDI Screen NEGATIVE UPPER GI WITH SMALL-BOWEL FOLLOW-THROUGH 02/15/24 FINDINGS: Dual and single contrast images of the esophagus demonstrate normal caliber, contour, and mucosal pattern. No evidence of stricture, mass, or ulcerations identified. Esophageal peristalsis was normal. No evidence of hiatus hernia identified. No significant gastroesophageal reflux was seen during the course of the examination and on reflux views. Dual contrast and single contrast images of the stomach demonstrated normal contour and mucosal pattern without evidence of mass, ulceration, or other abnormality. Contrast freely passed into the gastric antrum and duodenal bulb without delay. Single and air-contrast images of the duodenal bulb demonstrate no abnormality. The duodenal sweep has a normal appearance, course, and mucosal fold appearance. The imaged small bowel has a normal fold pattern and caliber. No dilated loops, strictures or masses are seen. No internal hernia is identified. Contrast is seen in the right colon at 60 minutes. FLUOROSCOPY TIME: 4 minutes Number of Spot Images: 9 Number of Cine: 11 DOSE AREA PRODUCT: 2820 uGy-m2 (microgray-meter squared) FL/FL upper GI small bowel IMPRESSION: 1. Unremarkable upper GI series 2. No internal hernia is identified. Contrast is observed in the right colon at 60 minutes. Normal small bowel series. Assessment & Plan Assessment & Plan (1) Abnormal CT scan, gastrointestinal tract: Comment: left possible small bowel internal hernia, see CT scan, this did not play out on small-bowel follow-through study Code(s): R93.3 - Abnormal findings on diagnostic imaging of other parts of digestive tract Category: Medical (2) Irritable bowel syndrome with both constipation and diarrhea: Code(s): K58.2 - Mixed irritable bowel syndrome Category: Medical (3) GERD (gastroesophageal reflux disease): Code(s): K21.9 - Gastro-esophageal reflux disease without esophagitis Category: Medical Plan German #Winsome Michael We have made some progress in that she feels the pantoprazole in the morning is helping her as well as the increased dose of famotidine. She is also doing much better with the bloating using the Maalox liquid. She still will get the pain mostly between 8-9 in the evening in the upper abdomen. She also gets pain when she eats any kind of meat and she really likes to eat meat. The other puzzling presentation is that she will get the pain when she has the urge to urinate and this again is in the upper abdomen so I am uncertain how this relates. I think what we are going to do next is ask her to take note of whether or not the dicyclomine is helping when she remembers to take it. She admits that she will go for quite a while and be good about consistently taking it but then she may forget for a time. Today she really does not remember whether it makes a difference or not. Because of the bloating and the food intolerance along with what seems to be irritable bowel given her benign small-bowel follow-through study and inflammatory markers; I think will give her a trial of Creon twice a day. We do not think at this time she is taking either Colace or bisacodyl or the pill form of the simethicone. She continues on her magnesium supplement for constipation. Return office visit in 8 weeks to evaluate her response to the Creon. Medications: New adscuy-ybiyfjiy-kzgzdig 24,000-76,000 -120,000 unit (Creon) 2 caps PO BID 30 days 120 caps 6RF K58.9 - Irritable bowel syndrome without diarrhea Discontinued simethicone (Gas Relief (simethicone)) Discontinued Reason: Patient no longer taking 180 mg PO BID 60 caps 6RF On Hold bisacodyl (Dulcolax (bisacodyl)) Hold Comment: Doctor's Order 10 mg (2 x 5 mg) PO BEDTIME 30 days 60 tabs 6RF K59.04 - Chronic idiopathic constipation Coding Level of Care Code Est Pt Level 3 (09057) Diagnoses Abnormal CT scan, gastrointestinal tract R93.3 Irritable bowel syndrome with both constipation and diarrhea K58.2 GERD (gastroesophageal reflux disease) K21.9
== END 2024-02-28 12:34 | disposition home or self-care (01) ==
PROVIDERS: PCP Internal Medicine; Visit Provider Nurse Practitioner
DX: R93.3 Abnormal findings on diagnostic imaging of other parts of digestive tract (principal); K58.2 Mixed irritable bowel syndrome; K21.9 Gastro-esophageal reflux disease without esophagitis
CPT/HCPCS: 99213

== ENCOUNTER → 2024-02-28 11:48 | Outpatient (BNVA) | payer OTHER, SELFPAY | PROVIDERS: PCP Internal Medicine; Visit Provider Nurse Practitioner | DX: K21.9 Gastro-esophageal reflux disease without esophagitis (principal); K58.2 Mixed irritable bowel syndrome; R93.3 Abnormal findings on diagnostic imaging of other parts of digestive tract | CPT/HCPCS: 99212 ==

== ENCOUNTER 2024-03-19 16:58 | Outpatient (AMB) | payer OTHER, SELFPAY ==
--- NOTE | 2024-03-19 16:59 | MHC.PC.OV ---
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 Required: No Accompanied by: Daughter Allergies doxycycline Allergy (Severe, Verified 03/19/24 17:08) tongue swelling morphine [MORPHINE] Allergy (Intermediate, Verified 03/19/24 17:08) RASH, headache, redness, throat swelling sumatriptan [From IMITREX] Allergy (Mild, Verified 03/19/24 17:08) ITCHING azithromycin Allergy (Unknown, Verified 03/19/24 17:08) facial redness Penicillins [PENICILLINS] Allergy (Unknown, Verified 03/19/24 17:08) ANAPHYLAXIS vancomycin Adverse Reaction (Verified 03/19/24 17:08) Itching Medication List - Last Reconciled 03/19/24 by Josefina Faith MD alum-mag hydroxide-simeth 200-200-20 mg/5 mL (Mag-Al Plus) 10 mL PO QID PRN bisacodyl (Dulcolax (bisacodyl)) 10 mg (2 x 5 mg) PO BEDTIME 30 days cyclobenzaprine 10 mg PO TID PRN dicyclomine 20 mg PO QID 30 days docusate sodium 100 mg PO BID escitalopram oxalate 5 mg PO DAILY famotidine 40 mg PO BEDTIME fluticasone propionate 50 mcg/actuation 1 spray intranasal BID PRN hydroxyzine HCl 25 mg PO DAILY ipratropium-albuterol 0.5 mg-3 mg(2.5 mg base)/3 mL 3 mL inhalation Q4H PRN lidocaine 5% 1 patch topical DAILY [id number]-ffehjjqy-qjortkr 24,000-76,000 -120,000 unit (Creon) 2 caps PO BID 30 days magnesium oxide 400 mg PO BEDTIME 30 days naproxen 1 tab PO BID PRN nebulizers (VixOne Nebulizer-Adult Mask) As directed pantoprazole (Protonix) 40 mg PO DAILY 30 days riboflavin (vitamin B2) 400 mg PO DAILY 30 days Symbicort 160-4.5 mcg/actuation (budesonide-formoterol) 2 puffs inhalation BID 90 days NS tiotropium bromide 2.5 mcg/actuation (Spiriva Respimat) 2 puffs inhalation QAM 90 days ubrogepant (Ubrelvy) 50 - 100 mg (0.5 - 1 x 100 mg) PO ONCE PRN 30 days Ventolin HFA 90 mcg/actuation (albuterol sulfate) 2 puffs inhalation Q6H PRN NS Tobacco use date assessed: 03/19/24 Dental Screening Dental Screen Date: 03/19/24 Did you have a dental visit in the last 12 months?: No Did you have a dental problem in the last 6 months where you did not have access to dental care?: No Was dental information given to patient?: Patient has dentist HPI HPI Comments History of Present Illness Details This is a 38-year-old female with mild recurrent major depression, asthma and GERD that complaints of right breast mass and left breast pain that started few weeks ago. No nipple discharge. No family history of breast cancer. Depression stable with Escitalopram. GERD stable with Famotidine. Asthma follow by pulmunology and use rescue inhaler few times a month. Has skin lesion in the outside of the vagina and will be refer to dermatology. [facility] Medical History (Updated 03/19/24 @ 17:23 by Josefina Faith MD) Colitis Abnormal CT scan, gastrointestinal tract GERD (gastroesophageal reflux disease) Chronic idiopathic constipation Mild recurrent major depression Umbilical hernia Sarcoidosis Asthma Surgical History History of umbilical hernia repair H/O esophagogastroduodenoscopy History of tubal ligation Previous section History of appendectomy Family History Father Essential hypertension Arthritis CAD (coronary artery disease) Mother Essential hypertension Diabetes mellitus Social History Housing: Apartment Alcohol intake: never Patient Tobacco Use Status: Former Tobacco user Tobacco use type: Cigarette e-Cigarette/Vaping Use: Never Used Second Hand Smoke Exposure: No service: No Current occupational status: unemployed Cognitive needs: No Hearing needs: No Vision needs: No Questionnaire PHQ-9 Over the last 2 weeks, how often have you been bothered by any of the following problems? 1. Little interest or pleasure in doing things: several days 2. Feeling down, depressed, or hopeless: several days 3. Trouble falling or staying asleep, or sleeping too much: several days 4. Feeling tired or having little energy: more than half the days 5. Poor appetite or overeating: several days 6. Feeling bad about yourself - or that you are a failure or have let yourself or your family down: not at all 7. Trouble concentrating on things, such as reading the newspaper or watching television: several days 8. Moving or speaking so slowly that other people could have noticed. Or the opposite - being so fidgety or restless that you have been moving around a lot more than usual: several days 9. Thoughts that you would be better off or of hurting yourself in some way: not at all Total score: 8 Depression Screening Interpretation: Positive Depression Screening Follow-up: Existing condition, In treatment and Follow-up Visit Requested Depression Screening Done: Yes 60885 - PHQ-9 Billing: Yes Source: Developed by Drs. Jr Nava, Fabiola Kaur, Ehsan Penn and colleagues, with an educational kraig from [employer]. Thrive Questionnaire Date Thrive assessed: 03/19/24 I am a: Patient What is your living situation today?: I have a steady place to live Within the past 12 months, did the food you bought not last and you didn't have the money to get more?: Never true Within the past 12 months, did you worry whether your food would run out before you got money to buy more?: Never true Do you have trouble paying for medicines?: No Do you have trouble getting transportation to medical appointments?: No Do you have trouble paying your heating and electricity bill?: No Do you have trouble taking care of your child, family member or friend?: No Do you have trouble with day-to-day activities such as bathing, preparing meals, shopping, managing finances, etc.?: No Are you currently unemployed and looking for a job?: No Are you interested in more education?: No Please select the resources that you would like help with: None Currently or been in a relationship where the following occur: No concerns reported THRIVE Score: 0 AUDIT C Alcohol Use Questionnaire (AUDIT-C) 1. How often do you have a drink containing alcohol?: Never Total Score: 0 Score Reviewed/Action Taken: No TO-7 AMB Questionnaire TO-7 Date TO - 7 assessed: 03/19/24 Feeling nervous, anxious, or on edge: 2 = More than half the days Not being able to stop or control worryin = Not at all Worrying too much about different things: 1 = Several days Trouble relaxin = Not at all Being so restless that it is hard to sit still: 0 = Not at all Becoming easily annoyed or irritable: 2 = More than half the days Feeling afraid as if something awful might happen: 2 = More than half the days Total TO-7 score (0-4 normal; 5-9 mild; 10-14 moderate; 15-21 severe): 7 Source: Developed by Drs. Jr Nava, Fabiola Kaur, Ehsan Penn and colleagues, with an educational kraig from [employer]. TO-7 Assessment Billing TO-7 Assessment Tool: TO-7 Assessment 62929 Review of Systems Const All systems reviewed & are unremarkable except as noted in HPI and below Card Denies chest pain at rest, Denies chest pain with activity, Denies edema, Denies irregular heart rhythm, Denies claudication, Denies dyspnea, Denies dyspnea on exertion, Denies orthopnea, Denies paroxysmal nocturnal dyspnea and Denies slow heart rate Resp Denies cough, Denies dyspnea and Denies dyspnea on exertion GI Denies abdominal pain, Denies change in bowel habits, Denies excessive flatus, Denies nausea and Denies vomiting Denies urinary incontinence, Denies urinary hesitancy and Denies urinary urgency Musc Denies abnormal gait, Denies atrophy, Denies deformity and Denies limited range of motion Skin/Breast Denies bleeding lesions, Reports breast pain, Reports breast mass, Denies changing lesions and Denies rash Neuro Denies abnormal gait and Denies lack of coordination Physical exam (Primary Care) Vital Signs: Last Vital Signs BP 136/80 03/19/24 17:00 BMI result Body Mass Index 25.0 Tobacco/Smoking Status: Tobacco use Status Tobacco use date assessed 03/19/24 03/19/24 17:06 Patient Tobacco Use Status Former Tobacco user 03/19/24 17:06 Tobacco use type Cigarette 03/19/24 17:06 e-Cigarette/Vaping Use Never Used 03/19/24 17:06 PHQ-9: PHQ-9 Score PHQ-9: Total score 8 03/19/24 17:17 Depression Screening Interpretation: Positive Depression Screening Follow-up: Existing condition, In treatment and Follow-up Visit Requested Thrive Assessment: Date of Thrive Assessment Date Thrive assessed 03/19/24 03/19/24 17:06 Currently or been in a relationship where the following occur: No concerns reported Chest Breast/axilla palpation: abnormal palpation of the breast (Right breast mass at 11:00 o'clock and left breast pain at 03:00 o'clock) Skin General skin exam: no rashes or lesions noted Psych Appearance: grossly normal Assessment and Plan Assessment & Plan (1) Mild recurrent major depression: Code(s): F33.0 - Major depressive disorder, recurrent, mild Plan: Continue Escitalopram. (2) GERD (gastroesophageal reflux disease): Code(s): K21.9 - Gastro-esophageal reflux disease without esophagitis Plan: Continue Famotidine. (3) Asthma: Code(s): J45.909 - Unspecified asthma, uncomplicated Plan: Continue long acting inhaler. Use rescue inhaler prn. (4) Breast mass, right: Comment: 11 o'clock Code(s): N63.10 - Unspecified lump in the right breast, unspecified quadrant Plan: Mammogram and us breast ordered. (5) Breast pain, left: Comment: at 3 o'clock Code(s): N64.4 - Mastodynia Plan: Mammo and us ordered. (6) Skin lesion: Code(s): L98.9 - Disorder of the skin and subcutaneous tissue, unspecified Plan: Refer to dermatology. Orders: Orders MM diagnostic mammo BI Today N63.10 - Unspecified lump in the right breast, unspecified quadrant, N64.4 - Mastodynia US breast LT complete Today N64.4 - Mastodynia US breast RT complete Today N63.10 - Unspecified lump in the right breast, unspecified quadrant Referrals Dermatology Referral L98.9 - Disorder of the skin and subcutaneous tissue, unspecified Coding Level of Care Code Est Pt Level 4 (73982) Complex EM visit Add On G2211 Diagnoses Mild recurrent major depression F33.0 GERD (gastroesophageal reflux disease) K21.9 Asthma J45.909 Breast mass, right N63.10 Breast pain, left N64.4 Skin lesion L98.9 Additional Codes TO-7 Assessment Billing - TO-7 Assessment Tool: TO-7 Assessment [id number] ([id number]) Time Spent (min) 23
[2024-03-19 17:00] VITALS: BP 136/80; BMI 25.0
== END 2024-03-19 17:21 | disposition home or self-care (01) ==
PROVIDERS: PCP Internal Medicine; Visit Provider Internal Medicine
DX: K21.9 Gastro-esophageal reflux disease without esophagitis (principal); F33.0 Major depressive disorder, recurrent, mild; J45.909 Unspecified asthma, uncomplicated; N63.11 Unspecified lump in the right breast, upper outer quadrant; N64.4 Mastodynia; L98.9 Disorder of the skin and subcutaneous tissue, unspecified
CPT/HCPCS: 99214; G2211

== ENCOUNTER 2024-04-23 13:56 | Outpatient (REF) | payer OTHER, SELFPAY ==
--- NOTE | ~2024-04-23 | US_ITS ---
EXAMINATION: MM DIAGNOSTIC DIGITAL BREAST TOMOSYNTHESIS, BILATERAL US BREAST LIMITED, BILATERAL MAMMOGRAPHY: CLINICAL INFORMATION: 38-year-old female, complaining of left breast pain upper and lower outer quadrants, as well as a right breast palpable lump at the 11:00 axis anterior one third. No prior surgeries. No provided family history of breast cancer. COMPARISON: Mammography: 07/08/2016 bilateral mammography and left targeted axillary ultrasound. TECHNIQUE: Digital breast tomosynthesis is performed in both the craniocaudal and mediolateral oblique views along with computer-aided detection (CAD). Synthesized 2D images are generated from the tomosynthesis. In addition to standard views, 3-D spot compression views were obtained of the right breast in the CC and MLO projections to include the area of palpable concern. FINDINGS: The breasts are heterogeneously dense, which may obscure small masses (ACR BI-RADS breast composition Category c). RIGHT BREAST: No definite masses, suspicious grouped calcifications, or areas of architectural distortion identified. Parenchymal pattern is stable from prior exam. No skin or axillary abnormality. No definite mammographic correlate to the area of palpable concern at 11:00, anterior one third. We will evaluate this region with ultrasound. LEFT BREAST: No definite masses, suspicious grouped calcifications, or areas of architectural distortion identified. Parenchymal pattern is stable from prior exam. No skin or axillary abnormality. No definite mammographic correlate to the areas of lateral breast pain upper and lower quadrant. We will evaluate these regions with ultrasound. ULTRASOUND: CLINICAL INFORMATION: As above. COMPARISON: None relevant. TECHNIQUE: Targeted sonographic evaluation bilateral breasts was performed using a high frequency linear transducer. Right breast attention was given to the palpable focus of concern at 11:00. Left breast was scanned in the upper and lower outer quadrants and the regions of breast pain. Selected archived documentation. FINDINGS: RIGHT BREAST: -In the 11:00 axis of the retroareolar right breast, there is a simple bilobed cyst measuring 1.6 x 0.8 x 1.5 cm, correlating with the palpable focus. This finding is benign. No additional abnormalities sonographically. LEFT BREAST: -There is heterogeneously dense fibroglandular tissue. There is no mass, abnormal shadowing, cystic abnormality, or architectural abnormality identified in the upper or lower lateral aspects. No ultrasonographic correlate to the regions of breast pain. US/US breast BI limited mamm only IMPRESSION: -There are no findings suspicious for malignancy in either breast. -Palpable focus of concern right breast 11:00 correlates with a bilobed simple cyst measuring 1.6 x 0.8 x 1.5 cm. This finding is benign. -Regions of left breast pain in upper quadrant and lower outer quadrants show no mammographic or sonographic correlate. Recommend clinical management. -Otherwise, recommend the patient begin routine annual screening at age 40. OVERALL ASSESSMENT: Mammography: BI-RADS 2 - Benign Findings Ultrasound: BI-RADS 2 - Benign Findings RECOMMENDATION: 1. Patient should be managed based on the clinical impression. 2. Otherwise, routine annual screening mammography. Electronically signed by: Rusty Centeno MD 04/23/2024 03:15 PM EDT
== END 2024-04-23 13:57 | disposition home or self-care (01) ==
LOC: HO.MAMMO 13:56
PROVIDERS: PCP Internal Medicine; Visit Provider Internal Medicine
DX: N63.10 Unspecified lump in the right breast, unspecified quadrant (principal); N64.4 Mastodynia
CPT/HCPCS: 76642; 77062; 77066

== ENCOUNTER → 2024-04-23 14:00 | Outpatient (BNV) | payer OTHER, SELFPAY | PROVIDERS: PCP Internal Medicine; Visit Provider Radiology Diagnostic Radiology | DX: N64.4 Mastodynia (principal) | CPT/HCPCS: 76642; 77062; 77066 ==

== ENCOUNTER 2024-04-24 12:58 | Outpatient (AMB) | payer OTHER, SELFPAY ==
[2024-04-24 13:00] VITALS: BP 125/83; PULSE 93; BMI 25.3
--- NOTE | 2024-04-24 13:00 | MHC.OFFVIS ---
Vital Signs 04/24/24 13:00 Height 5 ft 6 in Weight 156 lb 8.451 oz BMI 25.3 BP 125/83 Blood Pressure Location Rt brachial Position Sitting Pulse 93 Intake Visit Reasons: 8 week follow up Intake Note: Ivet presents to in office follow up of IBS. CC: Patient reports abdominal pain sometimes with diarrhea, and occasional constipation and GERD. Chief Specialist Leed Required: Yes Allergies doxycycline Allergy (Severe, Verified 04/24/24 13:07) tongue swelling morphine [MORPHINE] Allergy (Intermediate, Verified 04/24/24 13:07) RASH, headache, redness, throat swelling sumatriptan [From IMITREX] Allergy (Mild, Verified 04/24/24 13:07) ITCHING azithromycin Allergy (Unknown, Verified 04/24/24 13:07) facial redness Penicillins [PENICILLINS] Allergy (Unknown, Verified 04/24/24 13:07) ANAPHYLAXIS vancomycin Adverse Reaction (Verified 04/24/24 13:07) Itching HPI HPI 8 week follow up: Details: Assessment & Plan (1) Abnormal CT scan, gastrointestinal tract: Comment: left possible small bowel internal hernia, see CT scan, this did not play out on small-bowel follow-through study Code(s): R93.3 - Abnormal findings on diagnostic imaging of other parts of digestive tract Category: Medical (2) Irritable bowel syndrome with both constipation and diarrhea: Code(s): K58.2 - Mixed irritable bowel syndrome Category: Medical (3) GERD (gastroesophageal reflux disease): Code(s): K21.9 - Gastro-esophageal reflux disease without esophagitis Category: Medical Plan [place] #[employer] We have made some progress in that she feels the pantoprazole in the morning is helping her as well as the increased dose of famotidine. She is also doing much better with the bloating using the Maalox liquid. She still will get the pain mostly between 8-9 in the evening in the upper abdomen. She also gets pain when she eats any kind of meat and she really likes to eat meat. The other puzzling presentation is that she will get the pain when she has the urge to urinate and this again is in the upper abdomen so I am uncertain how this relates. I think what we are going to do next is ask her to take note of whether or not the dicyclomine is helping when she remembers to take it. She admits that she will go for quite a while and be good about consistently taking it but then she may forget for a time. Today she really does not remember whether it makes a difference or not. Because of the bloating and the food intolerance along with what seems to be irritable bowel given her benign small-bowel follow-through study and inflammatory markers; I think will give her a trial of Creon twice a day. We do not think at this time she is taking either Colace or bisacodyl or the pill form of the simethicone. She continues on her magnesium supplement for constipation. Return office visit in 8 weeks to evaluate her response to the Creon. Medications: New afpvkz-qmofuwme-ulzevbp 24,000-76,000 -120,000 unit (Creon) 2 caps PO BID 30 days 120 caps 6RF K58.9 - Irritable bowel syndrome without diarrhea Discontinued simethicone (Gas Relief (simethicone)) Discontinued Reason: Patient no longer taking 180 mg PO BID 60 caps 6RF On Hold bisacodyl (Dulcolax (bisacodyl)) Hold Comment: Doctor's Order 10 mg (2 x 5 mg) PO BEDTIME 30 days 60 tabs 6RF K59.04 - Chronic idiopathic constipation UPPER GI WITH SMALL-BOWEL FOLLOW-THROUGH 02/15/24 FINDINGS: Dual and single contrast images of the esophagus demonstrate normal caliber, contour, and mucosal pattern. No evidence of stricture, mass, or ulcerations identified. Esophageal peristalsis was normal. No evidence of hiatus hernia identified. No significant gastroesophageal reflux was seen during the course of the examination and on reflux views. Dual contrast and single contrast images of the stomach demonstrated normal contour and mucosal pattern without evidence of mass, ulceration, or other abnormality. Contrast freely passed into the gastric antrum and duodenal bulb without delay. Single and air-contrast images of the duodenal bulb demonstrate no abnormality. The duodenal sweep has a normal appearance, course, and mucosal fold appearance. The imaged small bowel has a normal fold pattern and caliber. No dilated loops, strictures or masses are seen. No internal hernia is identified. Contrast is seen in the right colon at 60 minutes. FLUOROSCOPY TIME: 4 minutes Number of Spot Images: 9 Number of Cine: 11 DOSE AREA PRODUCT: 2820 uGy-m2 (microgray-meter squared) FL/FL upper GI small bowel IMPRESSION: 1. Unremarkable upper GI series 2. No internal hernia is identified. Contrast is observed in the right colon at 60 minutes. Normal small bowel series. TODAYS VISIT [place] #[id number] Shayan With the Creon she has had a positive result to her pain, it has decreased in frequency but when she has it - it is still severe. This was on the 24, 000 dose. Will increase to 36,000 and titrate. She reports stabbing pain in the upper abd and at times in the sides. Ran out of bentyl, refilling. Also will give extra dose of famotidine to take when she has epigastric pain to try to separate GERD from bowel spasm. She continues on her pantoprazole every morning and she knows that she will have dyspepsia she does not take. I do not want to stop this medication and I explained that the famotidine is to experiment and see if the epigastric pain is from the colon or from the stomach. She understands. ROV 8 weeks. [facility] Medical History (Updated 04/24/24 @ 14:25 by LYNSEY Holcomb) Bronchitis Family history of diabetes mellitus Colitis Abnormal CT scan, gastrointestinal tract GERD (gastroesophageal reflux disease) Chronic idiopathic constipation Mild recurrent major depression Umbilical hernia Sarcoidosis Asthma Surgical History History of umbilical hernia repair H/O esophagogastroduodenoscopy History of tubal ligation Previous section History of appendectomy Family History Father Essential hypertension Arthritis CAD (coronary artery disease) Mother Essential hypertension Diabetes mellitus Social History Housing: Apartment Alcohol intake: never Patient Tobacco Use Status: Former Tobacco user Tobacco use type: Cigarette e-Cigarette/Vaping Use: Never Used Second Hand Smoke Exposure: No service: No Current occupational status: unemployed Cognitive needs: No Hearing needs: No Vision needs: No Review of Systems Const Denies fatigue, Denies fever(s), Denies night sweats, Denies poor appetite and Denies weight loss ENT Reports Normal hearing present, Denies dental pain, Denies dysphagia, Denies hearing loss, Denies mouth pain, Denies odynophagia, Denies throat swelling, Denies tongue swelling and Reports other (Dentition adequate) Card Reports no additional complaints Resp Reports no additional complaints GI Details: Reports abdominal pain, Denies melena, Reports bloating, Denies hematochezia, Denies constipation, Denies GI cramping, Denies dysphagia, Denies excessive flatus, Denies early satiety, Reports heartburn, Denies diarrhea, Denies nausea, Denies odynophagia, Denies vomiting and Denies hematemesis Skin/Breast Denies pruritus, Denies lesions, Denies rash and Denies jaundice Neuro Reports Normal hearing present and Denies Abnormal speech present Endo Denies fatigue Aller/Immun Denies throat swelling and Denies tongue swelling Physical Exam Vital Signs: Last Vital Signs Pulse 93 04/24/24 13:00 BP 125/83 04/24/24 13:00 BMI result Body Mass Index 25.3 Const General: cooperative, no acute distress, well developed and well groomed Nutritional Appearance: average body habitus and well nourished Orientation/consciousness: oriented to person, oriented to place and oriented to time Limitations: language barrier and wheelchair HEENT Head: Yes normocephalic and Yes atraumatic Eyes General: appearance normal, both eyes and all related structures Pupils: Equal, round and reactive pupils present Neck Neck: Yes normal visual inspection and Yes no lymphadenopathy Thyroid: Thyroid normal Resp Effort & Inspection: normal respiratory effort and able to speak in complete sentences Auscultation: clear to auscultation bilaterally Cardio Rate: regular rate Rhythm: regular rhythm Heart sounds: Normal, physiologic split S2 sound present Peripheral pulses: radial pulses present and posterior tibial pulses present GI Inspection: No distended and No Abdominal panniculus present Palpation (GI): Soft to palpation, nontender, no guarding, not rigid and No hepatosplenomegaly present Percussion: Yes normal to percussion Auscultation: normal bowel sounds Rectal Exam - Female: deferred Skin General skin exam: no rashes or lesions noted, turgor normal, skin not dry, no jaundice, No spider nevi and no striae Rashes: no rashes Nails: normal Neuro General: oriented to person, oriented to place and oriented to time Cranial nerves: Yes Equal, round and reactive pupils present and Yes Normal hearing present Speech: No Abnormal speech present Extrem General: Yes normal to inspection, No clubbing, No cyanosis and No edema Psych Appearance: grossly normal and well kempt Mental Status: mental status grossly normal Speech and movement: Normal speech and movement present Affect: normal affect Attitude: cooperative Thought process: Normal thought process present and not confabulating Thought content: Normal thought content present Insight: Limited insight present (Psych) Judgement: Limited judgement present (Psych) Assessment & Plan Assessment & Plan (1) Irritable bowel syndrome with both constipation and diarrhea: Code(s): K58.2 - Mixed irritable bowel syndrome Category: Medical (2) GERD (gastroesophageal reflux disease): Code(s): K21.9 - Gastro-esophageal reflux disease without esophagitis Category: Medical (3) Exocrine pancreatic insufficiency: Code(s): K86.81 - Exocrine pancreatic insufficiency Category: Medical (4) Periumbilical abdominal pain: Code(s): R10.33 - Periumbilical pain Category: Medical Plan [place] #[id number] Shayan With the Creon she has had a positive result to her pain, it has decreased in frequency but when she has it - it is still severe. This was on the 24, 000 dose. Will increase to 36,000 and titrate. She reports stabbing pain in the upper abd and at times in the sides. Ran out of bentyl, refilling. Also will give extra dose of famotidine to take when she has epigastric pain to try to separate GERD from bowel spasm. She continues on her pantoprazole every morning and she knows that she will have dyspepsia she does not take. I do not want to stop this medication and I explained that the famotidine is to experiment and see if the epigastric pain is from the colon or from the stomach. She understands. ROV 8 weeks. Medications: New kbszhn-ourjkvnw-bwtlslq 36,000-114,000- 180,000 unit (Creon) administer with meals and/or snacks 2 caps PO BID 120 caps 6RF K58.2 - Mixed irritable bowel syndrome, K86.81 - Exocrine pancreatic insufficiency Changed From famotidine 40 mg PO BEDTIME 30 tabs 6RF K21.9 - Gastro-esophageal reflux disease without esophagitis To famotidine 40 mg PO BID 30 tabs 6RF K21.9 - Gastro-esophageal reflux disease without esophagitis Refilled dicyclomine 20 mg PO QID 120 tabs 6RF 30 days magnesium oxide may hold for loose stools 400 mg PO BEDTIME 30 tabs 6RF 30 days alum-mag hydroxide-simeth 200-200-20 mg/5 mL (Mag-Al Plus) administer between meals and at bedtime 10 mL PO QID PRN 3,000 mL 6RF dyspepsia pantoprazole (Protonix) 40 mg PO DAILY 30 tabs 6RF 30 days K21.9 - Gastro-esophageal reflux disease without esophagitis On Hold jgswqk-hmcuulob-zzeasvv 24,000-76,000 -120,000 unit (Creon) Hold Comment: Doctor's Order 2 caps PO BID 30 days 120 caps 6RF K58.9 - Irritable bowel syndrome without diarrhea Coding Level of Care Code Est Pt Level 3 (59083) Diagnoses Irritable bowel syndrome with both constipation and diarrhea K58.2 GERD (gastroesophageal reflux disease) K21.9 Exocrine pancreatic insufficiency K86.81 Periumbilical abdominal pain R10.33
== END 2024-04-24 13:40 | disposition home or self-care (01) ==
PROVIDERS: PCP Internal Medicine; Visit Provider Nurse Practitioner
DX: K58.2 Mixed irritable bowel syndrome (principal); K21.9 Gastro-esophageal reflux disease without esophagitis; K86.81 Exocrine pancreatic insufficiency; R10.33 Periumbilical pain
CPT/HCPCS: 99213

== ENCOUNTER → 2024-04-24 12:58 | Outpatient (BNVA) | payer OTHER, SELFPAY | PROVIDERS: PCP Internal Medicine; Visit Provider Nurse Practitioner | DX: R93.3 Abnormal findings on diagnostic imaging of other parts of digestive tract (principal); K58.2 Mixed irritable bowel syndrome; K21.9 Gastro-esophageal reflux disease without esophagitis; K86.81 Exocrine pancreatic insufficiency; R10.33 Periumbilical pain | CPT/HCPCS: 99212 ==

== ENCOUNTER 2024-05-29 13:32 | Outpatient (AMB) | payer OTHER, SELFPAY ==
--- NOTE | 2024-05-29 13:31 | MHC.OFFVIS ---
Vital Signs 05/29/24 13:33 Height 5 ft 6 in Weight 158 lb 11.725 oz BMI 25.6 BP 122/77 Blood Pressure Location Rt brachial Position Sitting Pulse 83 Pulse Source Doppler Pulse Oximetry (%) 99 Oxygen Delivery Method Room Air Intake Visit Reasons: Asthma Land Commissioner Required: Yes Land Commissioner Name: Yasmeen Souza.L.Angel Allergies doxycycline Allergy (Severe, Verified 04/24/24 13:07) tongue swelling morphine [MORPHINE] Allergy (Intermediate, Verified 04/24/24 13:07) RASH, headache, redness, throat swelling sumatriptan [From IMITREX] Allergy (Mild, Verified 04/24/24 13:07) ITCHING azithromycin Allergy (Unknown, Verified 04/24/24 13:07) facial redness Penicillins [PENICILLINS] Allergy (Unknown, Verified 04/24/24 13:07) ANAPHYLAXIS vancomycin Adverse Reaction (Verified 04/24/24 13:07) Itching HPI HPI Asthma: Details: 38-year-old lady, nonsmoker, followed for underlying sarcoidosis (diagnosed with?cervical node biopsy) and moderate to severe persistent asthma.? She has been using Spiriva, Symbicort duo nebs, and albuterol MDI with reasonable control of her symptoms. Patient appears to have significant anxiety/air trapping component to her symptoms that improved after starting on hydroxyzine. Patient does complain today of a bronchitic exacerbation symptomatic with worsening productive cough. [facility] Medical History (Updated 04/24/24 @ 14:25 by LYNSEY Holcomb) Bronchitis Family history of diabetes mellitus Colitis Abnormal CT scan, gastrointestinal tract GERD (gastroesophageal reflux disease) Chronic idiopathic constipation Mild recurrent major depression Umbilical hernia Sarcoidosis Asthma Surgical History History of umbilical hernia repair H/O esophagogastroduodenoscopy History of tubal ligation Previous section History of appendectomy Family History Father Essential hypertension Arthritis CAD (coronary artery disease) Mother Essential hypertension Diabetes mellitus Social History Housing: Apartment Alcohol intake: never Patient Tobacco Use Status: Former Tobacco user Tobacco use type: Cigarette e-Cigarette/Vaping Use: Never Used Second Hand Smoke Exposure: No service: No Current occupational status: unemployed Cognitive needs: No Hearing needs: No Vision needs: No Review of Systems Const Denies daytime sleepiness, Denies excessive sweating, Denies fatigue, Denies fever(s), Denies lethargy, Denies malaise, Denies night sweats, Denies snoring and Denies weight loss Eyes Denies blurry vision and Denies itchy eyes ENT Denies nasal congestion, Denies post nasal drip, Denies sinus pain, Denies sinus pressure and Denies other ( Thrush) Card Denies chest pain, Denies pedal edema, Denies dyspnea, Denies orthopnea and Denies paroxysmal nocturnal dyspnea Resp Reports cough, Denies hemoptysis, Reports excessive phlegm production, Denies dyspnea, Denies snoring and Denies wheezing GI Denies abdominal pain and Denies heartburn Musc Denies myalgias, Denies arthralgias and Denies joint swelling Skin/Breast Denies rash Neuro Denies memory loss and Denies seizure-like activity Psych Denies abnormal sleep pattern, Denies anxiety and Denies memory loss Endo Denies excessive sweating, Denies fatigue and Denies heat intolerance Jacky/Lymph Denies easy bruising Aller/Immun Denies itchy eyes, Denies seasonal rhinorrhea and Denies wheezing Physical Exam Vital Signs: Last Vital Signs Pulse 83 05/29/24 13:33 BP 122/77 05/29/24 13:33 Pulse Ox 99 05/29/24 13:33 Oxygen Delivery Method Room Air 05/29/24 13:33 BMI result Body Mass Index 25.6 Const General: no acute distress and alert Nutritional Appearance: not obese Orientation/consciousness: Other orientation findings ( oriented) HEENT Head: Yes atraumatic Eyes General: appearance normal, both eyes and all related structures Sclerae: sclerae normal EOM: EOMs intact bilaterally Neck Neck: Yes supple Lymphatic: no lymphadenopathy noted Resp Effort & Inspection: normal respiratory effort and no use of accessory muscles Auscultation: clear to auscultation bilaterally Cardio Rate: regular rate Rhythm: regular rhythm Heart sounds: no gallops, no murmurs and no rubs Skin General skin exam: other ( warm) Extrem General: No clubbing, No cyanosis and No edema Assessment & Plan Assessment & Plan (1) Asthma: Code(s): J45.909 - Unspecified asthma, uncomplicated Category: Medical Plan: Baseline reasonable control on Symbicort, Spiriva, duo nebs, and albuterol MDI. Continue current regimen. Now with bronchitic exacerbation, will treat with a course of Levaquin. (2) Pulmonary air trapping: Code(s): R09.89 - Other specified symptoms and signs involving the circulatory and respiratory systems Category: Medical Plan: Improved with hydroxyzine. Continue current regimen. (3) Sarcoidosis: Comment: history of sarcoid in cervical node biopsy 2018 Code(s): D86.9 - Sarcoidosis, unspecified Category: Medical Plan: No recent exacerbations. Continue to monitor clinically. Medications: New levofloxacin 500 mg PO DAILY 7 tabs 0RF Coding Level of Care Code Est Pt Level 4 (17652) Complex EM visit Add On G2211 Diagnoses Asthma J45.909 Pulmonary air trapping R09.89 Sarcoidosis D86.9
[2024-05-29 13:33] VITALS: BP 122/77; PULSE 83; O2SAT 99; BMI 25.6
== END 2024-05-29 13:46 | disposition home or self-care (01) ==
LOC: HO.HPS 13:32
PROVIDERS: PCP Internal Medicine; Visit Provider Internal Medicine Pulmonary Disease
DX: J45.909 Unspecified asthma, uncomplicated (principal); R09.89 Other specified symptoms and signs involving the circulatory and respiratory systems; D86.9 Sarcoidosis, unspecified
CPT/HCPCS: 99214; G2211

== ENCOUNTER → 2024-05-29 13:32 | Outpatient (BNVA) | payer OTHER, SELFPAY | PROVIDERS: PCP Internal Medicine; Visit Provider Internal Medicine Pulmonary Disease | DX: J45.909 Unspecified asthma, uncomplicated (principal); R09.89 Other specified symptoms and signs involving the circulatory and respiratory systems; D86.9 Sarcoidosis, unspecified | CPT/HCPCS: 99212 ==

== ENCOUNTER 2024-08-01 10:54 | Outpatient (AMB) | payer OTHER, SELFPAY ==
--- NOTE | 2024-08-01 10:58 | MHC.OFFVIS ---
Vital Signs 08/01/24 11:03 Height 5 ft 6 in Weight 161 lb 13.109 oz BMI 26.1 BP 140/92 H Blood Pressure Location Rt brachial Position Sitting Pulse 86 Intake Visit Reasons: F/u IBS and GERD Intake Note: Patient in office today in follow up of IBS and GERD. CC: Patient c/o RUQ abdominal pain these recent days. Per patient the pain is sudden and she feels pain when she touch the area. She also reports occasional constipation. Allergies doxycycline Allergy (Severe, Verified 08/01/24 11:10) tongue swelling morphine [MORPHINE] Allergy (Intermediate, Verified 08/01/24 11:10) RASH, headache, redness, throat swelling sumatriptan [From IMITREX] Allergy (Mild, Verified 08/01/24 11:10) ITCHING azithromycin Allergy (Unknown, Verified 08/01/24 11:10) facial redness Penicillins [PENICILLINS] Allergy (Unknown, Verified 08/01/24 11:10) ANAPHYLAXIS vancomycin Adverse Reaction (Verified 08/01/24 11:10) Itching HPI HPI F/u IBS and GERD: Details: Assessment & Plan (1) Irritable bowel syndrome with both constipation and diarrhea: Code(s): K58.2 - Mixed irritable bowel syndrome Category: Medical (2) GERD (gastroesophageal reflux disease): Code(s): K21.9 - Gastro-esophageal reflux disease without esophagitis Category: Medical (3) Exocrine pancreatic insufficiency: Code(s): K86.81 - Exocrine pancreatic insufficiency Category: Medical (4) Periumbilical abdominal pain: Code(s): R10.33 - Periumbilical pain Category: Medical Plan [place]an #[id number] Shayan With the Creon she has had a positive result to her pain, it has decreased in frequency but when she has it - it is still severe. This was on the 24, 000 dose. Will increase to 36,000 and titrate. She reports stabbing pain in the upper abd and at times in the sides. Ran out of bentyl, refilling. Also will give extra dose of famotidine to take when she has epigastric pain to try to separate GERD from bowel spasm. She continues on her pantoprazole every morning and she knows that she will have dyspepsia she does not take. I do not want to stop this medication and I explained that the famotidine is to experiment and see if the epigastric pain is from the colon or from the stomach. She understands. ROV 8 weeks. Medications: New crilpi-gcuunomh-jmqvjpi 36,000-114,000- 180,000 unit (Creon) administer with meals and/or snacks 2 caps PO BID 120 caps 6RF K58.2 - Mixed irritable bowel syndrome, K86.81 - Exocrine pancreatic insufficiency Changed From famotidine 40 mg PO BEDTIME 30 tabs 6RF K21.9 - Gastro-esophageal reflux disease without esophagitis To famotidine 40 mg PO BID 30 tabs 6RF K21.9 - Gastro-esophageal reflux disease without esophagitis Refilled dicyclomine 20 mg PO QID 120 tabs 6RF 30 days magnesium oxide may hold for loose stools 400 mg PO BEDTIME 30 tabs 6RF 30 days alum-mag hydroxide-simeth 200-200-20 mg/5 mL (Mag-Al Plus) administer between meals and at bedtime 10 mL PO QID PRN 3,000 mL 6RF dyspepsia pantoprazole (Protonix) 40 mg PO DAILY 30 tabs 6RF 30 days K21.9 - Gastro-esophageal reflux disease without esophagitis On Hold oeicst-rcxcfsrl-wtmqocx 24,000-76,000 -120,000 unit (Creon) Hold Comment: Doctor's Order 2 caps PO BID 30 days 120 caps 6RF K58.9 - Irritable bowel syndrome without diarrhea TODAYS VISIT [place] #Magaly Michael She has been having pain in the RUQ that is not necessarily r/t eating but will occur w/o warning at any time of day and will last 5-10 minutes. Her bowels continues as CIC alt with diarrhea, and she DOES use the carafate and bentyl when it happens with some relief. It also is a cramping pain that is stabbing when she presses on the area. She will also use a heating. She still has a GB but with recent negative imaging for GS I think this is most likely bowel spasm, or even some adhesions form her mesh and hernia surgery and I advise her to start taking the bentyl bid qam and qhs. She continues on her pantoprazole, Mylanta, magnesium oxide, dicyclomine, and famotidine along with her Creon. ROV 3 mos. [facility] Medical History (Updated 08/01/24 @ 10:59 by LYNSEY Holcomb) Abnormal CT scan, gastrointestinal tract Bronchitis Family history of diabetes mellitus Colitis GERD (gastroesophageal reflux disease) Chronic idiopathic constipation Mild recurrent major depression Umbilical hernia Sarcoidosis Asthma Surgical History History of umbilical hernia repair H/O esophagogastroduodenoscopy History of tubal ligation Previous section History of appendectomy Family History Father Essential hypertension Arthritis CAD (coronary artery disease) Mother Essential hypertension Diabetes mellitus Social History Housing: Apartment Alcohol intake: never Patient Tobacco Use Status: Former Tobacco user Tobacco use type: Cigarette e-Cigarette/Vaping Use: Never Used Second Hand Smoke Exposure: No service: No Current occupational status: unemployed Cognitive needs: No Hearing needs: No Vision needs: No Review of Systems Const Denies fatigue, Denies fever(s), Denies night sweats, Denies poor appetite and Denies weight loss ENT Reports Normal hearing present, Denies dental pain, Denies dysphagia, Denies hearing loss, Denies mouth pain, Denies odynophagia, Denies throat swelling, Denies tongue swelling and Reports other (Dentition adequate) Card Reports no additional complaints Resp Reports no additional complaints GI Details: Reports abdominal pain, Denies melena, Denies bloating, Denies hematochezia, Reports constipation, Denies GI cramping, Denies dysphagia, Denies excessive flatus, Denies early satiety, Reports heartburn, Denies diarrhea, Denies nausea, Denies odynophagia, Denies vomiting and Denies hematemesis Skin/Breast Denies pruritus, Denies lesions, Denies rash and Denies jaundice Neuro Reports Normal hearing present and Denies Abnormal speech present Endo Denies fatigue Aller/Immun Denies throat swelling and Denies tongue swelling Physical Exam Vital Signs: Last Vital Signs Pulse 86 08/01/24 11:03 BP 140/92 H 08/01/24 11:03 BMI result Body Mass Index 26.1 Const General: cooperative, no acute distress, well developed and well groomed Nutritional Appearance: average body habitus and well nourished Orientation/consciousness: oriented to person, oriented to place and oriented to time Limitations: language barrier HEENT Head: Yes normocephalic and Yes atraumatic Eyes General: appearance normal, both eyes and all related structures Pupils: Equal, round and reactive pupils present Neck Neck: Yes normal visual inspection and Yes no lymphadenopathy Thyroid: Thyroid normal Resp Effort & Inspection: normal respiratory effort and able to speak in complete sentences Auscultation: clear to auscultation bilaterally Cardio Rate: regular rate Rhythm: regular rhythm Heart sounds: Normal, physiologic split S2 sound present Peripheral pulses: radial pulses present and posterior tibial pulses present GI Inspection: No distended and No Abdominal panniculus present Palpation (GI): Soft to palpation, nontender, no guarding, not rigid and No hepatosplenomegaly present Percussion: Yes normal to percussion Auscultation: normal bowel sounds Rectal Exam - Female: deferred Skin General skin exam: no rashes or lesions noted, turgor normal, skin not dry, no jaundice, No spider nevi and no striae Rashes: no rashes Nails: normal Neuro General: oriented to person, oriented to place and oriented to time Cranial nerves: Yes Equal, round and reactive pupils present and Yes Normal hearing present Speech: No Abnormal speech present Extrem General: Yes normal to inspection, No clubbing, No cyanosis and No edema Psych Appearance: grossly normal and well kempt Mental Status: mental status grossly normal Speech and movement: Normal speech and movement present Affect: normal affect Attitude: cooperative Thought process: Normal thought process present and not confabulating Thought content: Normal thought content present Insight: Limited insight present (Psych) Judgement: Limited judgement present (Psych) Assessment & Plan Assessment & Plan (1) Exocrine pancreatic insufficiency: Code(s): K86.81 - Exocrine pancreatic insufficiency Category: Medical (2) Periumbilical abdominal pain: Code(s): R10.33 - Periumbilical pain Category: Medical (3) Irritable bowel syndrome with both constipation and diarrhea: Code(s): K58.2 - Mixed irritable bowel syndrome Category: Medical (4) GERD (gastroesophageal reflux disease): Code(s): K21.9 - Gastro-esophageal reflux disease without esophagitis Category: Medical Plan [place] #Magaly Live She has been having pain in the RUQ that is not necessarily r/t eating but will occur w/o warnng at any time of day and will last 5-10 minutes. Her bowels continues as CIC alt with diarrhea, and skhe DOES use the carafate and bentyl when it happens with some relief. It also is a cramping pain that is stabbing when she presses on the area. She will also use a heating. She still has a GB but with recent negative imaging for GS I think this is most likely bowel spasm, or even some adhesions form her mesh and hernia surgery and I advise her to start taking the bentyl bid qam and qhs. She continues on her pantoprazole, Mylanta, magnesium oxide, dicyclomine, and famotidine along with her Creon. ROV 3 mos. Coding Level of Care Code Est Pt Level 3 (76161) Diagnoses Exocrine pancreatic insufficiency K86.81 Periumbilical abdominal pain R10.33 Irritable bowel syndrome with both constipation and diarrhea K58.2 GERD (gastroesophageal reflux disease) K21.9
[2024-08-01 11:03] VITALS: BP 140/92; PULSE 86; BMI 26.1
== END 2024-08-01 11:20 | disposition home or self-care (01) ==
PROVIDERS: PCP Internal Medicine; Visit Provider Nurse Practitioner
DX: K86.81 Exocrine pancreatic insufficiency (principal); R10.33 Periumbilical pain; K58.2 Mixed irritable bowel syndrome; K21.9 Gastro-esophageal reflux disease without esophagitis
CPT/HCPCS: 99213

== ENCOUNTER → 2024-08-01 10:54 | Outpatient (BNVA) | payer OTHER, SELFPAY | PROVIDERS: PCP Internal Medicine; Visit Provider Nurse Practitioner | DX: K86.81 Exocrine pancreatic insufficiency (principal); K58.2 Mixed irritable bowel syndrome; K21.9 Gastro-esophageal reflux disease without esophagitis; R10.33 Periumbilical pain | CPT/HCPCS: 99212 ==

== ENCOUNTER 2024-09-28 18:04 | Emergency (ER) | payer OTHER, SELFPAY ==
--- NOTE | ~2024-09-28 | CT_ITS ---
CLINICAL HISTORY: Worst headache, R O cerebral aneurysm. CT BRAIN WITHOUT CONTRAST CTA HEAD WITH CONTRAST AND 3D POST PROCESSING CTA NECK WITH CONTRAST AND 3D POST PROCESSING COMPARISON: 08/27/2023. FINDINGS: CT BRAIN: There is no evidence of an acute infarct or intraparenchymal hemorrhage. There is no mass effect, midline shift, or extra-axial blood. The ventricles are normal in size without evidence of hydrocephalus. The bone windows are unremarkable. CTA NECK: Sagittal and coronal MIP 3D reconstruction images were performed.There is no significant stenosis, occlusion, dissection, aneurysm, or vascular malformation. There is no active bleeding.Common carotid arteries, internal carotid arteries, external carotid arteries, and vertebral arteries are unremarkable. Straightening of the normal cervical lordosis is noted. Chronic developmental or remote posttraumatic change is again noted involving the inferior articular processes, laminae, and spinous process of T2. CTA HEAD: Sagittal and coronal MIP 3D reconstruction images were performed.There is no significant stenosis, occlusion, dissection, aneurysm, or vascular malformation. There is no active bleeding.Terminal internal carotid arteries, middle cerebral arteries, anterior cerebral arteries, basilar artery, and posterior cerebral arteries are unremarkable. No evidence of dural venous sinus thrombosis. IMPRESSION: 1. Unremarkable CT brain. 2. Unremarkable CTA neck and CTA head. 3. Additional findings are detailed above. This document has been electronically signed by: Blair Pfeiffer M.D. on 09/28/2024 22:50:57
--- NOTE | 2024-09-28 18:34 | ED.HA ---
HPI - Headache General Chief Complaint: Headache Stated Complaint: severe headache Time Seen by Provider: 09/28/24 20:32 Related Data Home Medications ?Medication ?Instructions ?Recorded ?Confirmed naproxen 500 mg tablet 1 tab PO BID PRN Pain 03/09/22 03/19/24 escitalopram oxalate 5 mg tablet 5 mg PO DAILY 06/08/23 03/19/24 Previous Rx's ?Medication ?Instructions ?Recorded docusate sodium 100 mg capsule 100 mg PO BID #60 caps 03/31/22 Ventolin HFA 90 mcg/actuation 2 puff inhalation Q6H PRN for 12/28/22 aerosol inhaler (albuterol sulfate) dyspnea #18 grams ipratropium 0.5 mg-albuterol 3 mg 3 ml inhalation Q4H PRN for 01/02/23 (2.5 mg base)/3 mL nebulization wheezing #180 mL soln riboflavin (vitamin B2) 400 mg 400 mg PO DAILY 30 days #30 tabs 04/10/23 tablet ubrogepant 100 mg tablet (Ubrelvy) 50 - 100 mg (0.5 - 1 x 100 mg) PO 04/13/23 ONCE PRN migraine headache 30 days #16 tabs nebulizers (VixOne Nebulizer-Adult #1 ea 04/17/23 Mask) bisacodyl 5 mg tablet,delayed 10 mg (2 x 5 mg) PO BEDTIME 30 08/22/23 release (Dulcolax (bisacodyl)) days #60 tabs cyclobenzaprine 10 mg tablet 10 mg PO TID PRN muscle spasm #14 08/27/23 tabs lidocaine 5 % topical patch 1 patch topical DAILY #30 ea 08/27/23 fluticasone propionate 50 1 spray intranasal BID PRN for 09/20/23 mcg/actuation nasal allergies #16 mL spray,suspension tiotropium bromide 2.5 2 puff inhalation QAM 90 days #4 12/01/23 mcg/actuation mist for inhalation grams (Spiriva Respimat) khyaxo-sotinqkx-opfghes 2 cap PO BID 30 days #120 caps 02/28/24 24,000-76,000-120,000 unit capsule,delayed rel (Creon) Symbicort 160 mcg-4.5 2 puff inhalation BID 90 days 03/28/24 mcg/actuation HFA aerosol inhaler #10.2 ea (budesonide-formoterol) aluminum-mag hydroxide-simethicone 10 ml PO QID PRN dyspepsia #3,000 04/24/24 200 mg-200 mg-20 mg/5 mL oral susp mL (Mag-Al Plus) dicyclomine 20 mg tablet 20 mg PO QID 30 days #120 tabs 04/24/24 famotidine 40 mg tablet 40 mg PO BID #30 tabs 04/24/24 llorvh-ebzdddty-vtpnzoc 2 cap PO BID #120 caps 04/24/24 36,000-114,000-180,000 unit capsule,delay rel (Creon) pantoprazole 40 mg tablet,delayed 40 mg PO DAILY 30 days #30 tabs 04/24/24 release (Protonix) hydroxyzine HCl 25 mg tablet 25 mg PO DAILY #30 tabs 04/25/24 magnesium oxide 400 mg (241.3 mg 400 mg PO BEDTIME #90 tabs 06/06/24 magnesium) tablet Allergies Allergy/AdvReac Type Severity Reaction Status Date / Time doxycycline Allergy Severe tongue Verified 09/28/24 18:43 swelling morphine [MORPHINE] Allergy Intermediate RASH, Verified 09/28/24 18:43 headache, redness, throat swelling sumatriptan [From IMITREX] Allergy Mild ITCHING Verified 09/28/24 18:43 azithromycin Allergy Unknown facial Verified 09/28/24 18:43 redness Penicillins [PENICILLINS] Allergy Unknown ANAPHYLAXIS Verified 09/28/24 18:43 vancomycin AdvReac Itching Verified 09/28/24 18:43 PMFSH Past Medical History Medical History Abnormal CT scan, gastrointestinal tract Bronchitis Family history of diabetes mellitus Colitis GERD (gastroesophageal reflux disease) Chronic idiopathic constipation Mild recurrent major depression Umbilical hernia Sarcoidosis Asthma Surgical History History of umbilical hernia repair H/O esophagogastroduodenoscopy History of tubal ligation Previous section History of appendectomy Family History Family History Father Essential hypertension Arthritis CAD (coronary artery disease) Mother Essential hypertension Diabetes mellitus Social History Social History Housing: Apartment Unable to assess alcohol history related to: Unknown Alcohol intake: never Patient Tobacco Use Status: Former Tobacco user Tobacco use type: Cigarette e-Cigarette/Vaping Use: Never Used Second Hand Smoke Exposure: No service: No Current occupational status: unemployed Cognitive needs: No Hearing needs: No Vision needs: No Physical Exam Vital Signs: Vital Signs: Last Vital Signs Temp 98.7 F 09/28/24 23:46 Pulse 84 09/28/24 23:46 Resp 16 09/28/24 23:46 BP 137/73 09/28/24 23:46 Pulse Ox 95 09/28/24 23:46 O2 Del Method Room Air 09/28/24 23:46 BMI result Body Mass Index 25.9 Course Course Course Narrative: This is a Rapid Medical Exam performed in triage by Dianna Vasquez PA-C. Full HPI, ROS and PE to be performed by primary ED provider. 39-year-old female with a past medical history migraines, GERD, asthma, sarcoidosis, presenting to the ED c/o HERNÁNDEZ x today. Admits to hx migraines, states this HERNÁNDEZ is worse that her typical, not maximal at onset. Took Tylenol w/o relief. +nausea, CP, & bilateral ear pain. denies vomiting, fever, visual changes PE: uncomfortable, no ataxia. nonfocal Plan: EKG, labs, viral testing Medications Administered Discontinued Medications Generic Name Dose Route Start Last Admin Trade Name Juan Fq PRN Reason Stop Dose Admin Diphenhydramine HCl 25 mg 09/28/24 19:40 09/28/24 20:39 Diphenhydramine Hcl 50 Mg/Ml Vial IVPUSH 09/28/24 19:41 25 mg ONCE ONE Administration Sodium Chloride 1,000 mls @ 999 mls/hr 09/28/24 19:45 09/28/24 21:42 Ns IV 09/28/24 20:45 Infused .Q1H1M GERARD Infusion Acetaminophen 1,000 mg in 100 mls @ 400 mls/hr 09/28/24 19:40 09/28/24 21:06 Ofirmev IV 09/28/24 19:54 Infused ONCE ONE Infusion Iohexol 70 ml 09/28/24 21:39 09/28/24 21:40 Iohexol 350 Mg/Ml 100 Ml Infus..Btl IV 09/28/24 21:40 70 ml ONCE ONE Administration Metoclopramide HCl 10 mg 09/28/24 19:40 09/28/24 20:36 Metoclopramide Hcl 10 Mg/2 Ml Vial IVPUSH 09/28/24 19:41 10 mg ONCE ONE Administration Medical Decision Making Lab Data 09/28/24 19:05 09/28/24 19:05 Labs: Lab Results 09/28/24 Range/Units 19:05 WBC 8.1 (4.8-10.8) X10*3/uL RBC 4.26 (4.20-5.50) X10*6/uL Hgb 10.6 L (12.0-16.0) g/dl Hct 33.5 L (37.0-47.0) % MCV 78.6 L (80.0-98.0) fL MCH 24.9 L (27.0-33.0) pg MCHC 31.6 (31.0-35.0) g/dl RDW 15.6 (11.0-16.0) % Plt Count 394 (160-400) X10*3/uL MPV 9.4 (9.4-12.3) fL Immature Gran % (Auto) 0.1 (0.0-0.4) % Neut % (Auto) 55.7 (45-73) % Lymph % (Auto) 36.3 (20-40) % [place] % (Auto) 4.8 (2-11) % Eos % (Auto) 2.2 (0-4) % Baso % (Auto) 0.9 (0-2) % Lymph # (Auto) 3.0 (1.2-4.9) X10*3/uL [place] # (Auto) 0.4 (0.1-1.2) X10*3/uL Eos # (Auto) 0.2 (0.0-0.4) X10*3/uL Baso # (Auto) 0.1 (0.0-0.2) X10*3/uL Abs Immat Gran (auto) 0.01 (0.00-0.03) X10*3/uL Absolute Neuts (auto) 4.5 (2.0-8.3) x10*3/uL Absolute Nucleated RBC 0.000 (0.0-0.012) X10*3/uL Nucleated RBC % (auto) 0.0 (0.0-0.2) /100WBC PT 11.0 (10.9-12.4) SEC INR 0.9 (0.9-1.1) Sodium 140 (135-145) mmol/L Potassium 3.9 (3.3-5.1) mmol/L Chloride 109 H (96-108) mmol/L Carbon Dioxide 23 (22-29) mmol/L Anion Gap 12 (12-20) BUN 11 (9-16) mg/dL Creatinine 0.72 (0.5-1.4) mg/dL Estim Creat Clear Calc 107.2 Estimated GFR > 60 Random Glucose 134 H (60-115) mg/dL Calcium 9.6 D (8.4-10.2) mg/dL Total Bilirubin 0.2 (0.0-1.0) mg/dL Direct Bilirubin < 0.2 (0.0-0.5) mg/dL AST 18 (5-31) U/L ALT 14 (0-31) U/L Alkaline Phosphatase 62 (39-117) U/L Troponin I High Sens < 2.7 (<3.5-17.0) ng/L Total Protein 8.1 H (6.5-8.0) g/dL Albumin 4.2 (3.5-5.0) g/dL Beta HCG, Quant < 2 mIU/mL Influenza Type A (PCR) NEGATIVE (Negative) Influenza Type B (PCR) NEGATIVE (Negative) RSV RNA Qual (PCR) NEGATIVE (Negative) SARS-CoV-2 RNA (RT-PCR) NEGATIVE (Negative) Discharge Plan Discharge Clinical Impression: Migraine headache Patient Disposition: Home, Self-Care Instructions: Migraine Headache (ED) Prescriptions: No Action albuterol sulfate [Ventolin HFA] 90 mcg/actuation HFA aerosol inhaler 2 puff inhalation Q6H PRN (Reason: for dyspnea) Qty: 18 0RF ipratropium-albuterol 0.5 mg-3 mg(2.5 mg base)/3 mL solution for nebulization 3 ml inhalation Q4H PRN (Reason: for wheezing) Qty: 180 0RF Ubrelvy 100 mg tablet 50 - 100 mg PO ONCE PRN (Reason: migraine headache) 30 Days Qty: 16 3RF Rx Instructions: take at onset of migraine, may repeat in 2hrs (may take w/ Naproxen) (DME) nebulizers [VixOne Nebulizer-Adult Mask] Misc See Rx Instructions .Route Qty: 1 6RF Rx Instructions: As directed fluticasone propionate 50 mcg/actuation spray,suspension 1 spray intranasal BID PRN (Reason: for allergies) Qty: 16 6RF Spiriva Respimat 2.5 mcg/actuation mist 2 puff inhalation QAM 90 Days Qty: 4 6RF budesonide-formoterol [Symbicort] 160-4.5 mcg/actuation HFA aerosol inhaler 2 puff inhalation BID 90 Days Qty: 10.2 2RF hydroxyzine HCl 25 mg tablet 25 mg PO DAILY Qty: 30 2RF magnesium oxide 400 mg (241.3 mg magnesium) tablet 400 mg PO BEDTIME Qty: 90 2RF naproxen 500 mg tablet 1 tab PO BID PRN (Reason: Pain) cyclobenzaprine 10 mg tablet 10 mg PO TID PRN (Reason: muscle spasm) Qty: 14 0RF lidocaine 5 % adhesive patch,medicated 1 patch topical DAILY Qty: 30 0RF Rx Instructions: leave on most painful area for up to 12 hrs docusate sodium 100 mg capsule 100 mg PO BID Qty: 60 6RF riboflavin (vitamin B2) 400 mg tablet 400 mg PO DAILY 30 Days Qty: 30 6RF escitalopram oxalate 5 mg tablet 5 mg PO DAILY bisacodyl [Dulcolax (bisacodyl)] 5 mg tablet,delayed release (DR/EC) 10 mg PO BEDTIME 30 Days Qty: 60 6RF Creon 24,000-76,000 -120,000 unit capsule,delayed release(DR/EC) 2 cap PO BID 30 Days Qty: 120 6RF Creon 36,000-114,000- 180,000 unit capsule,delayed release(DR/EC) 2 cap PO BID Qty: 120 6RF Rx Instructions: administer with meals and/or snacks famotidine 40 mg tablet 40 mg PO BID Qty: 30 6RF dicyclomine 20 mg tablet 20 mg PO QID 30 Days Qty: 120 6RF pantoprazole [Protonix] 40 mg tablet,delayed release (DR/EC) 40 mg PO DAILY 30 Days Qty: 30 6RF alum-mag hydroxide-simeth [Mag-Al Plus] 200-200-20 mg/5 mL suspension 10 ml PO QID PRN (Reason: dyspepsia) Qty: 3000 6RF Rx Instructions: administer between meals and at bedtime Referrals: Josefina Stacy MD [Primary Care Provider] - Interventions: ED Discharge Assessment Last Done: 09/28/24 23:46 Discharge Date/Time: 09/28/24 23:47 Print Language: Hungarian
[2024-09-28 18:41] VITALS: BP 180/102; PULSE 93; RESP 18; TEMP 37.1; O2SAT 100; BMI 25.9
--- NOTE | 2024-09-28 18:42 | ECG_ITS ---
Test Reason : CHEST PAIN Blood Pressure : */* mmHG Vent. Rate : 87 BPM Atrial Rate : 87 BPM P-R Int : 140 ms QRS Dur : 76 ms QT Int : 360 ms P-R-T Axes : 33 24 34 degrees QTcB Int : 433 ms Normal sinus rhythm Normal ECG When compared with ECG of 15-Nov-2023 10:37, No significant change was found Referred By: Dianna Vasquez Electronically Signed By: Rex Fish
[2024-09-28 19:13] LABS: MANUAL DIFF FLAG NO
[2024-09-28 19:15] LABS: Basophils Absolute Auto 0.1 X10*3/uL (0.0-0.2); Basophils Percent Auto 0.9 % (0-2); Eosinophils Absolute Auto 0.2 X10*3/uL (0.0-0.4); Eosinophils Percent Auto 2.2 % (0-4); Hematocrit 33.5 % (37.0-47.0); Hemoglobin 10.6 g/dl (12.0-16.0); Imm Gran Abs Auto 0.01 X10*3/uL (0.00-0.03); Imm Gran Pct Auto 0.1 % (0.0-0.4); Lymphocytes Percent Auto 36.3 % (20-40); Mean Corpuscular HGB Conc 31.6 g/dl (31.0-35.0); Mean Corpuscular Hemoglobin 24.9 pg (27.0-33.0); Mean Corpuscular Volume 78.6 fL (80.0-98.0); Mean Platelet Volume 9.4 fL (9.4-12.3); Monocytes Absolute Auto 0.4 X10*3/uL (0.1-1.2); Monocytes Percent Auto 4.8 % (2-11); Neutrophils Absolute Auto 4.5 x10*3/uL (2.0-8.3); Neutrophils Percent Auto 55.7 % (45-73); Platelet Count 394 X10*3/uL (160-400); Red Blood Count 4.26 X10*6/uL (4.20-5.50); Red Cell Distribution Width 15.6 % (11.0-16.0); White Blood Count 8.1 X10*3/uL (4.8-10.8)
[2024-09-28 19:21] LABS: INTERNATIONAL NORM RATIO 0.9 (0.9-1.1)
--- OUTSIDE RECORDS SUMMARY | 2024-09-28 19:26 | XMS_ITS | Clinical Summary ---
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 Role Phone Unavailable Primary Care Provider Unavailabl e Social History Tobacco Use Types Packs/Day Years Used Date Smoking Tobacco: Never Assessed Comments Unknown Sex and Gender Information Value Date Recorded Sex Assigned at Female 05/30/2022 10:20 AM EDT Legal Sex Female 10:20 AM EDT Gender Identity Not on file Sexual Orientation Not on file Plan of Treatment Health Maintenance Due Date Last Done Comments Depression Screening 1985 Alcohol/Substance Use Screening 1997 Tobacco Screening 1997 Family Planning (PISQ) 2000 DTaP/Tdap/Td Vaccines (1 - Tdap) 2004 Hepatitis B Vaccines (1 of 3 - 19+ 3-dose series) 2004 Pap Smear 2006 Cervical Cancer Screening 2015 HPV/Cotest 2015 COVID-19 Vaccine ( - 2023-2 5 season) 2024 Influenza Vaccine (#1) 2024 Zoster Vaccines (1 of 2) 2035 RSV Patients and Pa tients Aged 60 years or older (1 - 1-dose 75+ series) 2060 HIB Vaccines Aged Out No longer eligi ble based on patient's age to complete this topic HPV Vaccines Aged Out No longer eligi ble based on patient's age to complete this topic Hepatitis A Vaccines Aged Out No long er eligible based on patient's age to complete this topic IPV Vaccines Aged Out No longer eligi ble based on patient's age to complete this topic Meningococcal Vaccine Aged Out No ria nico eligible based on patient's age to complete this topic Pneumococcal Vaccine: Pediat rics (0 to 5 Years) and At-Risk Patients (6 to 49) Years) Aged Out No longer eligible b ased on patient's age to complete this topic RSV under 20 months Aged Out No longe r eligible based on patient's age to complete this topic Rotavirus Vaccines Aged Out No longer eligible based on patient's age to complete this topic
[2024-09-28 19:39] LABS: Alanine Aminotransferase 14 U/L (0-31); Albumin Level 4.2 g/dL (3.5-5.0); Alkaline Phosphatase 62 U/L (39-117); Anion Gap 12 (12-20); Aspartate Amino Transferase 18 U/L (5-31); Bilirubin Direct < 0.2 mg/dL (0.0-0.5); Bilirubin Total 0.2 mg/dL (0.0-1.0); Blood Urea Nitrogen 11 mg/dL (9-16); Calcium 9.6 mg/dL (8.4-10.2); Carbon Dioxide 23 mmol/L (22-29); Chloride 109 mmol/L (96-108); Creatinine Clr Calc Pharmacy 107.2; Estimated Glomerular Filt Rate > 60; Glucose Random 134 mg/dL (60-115); Potassium 3.9 mmol/L (3.3-5.1); Sodium 140 mmol/L (135-145); Total Protein 8.1 g/dL (6.5-8.0)
[2024-09-28 19:49] LABS: Troponin-I High Sensitivity < 2.7 ng/L (<3.5-17.0)
[2024-09-28 19:56] LABS: Influenza A PCR NEGATIVE (Negative); Influenza B PCR NEGATIVE (Negative); Resp Syncy Virus RNA Qual PCR NEGATIVE (Negative); SARS COV2 PCR INHOUSE NEGATIVE (Negative)
[2024-09-28] MEDS: Metoclopramide HCl 10 MG/2 ML VIAL IVPUSH (20:36)
[2024-09-28] MEDS: diphenhydrAMINE HCL 50 MG/ML VIAL 25 MG IVPUSH (20:39)
--- NOTE | 2024-09-28 20:40 | ED_ITS ---
HPI - Headache General Chief Complaint: Headache Stated Complaint: severe headache Time Seen by Provider: 09/28/24 20:32 Source: patient and family Mode of arrival: ambulatory Limitations: no limitations History of Present Illness ED Provider: DR. Flores HPI Narrative: 39-year-old female history of migraines presented with severe headache, headache is affecting her left side of the head, left occipital area, radiating to the left side of the neck and left arm, pain started this morning as gradual onset, headache is 10/10, headache is associated with left ear pain. No nausea, no vomiting, no photophobia, no neck stiffness otherwise, neurologically intact. Patient found to be hypertensive in the ED no known history of hypertension. Related Data Home Medications ?Medication ?Instructions ?Recorded ?Confirmed naproxen 500 mg tablet 1 tab PO BID PRN Pain 03/09/22 03/19/24 escitalopram oxalate 5 mg tablet 5 mg PO DAILY 06/08/23 03/19/24 Previous Rx's ?Medication ?Instructions ?Recorded docusate sodium 100 mg capsule 100 mg PO BID #60 caps 03/31/22 Ventolin HFA 90 mcg/actuation 2 puff inhalation Q6H PRN for 12/28/22 aerosol inhaler (albuterol sulfate) dyspnea #18 grams ipratropium 0.5 mg-albuterol 3 mg 3 ml inhalation Q4H PRN for 01/02/23 (2.5 mg base)/3 mL nebulization wheezing #180 mL soln riboflavin (vitamin B2) 400 mg 400 mg PO DAILY 30 days #30 tabs 04/10/23 tablet ubrogepant 100 mg tablet (Ubrelvy) 50 - 100 mg (0.5 - 1 x 100 mg) PO 04/13/23 ONCE PRN migraine headache 30 days #16 tabs nebulizers (VixOne Nebulizer-Adult #1 ea 04/17/23 Mask) bisacodyl 5 mg tablet,delayed 10 mg (2 x 5 mg) PO BEDTIME 30 08/22/23 release (Dulcolax (bisacodyl)) days #60 tabs cyclobenzaprine 10 mg tablet 10 mg PO TID PRN muscle spasm #14 08/27/23 tabs lidocaine 5 % topical patch 1 patch topical DAILY #30 ea 08/27/23 fluticasone propionate 50 1 spray intranasal BID PRN for 09/20/23 mcg/actuation nasal allergies #16 mL spray,suspension tiotropium bromide 2.5 2 puff inhalation QAM 90 days #4 12/01/23 mcg/actuation mist for inhalation grams (Spiriva Respimat) [id number] 2 cap PO BID 30 days #120 caps 02/28/24 24,000-76,000-120,000 unit capsule,delayed rel (Creon) Symbicort 160 mcg-4.5 2 puff inhalation BID 90 days 03/28/24 mcg/actuation HFA aerosol inhaler #10.2 ea (budesonide-formoterol) aluminum-mag hydroxide-simethicone 10 ml PO QID PRN dyspepsia #3,000 04/24/24 200 mg-200 mg-20 mg/5 mL oral susp mL (Mag-Al Plus) dicyclomine 20 mg tablet 20 mg PO QID 30 days #120 tabs 04/24/24 famotidine 40 mg tablet 40 mg PO BID #30 tabs 04/24/24 dzfuhc-dhfadpuj-zsxzmlo 2 cap PO BID #120 caps 04/24/24 36,000-114,000-180,000 unit capsule,delay rel (Creon) pantoprazole 40 mg tablet,delayed 40 mg PO DAILY 30 days #30 tabs 04/24/24 release (Protonix) hydroxyzine HCl 25 mg tablet 25 mg PO DAILY #30 tabs 04/25/24 magnesium oxide 400 mg (241.3 mg 400 mg PO BEDTIME #90 tabs 06/06/24 magnesium) tablet Allergies Allergy/AdvReac Type Severity Reaction Status Date / Time doxycycline Allergy Severe tongue Verified 09/28/24 18:43 swelling morphine [MORPHINE] Allergy Intermediate RASH, Verified 09/28/24 18:43 headache, redness, throat swelling sumatriptan [From IMITREX] Allergy Mild ITCHING Verified 09/28/24 18:43 azithromycin Allergy Unknown facial Verified 09/28/24 18:43 redness Penicillins [PENICILLINS] Allergy Unknown ANAPHYLAXIS Verified 09/28/24 18:43 vancomycin AdvReac Itching Verified 09/28/24 18:43 Review of Systems 2 Review of Systems: All other systems are reviewed and are negative Constitutional: Reports as per HPI and Reports no additional constitutional complaints Eyes: Reports as per HPI and Reports no additional eye complaints Reports system reviewed and no additional complaints, except as documented Cardiovascular: Reports as per HPI and Reports no additional cardiovascular complaints Respiratory: Reports as per HPI and Reports no additional respiratory complaints Gastrointestinal: Reports as per HPI and Reports no additional gastrointestinal complaints Genitourinary: Reports no additional female genitourinary complaints Musculoskeletal: Reports no additional musculoskeletal complaints Skin/Breast: Reports system reviewed and no additional complaints, except as docu Psychiatric: Reports no additional psychiatric complaints Endocrine: Reports no additional endocrine complaints Hematologic/Lymphatic: Reports no additional hematologic/lymphatic complaints Allergic/Immunologic: Reports no additional allergic/immunologic complaints Reports system reviewed and no additional complaints, except as documented and Reports Abnormal speech present [facility] Past Medical History Medical History Abnormal CT scan, gastrointestinal tract Bronchitis Family history of diabetes mellitus Colitis GERD (gastroesophageal reflux disease) Chronic idiopathic constipation Mild recurrent major depression Umbilical hernia Sarcoidosis Asthma Surgical History History of umbilical hernia repair H/O esophagogastroduodenoscopy History of tubal ligation Previous section History of appendectomy Family History Family History Father Essential hypertension Arthritis CAD (coronary artery disease) Mother Essential hypertension Diabetes mellitus Social History Social History Housing: Apartment Unable to assess alcohol history related to: Unknown Alcohol intake: never Patient Tobacco Use Status: Former Tobacco user Tobacco use type: Cigarette e-Cigarette/Vaping Use: Never Used Second Hand Smoke Exposure: No Use of substances other than those prescribed or required for medical reasons: Unknown Advance Directives: No Advance Directives Information Provided: No service: No Current occupational status: unemployed Cognitive needs: No Hearing needs: No Vision needs: No Physical Exam 2 Vital Signs: Vital Signs: Last Vital Signs Temp 98.7 F 09/28/24 18:41 Pulse 84 09/28/24 23:00 Resp 16 09/28/24 23:00 BP 137/73 09/28/24 23:00 Pulse Ox 95 09/28/24 23:00 O2 Del Method Room Air 09/28/24 23:00 BMI result Body Mass Index 25.9 Vital signs have been reviewed and appear to be correct. Blood pressure elevated. Heart rate normal. Respiratory rate normal. Temperature normal. Oxygen saturation normal. Appearance: Alert. Oriented X3. No acute distress. Head: Normal external exam. Normocephalic. Atraumatic. No Alvarez signs noted. No raccoon eyes noted Eyes: PERRLA. EOMI. Conjunctiva and sclera normal. Eyelids normal. ENT: TM's Normal. Pharynx normal. Uvula midline. Moist mucous membranes. No trismus noted. No drooling noted. No muffled voice noted. Neck: Normal inspection. Neck supple. FROM. No adenopathy. Thyroid Normal. No meningeal signs. No neck mass noted. CVS: Normal heart rate and rhythm. Heart sound normal. No murmurs noted. Pulses normal throughout. Respiratory: No respiratory distress. Painless inspiration. Breath sounds normal. No wheezes/rales/rhonchi noted. Chest nontender. No accessory muscle usage noted or decreased air movement noted. Abdomen: Soft and nontender. Bowel sounds normal in all 4 quadrants. No distention noted. No organomegaly noted. No visible injury noted. Back: No CVA tenderness. Full range of motion noted. Skin: Skin warm and dry. Normal skin color. Normal skin turgor. No rashes/lesions/lacerations noted. Extremities: No lower extremity edema. Extremities exhibit normal range of motion. Extremities nontender. Neuro: Oriented X 3. Cranial nerve exam: II-XII are grossly intact No motor deficit. No sensory deficit. Reflexes normal. Course Reevaluation(s) Reevaluation #1: Migraine headache improved now headache is almost gone, repeat neuro exam is intact, head CT is unremarkable CTA of the head and neck shows no cerebral aneurysm. Time: 23:36 Medications Administered Discontinued Medications Generic Name Dose Route Start Last Admin Trade Name Freq PRN Reason Stop Dose Admin Diphenhydramine HCl 25 mg 09/28/24 19:40 09/28/24 20:39 Diphenhydramine Hcl 50 Mg/Ml Vial IVPUSH 09/28/24 19:41 25 mg ONCE ONE Administration Sodium Chloride 1,000 mls @ 999 mls/hr 09/28/24 19:45 09/28/24 21:42 Ns IV 09/28/24 20:45 Infused .Q1H1M GERARD Infusion Acetaminophen 1,000 mg in 100 mls @ 400 mls/hr 09/28/24 19:40 09/28/24 21:06 Ofirmev IV 09/28/24 19:54 Infused ONCE ONE Infusion Iohexol 70 ml 09/28/24 21:39 09/28/24 21:40 Iohexol 350 Mg/Ml 100 Ml Infus..Btl IV 09/28/24 21:40 70 ml ONCE ONE Administration Metoclopramide HCl 10 mg 09/28/24 19:40 09/28/24 20:36 Metoclopramide Hcl 10 Mg/2 Ml Vial IVPUSH 09/28/24 19:41 10 mg ONCE ONE Administration Medical Decision Making Differential Diagnosis Differential Diagnoses: The differential diagnosis associated with the presentation includes (Intracranial bleed, cerebral aneurysm, migraine headache, hypertensive urgency, electrolyte derangement, severe anemia, .) Admission/Observation Consideration of admission/observation: Escalation of care including admission/observation considered Lab Data MDM Lab Attestation statement: I reviewed the patient's lab results. 09/28/24 19:05 09/28/24 19:05 Labs: Lab Results 09/28/24 Range/Units 19:05 WBC 8.1 (4.8-10.8) X10*3/uL RBC 4.26 (4.20-5.50) X10*6/uL Hgb 10.6 L (12.0-16.0) g/dl Hct 33.5 L (37.0-47.0) % MCV 78.6 L (80.0-98.0) fL MCH 24.9 L (27.0-33.0) pg MCHC 31.6 (31.0-35.0) g/dl RDW 15.6 (11.0-16.0) % Plt Count 394 (160-400) X10*3/uL MPV 9.4 (9.4-12.3) fL Immature Gran % (Auto) 0.1 (0.0-0.4) % Neut % (Auto) 55.7 (45-73) % Lymph % (Auto) 36.3 (20-40) % [place] % (Auto) 4.8 (2-11) % Eos % (Auto) 2.2 (0-4) % Baso % (Auto) 0.9 (0-2) % Lymph # (Auto) 3.0 (1.2-4.9) X10*3/uL [place] # (Auto) 0.4 (0.1-1.2) X10*3/uL Eos # (Auto) 0.2 (0.0-0.4) X10*3/uL Baso # (Auto) 0.1 (0.0-0.2) X10*3/uL Abs Immat Gran (auto) 0.01 (0.00-0.03) X10*3/uL Absolute Neuts (auto) 4.5 (2.0-8.3) x10*3/uL Absolute Nucleated RBC 0.000 (0.0-0.012) X10*3/uL Nucleated RBC % (auto) 0.0 (0.0-0.2) /100WBC PT 11.0 (10.9-12.4) SEC INR 0.9 (0.9-1.1) Sodium 140 (135-145) mmol/L Potassium 3.9 (3.3-5.1) mmol/L Chloride 109 H (96-108) mmol/L Carbon Dioxide 23 (22-29) mmol/L Anion Gap 12 (12-20) BUN 11 (9-16) mg/dL Creatinine 0.72 (0.5-1.4) mg/dL Estim Creat Clear Calc 107.2 Estimated GFR > 60 Random Glucose 134 H (60-115) mg/dL Calcium 9.6 D (8.4-10.2) mg/dL Total Bilirubin 0.2 (0.0-1.0) mg/dL Direct Bilirubin < 0.2 (0.0-0.5) mg/dL AST 18 (5-31) U/L ALT 14 (0-31) U/L Alkaline Phosphatase 62 (39-117) U/L Troponin I High Sens < 2.7 (<3.5-17.0) ng/L Total Protein 8.1 H (6.5-8.0) g/dL Albumin 4.2 (3.5-5.0) g/dL Influenza Type A (PCR) NEGATIVE (Negative) Influenza Type B (PCR) NEGATIVE (Negative) RSV RNA Qual (PCR) NEGATIVE (Negative) SARS-CoV-2 RNA (RT-PCR) NEGATIVE (Negative) Independent Interpretation I performed an independent interpretation of an: CT Scan ( head/head and neck CTA:CTA NECK: Sagittal and coronal MIP 3D reconstruction images were performed.There is no significant stenosis, occlusion, dissection, aneurysm, or vascular malformation. There is no active bleeding.Common carotid arteries, internal carotid arteries, external carotid a.) Radiology Impression Discussion of test interpretation with radiology: I have reviewed the radiologist's reading. Discharge Plan Discharge Clinical Impression: Migraine headache Patient Disposition: Home, Self-Care Instructions: Migraine Headache (ED) Prescriptions: No Action albuterol sulfate [Ventolin HFA] 90 mcg/actuation HFA aerosol inhaler 2 puff inhalation Q6H PRN (Reason: for dyspnea) Qty: 18 0RF ipratropium-albuterol 0.5 mg-3 mg(2.5 mg base)/3 mL solution for nebulization 3 ml inhalation Q4H PRN (Reason: for wheezing) Qty: 180 0RF Ubrelvy 100 mg tablet 50 - 100 mg PO ONCE PRN (Reason: migraine headache) 30 Days Qty: 16 3RF Rx Instructions: take at onset of migraine, may repeat in 2hrs (may take w/ Naproxen) (DME) nebulizers [VixOne Nebulizer-Adult Mask] Misc See Rx Instructions .Route Qty: 1 6RF Rx Instructions: As directed fluticasone propionate 50 mcg/actuation spray,suspension 1 spray intranasal BID PRN (Reason: for allergies) Qty: 16 6RF Spiriva Respimat 2.5 mcg/actuation mist 2 puff inhalation QAM 90 Days Qty: 4 6RF budesonide-formoterol [Symbicort] 160-4.5 mcg/actuation HFA aerosol inhaler 2 puff inhalation BID 90 Days Qty: 10.2 2RF hydroxyzine HCl 25 mg tablet 25 mg PO DAILY Qty: 30 2RF magnesium oxide 400 mg (241.3 mg magnesium) tablet 400 mg PO BEDTIME Qty: 90 2RF naproxen 500 mg tablet 1 tab PO BID PRN (Reason: Pain) cyclobenzaprine 10 mg tablet 10 mg PO TID PRN (Reason: muscle spasm) Qty: 14 0RF lidocaine 5 % adhesive patch,medicated 1 patch topical DAILY Qty: 30 0RF Rx Instructions: leave on most painful area for up to 12 hrs docusate sodium 100 mg capsule 100 mg PO BID Qty: 60 6RF riboflavin (vitamin B2) 400 mg tablet 400 mg PO DAILY 30 Days Qty: 30 6RF escitalopram oxalate 5 mg tablet 5 mg PO DAILY bisacodyl [Dulcolax (bisacodyl)] 5 mg tablet,delayed release (DR/EC) 10 mg PO BEDTIME 30 Days Qty: 60 6RF Creon 24,000-76,000 -120,000 unit capsule,delayed release(DR/EC) 2 cap PO BID 30 Days Qty: 120 6RF Creon 36,000-114,000- 180,000 unit capsule,delayed release(DR/EC) 2 cap PO BID Qty: 120 6RF Rx Instructions: administer with meals and/or snacks famotidine 40 mg tablet 40 mg PO BID Qty: 30 6RF dicyclomine 20 mg tablet 20 mg PO QID 30 Days Qty: 120 6RF pantoprazole [Protonix] 40 mg tablet,delayed release (DR/EC) 40 mg PO DAILY 30 Days Qty: 30 6RF alum-mag hydroxide-simeth [Mag-Al Plus] 200-200-20 mg/5 mL suspension 10 ml PO QID PRN (Reason: dyspepsia) Qty: 3000 6RF Rx Instructions: administer between meals and at bedtime Referrals: Josefina Stacy MD [Primary Care Provider] - Print Language: Korean
[2024-09-28] MEDS: 0.9 % Sodium Chloride 1,000 ML 999 ML IV (20:42)
[2024-09-28] MEDS: Acetaminophen 1,000 MG/100 ML PIGGYBACK 400 MG IV (20:44)
[2024-09-28] MEDS: iohexoL 350 MG/ML 100 ML INFUS..BTL 70 ML IV (21:40)
[2024-09-28 23:00] VITALS: BP 137/73; PULSE 84; RESP 16; O2SAT 95
[2024-09-28 23:46] VITALS: BP 137/73; PULSE 84; RESP 16; TEMP 37.1; O2SAT 95
[2024-09-29 00:26] LABS: HCG Quantitative < 2 mIU/mL
== END 2024-09-28 23:47 | disposition home or self-care (01) ==
PROVIDERS: Physician Assistant; Emergency Provider Emergency Medicine; PCP Internal Medicine
DX: G43.909 Migraine, unspecified, not intractable, without status migrainosus (principal); J45.909 Unspecified asthma, uncomplicated; Z87.891 Personal history of nicotine dependence; Z03.818 Encounter for observation for suspected exposure to other biological agents ruled out
CPT/HCPCS: 0241U; 70496; 70498; 80048; 80076; 84484; 84702; 85025; 85610; 93005; 96361; 96374; 96375; 99284; 99285; J0131; J1200; J2765; Q9967

== ENCOUNTER → 2024-09-28 18:42 | Outpatient (BNV) | payer OTHER, SELFPAY | PROVIDERS: Emergency Provider Emergency Medicine; PCP Internal Medicine; Visit Provider Internal Medicine Cardiovascular Disease | DX: R07.9 Chest pain, unspecified (principal) | CPT/HCPCS: 93010 ==

== ENCOUNTER → 2024-09-28 20:39 | Outpatient (BNV) | payer OTHER, SELFPAY | PROVIDERS: Emergency Provider Emergency Medicine; PCP Internal Medicine; Visit Provider Radiology Diagnostic Radiology | DX: R51.9 Headache, unspecified (principal) | CPT/HCPCS: 70496; 70498 ==

== ENCOUNTER 2024-11-06 17:09 | Outpatient (AMB) | payer OTHER, SELFPAY ==
[2024-11-06 17:15] VITALS: BP 140/92; PULSE 70; TEMP 36.4; O2SAT 100; BMI 26.0
--- NOTE | 2024-11-06 17:15 | A.OFFPC_ITS ---
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 [employer] Required: No Accompanied by: Daughter Allergies doxycycline Allergy (Severe, Verified 11/06/24 17:32) tongue swelling morphine [MORPHINE] Allergy (Intermediate, Verified 11/06/24 17:32) RASH, headache, redness, throat swelling sumatriptan [From IMITREX] Allergy (Mild, Verified 11/06/24 17:32) ITCHING azithromycin Allergy (Unknown, Verified 11/06/24 17:32) facial redness Penicillins [PENICILLINS] Allergy (Unknown, Verified 11/06/24 17:32) ANAPHYLAXIS vancomycin Adverse Reaction (Verified 11/06/24 17:32) Itching Medication List - Last Reconciled 11/06/24 by Josefina Faith MD alum-mag hydroxide-simeth 200-200-20 mg/5 mL (Mag-Al Plus) 10 mL PO QID PRN bisacodyl (Dulcolax (bisacodyl)) 10 mg (2 x 5 mg) PO BEDTIME 30 days cyclobenzaprine 10 mg PO TID PRN dicyclomine 20 mg PO QID 30 days docusate sodium 100 mg PO BID escitalopram oxalate 5 mg PO DAILY famotidine 40 mg PO BID fluticasone propionate 50 mcg/actuation 1 spray intranasal BID PRN hydroxyzine HCl 25 mg PO DAILY ipratropium-albuterol 0.5 mg-3 mg(2.5 mg base)/3 mL 3 mL inhalation Q4H PRN lidocaine 5% 1 patch topical DAILY ianabc-qweztvbu-chimuak 24,000-76,000 -120,000 unit (Creon) 2 caps PO BID 30 days bphdph-vbchqnwn-jylpngs 36,000-114,000- 180,000 unit (Creon) 2 caps PO BID magnesium oxide 400 mg PO BEDTIME naproxen 1 tab PO BID PRN nebulizers (VixOne Nebulizer-Adult Mask) As directed pantoprazole (Protonix) 40 mg PO DAILY 30 days riboflavin (vitamin B2) 400 mg PO DAILY 30 days Symbicort 160-4.5 mcg/actuation (budesonide-formoterol) 2 puffs inhalation BID 90 days NS tiotropium bromide 2.5 mcg/actuation (Spiriva Respimat) 2 puffs inhalation QAM 90 days ubrogepant (Ubrelvy) 50 - 100 mg (0.5 - 1 x 100 mg) PO ONCE PRN 30 days Ventolin HFA 90 mcg/actuation (albuterol sulfate) 2 puffs inhalation Q6H PRN NS Tobacco use date assessed: 11/06/24 Dental Screening Dental Screen Date: 11/06/24 Did you have a dental visit in the last 12 months?: Yes Did you have a dental problem in the last 6 months where you did not have access to dental care?: No Was dental information given to patient?: Patient has dentist HPI HPI Comments History of Present Illness Details The patient is a 39-year-old female presenting for her physical exam with migraines and elevated blood pressure during her annual physical exam ination. She reports experiencing migraine headaches, which she noted occurred during a previous hospitalization. The migraines have been a recurring issue, although the precise frequency is not specified. Additionally, the patient has observed her blood pressure is somewhat elevated compared to normal values, as confirmed during this visit. A previous assessment at a healthcare facility also indicated higher blood pressure. The patient denies any consistent history of elevated blood pressure but acknowledges that it has been higher on isolated occasions. The patient reports an array of allergies, specifically stating hypersensitivity reactions to doxycycline, resulting in swelling, as well as to morphine, sumatriptan (Immitrex), azithromycin, penicillin, and vancomycin. This allergic profile has prompted care adjustments and alternative medication considerations. Her medication regimen includes magnesium supplements, Cyclobenzaprine (Flexeril), Dicyclomine, Escitalopram for depression and anxiety, Famotidine, Hydroxyzine for anxiety, Lidocaine patches for back pain relief, and pantoprazole for gastric acid suppression. She is also prescribed Symbicort and Spiriva for respiratory care, UBRELVY for migraines, and Ventolin for asthma. The patient has a history of an umbilical hernia, tubal ligation, section, and appendectomy. Her father has a history of hypertension and heart disease, while her mother due to sepsis resulting from an abdominal hernia and had diabetes. The patient neither currently consumes alcohol nor smokes but has a history of tobacco use. - Discussed updating tetanus vaccination , not administered in the last 10 years - Last Pap smear conducted in 2022, curr ent and up-to-date - Colonoscopy done a few years ago [facility] Medical History (Updated 11/06/24 @ 17:54 by Josefina Faith MD) Abnormal CT scan, gastrointestinal tract Bronchitis Family history of diabetes mellitus Colitis GERD (gastroesophageal reflux disease) Chronic idiopathic constipation Mild recurrent major depression Umbilical hernia Sarcoidosis Asthma Surgical History History of umbilical hernia repair H/O esophagogastroduodenoscopy History of tubal ligation Previous section History of appendectomy Family History Father Essential hypertension Arthritis CAD (coronary artery disease) Mother Essential hypertension Diabetes mellitus Social History Housing: Apartment Unable to assess alcohol history related to: Unknown Alcohol intake: never Patient Tobacco Use Status: Former Tobacco user Tobacco use type: Cigarette e-Cigarette/Vaping Use: Never Used Second Hand Smoke Exposure: No service: No Current occupational status: unemployed Cognitive needs: No Hearing needs: No Vision needs: No Questionnaire PHQ-9 Over the last 2 weeks, how often have you been bothered by any of the following problems? 1. Little interest or pleasure in doing things: several days 2. Feeling down, depressed, or hopeless: several days 3. Trouble falling or staying asleep, or sleeping too much: several days 4. Feeling tired or having little energy: more than half the days 5. Poor appetite or overeating: several days 6. Feeling bad about yourself - or that you are a failure or have let yourself or your family down: not at all 7. Trouble concentrating on things, such as reading the newspaper or watching television: several days 8. Moving or speaking so slowly that other people could have noticed. Or the opposite - being so fidgety or restless that you have been moving around a lot more than usual: several days 9. Thoughts that you would be better off or of hurting yourself in some way: not at all Total score: 8 Depression Screening Interpretation: Positive Depression Screening Follow-up: Existing condition, In treatment and Follow-up Visit Requested Depression Screening Done: Yes 37047 - PHQ-9 Billing: Yes Source: Developed by Drs. Jr Nava, Fabiola Kaur, Ehsan Penn and colleagues, with an educational kraig from [employer]. Thrive Questionnaire Date Thrive assessed: 11/06/24 I am a: Patient What is your living situation today?: I have a steady place to live Within the past 12 months, did the food you bought not last and you didn't have the money to get more?: Never true Within the past 12 months, did you worry whether your food would run out before you got money to buy more?: Never true Do you have trouble paying for medicines?: No Do you have trouble getting transportation to medical appointments?: No Do you have trouble paying your heating and electricity bill?: No Do you have trouble taking care of your child, family member or friend?: No Do you have trouble with day-to-day activities such as bathing, preparing meals, shopping, managing finances, etc.?: No Are you currently unemployed and looking for a job?: No Are you interested in more education?: No Please select the resources that you would like help with: None Currently or been in a relationship where the following occur: No concerns reported THRIVE Score: 0 AUDIT C Alcohol Use Questionnaire (AUDIT-C) 1. How often do you have a drink containing alcohol?: Never 3. How often do you have six or more drinks on one occasion?: Never Total Score: 0 Score Reviewed/Action Taken: No TO-7 AMB Questionnaire TO-7 Date TO - 7 assessed: 11/06/24 Feeling nervous, anxious, or on edge: 2 = More than half the days Not being able to stop or control worryin = Not at all Worrying too much about different things: 1 = Several days Trouble relaxin = Not at all Being so restless that it is hard to sit still: 0 = Not at all Becoming easily annoyed or irritable: 2 = More than half the days Feeling afraid as if something awful might happen: 2 = More than half the days Total TO-7 score (0-4 normal; 5-9 mild; 10-14 moderate; 15-21 severe): 7 Source: Developed by Drs. Jr Nava, Fabiola Kaur, Ehsan Penn and colleagues, with an educational kraig from [employer]. OT-7 Assessment Billing TO-7 Assessment Tool: TO-7 Assessment 29637 Review of Systems Const All systems reviewed & are unremarkable except as noted in HPI and below Card Denies chest pain at rest, Denies chest pain with activity, Denies edema, Denies irregular heart rhythm, Denies claudication, Denies dyspnea, Denies dyspnea on exertion, Denies orthopnea, Denies paroxysmal nocturnal dyspnea and Denies slow heart rate Resp Denies cough, Denies dyspnea and Denies dyspnea on exertion GI Denies abdominal pain, Denies change in bowel habits, Denies excessive flatus, Denies nausea and Denies vomiting Denies urinary incontinence, Denies urinary hesitancy and Denies urinary urgency Physical exam (Primary Care) Vital Signs: Last Vital Signs Temp 97.5 F 11/06/24 17:15 Pulse 70 11/06/24 17:15 BP 140/92 H 11/06/24 17:15 Pulse Ox 100 11/06/24 17:15 Oxygen Delivery Method Room Air 11/06/24 17:15 BMI result Body Mass Index 26.0 Tobacco/Smoking Status: Tobacco use Status Tobacco use date assessed 11/06/24 11/06/24 17:20 Patient Tobacco Use Status Former Tobacco user 11/06/24 17:20 Tobacco use type Cigarette 11/06/24 17:20 e-Cigarette/Vaping Use Never Used 11/06/24 17:20 PHQ-9: PHQ-9 Score PHQ-9: Total score 8 11/06/24 17:44 Depression Screening Interpretation: Positive Depression Screening Follow-up: Existing condition, In treatment and Follow-up Visit Requested Thrive Assessment: Date of Thrive Assessment Date Thrive assessed 11/06/24 11/06/24 17:20 Currently or been in a relationship where the following occur: No concerns reported HENIN Head: Yes normal to inspection, Yes normocephalic and Yes atraumatic Ears: external ears normal Eyes General: appearance normal, both eyes and all related structures Eyelids: Yes eyelids normal Conjunctivae: conjunctivae normal Neck Neck: Yes normal visual inspection and Yes supple Resp Effort & Inspection: normal respiratory effort Auscultation: clear to auscultation bilaterally Cardio Jugular venous distension: no JVD Rate: regular rate Rhythm: regular rhythm Heart sounds: S1 normal heart sound present and S2 normal heart sound present GI Inspection: Yes normal to inspection Palpation (GI): Soft to palpation and nontender Auscultation: normal bowel sounds Skin General skin exam: no rashes or lesions noted Neuro General: no focal motor deficits Extrem General: Yes full ROM Psych Appearance: grossly normal Immunizations Boostrix Tdap 2.5 Lf unit-8 mcg-5 Lf/0.5 mL intramuscular syringe Performing Provider: Josefina Faith MD Performing Location: [facility] Administered by: Georgiana Stevens CMA on 11/06/24 17:44 Dose Route Admin Location Dispensed Lot Number Expiration Date NDC [employer] [facility] 0.5 mL IM Left Deltoid 0.5 mL [id number] 02/07/27 [id number] Identify VIS Given Date VIS Provided VIS Publication Date 11/06/24 Single Vaccine 24 Eligibility Eligibility Date Funding Source Not [facility] Eligible 11/06/24 Private Coding Level of Care Code Est Pt Level 4 (88743) Est Pt Prev Care 18-39y(13034) Diagnoses Physical exam Z00.00 Polyarthralgia M25.50 Lumbar pain M54.50 GERD (gastroesophageal reflux disease) K21.9 Mild recurrent major depression F33.0 Additional Codes TO-7 Assessment Billing - TO-7 Assessment Tool: TO-7 Assessment 52578 ([id number]) PHQ-9 - 02370 - PHQ-9 Billing: Yes ([id number]) Time Spent (min) 38 Assessment & Plan Assessment & Plan (1) Physical exam: Code(s): Z00.00 - Encounter for general adult medical examination without abnormal findings Category: Medical (2) Polyarthralgia: Code(s): M25.50 - Pain in unspecified joint Category: Medical (3) Lumbar pain: Code(s): M54.50 - Low back pain, unspecified Category: Medical (4) GERD (gastroesophageal reflux disease): Code(s): K21.9 - Gastro-esophageal reflux disease without esophagitis Category: Medical (5) Mild recurrent major depression: Code(s): F33.0 - Major depressive disorder, recurrent, mild Category: Medical Plan Continuing migraine management and monitoring for hypertension are rowell priorities. The patient will maintain a log of blood pressure readings, and an appointment in three weeks has been arranged for reevaluation of hypertension. The presence of controlled depression and anxiety allows for maintenance of current medication with ongoing evaluation. Allergy considerations significantly influence pharmacological decisions. The plan includes encouraging adherence to existing medications and vigilance in reporting any adverse reactions. Follow- up with Gastroenterology for gastrointestinal concerns is anticipated, with imaging for back pain to be considered based on clinical judgment. Patient understanding of the plan and agreement to proactive management of her health are essential. Patient was informed and verbally consented to the use of an ambient scribe for clinic note documentation during this visit. During the visit, we discussed the patient's likely diagnoses including migraines and hypertension. Options for managing migraines, including existing medications and lifestyle adjustments, were reviewed. The importance of consistent blood pressure monitoring was emphasized, given previous elevated readings, with plans for follow-up in three weeks. We discussed risks associated with hypertension and complications if untreated. Medication allergies were reviewed to avoid potential severe reactions. Maintaining current regimens for controlled depression and anxiety was agreed upon. Follow-up appointments and the rationale for monitoring were discussed, with the patient acknowledging the plan and her role in active participation through symptom tracking and medication adherence. Orders: Orders XR lumbar spine 2-3V Today M54.50 - Low back pain, unspecified [place] upper GI series Today K21.9 - Gastro-esophageal reflux disease without esophagitis TDaP Immunization Today Z23 - Encounter for immunization Referrals Rheumatology Referral M25.50 - Pain in unspecified joint Medications: Refilled lidocaine 5% leave on most painful area for up to 12 hrs 1 patch topical DAILY 30 ea 0RF msjygz-eucqpszf-msoitew 36,000-114,000- 180,000 unit (Creon) administer with meals and/or snacks 2 caps PO BID 120 caps 6RF K58.2 - Mixed irritable bowel syndrome, K86.81 - Exocrine pancreatic insufficiency dicyclomine 20 mg PO QID 30 days 120 tabs 6RF Patient Instructions: - Monitor and record blood pressure daily at home; bring log to follow-up - Continue current medication regimen for migraines and mental health - Be vigilant for any allergic reactions to new or ongoing medications - Follow up with Gastroenterology in November - Ensure tetanus vaccination is updated in the next medical encounter - Report any severe or worsening symptoms, particularly related to hypertension or allergies, promptly to the office - Attend the follow-up appointment in three weeks for blood pressure reevaluation
--- OUTSIDE RECORDS SUMMARY | 2024-11-06 17:56 | XMS_ITS | Clinical Summary ---
Author Organization [email or web address] [facility] Address [address] [place] [address] Care Team Providers Care Shift Boss Name Role Phone Unavailable Primary Care Provider [...]
--- OUTSIDE RECORDS SUMMARY | 2024-11-06 17:56 | XMS_ITS | Encounter Summary ---
Author Organization General Specific [facility] Address [address] [place] [address] Care Team Providers Care Lumber Straightened Name Role Phone Unavailable Primary Care Provider Unavailabl e Encounter Details Date Type Department Care Team (Latest Contact Info) Description 01/22/2019 Abstract C CONVERSIONS Dental, Provider, DDS Social History Tobacco Use Types Packs/Day Years Used Date Smoking Tobacco: Never Assessed Comments Unknown Sex and Gender Information Value Date Recorded Sex Assigned at Female 05/30/2022 10:20 AM EDT Legal Sex Female 10:20 AM EDT Gender Identity Not on file Sexual Orientation Not on file documented as of this encounter Plan of Treatment Not on file documented as of this encounter Visit Diagnoses Not on filedocumented in this encounter
== END 2024-11-06 18:07 | disposition home or self-care (01) ==
LOC: HO.HMCH 17:09
PROVIDERS: PCP Internal Medicine; Visit Provider Internal Medicine
DX: Z00.00 Encounter for general adult medical examination without abnormal findings (principal); F33.0 Major depressive disorder, recurrent, mild; M25.50 Pain in unspecified joint; M54.50 Low back pain, unspecified; K21.9 Gastro-esophageal reflux disease without esophagitis; Z23 Encounter for immunization

== ENCOUNTER → 2024-11-06 17:09 | Outpatient (BNVA) | payer OTHER, SELFPAY | PROVIDERS: PCP Internal Medicine; Visit Provider Internal Medicine | DX: Z00.00 Encounter for general adult medical examination without abnormal findings (principal); G43.909 Migraine, unspecified, not intractable, without status migrainosus; J45.909 Unspecified asthma, uncomplicated; M25.50 Pain in unspecified joint; M54.50 Low back pain, unspecified; K21.9 Gastro-esophageal reflux disease without esophagitis; F33.0 Major depressive disorder, recurrent, mild; Z23 Encounter for immunization; K58.2 Mixed irritable bowel syndrome; K86.81 Exocrine pancreatic insufficiency; Z87.891 Personal history of nicotine dependence; Z79.899 Other long term (current) drug therapy | CPT/HCPCS: 90471; 90715; 96127; 99212; 99395 ==

== ENCOUNTER 2024-12-06 10:45 | Outpatient (AMB) | payer OTHER, SELFPAY ==
[2024-12-06 10:48] VITALS: BP 150/93; PULSE 77; O2SAT 99; BMI 25.8
--- NOTE | 2024-12-06 10:48 | A.OFFVIS_ITS ---
Vital Signs 12/06/24 10:48 Height 5 ft 6 in Weight 160 lb 0.889 oz BMI 25.8 BP 150/93 H Blood Pressure Location Rt brachial Position Sitting Pulse 77 Pulse Source Pulse Oximeter Pulse Oximetry (%) 99 Oxygen Delivery Method Room Air Intake Visit Reasons: IBS /GERD follow up r/s 10/02/24 Intake Note: Patient presents to the office today for a follow up for IBS & GERD. Allergies doxycycline Allergy (Severe, Verified 12/06/24 10:50) tongue swelling morphine [MORPHINE] Allergy (Intermediate, Verified 12/06/24 10:50) RASH, headache, redness, throat swelling sumatriptan [From IMITREX] Allergy (Mild, Verified 12/06/24 10:50) ITCHING azithromycin Allergy (Unknown, Verified 12/06/24 10:50) facial redness Penicillins [PENICILLINS] Allergy (Unknown, Verified 12/06/24 10:50) ANAPHYLAXIS vancomycin Adverse Reaction (Verified 12/06/24 10:50) Itching HPI HPI IBS /GERD follow up r/s 10/02/24: Details: Assessment & Plan (1) Exocrine pancreatic insufficiency: Code(s): K86.81 - Exocrine pancreatic insufficiency Category: Medical (2) Periumbilical abdominal pain: Code(s): R10.33 - Periumbilical pain Category: Medical (3) Irritable bowel syndrome with both constipation and diarrhea: Code(s): K58.2 - Mixed irritable bowel syndrome Category: Medical (4) GERD (gastroesophageal reflux disease): Code(s): K21.9 - Gastro-esophageal reflux disease without esophagitis Category: Medical Plan [place] #Magaly Live She has been having pain in the RUQ that is not necessarily r/t eating but will occur w/o warnng at any time of day and will last 5-10 minutes. Her bowels continues as CIC alt with diarrhea, and skpatti DOES use the carafate and bentyl when it happens with some relief. It also is a cramping pain that is stabbing when she presses on the area. She will also use a heating. She still has a GB but with recent negative imaging for GS I think this is most likely bowel spasm, or even some adhesions form her mesh and hernia surgery and I advise her to start taking the bentyl bid qam and qhs. She continues on her pantoprazole, Mylanta, magnesium oxide, dicyclomine, and famotidine along with her Creon. ROV 3 mos. TODAYS VISIT [place] #Janki LIve She has been having pain originating in the LUQ (instead of the RUQ) over the past 2-3 weeks that has radiation to the umbilicus. She says her umbilicus is very prone to pain. But she also says that the pain is the same as she has c/o in the past but it jumps. She continues on her pantoprazole, Mylanta, magnesium oxide, dicyclomine, and famotidine along with her Creon. She says that the bentyl helps for a little bit but then the pain returns. Her stooling has been mostly CIC with small goat-like stools and a lot of gas. I think I want to try a different approach and start a trial of LInzess 72ncg qam and imipramine titrated to give her more lasting IBS relief. The Linzess will offset any CIC effect of the TCA. Look for spine XR and UGI ordered by PCP. ROV 2 weeks. [facility], [facility] Medical History (Updated 12/06/24 @ 13:27 by LYNSEY Holcomb) Physical exam Abnormal CT scan, gastrointestinal tract Bronchitis Family history of diabetes mellitus Colitis GERD (gastroesophageal reflux disease) Chronic idiopathic constipation Mild recurrent major depression Umbilical hernia Sarcoidosis Asthma Surgical History History of umbilical hernia repair H/O esophagogastroduodenoscopy History of tubal ligation Previous section History of appendectomy Family History Father Essential hypertension Arthritis CAD (coronary artery disease) Mother Essential hypertension Diabetes mellitus Social History Housing: Apartment Unable to assess alcohol history related to: Unknown Alcohol intake: never Patient Tobacco Use Status: Former Tobacco user Tobacco use type: Cigarette e-Cigarette/Vaping Use: Never Used Second Hand Smoke Exposure: No service: No Current occupational status: unemployed Cognitive needs: No Hearing needs: No Vision needs: No Review of Systems Const Denies fatigue, Denies fever(s), Denies night sweats, Denies poor appetite and Denies weight loss ENT Reports Normal hearing present, Denies dental pain, Denies dysphagia, Denies hearing loss, Denies mouth pain, Denies odynophagia, Denies throat swelling, Denies tongue swelling and Reports other (Dentition adequate) Card Reports no additional complaints Resp Reports no additional complaints GI Details: Reports abdominal pain, Denies melena, Reports bloating, Denies hematochezia, Reports constipation, Denies GI cramping, Denies dysphagia, Reports excessive flatus, Denies early satiety, Reports heartburn, Denies diarrhea, Denies nausea, Denies odynophagia, Denies vomiting and Denies hematemesis Skin/Breast Denies pruritus, Denies lesions, Denies rash and Denies jaundice Neuro Reports Normal hearing present and Denies Abnormal speech present Endo Denies fatigue Aller/Immun Denies throat swelling and Denies tongue swelling Physical Exam Vital Signs: Last Vital Signs Pulse 77 12/06/24 10:48 BP 150/93 H 12/06/24 10:48 Pulse Ox 99 12/06/24 10:48 Oxygen Delivery Method Room Air 12/06/24 10:48 BMI result Body Mass Index 25.8 Const General: cooperative, no acute distress, well developed and well groomed Nutritional Appearance: average body habitus and well nourished Orientation/consciousness: oriented to person, oriented to place and oriented to time Limitations: language barrier HEENT Head: Yes normocephalic and Yes atraumatic Eyes General: appearance normal, both eyes and all related structures Pupils: Equal, round and reactive pupils present Neck Neck: Yes normal visual inspection and Yes no lymphadenopathy Thyroid: Thyroid normal Resp Effort & Inspection: normal respiratory effort and able to speak in complete sentences Auscultation: clear to auscultation bilaterally Cardio Rate: regular rate Rhythm: regular rhythm Heart sounds: Normal, physiologic split S2 sound present Peripheral pulses: radial pulses present and posterior tibial pulses present GI Inspection: No distended and No Abdominal panniculus present Palpation (GI): Soft to palpation, Tenderness to palpation present (GI) in the LUQ, no guarding, not rigid and No hepatosplenomegaly present Percussion: Yes normal to percussion Auscultation: normal bowel sounds Rectal Exam - Female: deferred Skin General skin exam: no rashes or lesions noted, turgor normal, skin not dry, no jaundice, No spider nevi and no striae Rashes: no rashes Nails: normal Neuro General: oriented to person, oriented to place and oriented to time Cranial nerves: Yes Equal, round and reactive pupils present and Yes Normal hearing present Speech: No Abnormal speech present Extrem General: Yes normal to inspection, No clubbing, No cyanosis and No edema Psych Appearance: grossly normal and well kempt Mental Status: mental status grossly normal Speech and movement: Normal speech and movement present Affect: normal affect Attitude: cooperative Thought process: Normal thought process present and not confabulating Thought content: Normal thought content present Insight: Limited insight present (Psych) Judgement: Limited judgement present (Psych) Assessment & Plan Assessment & Plan (1) Irritable bowel syndrome with both constipation and diarrhea: Code(s): K58.2 - Mixed irritable bowel syndrome Category: Medical (2) Periumbilical abdominal pain: Code(s): R10.33 - Periumbilical pain Category: Medical (3) Exocrine pancreatic insufficiency: Code(s): K86.81 - Exocrine pancreatic insufficiency Category: Medical (4) GERD (gastroesophageal reflux disease): Code(s): K21.9 - Gastro-esophageal reflux disease without esophagitis Category: Medical Plan [place] #Janki LIve She has been having pain originating in the LUQ (instead of the RUQ) over the past 2-3 weeks that has radiation to the umbilicus. She says her umbilicus is very prone to pain. But she also says that the pain is the same as she has c/o in the past but it jumps. She continues on her pantoprazole, Mylanta, magnesium oxide, dicyclomine, and famotidine along with her Creon. She says that the bentyl helps for a little bit but then the pain returns. Her stooling has been mostly CIC with small goat-like stools and a lot of gas. I think I want to try a different approach and start a trial of LInzess 72ncg qam and imipramine titrated to give her more lasting IBS relief. The Linzess will offset any CIC effect of the TCA. Look for spine XR and UGI ordered by PCP. ROV 2 weeks. Medications: New linaclotide (Linzess) 72 mcg PO QAM 30 caps 6RF K58.2 - Mixed irritable bowel syndrome imipramine HCl 10 mg PO BEDTIME 30 tabs 6RF 30 days K58.2 - Mixed irritable bowel syndrome Refilled alum-mag hydroxide-simeth 200-200-20 mg/5 mL (Mag-Al Plus) administer between meals and at bedtime 10 mL PO QID PRN 3,000 mL 6RF dyspepsia pantoprazole (Protonix) 40 mg PO DAILY 30 tabs 6RF 30 days K21.9 - Gastro- esophageal reflux disease without esophagitis famotidine 40 mg PO BID 30 tabs 6RF K21.9 - Gastro-esophageal reflux disease without esophagitis Coding Level of Care Code Est Pt Level 3 (03077) Diagnoses Irritable bowel syndrome with both constipation and diarrhea K58.2 Periumbilical abdominal pain R10.33 Exocrine pancreatic insufficiency K86.81 GERD (gastroesophageal reflux disease) K21.9
== END 2024-12-06 11:50 | disposition home or self-care (01) ==
LOC: HO.HGI 10:46
PROVIDERS: PCP Internal Medicine; Visit Provider Nurse Practitioner
DX: K58.2 Mixed irritable bowel syndrome (principal); R10.33 Periumbilical pain; K86.81 Exocrine pancreatic insufficiency; K21.9 Gastro-esophageal reflux disease without esophagitis
CPT/HCPCS: 99213

== ENCOUNTER → 2024-12-06 10:45 | Outpatient (BNVA) | payer OTHER, SELFPAY | PROVIDERS: PCP Internal Medicine; Visit Provider Nurse Practitioner | DX: K21.9 Gastro-esophageal reflux disease without esophagitis (principal); K58.2 Mixed irritable bowel syndrome; K86.81 Exocrine pancreatic insufficiency; R10.12 Left upper quadrant pain; R10.33 Periumbilical pain | CPT/HCPCS: 99212 ==

== ENCOUNTER 2024-12-16 10:07 | Outpatient (REF) | payer OTHER, SELFPAY ==
--- NOTE | ~2024-12-16 | XR_ITS ---
EXAMINATION: XR LUMBOSACRAL SPINE CLINICAL INFORMATION: M54.50 - Low back pain, unspecified COMPARISON: 12/12/2023. TECHNIQUE: Three views of the lumbosacral spine. FINDINGS: Normal bone mineralization. There is a minimal levoconvex scoliosis, unchanged. There is a normal lordosis. There is normal alignment without subluxation. There is moderate to severe disc degeneration L5-S1 with sclerosis of the endplates and osteophytic spurring. Remainder of the disc spaces appear relatively preserved. Facets appear normally aligned without significant facet arthrosis. The sacrum and SI joints are unremarkable. There is no soft tissue abnormality identified. XR/XR lumbar spine 2-3V IMPRESSION: 1. Stable minimal levoconvex scoliosis. 2. Severe degenerative disc disease L5-S1. 3. Overall no significant change. Electronically signed by: Rusty Centeno MD 12/16/2024 10:41 AM EDT
== END 2024-12-16 10:08 | disposition home or self-care (01) ==
LOC: HO.XRAY 10:07
PROVIDERS: PCP Internal Medicine; Visit Provider Internal Medicine
DX: M54.50 Low back pain, unspecified (principal)
CPT/HCPCS: 72100

== ENCOUNTER → 2024-12-16 10:10 | Outpatient (BNV) | payer OTHER, SELFPAY | PROVIDERS: PCP Internal Medicine; Visit Provider Radiology Diagnostic Radiology | DX: M51.379 Other intervertebral disc degeneration, lumbosacral region without mention of lumbar back pain or lower extremity pain (principal) | CPT/HCPCS: 72100 ==

== ENCOUNTER 2025-02-05 09:23 | Outpatient (REF) | payer OTHER, SELFPAY ==
--- NOTE | ~2025-02-05 | FL_ITS ---
EXAMINATION: XR FLUOROSCOPY UPPER GI SERIES CLINICAL INFORMATION: GERD without esophagitis. Patient complaining of reflux type symptoms. COMPARISON: 02/15/2024 upper GI and small bowel series. TECHNIQUE: Fluoroscopic air contrast upper GI examination was performed utilizing standard techniques with thin and thick barium and effervescent granules. Numerous spot images were obtained. Several fluoroscopic image hold cine sequences were also obtained. FINDINGS: UPPER GI SERIES: Lateral cine images of the oropharynx and hypopharynx demonstrate normal swallow mechanism with normal epiglottic inversion and soft palate elevation. No laryngeal penetration, glottic or subglottic aspiration identified. No nasopharyngeal reflux present. Hypopharyngeal structures appear normal without evidence of mass or diverticulum. There was no significant cricopharyngeal achalasia. Dual and single contrast images of the esophagus demonstrate normal caliber, contour, and mucosal pattern. No evidence of stricture, mass, or ulcerations identified. Esophageal peristalsis was mildly disordered. No evidence of hiatus hernia identified. Moderate gastroesophageal reflux identified during the course of the examination to the level of the thoracic inlet. Dual contrast and single contrast images of the stomach demonstrated normal contour and mucosal pattern without evidence of mass, ulceration, or other abnormality. Contrast freely passed into the gastric antrum and duodenal bulb without delay. Single and air-contrast images of the duodenal bulb demonstrate no abnormality. The duodenal sweep has a normal appearance, course, and mucosal fold appearance. FLUOROSCOPY TIME: 2 minutes, 47 seconds Number of Spot Images:10 Number of cines obtained: 12 DOSE AREA PRODUCT: To 5 due to uGy-m2 (microgray-meter squared) FL/FL upper GI w air IMPRESSION: 1. Mildly disordered esophageal peristalsis. 2. No evidence of hiatus hernia. 3. Episodic gastroesophageal reflux identified to the level of the thoracic inlet. 4. Normal-appearing stomach and duodenal sweep. Electronically signed by: Rusty Centeno MD 02/05/2025 10:16 AM EDT
--- OUTSIDE RECORDS SUMMARY | 2025-02-05 09:40 | XMS_ITS | Encounter Summary ---
Author Organization [employer] [facility] Address [address] [place] [address] Care Team Providers Care Account Associate Name Role Phone Unavailable Primary Care Provider [...]
== END 2025-02-05 09:24 | disposition home or self-care (01) ==
LOC: HO.XRAY 09:23
PROVIDERS: PCP Internal Medicine; Visit Provider Internal Medicine
DX: K21.9 Gastro-esophageal reflux disease without esophagitis (principal)
CPT/HCPCS: 74246

== ENCOUNTER → 2025-02-05 09:24 | Outpatient (BNV) | payer OTHER, SELFPAY | PROVIDERS: PCP Internal Medicine; Visit Provider Radiology Diagnostic Radiology | DX: K21.9 Gastro-esophageal reflux disease without esophagitis (principal) | CPT/HCPCS: 74246 ==

== ENCOUNTER 2025-02-18 13:57 | Outpatient (AMB) | payer OTHER, SELFPAY ==
[2025-02-18 13:58] VITALS: BP 122/67; PULSE 73; O2SAT 99; BMI 25.7
--- NOTE | 2025-02-18 13:58 | MHC.OFFVIS ---
Vital Signs 02/18/25 13:58 Height 5 ft 6 in Weight 159 lb BMI 25.7 BP 122/67 Blood Pressure Location Rt brachial Position Sitting Pulse 73 Pulse Source Pulse Oximeter Pulse Oximetry (%) 99 Oxygen Delivery Method Room Air Intake Visit Reasons: asthma Variety Performer Required: Yes Variety Performer Name: Yasmeen AnnL.Angel Allergies doxycycline Allergy (Severe, Verified 02/18/25 14:02) tongue swelling morphine (MORPHINE) Allergy (Intermediate, Verified 02/18/25 14:02) RASH, headache, redness, throat swelling sumatriptan (From IMITREX) Allergy (Mild, Verified 02/18/25 14:02) ITCHING azithromycin Allergy (Unknown, Verified 02/18/25 14:02) facial redness Penicillins (PENICILLINS) Allergy (Unknown, Verified 02/18/25 14:02) ANAPHYLAXIS vancomycin Adverse Reaction (Verified 02/18/25 14:02) Itching HPI HPI asthma: Details: 39-year-old lady, nonsmoker, followed for underlying sarcoidosis (diagnosed with?cervical node biopsy) and moderate to severe persistent asthma.? She has been using Spiriva, Symbicort duo nebs, and albuterol MDI with reasonable control of her symptoms. Patient her anxiety/air trapping component to her symptoms is well controlled on hydroxyzine. She denies recent exacerbations. COUNT INCLUDES THE [facility] Medical History (Updated 12/06/24 @ 13:27 by LYNSEY Holcomb) Physical exam Abnormal CT scan, gastrointestinal tract Bronchitis Family history of diabetes mellitus Colitis GERD (gastroesophageal reflux disease) Chronic idiopathic constipation Mild recurrent major depression Umbilical hernia Sarcoidosis Asthma Surgical History History of umbilical hernia repair H/O esophagogastroduodenoscopy History of tubal ligation Previous section History of appendectomy Family History Father Essential hypertension Arthritis CAD (coronary artery disease) Mother Essential hypertension Diabetes mellitus Social History Housing: Apartment Unable to assess alcohol history related to: Unknown Alcohol intake: never Patient Tobacco Use Status: Former Tobacco user Tobacco use type: Cigarette e-Cigarette/Vaping Use: Never Used Second Hand Smoke Exposure: No service: No Current occupational status: unemployed Cognitive needs: No Hearing needs: No Vision needs: No Review of Systems Const Denies daytime sleepiness, Denies excessive sweating, Denies fatigue, Denies fever(s), Denies lethargy, Denies malaise, Denies night sweats, Denies snoring and Denies weight loss Eyes Denies blurry vision and Denies itchy eyes ENT Denies nasal congestion, Denies post nasal drip, Denies sinus pain, Denies sinus pressure and Denies other ( Thrush) Card Denies chest pain, Denies pedal edema, Denies dyspnea, Denies orthopnea and Denies paroxysmal nocturnal dyspnea Resp Denies cough, Denies hemoptysis, Denies excessive phlegm production, Denies dyspnea, Denies snoring and Denies wheezing GI Denies abdominal pain and Denies heartburn Musc Denies myalgias, Denies arthralgias and Denies joint swelling Skin/Breast Denies rash Neuro Denies memory loss and Denies seizure-like activity Psych Denies abnormal sleep pattern, Denies anxiety and Denies memory loss Endo Denies excessive sweating, Denies fatigue and Denies heat intolerance Jacky/Lymph Denies easy bruising Aller/Immun Denies itchy eyes, Denies seasonal rhinorrhea and Denies wheezing Physical Exam Vital Signs: Last Vital Signs Pulse 73 02/18/25 13:58 BP 122/67 02/18/25 13:58 Pulse Ox 99 02/18/25 13:58 Oxygen Delivery Method Room Air 02/18/25 13:58 BMI result Body Mass Index 25.7 Const General: no acute distress and alert Nutritional Appearance: not obese Orientation/consciousness: Other orientation findings ( oriented) HEENT Head: Yes atraumatic Eyes General: appearance normal, both eyes and all related structures Sclerae: sclerae normal EOM: EOMs intact bilaterally Neck Neck: Yes supple Lymphatic: no lymphadenopathy noted Resp Effort & Inspection: normal respiratory effort and no use of accessory muscles Auscultation: clear to auscultation bilaterally Cardio Rate: regular rate Rhythm: regular rhythm Heart sounds: no gallops, no murmurs and no rubs Skin General skin exam: other ( warm) Extrem General: No clubbing, No cyanosis and No edema Assessment & Plan Assessment & Plan (1) Asthma: Code(s): J45.909 - Unspecified asthma, uncomplicated Category: Medical Plan: Well controlled on current regimen of Symbicort, Spiriva duo nebs, and albuterol MDI. Continue current regimen. (2) Pulmonary air trapping: Code(s): R09.89 - Other specified symptoms and signs involving the circulatory and respiratory systems Category: Medical Plan: Well controlled on hydroxyzine. Continue current regimen. (3) Sarcoidosis: Comment: history of sarcoid in cervical node biopsy 2018 Code(s): D86.9 - Sarcoidosis, unspecified Category: Medical Plan: No recent exacerbations. Continue to monitor clinically. Coding Level of Care Code Est Pt Level 4 (31478) Complex EM visit Add On G2211 Diagnoses Asthma J45.909 Pulmonary air trapping R09.89 Sarcoidosis D86.9
--- OUTSIDE RECORDS SUMMARY | 2025-02-18 15:15 | XMS_ITS | Clinical Summary ---
Author Organization [facility] Address [address] [place] [id number] Phone Care Team Providers Care Refund Specialist Name Role Phone Josefina Stacy MD Primary Care Provid er Social History Tobacco Use Types Packs/Day Years Used Date Smoking Tobacco: Never Assessed Education Answer Date Recorded Are you interested in more education? Not on nette e 11/25/2022 Are you concerned about learning? Not on file 11/25/2022 No 11/25/2022 No 11/25/2022 Digital Access Answer Date Recorded No 12/27/2022 No 12/27/2022 No 12/27/2022 Reliable internet access at home? Not on file 12/27/2022 Device with a working camera? Not on file Comments Unknown Sex and Gender Information Value Date Recorded Sex Assigned at Not on file Legal Sex Female 1:43 AM EDT Gender Identity Not on file Sexual Orientation Not on file Plan of Treatment Not on file Medical Devices Not on file Insurance [facility] [place] [address] [place] [address] [place] [address] [place] [address] [place] [address] [place] [address] ACO Care Teams Refund Specialist Relationship Specialty Start Date End Date Josefina Stacy MD [address] [place] [id number] PCP - General Internal Medicine 11/16/18 Additional Source Comments The information contained in this document represents components of the legal health record. It is not the complete legal health record.[facility]
--- OUTSIDE RECORDS SUMMARY | 2025-02-18 15:15 | XMS_ITS | Encounter Summary ---
Author Organization [email or web address] [facility] Address [address] [place] [address] Care Team Providers Care Steel Fabricating Supervisor Name Role Phone Unavailable Primary Care Provider [...]
== END 2025-02-18 14:15 | disposition home or self-care (01) ==
LOC: HO.HPS 13:57
PROVIDERS: PCP Internal Medicine; Visit Provider Internal Medicine Pulmonary Disease
DX: J45.909 Unspecified asthma, uncomplicated (principal); R09.89 Other specified symptoms and signs involving the circulatory and respiratory systems; D86.9 Sarcoidosis, unspecified
CPT/HCPCS: 99214; G2211

== ENCOUNTER → 2025-02-18 13:57 | Outpatient (BNVA) | payer OTHER, SELFPAY | PROVIDERS: PCP Internal Medicine; Visit Provider Internal Medicine Pulmonary Disease | DX: J45.909 Unspecified asthma, uncomplicated (principal); R09.89 Other specified symptoms and signs involving the circulatory and respiratory systems; D86.9 Sarcoidosis, unspecified | CPT/HCPCS: 99212 ==

== ENCOUNTER → 2025-04-04 15:18 | Outpatient (AMB) | payer OTHER, SELFPAY ==
--- NOTE | 2025-04-04 15:20 | MHC.OFFVIS ---
Vital Signs 04/04/25 15:24 Height 5 ft 6 in Weight 158 lb 11.725 oz BMI 25.6 Intake Visit Reasons: Follow up GERD Intake Note: Patient presents to the office today for a follow up for IBS & GERD. CC: Patient reports that she gets pain but she is having more BMs because she has changed her diet. She is also requesting the liquid medication she was given in the hospital that helps her with gas and indigestion for longer. 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 Accompanied by: Daughter Allergies doxycycline Allergy (Severe, Verified 05/19/25 17:37) tongue swelling morphine (MORPHINE) Allergy (Intermediate, Verified 05/19/25 17:37) RASH, headache, redness, throat swelling sumatriptan (From IMITREX) Allergy (Mild, Verified 05/19/25 17:37) ITCHING azithromycin Allergy (Unknown, Verified 05/19/25 17:37) facial redness Penicillins (PENICILLINS) Allergy (Unknown, Verified 05/19/25 17:37) ANAPHYLAXIS vancomycin Adverse Reaction (Verified 05/19/25 17:37) Itching Medication List - Last Reconciled 04/04/25 by LYNSEY Holcomb alum-mag hydroxide-simeth 200-200-20 mg/5 mL (Mag-Al Plus) 10 mL PO QID PRN bisacodyl (Dulcolax (bisacodyl)) 10 mg (2 x 5 mg) PO BEDTIME 30 days Held on 02/28/24. Instructions: Doctor's Order cyclobenzaprine 10 mg PO TID PRN dicyclomine 20 mg PO QID 30 days docusate sodium 100 mg PO BID Held on 08/22/23. Instructions: Doctor's Order escitalopram oxalate 5 mg PO DAILY famotidine 40 mg PO BEDTIME fluticasone propionate 50 mcg/actuation 1 spray intranasal BID PRN hydroxyzine HCl 25 mg PO DAILY ipratropium-albuterol 0.5 mg-3 mg(2.5 mg base)/3 mL 3 mL inhalation Q4H PRN lidocaine 5% 1 patch topical DAILY linaclotide (Linzess) 72 mcg PO QAM pmvgcn-acxrdegh-ristqyw 36,000-114,000- 180,000 unit (Creon) 2 caps PO BID magnesium oxide 400 mg PO BEDTIME nebulizers (VixOne Nebulizer-Adult Mask) As directed pantoprazole (Protonix) 40 mg PO DAILY 30 days Symbicort 160-4.5 mcg/actuation (budesonide-formoterol) 2 puffs inhalation BID 90 days NS tiotropium bromide 2.5 mcg/actuation (Spiriva Respimat) 2 puffs inhalation QAM 90 days ubrogepant (Ubrelvy) 50 - 100 mg (0.5 - 1 x 100 mg) PO ONCE PRN 30 days Ventolin HFA 90 mcg/actuation (albuterol sulfate) 2 puffs inhalation Q6H PRN NS HPI HPI Follow up GERD: Details: Assessment & Plan (1) Irritable bowel syndrome with both constipation and diarrhea: Code(s): K58.2 - Mixed irritable bowel syndrome Category: Medical (2) Periumbilical abdominal pain: Code(s): R10.33 - Periumbilical pain Category: Medical (3) Exocrine pancreatic insufficiency: Code(s): K86.81 - Exocrine pancreatic insufficiency Category: Medical (4) GERD (gastroesophageal reflux disease): Code(s): K21.9 - Gastro-esophageal reflux disease without esophagitis Category: Medical Plan English #Janki LIve She has been having pain originating in the LUQ (instead of the RUQ) over the past 2-3 weeks that has radiation to the umbilicus. She says her umbilicus is very prone to pain. But she also says that the pain is the same as she has c/o in the past but it jumps. She continues on her pantoprazole, Mylanta, magnesium oxide, dicyclomine, and famotidine along with her Creon. She says that the bentyl helps for a little bit but then the pain returns. Her stooling has been mostly CIC with small goat-like stools and a lot of gas. I think I want to try a different approach and start a trial of LInzess 72ncg qam and imipramine titrated to give her more lasting IBS relief. The Linzess will offset any CIC effect of the TCA. Look for spine XR and UGI ordered by PCP. ROV 2 weeks. Medications: New linaclotide (Linzess) 72 mcg PO QAM 30 caps 6RF K58.2 - Mixed irritable bowel syndrome imipramine HCl 10 mg PO BEDTIME 30 tabs 6RF 30 days K58.2 - Mixed irritable bowel syndrome Refilled alum-mag hydroxide-simeth 200-200-20 mg/5 mL (Mag-Al Plus) administer between meals and at bedtime 10 mL PO QID PRN 3,000 mL 6RF dyspepsia pantoprazole (Protonix) 40 mg PO DAILY 30 tabs 6RF 30 days K21.9 - Gastro-esophageal reflux disease without esophagitis famotidine 40 mg PO BID 30 tabs 6RF K21.9 - Gastro-esophageal reflux disease without esophagitis TODAY'S VISIT NAMIBIAN #V live [facility] Medical History Physical exam Abnormal CT scan, gastrointestinal tract Bronchitis Family history of diabetes mellitus Colitis GERD (gastroesophageal reflux disease) Chronic idiopathic constipation Mild recurrent major depression Umbilical hernia Sarcoidosis Asthma Surgical History History of umbilical hernia repair H/O esophagogastroduodenoscopy History of tubal ligation Previous section History of appendectomy Family History Father Essential hypertension Arthritis CAD (coronary artery disease) Mother Essential hypertension Diabetes mellitus Social History Housing: Apartment Alcohol intake: never Patient Tobacco Use Status: Former Tobacco user Tobacco use type: Cigarette e-Cigarette/Vaping Use: Never Used Second Hand Smoke Exposure: No service: No Current occupational status: unemployed Cognitive needs: No Hearing needs: No Vision needs: No Review of Systems Const Denies fatigue, Denies fever(s), Denies night sweats, Denies poor appetite and Denies weight loss ENT Reports Normal hearing present, Denies dental pain, Denies dysphagia, Denies hearing loss, Denies mouth pain, Denies odynophagia, Denies throat swelling, Denies tongue swelling and Reports other (Dentition adequate) Card Reports no additional complaints Resp Reports no additional complaints GI Details: Denies abdominal pain, Denies melena, Denies bloating, Denies hematochezia, Reports constipation, Denies GI cramping, Denies dysphagia, Denies excessive flatus, Denies early satiety, Reports heartburn, Denies diarrhea, Denies nausea, Denies odynophagia, Denies vomiting and Denies hematemesis Skin/Breast Denies pruritus, Denies lesions, Denies rash and Denies jaundice Neuro Reports Normal hearing present and Denies Abnormal speech present Endo Denies fatigue Aller/Immun Denies throat swelling and Denies tongue swelling Physical Exam Vital Signs: BMI result Body Mass Index 25.6 Const General: cooperative, no acute distress, well developed and well groomed Nutritional Appearance: average body habitus and well nourished Orientation/consciousness: oriented to person, oriented to place and oriented to time Limitations: language barrier HEENT Head: Yes normocephalic and Yes atraumatic Eyes General: appearance normal, both eyes and all related structures Pupils: Equal, round and reactive pupils present Neck Neck: Yes normal visual inspection and Yes no lymphadenopathy Thyroid: Thyroid normal Resp Effort & Inspection: normal respiratory effort and able to speak in complete sentences Auscultation: clear to auscultation bilaterally Cardio Rate: regular rate Rhythm: regular rhythm Heart sounds: Normal, physiologic split S2 sound present Peripheral pulses: radial pulses present and posterior tibial pulses present GI Inspection: No distended and No Abdominal panniculus present Palpation (GI): Soft to palpation, nontender, no guarding, not rigid and No hepatosplenomegaly present Percussion: Yes normal to percussion Auscultation: normal bowel sounds Rectal Exam - Female: deferred Skin General skin exam: no rashes or lesions noted, turgor normal, skin not dry, no jaundice, No spider nevi and no striae Rashes: no rashes Nails: normal Neuro General: oriented to person, oriented to place and oriented to time Cranial nerves: Yes Equal, round and reactive pupils present and Yes Normal hearing present Speech: No Abnormal speech present Extrem General: Yes normal to inspection, No clubbing, No cyanosis and No edema Psych Appearance: grossly normal and well kempt Mental Status: mental status grossly normal Speech and movement: Normal speech and movement present Affect: normal affect Attitude: cooperative Thought process: Normal thought process present and not confabulating Thought content: Normal thought content present Insight: Limited insight present (Psych) Judgement: Limited judgement present (Psych) Results Reviewed Results Reviewed: Upper GI study 02/05/2025 FINDINGS: UPPER GI SERIES: Lateral cine images of the oropharynx and hypopharynx demonstrate normal swallow mechanism with normal epiglottic inversion and soft palate elevation. No laryngeal penetration, glottic or subglottic aspiration identified. No nasopharyngeal reflux present. Hypopharyngeal structures appear normal without evidence of mass or diverticulum. There was no significant cricopharyngeal achalasia. Dual and single contrast images of the esophagus demonstrate normal caliber, contour, and mucosal pattern. No evidence of stricture, mass, or ulcerations identified. Esophageal peristalsis was mildly disordered. No evidence of hiatus hernia identified. Moderate gastroesophageal reflux identified during the course of the examination to the level of the thoracic inlet. Dual contrast and single contrast images of the stomach demonstrated normal contour and mucosal pattern without evidence of mass, ulceration, or other abnormality. Contrast freely passed into the gastric antrum and duodenal bulb without delay. Single and air-contrast images of the duodenal bulb demonstrate no abnormality. The duodenal sweep has a normal appearance, course, and mucosal fold appearance. FLUOROSCOPY TIME: 2 minutes, 47 seconds Number of Spot Images:10 Number of cines obtained: 12 DOSE AREA PRODUCT: To 5 due to uGy-m2 (microgray-meter squared) FL/FL upper GI w air IMPRESSION: 1. Mildly disordered esophageal peristalsis. 2. No evidence of hiatus hernia. 3. Episodic gastroesophageal reflux identified to the level of the thoracic inlet. 4. Normal-appearing stomach and duodenal sweep. Assessment & Plan Assessment & Plan (1) Irritable bowel syndrome with both constipation and diarrhea: Code(s): K58.2 - Mixed irritable bowel syndrome Category: Medical (2) Exocrine pancreatic insufficiency: Code(s): K86.81 - Exocrine pancreatic insufficiency Category: Medical (3) GERD (gastroesophageal reflux disease): Code(s): K21.9 - Gastro-esophageal reflux disease without esophagitis Category: Medical (4) Periumbilical abdominal pain: Code(s): R10.33 - Periumbilical pain Category: Medical Plan NAMIBIAN # Her current GI regimen consists of i<del>mipramine</del> <del>10</del> <del>mg,</del> Creon 36,000, Linzess 72 micro g, famotidine twice a day, <del>docusate</del> <del>sodium</del> <del>100</del> <del>mg</del> <del>twice</del> <del>a</del> <del>day</del>, and dicyclomine. She is no longer using the imipramine and she does not think she needs the docusate. So we will discontinue these to simplify her pill burden. She is doing well on the pantoprazole in the morning and would like famotidine for breakthrough later in the day. She is also finding Mylanta helpful for her severe GERD and dicyclomine helpful for her IBS. We review her upper GI study and it does show GERD but seemingly only a small hiatal hernia. I explained to her that with a very small when it is best to manage this medically as surgery generally is impractical in this scenario. Return office visit in 6 months Medications: New famotidine 40 mg PO BEDTIME 90 tabs 0RF K21.9 - Gastro-esophageal reflux disease without esophagitis Changed From iplkck-tdwvsopn-szfszby 36,000-114,000- 180,000 unit administer with meals and/or snacks 2 caps PO BID 120 caps 6RF K58.2 - Mixed irritable bowel syndrome, K86.81 - Exocrine pancreatic insufficiency To wrjoyc-nexckjyg-qxifjpn (pork) 36,000-114,000- 180,000 unit (Creon) administer with meals and/or snacks 2 caps PO BID 120 caps 6RF K58.2 - Mixed irritable bowel syndrome, K86.81 - Exocrine pancreatic insufficiency Refilled pantoprazole (Protonix) 40 mg PO DAILY 30 tabs 6RF 30 days K21.9 - Gastro-esophageal reflux disease without esophagitis alum-mag hydroxide-simeth 200-200-20 mg/5 mL (Mag-Al Plus) administer between meals and at bedtime 10 mL PO QID PRN 3,000 mL 6RF dyspepsia dicyclomine 20 mg PO QID 120 tabs 6RF 30 days Discontinued docusate sodium Discontinued Reason: Doctor's Order 100 mg PO BID 60 caps 6RF bisacodyl Discontinued Reason: Doctor's Order 10 mg (2 x 5 mg) PO BEDTIME 30 days 60 tabs 6RF K59.04 - Chronic idiopathic constipation gnlmmv-yxkyekah-ikpitdi 24,000-76,000 -120,000 unit Discontinued Reason: Doctor's Order 2 caps PO BID 30 days 120 caps 6RF K58.9 - Irritable bowel syndrome, unspecified imipramine HCl Discontinued Reason: Doctor's Order 10 mg PO BEDTIME 30 days 30 tabs 6RF K58.2 - Mixed irritable bowel syndrome Coding Level of Care Code Est Pt Level 3 (59630) Diagnoses Irritable bowel syndrome with both constipation and diarrhea K58.2 Exocrine pancreatic insufficiency K86.81 GERD (gastroesophageal reflux disease) K21.9 Periumbilical abdominal pain R10.33
[2025-04-04 15:24] VITALS: BMI 25.6
--- OUTSIDE RECORDS SUMMARY | 2025-04-04 15:30 | XMS_ITS | Encounter Summary ---
Author Organization [facility] [facility] Address [address] [place] [address] Care Team Providers Care Interlocking Machine Operator Name Role Phone Unavailable Primary Care Provider [...]
--- OUTSIDE RECORDS SUMMARY | 2025-04-04 15:30 | XMS_ITS | Clinical Summary ---
Author Organization [employer] Address [address] [place] [address] Care Team Providers Care Nursing Information Systems Coordinator Name Role Phone Unavailable Primary Care Provider [...] Date Last Done Comments Depression Screening 1985 Disability Screening 1985 Alcohol/Substance Use Screening 1997 Tobacco Screening 1997 Family Planning (PISQ) 2000 HPV Vaccines (1 - 3-dose series) 2000 DTaP/Tdap/Td Vaccines (1 - Tdap) 2004 Hepatitis B Vaccines (1 of 3 - 19+ 3-dose series) 2004 Pap Smear 2006 Cervical Cancer Screening 2015 HPV/Cotest 2015 COVID-19 Vaccine ( - 2023-2 5 season) 2024 Influenza Vaccine (#1) 2025 Zoster Vaccines (1 of 2) 2035 RSV [...] patient's age to complete this topic Meningococcal B Vaccine Aged Out No l onger eligible based on patient's age to complete this topic Meningococcal Vaccine Aged Out No ria nico eligible based on patient's age to complete this topic Pneumococcal Vaccine: Pediat rics (0 to 5 Years) and At-Risk Patients (6 to 49) Years Aged Out No longer eligible b ased on patient's age to complete this topic RSV under 20 months Aged Out No longe r eligible based on patient's age to complete this topic Rotavirus Vaccines Aged Out No longer eligible based on patient's age to complete this topic
--- OUTSIDE RECORDS SUMMARY | 2025-04-04 15:30 | XMS_ITS | Clinical Summary ---
Author Organization [facility] Address [address] [place] [phone] Phone Care Team Providers Care Youth Ministry Director Name Role Phone Josefina Stacy MD Primary [...] file Medical Devices Not on file Insurance [facility] [place] [address] [place] [address] [place] [address] [place] [address] [place] [address] [place] [address] ACO Care Teams Youth Ministry Director Relationship Specialty Start Date End Date Josefina Stacy MD [address] [place] [id number] PCP - General Internal Medicine 11/16/18 Additional Source Comments The information contained in this document represents components of the legal health record. It is not the complete legal health record.[facility]
== END ==
LOC: HO.HGI 15:19
PROVIDERS: PCP Internal Medicine; Visit Provider Nurse Practitioner
DX: K58.2 Mixed irritable bowel syndrome (principal); K86.81 Exocrine pancreatic insufficiency; K21.9 Gastro-esophageal reflux disease without esophagitis; R10.33 Periumbilical pain
CPT/HCPCS: 99213

== ENCOUNTER → 2025-04-04 | Outpatient (BNVA) | payer OTHER, SELFPAY | PROVIDERS: PCP Internal Medicine; Visit Provider Nurse Practitioner | DX: K58.2 Mixed irritable bowel syndrome (principal); K86.81 Exocrine pancreatic insufficiency; K21.9 Gastro-esophageal reflux disease without esophagitis; R10.33 Periumbilical pain | CPT/HCPCS: 99212 ==

== ENCOUNTER 2025-05-19 16:51 | Outpatient (AMB) | payer OTHER, SELFPAY ==
[2025-05-19 17:07] VITALS: BP 136/84; PULSE 81; TEMP 36.4; O2SAT 98; BMI 26.3
--- NOTE | 2025-05-19 17:07 | A.OFFPC_ITS ---
Vital Signs 05/19/25 17:07 Height 5 ft 6 in Weight 163 lb 2 oz BMI 26.3 BP 136/84 Blood Pressure Location Lt brachial Position Sitting Pulse 81 Pulse Source Pulse Oximeter Temp 97.5 F Temp Source Temporal Artery Scan Pulse Oximetry (%) 98 Oxygen Delivery Method Room Air Intake Visit Reasons: 6 month depression Insole Buffer Required: No Accompanied by: Self / Same As Patient Allergies doxycycline Allergy (Severe, Verified 05/19/25 17:37) tongue swelling morphine (MORPHINE) Allergy (Intermediate, Verified 05/19/25 17:37) RASH, headache, redness, throat swelling sumatriptan (From IMITREX) Allergy (Mild, Verified 05/19/25 17:37) ITCHING azithromycin Allergy (Unknown, Verified 05/19/25 17:37) facial redness Penicillins (PENICILLINS) Allergy (Unknown, Verified 05/19/25 17:37) ANAPHYLAXIS vancomycin Adverse Reaction (Verified 05/19/25 17:37) Itching Medication List - Last Reconciled 05/19/25 by Josefina Faith MD alum-mag hydroxide-simeth 200-200-20 mg/5 mL (Mag-Al Plus) 10 mL PO QID PRN cyclobenzaprine 10 mg PO TID PRN dicyclomine 20 mg PO QID 30 days escitalopram oxalate 5 mg PO DAILY famotidine 40 mg PO BEDTIME fluticasone propionate 50 mcg/actuation 1 spray intranasal BID PRN hydroxyzine HCl 25 mg PO DAILY ipratropium-albuterol 0.5 mg-3 mg(2.5 mg base)/3 mL 3 mL inhalation Q4H PRN lidocaine 5% 1 patch topical DAILY linaclotide (Linzess) 72 mcg PO QAM ovcaxg-nxqojirp-ydlrolv (pork) 36,000-114,000- 180,000 unit (Creon) 2 caps PO BID magnesium oxide 400 mg PO BEDTIME nebulizers (VixOne Nebulizer-Adult Mask) As directed pantoprazole (Protonix) 40 mg PO DAILY 30 days Symbicort 160-4.5 mcg/actuation (budesonide-formoterol) 2 puffs inhalation BID 90 days NS tiotropium bromide 2.5 mcg/actuation (Spiriva Respimat) 2 puffs inhalation QAM 90 days ubrogepant (Ubrelvy) 50 - 100 mg (0.5 - 1 x 100 mg) PO ONCE PRN 30 days Ventolin HFA 90 mcg/actuation (albuterol sulfate) 2 puffs inhalation Q6H PRN NS Tobacco use date assessed: 05/19/25 Dental Screening Dental Screen Date: 05/19/25 Did you have a dental visit in the last 12 months?: Yes Did you have a dental problem in the last 6 months where you did not have access to dental care?: No Was dental information given to patient?: Patient has dentist HPI HPI Comments History of Present Illness Details The patient is a 39-year-old female presenting for management of multiple chronic conditions including sarcoidosis, depression with anxiety, asthma, constipation, and migraine. Sarcoidosis was previously diagnosed and is being monitored by a christmas tree farm crew boss and computer graphics illustrator, although recent evaluations suggest the condition is no longer present. The patient is scheduled for a follow-up appointment with the computer graphics illustrator on July 11. Depression with anxiety is being treated with escitalopram 5 mg daily, and the patient's PHQ-9 score is currently 6, indicating mild depression. The patient reports some improvement in symptoms. Asthma is managed with Symbicort and Spiriva, and the patient reports controlled symptoms with occasional exacerbations. Constipation is a persistent issue, and the patient is under the care of a manager review. The patient has been prescribed linaclotide for management. Migraine is treated with ubrogepant, and the patient reports that migraines are less frequent but still occur occasionally. [facility] Medical History (Updated 05/19/25 @ 17:45 by Josefina Faith MD) Physical exam Abnormal CT scan, gastrointestinal tract Bronchitis Family history of diabetes mellitus Colitis GERD (gastroesophageal reflux disease) Chronic idiopathic constipation Mild recurrent major depression Umbilical hernia Sarcoidosis Asthma Surgical History History of umbilical hernia repair H/O esophagogastroduodenoscopy History of tubal ligation Previous section History of appendectomy Family History Father Essential hypertension Arthritis CAD (coronary artery disease) Mother Essential hypertension Diabetes mellitus Social History Housing: Apartment Unable to assess alcohol history related to: Unknown Alcohol intake: never Patient Tobacco Use Status: Former Tobacco user Tobacco use type: Cigarette e-Cigarette/Vaping Use: Never Used Second Hand Smoke Exposure: No service: No Current occupational status: unemployed Cognitive needs: No Hearing needs: No Vision needs: No Questionnaire PHQ-9 Over the last 2 weeks, how often have you been bothered by any of the following problems? 1. Little interest or pleasure in doing things: several days 2. Feeling down, depressed, or hopeless: several days 3. Trouble falling or staying asleep, or sleeping too much: not at all 4. Feeling tired or having little energy: several days 5. Poor appetite or overeating: several days 6. Feeling bad about yourself - or that you are a failure or have let yourself or your family down: several days 7. Trouble concentrating on things, such as reading the newspaper or watching television: several days 8. Moving or speaking so slowly that other people could have noticed. Or the opposite - being so fidgety or restless that you have been moving around a lot more than usual: not at all 9. Thoughts that you would be better off or of hurting yourself in some way: not at all Total score: 6 Depression Screening Interpretation: Positive Depression Screening Follow-up: Existing condition, In treatment and Follow-up Visit Requested Depression Screening Done: Yes 44439 - PHQ-9 Billing: Yes Source: Developed by Drs. Jr Nava, Fabiloa Kaur, Ehsan Penn and colleagues, with an educational kraig from [employer]. Thrive Questionnaire Date Thrive assessed: 11/06/24 I am a: Patient What is your living situation today?: I have a steady place to live Within the past 12 months, did the food you bought not last and you didn't have the money to get more?: Never true Within the past 12 months, did you worry whether your food would run out before you got money to buy more?: Never true Do you have trouble paying for medicines?: No Do you have trouble getting transportation to medical appointments?: No Do you have trouble paying your heating and electricity bill?: Yes Do you have trouble taking care of your child, family member or friend?: No Do you have trouble with day-to-day activities such as bathing, preparing meals, shopping, managing finances, etc.?: No Are you currently unemployed and looking for a job?: I choose not to answer this question Are you interested in more education?: I choose not to answer this question Please select the resources that you would like help with: Utilities Currently or been in a relationship where the following occur: No concerns reported THRIVE Score: 1 AUDIT C Alcohol Use Questionnaire (AUDIT-C) 1. How often do you have a drink containing alcohol?: Never 3. How often do you have six or more drinks on one occasion?: Never Total Score: 0 Score Reviewed/Action Taken: No TO-7 AMB Questionnaire TO-7 Date TO - 7 assessed: 11/06/24 Feeling nervous, anxious, or on edge: 0 = Not at all Not being able to stop or control worryin = Not at all Worrying too much about different things: 1 = Several days Trouble relaxin = Not at all Being so restless that it is hard to sit still: 0 = Not at all Becoming easily annoyed or irritable: 1 = Several days Feeling afraid as if something awful might happen: 0 = Not at all Total TO-7 score (0-4 normal; 5-9 mild; 10-14 moderate; 15-21 severe): 2 Source: Developed by Drs. Jr Nava, Fabiola Kaur, Ehsan Penn and colleagues, with an educational kraig from [employer]. TO-7 Assessment Billing TO-7 Assessment Tool: TO-7 Assessment 06818 Review of Systems Const All systems reviewed & are unremarkable except as noted in HPI and below Card Denies chest pain at rest, Denies chest pain with activity, Denies edema, Denies irregular heart rhythm, Denies claudication, Denies dyspnea, Denies dyspnea on exertion, Denies orthopnea, Denies paroxysmal nocturnal dyspnea and Denies slow heart rate Resp Denies cough, Denies dyspnea and Denies dyspnea on exertion Physical exam (Primary Care) Vital Signs: Last Vital Signs Temp 97.5 F 05/19/25 17:07 Pulse 81 05/19/25 17:07 BP 136/84 05/19/25 17:07 Pulse Ox 98 05/19/25 17:07 Oxygen Delivery Method Room Air 05/19/25 17:07 BMI result Body Mass Index 26.3 Tobacco/Smoking Status: Tobacco use Status Tobacco use date assessed 05/19/25 05/19/25 17:10 Patient Tobacco Use Status Former Tobacco user 05/19/25 17:10 Tobacco use type Cigarette 05/19/25 17:10 e-Cigarette/Vaping Use Never Used 05/19/25 17:10 PHQ-9: PHQ-9 Score PHQ-9: Total score 6 05/19/25 17:45 Depression Screening Interpretation: Positive Depression Screening Follow-up: Existing condition, In treatment and Follow-up Visit Requested Thrive Assessment: Date of Thrive Assessment Date Thrive assessed 11/06/24 05/19/25 17:10 Currently or been in a relationship where the following occur: No concerns reported Resp Effort & Inspection: normal respiratory effort Auscultation: clear to auscultation bilaterally Cardio Jugular venous distension: no JVD Rate: regular rate Rhythm: regular rhythm Heart sounds: S1 normal heart sound present and S2 normal heart sound present Extrem General: Yes full ROM Coding Level of Care Code Est Pt Level 4 (59628) Complex EM visit Add On G2211 Diagnoses Mild recurrent major depression F33.0 Diarrhea R19.7 Sarcoidosis D86.9 Migraine with aura G43.109 Asthma J45.909 Additional Codes TO-7 Assessment Billing - TO-7 Assessment Tool: TO-7 Assessment 46321 ([id number]) PHQ-9 - 50392 - PHQ-9 Billing: Yes ([id number]) Time Spent (min) 20 Assessment & Plan Assessment & Plan (1) Mild recurrent major depression: Code(s): F33.0 - Major depressive disorder, recurrent, mild Category: Medical (2) Diarrhea: Code(s): R19.7 - Diarrhea, unspecified Category: Medical (3) Sarcoidosis: Comment: history of sarcoid in cervical node biopsy 2018 Code(s): D86.9 - Sarcoidosis, unspecified Category: Medical (4) Migraine with aura: Comment: sees black dots Code(s): G43.109 - Migraine with aura, not intractable, without status migrainosus Category: Medical (5) Asthma: Code(s): J45.909 - Unspecified asthma, uncomplicated Category: Medical Plan Plan 1. Sarcoidosis The patient is scheduled for a follow-up with the computer graphics illustrator on July 11 to reassess the status of sarcoidosis, which was previously diagnosed but recent evaluations suggest it may no longer be present. 2. Depression With Anxiety The patient is currently on escitalopram 5 mg daily, with a PHQ-9 score of 6 indicating mild depression, and reports some improvement in symptoms. 3. Asthma Asthma is managed with Symbicort and Spiriva, with the patient reporting controlled symptoms and occasional exacerbations. 4. Constipation The patient is under the care of a manager review and is prescribed linaclotide for management of constipation. 5. Migraine Migraine is treated with ubrogepant, and the patient reports that migraines are less frequent but still occur occasionally. Orders: Orders CDiff Gene PCR Today R19.7 - Diarrhea, unspecified
--- OUTSIDE RECORDS SUMMARY | 2025-05-19 20:43 | XMS_ITS | Clinical Summary ---
Author Organization [facility] Address [address] [place] [address] Phone Care Team Providers Care Community Recreation Coordinator Name Role Phone Josefina Stacy MD Primary [...] Insurance [facility] [place] [address] [place] [address] [place] [address] [place] [address] [place] [address] [place] [address] ACO Care Teams Community Recreation Coordinator Relationship Specialty Start Date End Date Josefina Stacy MD [address] [place] [id number] PCP - General Internal Medicine 11/16/18 Additional Source Comments The information contained in this document represents components of the legal health record. It is not the complete legal health record.[facility]
--- OUTSIDE RECORDS SUMMARY | 2025-05-19 20:43 | XMS_ITS | Clinical Summary ---
Author Organization [employer] Address [address] [facility] [address]t [place] [address] Care Team Providers Care Intelligence Chief Name Role Phone Unavailable Primary Care Provider [...] Cancer Screening 2015 HPV/Cotest 2015 COVID-19 Vaccine (1 - 2023-2 5 season) 2025 Influenza Vaccine (#1) 2025 Zoster Vaccines (1 [...]
--- OUTSIDE RECORDS SUMMARY | 2025-05-19 20:43 | XMS_ITS | Encounter Summary ---
Author Organization [employer] [facility] Address [address] [facility] 7t [place] [address] Care Team Providers Care Tap Grinder Name Role Phone Unavailable Primary Care Provider [...]
== END 2025-05-19 17:48 | disposition home or self-care (01) ==
LOC: HO.HMCH 16:51
PROVIDERS: PCP Internal Medicine; Visit Provider Internal Medicine
DX: F33.0 Major depressive disorder, recurrent, mild (principal); R19.7 Diarrhea, unspecified; D86.9 Sarcoidosis, unspecified; G43.109 Migraine with aura, not intractable, without status migrainosus; J45.909 Unspecified asthma, uncomplicated

== ENCOUNTER → 2025-05-19 16:51 | Outpatient (BNVA) | payer OTHER, SELFPAY | PROVIDERS: PCP Internal Medicine; Visit Provider Internal Medicine | DX: F33.0 Major depressive disorder, recurrent, mild (principal); F41.9 Anxiety disorder, unspecified; R19.7 Diarrhea, unspecified; D68.9 Coagulation defect, unspecified; G43.109 Migraine with aura, not intractable, without status migrainosus; J45.909 Unspecified asthma, uncomplicated; Z13.31 Encounter for screening for depression | CPT/HCPCS: 96127; 99212 ==

== ENCOUNTER 2025-05-20 14:47 | Outpatient (REF) | payer OTHER, SELFPAY ==
--- OUTSIDE RECORDS SUMMARY | 2025-05-20 19:54 | XMS_ITS | Encounter Summary ---
Author Organization [employer] [facility] Address [address] [facility] 7[address] [place] [address] Care Team Providers Care Tear Down Matcher Name Role Phone Unavailable Primary Care Provider [...]
--- OUTSIDE RECORDS SUMMARY | 2025-05-20 19:54 | XMS_ITS | Clinical Summary ---
Author Organization [employer] Address [address] [facility] 7[address] [place] [address] Care Team Providers Care Development Associate Name Role Phone Unavailable Primary Care [...]
--- OUTSIDE RECORDS SUMMARY | 2025-05-20 19:54 | XMS_ITS | Clinical Summary ---
Author Organization [facility] Address [address] [place] [address] Phone Care Team Providers Care International Travel Consultant Name Role Phone Josefina Stacy MD Primary [...] file Medical Devices Not on file Insurance [facility] [place] [address] [place] [address] [address] [place] [address] [place] [address] [place] [address] ACO Care Teams International Travel Consultant Relationship Specialty Start Date End Date Josefina Stacy MD [address] [place] [phone] PCP - General Internal Medicine 11/16/18 Additional Source Comments The information contained in this document represents components of the legal health record. It is not the complete legal health record.[facility]
== END 2025-05-20 14:48 | disposition home or self-care (01) ==
LOC: HO.LAB 14:47
PROVIDERS: PCP Internal Medicine; Visit Provider Internal Medicine
DX: Z13.89 Encounter for screening for other disorder (principal)

== ENCOUNTER 2025-07-11 11:05 | Outpatient (AMB) | payer OTHER, SELFPAY ==
--- NOTE | 2025-07-11 11:08 | A.OFFVIS_ITS ---
Vital Signs 07/11/25 11:17 Height 5 ft 6 in Weight 164 lb 14.492 oz BMI 26.6 BP 134/82 Blood Pressure Location Lt brachial Position Sitting Pulse 95 Pulse Source Pulse Oximeter Pulse Oximetry (%) 96 Oxygen Delivery Method Room Air Intake Visit Reasons: joint pain Intake Note: New Patient presents today for joint pain. Patient c/o pain of joint all over. Patient stated she had these symptom for more than two years. Patient takes over the counter medication for pain. Airway Traffic Controller Required: Yes Airway Traffic Controller Language: Adult Education Teacher Services: Airway Traffic Controller Present Airway Traffic Controller Name: Shadi Mishra [id number] Information Interpreted: non-clinical & clinical Accompanied by: Self / Same As Patient Allergies doxycycline Allergy (Severe, Verified 07/11/25 11:17) tongue swelling morphine (MORPHINE) Allergy (Intermediate, Verified 07/11/25 11:17) RASH, headache, redness, throat swelling sumatriptan (From IMITREX) Allergy (Mild, Verified 07/11/25 11:17) ITCHING azithromycin Allergy (Unknown, Verified 07/11/25 11:17) facial redness Penicillins (PENICILLINS) Allergy (Unknown, Verified 07/11/25 11:17) ANAPHYLAXIS vancomycin Adverse Reaction (Verified 07/11/25 11:17) Itching Medication List - Last Reconciled 07/11/25 by Sonam Oden MD alum-mag hydroxide-simeth 200-200-20 mg/5 mL (Mag-Al Plus) 10 mL PO QID PRN cyclobenzaprine 10 mg PO TID PRN dicyclomine 20 mg PO QID 30 days escitalopram oxalate 5 mg PO DAILY famotidine 40 mg PO BEDTIME fluticasone propionate 50 mcg/actuation 1 spray intranasal BID PRN gabapentin 100 - 300 mg (1 - 3 x 100 mg) PO BEDTIME hydroxyzine HCl 25 mg PO DAILY ipratropium-albuterol 0.5 mg-3 mg(2.5 mg base)/3 mL 3 mL inhalation Q4H PRN lidocaine 5% 1 patch topical DAILY linaclotide (Linzess) 72 mcg PO QAM thkziy-alqwriqj-tbeplzh (pork) 36,000-114,000- 180,000 unit (Creon) 2 caps PO BID magnesium oxide 400 mg PO BEDTIME nebulizers (VixOne Nebulizer-Adult Mask) As directed pantoprazole (Protonix) 40 mg PO DAILY 30 days Symbicort 160-4.5 mcg/actuation (budesonide-formoterol) 2 puffs inhalation BID 90 days NS tiotropium bromide 2.5 mcg/actuation (Spiriva Respimat) 2 puffs inhalation QAM 90 days ubrogepant (Ubrelvy) 50 - 100 mg (0.5 - 1 x 100 mg) PO ONCE PRN 30 days Ventolin HFA 90 mcg/actuation (albuterol sulfate) 2 puffs inhalation Q6H PRN NS HPI Comments Details: Patient is a 40 year old female with hx of biopsy proven sarcoidosis (sublingual gland), GERD, IBS with constipation/diarrhea, Asthma, migraine, depression and fibromyalgia here today for evaluation of polyarthralgias - She reports having pain for many years. - The pain is located in her legs and she experiences allodynia, with pain resulting from light touch. - She has difficulty grasping objects and reports a past incident where her thumb made a crackling sound. - Her pain is exacerbated by heat, which also causes painful bumps to appear. - She also experiences pain in her hands with cold exposure but denies any associated color changes. - The patient was diagnosed with sarcoidosis four years ago and was treated with three pumps. - Her daughter has a known allergy to gabapentin. [facility] Medical History Physical exam Abnormal CT scan, gastrointestinal tract Bronchitis Family history of diabetes mellitus Colitis GERD (gastroesophageal reflux disease) Chronic idiopathic constipation Mild recurrent major depression Umbilical hernia Sarcoidosis Asthma Surgical History History of umbilical hernia repair H/O esophagogastroduodenoscopy History of tubal ligation Previous section History of appendectomy Family History Father Essential hypertension Arthritis CAD (coronary artery disease) Mother Essential hypertension Diabetes mellitus Social History Housing: Apartment Alcohol intake: never Patient Tobacco Use Status: Former Tobacco user Tobacco use type: Cigarette e-Cigarette/Vaping Use: Never Used Second Hand Smoke Exposure: No service: No Current occupational status: unemployed Cognitive needs: No Hearing needs: No Vision needs: No Review of Systems Narrative Review of Systems - Musculoskeletal: Reports chronic pain in her legs and hands. - Reports difficulty with rn vascular strength. - Reports a historical crackling sound in her thumb. - Neurological: Reports allodynia, with pain caused by light touch. - Dermatologic: Reports painful bumps associated with heat exposure. - Vascular: Denies color change in her hands with cold exposure All other systems reviewed and are unremarkable except noted above Physical Exam Exam Exam: Vital signs reviewed Physical Examination CONSTITUITIONAL Patient alert and cooperative. Well appearing and in no apparent painful distress MSK Hands * Right Hand: Able to make a fist. No swelling or tenderness to palpation of the MCPs, PIPs or DIPs. * Left Hand: Able to make a fist. No swelling or tenderness to palpation of the MCPs, PIPs or DIPs. Wrists * Right Wrist: Full ROM to flexion and extension. No swelling or TTP * Left Wrist: Full ROM to flexion and extension. No swelling or TTP Elbows * Right Elbow: Full ROM. No swelling or TTP. No TTP of the medial epicondyle. TTP of the lateral epicondyle * Left Elbow: Full ROM. No swelling or TTP. No TTP of the medial epicondyle. TTP of the lateral epicondyle Shoulders * Right shoulder: Full ROM. No swelling noted. No TTP of the AC joint. No TTP of the subacromial bursa. No TTP of the posterior shoulder * Left shoulder: Full ROM. No swelling noted. No TTP of the AC joint. No TTP of the subacromial bursa. No TTP of the posterior shoulder Hip bursa: Tenderness to palpation bilaterally Knees * Right knee: Full ROM. No swelling noted. No TTP of the knee joint line. TTP of pes anserine bursa * Left knee: Full ROM. No swelling noted. No TTP of the knee joint line. TTP of pes anserine bursa. Ankles * Right ankle: Good ankle dorsiflexion and plantar flexion. No swelling. No TTP of the ankle joint * Left ankle: Good ankle dorsiflexion and plantar flexion. No swelling. No TTP of the ankle joint Feet * Right foot: Negative squeeze test * Left foot: Negative squeeze test Tender points? * Tenderness to palpation of the bilateral trapezius, supraspinatus, anterior costochondral junctions, bilateral suboccipital muscle insertions SKIN No rashes Vital Signs: Last Vital Signs Pulse 95 07/11/25 11:17 BP 134/82 07/11/25 11:17 Pulse Ox 96 07/11/25 11:17 Oxygen Delivery Method Room Air 07/11/25 11:17 BMI result Body Mass Index 26.6 Results Reviewed Results Reviewed: Laboratory Tests 12/12/23 09/28/24 11:13 19:05 WBC 8.1 RBC 4.26 Hgb 10.6 L Hct 33.5 L Plt Count 394 ESR 13 Sodium 140 Potassium 3.9 Chloride 109 H Carbon Dioxide 23 BUN 11 Creatinine 0.72 AST 18 ALT 14 Alkaline Phosphatase 62 C-Reactive Protein 0.36 Laboratory Tests 07/04/23 12/12/23 09:44 11:13 JOSEFINA Screen NEGATIVE Thyroglobulin Antibody 17 H Thyroid Peroxidase Ab 137 H Assessment & Plan Assessment & Plan (1) Fibromyalgia: Code(s): M79.7 - Fibromyalgia Category: Medical Plan: #Fibromyalgia The patient's symptoms of chronic widespread pain, allodynia, and exacerbation by temperature are consistent with a diagnosis of fibromyalgia. It was explained that fibromyalgia is a nerve disorder and not an autoimmune disease, and that there is currently no cure, making it a frustrating condition to manage. The plan is to initiate treatment with gabapentin to help manage the nerve pain. She will start on a low dose of 100 mg at night to assess tolerance, with a plan to titrate up to 300 mg at night. Printed educational materials on fibromyalgia were provided. Follow-up is scheduled in 4 months to reassess her symptoms and adjust the medication. Low suspicion for autoimmune inflammatory arthritis at this time Note is made of her history of sarcoidosis by sublingually biopsy. She should continue her follow up with pulmonology Plan - Gabapentin 100mg nightly with plan to increase to 300mg nightly - RTC 4 months Plan I spent 30 minutes reviewing the record and labs, taking a history, examining the patient, discussing the treatment plan, ordering diagnostic work up and documenting in the medical record Medications: New gabapentin Take 1 tablet at night, once tolerated slowly increase to 3 tablets at night 100 - 300 mg (1 - 3 x 100 mg) PO BEDTIME 180 caps 1RF M79.7 - Fibromyalgia Coding Level of Care Code New Pt Level 3 (74909) Diagnoses Fibromyalgia M79.7
[2025-07-11 11:17] VITALS: BP 134/82; PULSE 95; O2SAT 96; BMI 26.6
== END 2025-07-11 11:51 | disposition home or self-care (01) ==
LOC: HO.RHES 11:06
PROVIDERS: PCP Internal Medicine; Visit Provider Student in an Organized Health Care Education/Training Program
DX: M79.7 Fibromyalgia (principal)
CPT/HCPCS: 99203

== ENCOUNTER → 2025-07-11 11:05 | Outpatient (BNVA) | payer OTHER, SELFPAY | PROVIDERS: PCP Internal Medicine; Visit Provider Student in an Organized Health Care Education/Training Program | DX: M79.7 Fibromyalgia (principal) | CPT/HCPCS: 99202 ==